=== PATIENT | male | born 1940 | race Caucasian/White ===

== ENCOUNTER → 2018-05-02 | Outpatient (CLI) | payer MEDICARE ==
--- NOTE | 2018-05-02 13:17 | XR ---
EXAMINATION TYPE: XR KUB DATE OF EXAM: 05/02/2018 COMPARISON: 05/18/2012 HISTORY: Pain TECHNIQUE: One view abdominal series FINDINGS: The osseous structures are intact. The bowel gas pattern is nonspecific. Scoliosis and severe multil evel degenerative disc disease noted. Assessment of the renal outlines is limited due to overlying bowel content. No obvious suspicious martin cifications. Postsurgical changes involving the pelvis. Arthropathy of the hips. Calcifications in the pelvis. Sta ble from the prior exam and compatible with vascular phleboliths. IMPRESSION: 1. No definite suspicious calcifications.
== END | disposition home or self-care (01) ==
LOC: RADXRMAIN 12:52
PROVIDERS: ATTEND Urology
DX: N20.1 Calculus of ureter (principal)
CPT/HCPCS: 74018

== ENCOUNTER → 2020-12-29 | Day surgery (SDC) | payer MEDICARE ==
[2020-12-25 15:10] VITALS: BMI 33.4
[~2020-12-29] MED LIST: MIDAZOLAM 2 MG/2 ML VIAL ONE; PROPOFOL 10 MG/ML 20 ML VIAL IV ONE; SODIUM CHLORIDE 0.9% 1,000 ML IV SCH; fentaNYL (PF) 50 MCG/ML 2 ML AMP ONE
[2020-12-29 07:47] VITALS: TEMP 97.7
[2020-12-29 08:09] LABS: African American GFR (CKD) >90 (>60 ml/min/1.73 sqM); Anion Gap 8 mmol/L; Blood Urea Nitrogen 15 mg/dL (9-20); Calcium 9.7 mg/dL (8.4-10.2); Carbon Dioxide 26 mmol/L (22-30); Chloride 101 mmol/L (98-107); Glucose 117 mg/dL (74-99); Non-African American GFR(CKD) 80 (>60 ml/min/1.73 sqM); Potassium 3.9 mmol/L (3.5-5.1); Sodium 135 mmol/L (137-145)
[2020-12-29 09:39] VITALS: RESP 16
--- NOTE | 2020-12-29 09:46 | ECHOT ---
TRANSESOPHAGEAL ECHOCARDIOGRAM INDICATION: Permanent atrial fibrillation, rule out intracardiac thrombus. PROCEDURE NOTE: After obtaining informed consent, transesophageal echocardiogram was performed in left lateral position using an Omniplane probe. Local and IV sedation were obtained by the biomedical instrument technician. The patient tolerated the procedure well without any obvious immediate complications. FINDINGS: 1. Left atrial appendage: There is no thrombosis. 2. Left atrium, right atrium, right ventricle and left ventricle: There is no intracardiac thrombus. 3. Left ventricle appears mildly enlarged with ejection fraction of 50%. Mitral valve appears anatomically normal. There is mild to moderate central mitral regurgitation noted. 4. Aortic valve is a 3-leaflet valve. There is no evidence of aortic stenosis or regurgitation. 5. There is mild tricuspid regurgitation. 6. Interatrial septum: There is no evidence of ucwj-kh-dnnqb shunt by color-flow Doppler or nzmdp-ce-wtpt shunt by agitated saline contrast study. 7. Left atrium appears enlarged. CONCLUSIONS: 1. No intracardiac thrombus. 2. Fxdf-qv-wrdktzna mitral regurgitation. PLAN: The patient will undergo cardioversion. MMODL / IJN: [id number] /
--- NOTE | 2020-12-29 10:45 | CE ---
CARDIAC ELECTROPHYSIOLOGY REPORT CARDIOVERSION NOTE: INDICATION: Permanent atrial fibrillation. PROCEDURE NOTE: After obtaining informed consent, the patient underwent electrical cardioversion and was anesthetized by the hardwood floor installer and was adequately anticoagulated by Eliquis. We performed a DUDLEY and the patient does not have any intracardiac thrombus. Patient underwent a single synchronized 300 joule shock following which he converted to sinus rhythm. PLAN: Patient will have an EKG and will be discharged home on Eliquis and I will decrease the dose of metoprolol to 25 b.i.d. MMODL / IJN: [id number] /
[2020-12-29 11:21] VITALS: BP 107/59; PULSE 49
== END ==
LOC: CATHCVL 07:25
PROVIDERS: ATTEND Internal Medicine Cardiovascular Disease
DX: I48.21 Permanent atrial fibrillation (principal); I08.1 Rheumatic disorders of both mitral and tricuspid valves; I10 Essential (primary) hypertension; E78.2 Mixed hyperlipidemia; Z79.01 Long term (current) use of anticoagulants; Z79.899 Other long term (current) drug therapy; Z72.0 Tobacco use
CPT/HCPCS: 93312; 93320; 93325; 92960; 80048; J2250; J3010; J2704

== ENCOUNTER → 2023-05-24 | Day surgery (SDC) | payer MEDICARE ==
[2023-05-23 16:12] VITALS: BMI 34.0
[~2023-05-24] MED LIST changes: +LACTATED RINGERS 1,000 ML IV ONE; -MIDAZOLAM 2 MG/2 ML VIAL ONE; -SODIUM CHLORIDE 0.9% 1,000 ML IV SCH; -fentaNYL (PF) 50 MCG/ML 2 ML AMP ONE
[2023-05-24 08:26] VITALS: TEMP 97.1
[2023-05-24 08:38] LABS: African American GFR (CKD) >90 (>60 ml/min/1.73 sqM); Anion Gap 10 mmol/L; Blood Urea Nitrogen 17 mg/dL (9-20); Carbon Dioxide 25 mmol/L (22-30); Chloride 99 mmol/L (98-107); Glucose 110 mg/dL (74-99); Non-African American GFR(CKD) 81 (>60 ml/min/1.73 sqM); Potassium 4.6 mmol/L (3.5-5.1); Sodium 134 mmol/L (137-145)
--- NOTE | 2023-05-24 10:05 | ECHOT ---
TRANSESOPHAGEAL ECHOCARDIOGRAM INDICATION: Persistent atrial fibrillation, rule out intracardiac thrombus prior to cardioversion. PROCEDURE NOTE: After obtaining informed consent, transesophageal echocardiogram was performed in left lateral position using an Omniplane probe. Local and IV sedation were obtained by the chip crusher operator. The patient tolerated the procedure well without any obvious immediate complications. FINDINGS: 1. There is an echodense lesion noted within the left atrial appendage suggestive of left atrial appendage thrombus. Left atrium appears enlarged. 2. Right atrium and right ventricle appear enlarged. 3. Left ventricle appears mildly dilated with diffuse global hypokinesis with mild LV dysfunction with an ejection fraction of 45% to 50%. 4. Aortic valve is free of stenosis or regurgitation. There is mild mitral and tricuspid regurgitation noted. 5. Interatrial septum, there is evidence of eyuy-wq-aiisv shunt by color-flow Doppler. No evidence of wxnko-ly-nymy shunt with agitated saline contrast study. CONCLUSION: Left atrial appendage thrombus noted. We are going to cancel the cardioversion at this time. I am going to talk to the patient and his about taking the anticoagulant regularly and we will bring him back in 6 to 8 weeks' time and make another attempt at cardioversion. MMODL / IJN: [id number] /
[2023-05-24 10:11] VITALS: RESP 20
[2023-05-24 10:17] VITALS: BP 139/82; PULSE 62
== END ==
LOC: OR 06:50
PROVIDERS: ATTEND Internal Medicine Cardiovascular Disease
DX: I48.19 Other persistent atrial fibrillation (principal); I23.6 Thrombosis of atrium, auricular appendage, and ventricle as current complications following acute myocardial infarction; I34.0 Nonrheumatic mitral (valve) insufficiency; I36.1 Nonrheumatic tricuspid (valve) insufficiency; I10 Essential (primary) hypertension; E78.2 Mixed hyperlipidemia; I49.9 Cardiac arrhythmia, unspecified; R55 Syncope and collapse; K21.9 Gastro-esophageal reflux disease without esophagitis; Z87.891 Personal history of nicotine dependence; Z79.01 Long term (current) use of anticoagulants; Z79.899 Other long term (current) drug therapy; Z90.79 Acquired absence of other genital organ(s)
CPT/HCPCS: 93312; 93320; 93325; 80048; J2704

== ENCOUNTER 2023-07-11 15:29 | Inpatient (IN) | payer MEDICARE ==
--- NOTE | 2023-07-11 16:09 | ED ---
General Adult HPI - General Source: patient, RN notes reviewed <Arielle Young - Last Filed: 07/11/23 16:02> <Rod Pereira - Last Filed: 07/12/23 00:31> - General Stated complaint: weakness Time Seen by Provider: 07/11/23 16:02 - History of Present Illness Initial comments: 82 year old male presents to the emergency department for chief complaint of lightheadedness, shortness of breath while he was standing pumping gas today. He admits that he is still feeling dizzy. Denies chest pain. Hx of afib which he follows with Dr. Wilcox. He takes Eliquis and asa. (Arielle Young) Patient had presented with dizziness, lightheadedness. This was sudden in onset. Patient does state he took his blood pressure medication at approximately noon. This included both clonidine 0.3 mg and 100 mg Toprol-XL. Denies any pain complaints. Denies vomiting. Denies fever. (Rod Pereira) - Related Data Home Medications Medication Instructions Recorded Confirmed Apixaban [Eliquis] 5 mg PO BID 12/25/20 07/11/23 Esomeprazole Magnesium [NexIUM] 40 mg PO DAILY 12/25/20 07/11/23 Losartan Potassium 100 mg PO DAILY 12/25/20 07/11/23 Niacin 500 mg PO DAILY 12/25/20 07/11/23 [place]-3 Fatty Acids/Fish Oil [Fish 1 cap PO DAILY 12/25/20 07/11/23 Oil 1,000 mg Softgel] Potassium Chloride [Potassium 10 meq PO TID 12/25/20 07/11/23 Chloride ER] Vitamin B Complex 1 cap PO DAILY 12/25/20 07/11/23 hydroCHLOROthiazide 25 mg PO DAILY 12/25/20 07/11/23 Acetaminophen [Tylenol Arthritis] 1,300 mg PO TID 05/23/23 07/11/23 Metoprolol Succinate (ER) [Toprol 100 mg PO DAILY 05/23/23 07/11/23 Xl] Pumpkin Seed Oil 3,000 mg PO TID 05/23/23 07/11/23 Ubidecarenone [Co Q-10] 400 mg PO DAILY 05/23/23 07/11/23 Aspirin EC [Ecotrin] 325 mg PO DAILY 07/11/23 07/11/23 Furosemide [Lasix] 20 mg PO DAILY 07/11/23 07/11/23 Magnesium Oxide [Magox 400] 400 mg PO DAILY 07/11/23 07/11/23 cloNIDine HCL [Catapres] 0.3 mg PO TID 07/11/23 07/11/23 hydrALAZINE HCL [Apresoline] 10 mg PO DAILY PRN 07/11/23 07/11/23 Allergies Allergy/AdvReac Type Severity Reaction Status Date / Time No Known Allergies Allergy Verified 07/11/23 17:31 Review of Systems ROS Other: All systems not noted in ROS Statement are negative. <Arielle Young - Last Filed: 07/11/23 16:02> ROS Other: All systems not noted in ROS Statement are negative. <Rod Pereira - Last Filed: 07/12/23 00:31> ROS Statement: Those systems with pertinent positive or pertinent negative responses have been documented in the HPI. Past Medical History Past Medical History: Atrial Fibrillation, Cancer, GERD/Reflux, Hearing Disorder / Deafness, Hypertension, Osteoarthritis (OA) Additional Past Medical History / Comment(s): Hx prostate cancer 13 yrs ago, hx skin cancer, recent frequent headaches in the morning. Mild hearing loss. History of Any Multi-Drug Resistant Organisms: None Reported Past Surgical History: Prostate Surgery Additional Past Surgical History / Comment(s): Prostatectomy, skin cancer removed, colonoscopy. Past Anesthesia/Blood Transfusion Reactions: No Reported Reaction Past Psychological History: No Psychological Hx Reported Smoking Status: Current every day smoker Past Alcohol Use History: None Reported Additional Past Alcohol Use History / Comment(s): Down from 2ppd to less than 1ppd, started smoking 50-55 yrs ago. Past Drug Use History: None Reported - Past Family History Sister(s) Family Medical History: Cancer Additional Family Medical History / Comment(s): Breast cancer. <Arielle Young - Last Filed: 07/11/23 16:02> General Exam <Arielle Young - Last Filed: 07/11/23 16:02> General appearance: alert, in no apparent distress Head exam: Present: atraumatic, normocephalic Eye exam: Present: normal appearance, PERRL ENT exam: Present: normal exam Neck exam: Present: normal inspection, tenderness. Absent: meningismus Respiratory exam: Present: normal lung sounds bilaterally. Absent: respiratory distress, wheezes Cardiovascular Exam: Present: bradycardia, irregular rhythm GI/Abdominal exam: Present: soft. Absent: distended, tenderness, guarding Extremities exam: Present: normal inspection, normal capillary refill Neurological exam: Present: alert, oriented X3, CN II-XII intact Psychiatric exam: Present: normal affect, normal mood Skin exam: Present: warm, dry, intact, normal color <Rod Pereira N - Last Filed: 07/12/23 00:31> - General Exam Comments Initial Comments: Visual Physical Exam Vital signs reviewed General: Well-appearing, nontoxic, no acute distress. Head: Normocephalic, atraumatic Eyes: PERRLA, EOMI ENT: Airway patent Chest: Nonlabored breathing Skin: No visual rash, normal skin tone Neuro: Alert and oriented 3 Musculoskeletal: No gross abnormalities (Kulka,Arielle) Course <Rod Pereira N - Last Filed: 07/12/23 00:31> Vital Signs 07/11/23 07/11/23 07/11/23 16:04 16:19 16:20 Temperature 98.1 F Pulse Rate 54 L 27 L 26 L Pulse Rate [ Certified Industrial Hygienist ] Respiratory 18 18 18 Rate Blood Pressure 111/65 O2 Sat by Pulse 97 94 L 98 Oximetry 07/11/23 07/11/23 07/11/23 16:29 16:30 16:40 Temperature Pulse Rate 28 L 27 L Pulse Rate [ 26 L Certified Industrial Hygienist ] Respiratory 18 16 Rate Blood Pressure 108/98 110/73 O2 Sat by Pulse 95 95 Oximetry 07/11/23 07/11/23 07/11/23 16:50 17:00 17:15 Temperature Pulse Rate 28 L 26 L 26 L Pulse Rate [ Certified Industrial Hygienist ] Respiratory 16 16 9 L Rate Blood Pressure 110/73 80/59 104/71 O2 Sat by Pulse 95 94 L 96 Oximetry 07/11/23 07/11/23 07/11/23 17:30 17:45 18:00 Temperature Pulse Rate 26 L 29 L 25 L Pulse Rate [ Certified Industrial Hygienist ] Respiratory 11 L 18 16 Rate Blood Pressure 104/71 93/57 O2 Sat by Pulse 95 85 L 92 L Oximetry 07/11/23 07/11/23 07/11/23 18:15 18:30 18:44 Temperature Pulse Rate 24 L 25 L 26 L Pulse Rate [ Certified Industrial Hygienist ] Respiratory 16 16 18 Rate Blood Pressure 98/67 100/48 O2 Sat by Pulse 86 L 88 L Oximetry 07/11/23 07/11/23 07/11/23 18:45 19:00 19:15 Temperature Pulse Rate 26 L 25 L 24 L Pulse Rate [ Certified Industrial Hygienist ] Respiratory 18 16 20 Rate Blood Pressure 96/56 O2 Sat by Pulse 97 94 L 91 L Oximetry 07/11/23 07/11/23 07/11/23 19:30 19:34 19:45 Temperature Pulse Rate 24 L 24 L 23 L Pulse Rate [ Certified Industrial Hygienist ] Respiratory 18 18 20 Rate Blood Pressure 108/60 108/60 O2 Sat by Pulse 98 94 L 93 L Oximetry 07/11/23 07/11/23 07/11/23 20:00 20:15 20:30 Temperature Pulse Rate 23 L 22 L 24 L Pulse Rate [ Certified Industrial Hygienist ] Respiratory 20 20 18 Rate Blood Pressure 122/64 98/82 110/82 O2 Sat by Pulse 78 L 81 L Oximetry 07/11/23 07/11/23 07/11/23 20:45 21:00 21:15 Temperature Pulse Rate 22 L 23 L 23 L Pulse Rate [ Certified Industrial Hygienist ] Respiratory 18 21 20 Rate Blood Pressure 109/98 91/80 110/77 O2 Sat by Pulse 78 L 93 L 95 Oximetry 07/11/23 07/11/23 07/11/23 21:45 22:15 22:30 Temperature Pulse Rate 24 L 22 L 22 L Pulse Rate [ Certified Industrial Hygienist ] Respiratory 18 20 20 Rate Blood Pressure 102/79 147/65 108/79 O2 Sat by Pulse 92 L 100 100 Oximetry 07/11/23 07/11/23 07/11/23 22:56 23:15 23:30 Temperature Pulse Rate 20 L 23 L 21 L Pulse Rate [ Certified Industrial Hygienist ] Respiratory 26 H 20 Rate Blood Pressure 100/50 79/66 98/50 O2 Sat by Pulse 93 L 95 Oximetry - Reevaluation(s) Reevaluation #1: 07/11/231929 I discussed case again with cardiology, Dr. Armstrong regarding the patient's heart rate in the 20s. Recommends continued plan of holding medications. No additional medication at this time. Patient is alert, blood pressure is stable with heart rate in the 20s. (Rod Pereira) Medical Decision Making <Arielle Young - Last Filed: 07/11/23 16:02> - Lab Data Result diagrams: 07/11/23 16:32 07/11/23 16:32 <Rod Pereira - Last Filed: 07/12/23 00:31> - Medical Decision Making I preformed the quick note portion of this chart. Electronically signed by Arielle Young PA-C. (Arielle Young) Was pt. sent in by a medical professional or institution ([facility] Howell, ANALYTICAL STRATEGIST, urgent care, hospital, or penitentiary...) When possible be specific @ -No Did you speak to anyone other than the patient for history (EMS, parent, family, police, friend...)? What history was obtained from this source @ -No Did you review nursing and triage notes (agree or disagree)? Why? @ -I reviewed and agree with nursing and triage notes Were old charts reviewed (outside hosp., previous admission, EMS record, old EKG, old radiological studies, urgent care reports/EKG's, penitentiary records)? Report findings @ -No old charts were reviewed Differential Diagnosis (chest pain, altered mental status, abdominal pain women, abdominal pain men, vaginal bleeding, weakness, fever, dyspnea, syncope, headache, dizziness, GI bleed, back pain, seizure, CVA, palpatations, mental health, musculoskeletal)? @ Differential Palpitations Ventricular arrhythmias, atrial arrhythmias, myocardial infarction, anemia, thyrotoxicosis, electrolyte imbalance, hypokalemia, pulmonary embolism, pulmonary disease, drugs, alcohol, anxiety, stress.... This is not meant to be an all-inclusive list. EKG interpreted by me (3pts min.). @ -Bradycardia rate of 28, wide-complex QRS, right bundle branch block, suspect underlying A. fib with slow ventricular response QRS duration 137, QTC 502. X-rays interpreted by me (1pt min.). @ -[No acute cardiopulmonary findings CT interpreted by me (1pt min.). @ -None done U/S interpreted by me (1pt. min.). @ -None done What testing was considered but not performed or refused? (CT, X-rays, U/S, labs)? Why? @ -None What meds were considered but not given or refused? Why? @ -None Did you discuss the management of the patient with other professionals (professionals i.e. DrFlorentino, PA, ANALYTICAL STRATEGIST, lab, RT, psych nurse, social work associate, eyelet riveter, teacher, security flex officer, piano case maker)? Give summary @ -Dr. Marshall and Dr. Gonzales Was smoking cessation discussed for >3mins.? @ -No Was critical care preformed (if so, how long)? @ -[Yes, 35 minutes Were there social determinants of health that impacted care today? How? (Homelessness, low income, unemployed, alcoholism, drug addiction, transportation, low edu. Level, literacy, decrease access to med. care, custodial, rehab)? @ -No Was there de-escalation of care discussed even if they declined (Discuss DNR or withdrawal of care, Hospice)? DNR status @ -No What co-morbidities impacted this encounter? (DM, HTN, Smoking, COPD, CAD, Cancer, CVA, ARF, Chemo, Hep., AIDS, mental health diagnosis, sleep apnea, morbid obesity)? @ Atrial fibrillation Was patient admitted / discharged? Hospital course, mention meds given and route, prescriptions, significant lab abnormalities, going to OR and other pertinent info. @ -[82-year-old male with dizziness, likely related to bradycardia. Initial heart rate is in the 30s. This appears to be in underlying A. fib with a junctional rhythm. Patient's blood pressure was maintained. He has good color. He is alert. He had taken his metoprolol and clonidine prior to arrival. His electrolytes are within normal limits including a normal potassium. His heart rate medications will be held at this time. He will be monitored on telemetry bed. I did discuss case both with the admitting physician Dr. Marshall and with the field specialist Dr. Gonzales. Undiagnosed new problem with uncertain prognosis? @ -No Drug Therapy requiring intensive monitoring for toxicity (Heparin, Nitro, Insulin, Cardizem)? @ -No Were any procedures done? @ -No Diagnosis/symptom? @ -[Symptomatic bradycardia Acute, or Chronic, or Acute on Chronic? @ - acute r Complicated (systemic symptoms)? @ Complicated Side effects of treatment? @ -No Exacerbation, Progression, or Severe Exacerbation? @ -No Poses a threat to life or bodily function? How? (Chest pain, USA, MA, pneumonia, PE, COPD, DKA, ARF, appy, cholecystitis, CVA, Diverticulitis, Homicidal, Suicidal, threat to staff... and all critical care pts) @ -[Yes, bradycardia, cardiogenic shock (Rod Pereira) - Lab Data Lab Results 07/11/23 07/11/23 07/11/23 Range/Units 16:32 16:32 16:32 WBC 9.5 (3.8-10.6) k/uL RBC 4.93 (4.30-5.90) m/uL Hgb 15.5 (13.0-17.5) gm/dL Hct 45.1 (39.0-53.0) % MCV 91.5 (80.0-100.0) fL MCH 31.5 (25.0-35.0) pg MCHC 34.5 (31.0-37.0) g/dL RDW 12.2 (11.5-15.5) % Plt Count 196 (150-450) k/uL MPV 7.4 Neutrophils % 71 % Lymphocytes % 20 % Monocytes % 5 % Eosinophils % 2 % Basophils % 1 % Neutrophils # 6.7 (1.3-7.7) k/uL Lymphocytes # 1.9 (1.0-4.8) k/uL Monocytes # 0.5 (0-1.0) k/uL Eosinophils # 0.2 (0-0.7) k/uL Basophils # 0.1 (0-0.2) k/uL PT 10.6 (9.0-12.0) sec INR 1.0 (<1.2) APTT 25.6 (22.0-30.0) sec Sodium 135 L (137-145) mmol/L Potassium 3.6 (3.5-5.1) mmol/L Chloride 97 L (98-107) mmol/L Carbon Dioxide 27 (22-30) mmol/L Anion Gap 11 mmol/L BUN 19 (9-20) mg/dL Creatinine 1.34 H (0.66-1.25) mg/dL Est GFR (CKD-EPI)AfAm 58 (>60 ml/min/1.73 sqM) Est GFR (CKD-EPI)NonAf 50 (>60 ml/min/1.73 sqM) Glucose 112 H (74-99) mg/dL Lactic Ac Sepsis Rflx Plasma Lactic Acid Kushal (0.7-2.0) mmol/L Calcium 9.3 (8.4-10.2) mg/dL Magnesium 2.0 (1.6-2.3) mg/dL Total Bilirubin 0.5 (0.2-1.3) mg/dL AST 28 (17-59) U/L ALT 25 (4-49) U/L Alkaline Phosphatase 54 (38-126) U/L Troponin I (0.000-0.034) ng/mL Total Protein 6.9 (6.3-8.2) g/dL Albumin 4.3 (3.5-5.0) g/dL 07/11/23 07/11/23 07/11/23 Range/Units 16:32 16:32 17:39 WBC (3.8-10.6) k/uL RBC (4.30-5.90) m/uL Hgb (13.0-17.5) gm/dL Hct (39.0-53.0) % MCV (80.0-100.0) fL MCH (25.0-35.0) pg MCHC (31.0-37.0) g/dL RDW (11.5-15.5) % Plt Count (150-450) k/uL MPV Neutrophils % % Lymphocytes % % Monocytes % % Eosinophils % % Basophils % % Neutrophils # (1.3-7.7) k/uL Lymphocytes # (1.0-4.8) k/uL Monocytes # (0-1.0) k/uL Eosinophils # (0-0.7) k/uL Basophils # (0-0.2) k/uL PT (9.0-12.0) sec INR (<1.2) APTT (22.0-30.0) sec Sodium (137-145) mmol/L Potassium (3.5-5.1) mmol/L Chloride (98-107) mmol/L Carbon Dioxide (22-30) mmol/L Anion Gap mmol/L BUN (9-20) mg/dL Creatinine (0.66-1.25) mg/dL Est GFR (CKD-EPI)AfAm (>60 ml/min/1.73 sqM) Est GFR (CKD-EPI)NonAf (>60 ml/min/1.73 sqM) Glucose (74-99) mg/dL Lactic Ac Sepsis Rflx Y Plasma Lactic Acid Kushal 2.2 H* (0.7-2.0) mmol/L Calcium (8.4-10.2) mg/dL Magnesium (1.6-2.3) mg/dL Total Bilirubin (0.2-1.3) mg/dL AST (17-59) U/L ALT (4-49) U/L Alkaline Phosphatase (38-126) U/L Troponin I <0.012 (0.000-0.034) ng/mL Total Protein (6.3-8.2) g/dL Albumin (3.5-5.0) g/dL Critical Care Time Critical Care Time: Yes Total Critical Care Time: 35 <Rod Pereira - Last Filed: 07/12/23 00:31> Disposition <Arielle Young - Last Filed: 07/11/23 16:02> Is patient prescribed a controlled substance at d/c from ED?: No Time of Disposition: 18:29 <Rod Pereira - Last Filed: 07/12/23 00:31> Clinical Impression: Symptomatic bradycardia, Heart block AV complete Disposition: ADMITTED IP TO THIS HOSP Condition: Serious
[2023-07-11] MEDS ORDERED: SODIUM CHLORIDE 0.9% 500 ML 500 ML IV ONE (16:31)
[2023-07-11] MEDS: SODIUM CHLORIDE 0.9% 1,000 ML IV SCH (16:39)
[2023-07-11 17:04] LABS: Basophils # (A) 0.1 k/uL (0-0.2); Basophils % (A) 1 %; Eosinophils # (A) 0.2 k/uL (0-0.7); Eosinophils % (A) 2 %; HCT 45.1 % (39.0-53.0); HGB 15.5 gm/dL (13.0-17.5); Lymphocytes # (A) 1.9 k/uL (1.0-4.8); Lymphocytes % (A) 20 %; MCH 31.5 pg (25.0-35.0); MCHC 34.5 g/dL (31.0-37.0); MCV 91.5 fL (80.0-100.0); Mean Platelet Volume 7.4; Monocytes # (A) 0.5 k/uL (0-1.0); Monocytes % (A) 5 %; Neutrophils # (A) 6.7 k/uL (1.3-7.7); Neutrophils % (A) 71 %; Platelet Count 196 k/uL (150-450); RBC 4.93 m/uL (4.30-5.90); RDW 12.2 % (11.5-15.5); WBC 9.5 k/uL (3.8-10.6)
--- NOTE | 2023-07-11 17:06 | XR ---
EXAMINATION TYPE: XR chest 1V portable DATE OF EXAM: 07/11/2023 4:47 PM CLINICAL INDICATION:Male, 82 years old with history of Pain; COMPARISON: None TECHNIQUE: XR chest 1V portable Frontal view of the chest. FINDINGS: Lungs/Pleura: There is no evidence of pleural effusion, focal consolidation, or pneumothorax. Pulmonary vascularity: Unremarkable. Heart/mediastinum: Cardiomediastinal silhouette is enlarged and stable. Atherosclerotic calcificatio ns are seen in the aorta. Musculoskeletal: No acute osseous pathology. IMPRESSION: No acute cardiopulmonary disease/process.
[2023-07-11 17:29] LABS: ALT 25 U/L (4-49); AST 28 U/L (17-59); African American GFR (CKD) 58 (>60 ml/min/1.73 sqM); Albumin 4.3 g/dL (3.5-5.0); Alkaline Phosphatase 54 U/L (38-126); Anion Gap 11 mmol/L; Blood Urea Nitrogen 19 mg/dL (9-20); Calcium 9.3 mg/dL (8.4-10.2); Carbon Dioxide 27 mmol/L (22-30); Chloride 97 mmol/L (98-107); Glucose 112 mg/dL (74-99); Non-African American GFR(CKD) 50 (>60 ml/min/1.73 sqM); Potassium 3.6 mmol/L (3.5-5.1); Sodium 135 mmol/L (137-145); Total Bilirubin 0.5 mg/dL (0.2-1.3); Total Protein 6.9 g/dL (6.3-8.2)
[2023-07-11 17:59] LABS: Partial Thromboplastin Time 25.6 sec (22.0-30.0); Prothrombin Time 10.6 sec (9.0-12.0)
[2023-07-11] MEDS ORDERED: NALOXONE 0.4 MG/ML 1 ML VIAL IV PRN (18:11)
[2023-07-12] MEDS: DOPamine DRIP 800 MG in DEXTROSE/WATER 1 250ML.BAG IV SCH (00:36)
[2023-07-12] MEDS ORDERED: ONDANSETRON 4 MG/2 ML VIAL IVP PRN (01:01)
[2023-07-12 03:45] LABS: Glucose,Whole Blood 135 mg/dL (70-110)
[2023-07-12] MEDS ORDERED: SODIUM CHLORIDE 0.9% 500 ML 500 ML IV ONE (04:30)
--- NOTE | 2023-07-12 05:54 | P.EN ---
CODE BLUE note Activated at 0454. Arrived at the scene shortly after. Reviewed the chart and discussed the case with RN. Also discussed the case with the patient's at the bedside. The patient who had presented yesterday evening with complaints of lightheadedness and low heart rate. He was found to be bradycardic in the emergency room with a pulse rate of 28 on EKG. The patient was planned for pacemaker placement later today. He however developed asystole with a long pause of 32 seconds. He immediately regained consciousness and complained of mild chest tightness and nausea. The patient's heart rate was persistently in the low to mid 20s. Transcutaneous pacing was ordered for the patient. Cardiology was notified and noted the plan for an emergent pacemaker placement.
[2023-07-12] MEDS ORDERED: IV FLUID CONTINUATION 1,000 ML IV ONE (05:59)
[2023-07-12] MEDS ORDERED: LIDOCAINE 1% INJ 10MG/ML (20 ML MDV) ONE (06:04)
[2023-07-12] MEDS ORDERED: LIDOCAINE 1% INJ 10MG/ML (20 ML MDV) SQ ONE (06:10)
--- NOTE | 2023-07-12 06:45 | P.CRDCN ---
History of Present Illness Consult date: 07/12/23 History of present illness: History of Present Illness: The patient is an 82-year-old male, followed at Dr. Wilcox with a history of hypertension and chronic persistent atrial fibrillation who presented to the emergency room with symptoms of dizziness and was noted to be in atrial fibrillation with slow ventricular response. Patient was on metoprolol succinate 100 mg daily in addition to clonidine. Both medications were held but he continued to have significant bradycardia and pauses. He had a syncopal episode a few months ago. In May he was evaluated to undergo cardioversion but his DUDLEY showed left atrial appendage thrombus. His ejection fraction was 45-50% with mild mitral and tricuspid regurgitation. He has underwent cardioversion in December 2020 with mandaen of sinus mechanism at that time the patient is active physically on a regular basis, he has some symptoms of fatigue and shortness of breath but he denies any chest discomfort. He has no PND, orthopnea or peripheral edema. He has no documented history of obstructive coronary artery disease. He has a history of hypertension and chronic tobacco use, he is not diabetic. After admission he was started on IV dopamine but persisted in having pauses and significant symptomatic bradycardia. Medications: Lasix 20 mg daily, aspirin once a day, clonidine 0.3 mg 3 times a day, metoprolol succinate 100 mg daily, losartan 100 mg daily, hydrochlorothiazide 25 mg daily, Eliquis 5 mg twice a day Review of Systems: Respiratory: He has dyspnea on exertion but no recent wheezing, cough GI: No nausea or vomiting . No history of peptic ulcer disease. No recent GI bleed. : No hematuria or dysuria. Nervous System: No stroke or seizure. Physical Examination: 82-year-old male, alert , oriented,Blood pressure 130/70, Heart rate 70 with external pacing Head: Normocephalic. Eyes: Sclerae nonicteric. Neck: Good carotid upstroke, no bruit, no jugular venous distention. Lungs: Clear to auscultation. Heart: Regular rate and rhythm, S1-S2, no S3, no rub. Systolic ejection murmur. Abdomen: Soft nontender, positive bowel sounds no organomegaly. Extremities: No edema, intact distal pulses. Labs: Potassium 3.6, BUN 19, creatinine 1.34. Hemoglobin 15.5. Troponin less than 0.012 EKG: Atrial fibrillation with junctional rate at [address]-T wave changes Impression: 1. Atrial fibrillation with slow ventricular response and long pauses, persistent 2. History of hypertension 3. History of chronic tobacco use 4. History of left atrial appendage thrombus Plan: 1. I have recommended to proceed with temporary pacemaker implantation in view of the persistent symptoms. The procedure as well as the risks and the complications were discussed with him 2. He will be evaluated for permanent pacemaker implantation 3. Continue to hold beta lorraine and clonidine 4. Obtain an echocardiogram Doppler 5. Depending on his progress further recommendations will be made, thank you for this consult we will follow with you. Past Medical History Past Medical History: Atrial Fibrillation, Cancer, GERD/Reflux, Hearing Disorder / Deafness, Hypertension, Osteoarthritis (OA) Additional Past Medical History / Comment(s): Hx prostate cancer 13 yrs ago, hx skin cancer, recent frequent headaches in the morning. Mild hearing loss. History of Any Multi-Drug Resistant Organisms: None Reported Past Surgical History: Prostate Surgery Additional Past Surgical History / Comment(s): Prostatectomy, skin cancer removed, colonoscopy. Past Anesthesia/Blood Transfusion Reactions: No Reported Reaction Past Psychological History: No Psychological Hx Reported Smoking Status: Current every day smoker Past Alcohol Use History: None Reported Additional Past Alcohol Use History / Comment(s): Down from 2ppd to less than 1ppd, started smoking 50-55 yrs ago. Past Drug Use History: None Reported - Past Family History Sister(s) Family Medical History: Cancer Additional Family Medical History / Comment(s): Breast cancer. Medications and Allergies Home Medications Medication Instructions Recorded Confirmed Type Apixaban [Eliquis] 5 mg PO BID 12/25/20 07/11/23 History Esomeprazole Magnesium [NexIUM] 40 mg PO DAILY 12/25/20 07/11/23 History Losartan Potassium 100 mg PO DAILY 12/25/20 07/11/23 History Niacin 500 mg PO DAILY 12/25/20 07/11/23 History Patriot-3 Fatty Acids/Fish Oil [Fish 1 cap PO DAILY 12/25/20 07/11/23 History Oil 1,000 mg Softgel] Potassium Chloride [Potassium 10 meq PO TID 12/25/20 07/11/23 History Chloride ER] Vitamin B Complex 1 cap PO DAILY 12/25/20 07/11/23 History hydroCHLOROthiazide 25 mg PO DAILY 12/25/20 07/11/23 History Acetaminophen [Tylenol Arthritis] 1,300 mg PO TID 05/23/23 07/11/23 History Metoprolol Succinate (ER) [Toprol 100 mg PO DAILY 05/23/23 07/11/23 History Xl] Pumpkin Seed Oil 3,000 mg PO TID 05/23/23 07/11/23 History Ubidecarenone [Co Q-10] 400 mg PO DAILY 05/23/23 07/11/23 History Aspirin EC [Ecotrin] 325 mg PO DAILY 07/11/23 07/11/23 History Furosemide [Lasix] 20 mg PO DAILY 07/11/23 07/11/23 History Magnesium Oxide [Magox 400] 400 mg PO DAILY 07/11/23 07/11/23 History cloNIDine HCL [Catapres] 0.3 mg PO TID 07/11/23 07/11/23 History hydrALAZINE HCL [Apresoline] 10 mg PO DAILY PRN 07/11/23 07/11/23 History Allergies Allergy/AdvReac Type Severity Reaction Status Date / Time No Known Allergies Allergy Verified 07/11/23 17:31 Physical Exam Vitals: Vital Signs Temp Pulse Pulse Resp BP Pulse Ox 07/12/23 03:45 23 L 20 112/60 96 07/12/23 03:00 24 L 21 102/56 92 L 07/12/23 02:45 24 L 22 100/61 95 07/12/23 02:30 25 L 24 121/98 95 07/12/23 02:15 23 L 20 91/56 96 07/12/23 02:00 25 L 20 97/70 100 07/12/23 01:00 30 L 20 100/56 100 07/12/23 00:15 19 L 20 96/48 93 L 07/11/23 23:30 23 L 20 98/50 96 07/11/23 23:15 23 L 26 H 79/66 93 L 07/11/23 22:56 20 L 100/50 07/11/23 22:30 22 L 20 108/79 100 07/11/23 22:15 22 L 20 147/65 100 07/11/23 21:45 24 L 18 102/79 92 L 07/11/23 21:15 23 L 20 110/77 95 07/11/23 21:00 23 L 21 91/80 93 L 07/11/23 20:45 22 L 18 109/98 78 L 07/11/23 20:30 24 L 18 110/82 07/11/23 20:15 22 L 20 98/82 81 L 07/11/23 20:00 23 L 20 122/64 78 L 07/11/23 19:45 23 L 20 108/60 93 L 07/11/23 19:34 24 L 18 108/60 94 L 07/11/23 19:30 24 L 18 98 07/11/23 19:15 24 L 20 91 L 07/11/23 19:00 25 L 16 96/56 94 L 07/11/23 18:45 26 L 18 97 07/11/23 18:44 26 L 18 100/48 07/11/23 18:30 25 L 16 98/67 88 L 07/11/23 18:15 24 L 16 86 L 07/11/23 18:00 25 L 16 93/57 92 L 07/11/23 17:45 29 L 18 85 L 07/11/23 17:30 26 L 11 L 104/71 95 07/11/23 17:15 26 L 9 L 104/71 96 07/11/23 17:00 26 L 16 80/59 94 L 07/11/23 16:50 28 L 16 110/73 95 07/11/23 16:40 27 L 16 110/73 95 07/11/23 16:30 28 L 18 108/98 95 07/11/23 16:29 26 L 07/11/23 16:20 26 L 18 111/65 98 07/11/23 16:19 27 L 18 94 L 07/11/23 16:04 98.1 F 54 L 18 97 Intake and Output 07/11/23 07/11/23 07/12/23 14:59 22:59 06:59 Intake Total 56.485 Balance 56.485 Intake: IV 20 Intake, IV Titration 36.485 Amount DOPamine DRIP 800 mg In 36.485 Dextrose/Water 1 250ml. bag @ 5 MCG/KG/MIN 9.355 mls/hr IV .Q24H [facility] Rx#: [id number] Other: Weight 99.79 kg Results 07/11/23 16:32 07/11/23 16:32 Cardiac Enzymes 07/11/23 07/11/23 07/12/23 Range/Units 16:32 16:32 01:04 AST 28 (17-59) U/L Troponin I <0.012 0.012 (0.000-0.034) ng/mL Coagulation 07/11/23 Range/Units 16:32 PT 10.6 (9.0-12.0) sec APTT 25.6 (22.0-30.0) sec CBC 07/11/23 Range/Units 16:32 WBC 9.5 (3.8-10.6) k/uL RBC 4.93 (4.30-5.90) m/uL Hgb 15.5 (13.0-17.5) gm/dL Hct 45.1 (39.0-53.0) % Plt Count 196 (150-450) k/uL Comprehensive Metabolic Panel 07/11/23 Range/Units 16:32 Sodium 135 L (137-145) mmol/L Potassium 3.6 (3.5-5.1) mmol/L Chloride 97 L (98-107) mmol/L Carbon Dioxide 27 (22-30) mmol/L BUN 19 (9-20) mg/dL Creatinine 1.34 H (0.66-1.25) mg/dL Glucose 112 H (74-99) mg/dL Calcium 9.3 (8.4-10.2) mg/dL AST 28 (17-59) U/L ALT 25 (4-49) U/L Alkaline Phosphatase 54 (38-126) U/L Total Protein 6.9 (6.3-8.2) g/dL Albumin 4.3 (3.5-5.0) g/dL Current Medications Generic Name Dose Route Start Last Admin Trade Name Freq PRN Reason Stop Dose Admin Acetaminophen 650 mg 07/11/23 18:11 Acetaminophen Tab 325 Mg Tab PO Q6HR PRN Mild Pain or Fever > 100.5 Sodium Chloride 1,000 mls @ 75 mls/hr 07/11/23 16:45 07/11/23 16:39 Saline 0.9% IV 75 mls/hr .[id number] TAD Administration Dopamine HCl/Dextrose 800 mg/ 250 mls @ 9.355 mls/hr 07/12/23 00:00 07/12/23 04:30 IV Solution IV 10 mcg/kg/min .Q24H TAD 18.711 mls/hr Titration Protocol 5 MCG/KG/MIN Naloxone HCl 0.2 mg 07/11/23 18:11 Naloxone 0.4 Mg/Ml 1 Ml Vial IV Q2M PRN Opioid Reversal Ondansetron HCl 4 mg 07/12/23 01:01 07/12/23 01:30 Ondansetron 4 Mg/2 Ml Vial IVP 4 mg Q6HR PRN Administration Nausea And Vomiting Intake and Output 07/11/23 07/11/23 07/12/23 14:59 22:59 06:59 Intake Total 56.485 Balance 56.485 Intake: IV 20 Intake, IV Titration 36.485 Amount DOPamine DRIP 800 mg In 36.485 Dextrose/Water 1 250ml. bag @ 5 MCG/KG/MIN 9.355 mls/hr IV .Q24H [facility] Rx#: [id number] Other: Weight 99.79 kg Patient Weight 07/12/23 06:59 Weight 99.79 kg 07/11/23 16:32 07/11/23 16:32
--- NOTE | 2023-07-12 06:48 | P.PCN ---
Date of Procedure: 07/12/23 Description of Procedure: Temporary pacemaker: Indication: Atrial fibrillation with slow ventricular response and pauses Procedure: After explaining the procedure to the patient as well is the risks and the complications using Xylocaine anesthesia in the Seldinger technique and using a micropuncture catheter the right femoral vein was cannulated and subsequently exchanged to a 6-Frisian sheath. Subsequently a balloon tip 6-Frisian temporary pacemaker wire was introduced to the right ventricle, pacing parameters were obtained. The pacer was set at 70 bpm with 5 amp amplitude. The external pacemaker and dopamine were turned off. There was no immediate complications. The patient will be evaluated for the placement of permanent pacemaker.
[2023-07-12] MEDS: SODIUM CHLORIDE 0.9% 1,000 ML IV SCH ×4 (07:08→17:43)
[2023-07-12 07:30] LABS: Basophils % (A) 0 %; Eosinophils % (A) 1 %; HGB 13.7 gm/dL (13.0-17.5); Lymphocytes # (A) 0.7 k/uL (1.0-4.8); Lymphocytes % (A) 7 %; MCH 32.2 pg (25.0-35.0); MCHC 35.2 g/dL (31.0-37.0); MCV 91.5 fL (80.0-100.0); Mean Platelet Volume 7.5; Monocytes # (A) 0.3 k/uL (0-1.0); Monocytes % (A) 4 %; Neutrophils # (A) 8.6 k/uL (1.3-7.7); Neutrophils % (A) 89 %; Platelet Count 169 k/uL (150-450); RBC 4.27 m/uL (4.30-5.90); RDW 12.3 % (11.5-15.5); WBC 9.7 k/uL (3.8-10.6)
[2023-07-12 07:51] LABS: ALT 23 U/L (4-49); AST 24 U/L (17-59); African American GFR (CKD) 48 (>60 ml/min/1.73 sqM); Albumin 3.5 g/dL (3.5-5.0); Alkaline Phosphatase 43 U/L (38-126); Anion Gap 9 mmol/L; Blood Urea Nitrogen 24 mg/dL (9-20); Calcium 8.5 mg/dL (8.4-10.2); Carbon Dioxide 25 mmol/L (22-30); Chloride 101 mmol/L (98-107); Glucose 123 mg/dL (74-99); Non-African American GFR(CKD) 41 (>60 ml/min/1.73 sqM); Sodium 135 mmol/L (137-145); Total Bilirubin 0.6 mg/dL (0.2-1.3); Total Protein 5.8 g/dL (6.3-8.2)
--- NOTE | 2023-07-12 13:43 | CA ---
Transthoracic Echo Report Name: Dirk Vaughan Age: 82 Gender: M : 1940 Exam Date: 07/12/2023 09:20 Exam Location: [facility] Ht (in): 68 Wt (lb): 220 Ordering Physician: Rod Pereira MD Attending/Referring Phys: [id number], Randall Armhole Sewer Elio Juanjo Procedure CPT: Indications: Bradycardia Cardiac Hx: Technical Quality: Technically difficult study Contrast 1: Lumason Total Dose (mL): 5 Contrast 2: Total Dose (mL): MEASUREMENTS (Male / Female) Normal Values 2D ECHO LV Diastolic Diameter PLAX 5.0 cm 4.2 - 5.9 / 3.9 - 5.3 cm LV Systolic Diameter PLAX 4.0 cm IVS Diastolic Thickness 1.4 cm 0.6 - 1.0 / 0.6 - 0.9 cm LVPW Diastolic Thickness 1.3 cm 0.6 - 1.0 / 0.6 - 0.9 cm LV Relative Wall Thickness 0.5 RV Internal Dim ED PLAX 2.1 cm LV Diastolic Volume MOD BP 81.6 cm??? 67 - 155 / 56 - 104 cm??? LV Systolic Volume MOD BP 40.1 cm??? 22 - 58 / 19 - 49 cm??? LV Ejection Fraction MOD BP 50.9 % >= 55 % LV Cardiac Index MOD BP 1290.2 cm???/min???m??? LV Diastolic Volume MOD 4C 90.9 cm??? LV Systolic Volume MOD 4C 43.9 cm??? LV Ejection Fraction MOD 4C 51.7 % LV Cardiac Index MOD 4C 1460.4 cm???/min???m??? LV Diastolic Length 4C 8.2 cm LV Systolic Length 4C 7.4 cm LV Diastolic Volume MOD 2C 71.5 cm??? LV Systolic Volume MOD 2C 36.8 cm??? LV Ejection Fraction MOD 2C 48.6 % LV Cardiac Index MOD 2C 1078.7 cm???/min???m??? LV Diastolic Length 2C 7.9 cm LV Systolic Length 2C 7.4 cm FINDINGS Left Ventricle Normal LV size. Mild to moderate concentric LVH. Left ventricular ejection fraction is estimated at 45-50 %. Right Ventricle Right Atrium Left Atrium Mitral Valve Aortic Valve Tricuspid Valve Pulmonic Valve Pericardium Aorta CONCLUSIONS Mildly reduced LV systolic function Left ventricle hypertrophy Previewed by: Dr. Johnnie Peoples MD (Electronically Signed) Final Date: 12 July 2023 13:42
[2023-07-12] MEDS ORDERED: ceFAZolin 1 GM in SODIUM CHLORIDE 0.9% IRRIG BTL 250 ML IRRIGATION PRN (13:46)
[2023-07-12] MEDS ORDERED: IOPAMIDOL-370 100ML BTL INJ ONE (15:05)
[2023-07-12] MEDS ORDERED: IV FLUID CONTINUATION 300 ML IV ONE (15:06)
[2023-07-12] MEDS: MIDAZOLAM 2 MG/2 ML VIAL IVP ONE ×2 (15:47→15:55)
[2023-07-12] MEDS: fentaNYL (PF) 50 MCG/ML 2 ML AMP IVP ONE ×2 (15:47→15:55)
[2023-07-12] MEDS ORDERED: LIDOCAINE 1% INJ 10MG/ML (30 ML VIAL-PF) SQ ONE (15:49)
--- NOTE | 2023-07-12 16:57 | P.PCN ---
Description of Procedure: CARDIOLOGY PROCEDURE NOTE Occupational Therapy Manager: Dr. Thom Gonzales HPI: Patient is a pleasant 82-year-old male with history of persistent atrial fibrillation on metoprolol who has been having occasional Afib with RVR episodes and requires Metoprolol to control the A. fib. He presented with some atypical chest pain and lightheadedness and was found have severe bradycardia heart rates into the 20s and 30s. Patient additionally had a long pause if 32 seconds and therefore TVP was placed. He believes occasionally he still goes into sinus rhythm and therefore dual chamber permanent pacemaker was recommended. Procedure performed: Insertion dual chamber permanent pacemaker Site: Left subclavian Indications: Sick Sinus Syndrome, tachybrady syndrome, 32 second pause Complications: None Blood Loss: Minimal Description of Procedure: After the risks, benefits, and alternatives of the above-mentioned procedure was explained in detail with the patient, informed consent was obtained. The patient was taken to the cardiac catheterization suite where the left subclavian area was sterily prepped and draped in the usual fashion. One percent lidocaine was used to anesthetize the left subclavian area. Twenty milliliters of Isoview 370 contrast was injected into the left antecubital vein to allow for direct visualization of the left subclavian vein under fluoroscopy. A 1.5 inch incision was made utilizing a #15 blade in the left subclavian site. Hemostasis was made complete. Electrocautery along with digital blunt dissection was utilized to dissect to the level of the pectoralis muscle fascia and create a pocket large enough to accommodate the generator. A thin walled micro puncuture needle was used to cannulate the left subclavian vein. A guide-wire was inserted through the needle into the vascular lumen under fluoroscopic guidance. The needle was removed. Another thin walled micr puncture needle was used to again cannulate the left subclavian vein. A guide-wire was inserted through the needle into the vascular lumen under fluoroscopic guidance. The needle was removed and both guide-wires were attached to the field. A venous sheath and dilator were advanced over the guidewire into the vascular lumen under fluoroscopic guidance. The dilator and guidewire were then removed. A right ventricular bipolar lead wa s inserted into the sheath and advanced under fluoroscopic guidance into the right ventricle under fluoroscopic guidance. Adequate sensing and pacing thresholds were achieved and the lead was screwed into place in the RV apex. The sheath was then torn away. The lead collar was advanced and anchored into place utilizing #0 silk suture. Next, another venous sheath and dilator were advanced under fluoroscopic guidance into the vascular lumen over the guidewire. After removal of the dilator and guidewire, a right atrial bipolar lead was inserted into this sheath and advanced under fluoroscopic guidance into the right atrium. The lead was positioned into the right atrial appendage. Adequate sensing and pacing thresholds were then achieved with patient being in Aflutter at the time and the lead was screwed into place. The sheath was then torn away. The lead collar was advanced and anchored into place utilizing #0 silk suture. The leads were then inserted into the appropriate position into the generator. They were then secured with the setscrew provided. The leads and generator were inserted into the pocket with the leads posterior. The subcutaneous tissue was approximated utilizing #2.0 and 3.0 vicryl in an interrupted stitch fashion. The dermal layer was approximated utilizing #4.0 vicryl. The area was cleansed with sterile saline and dried. A sterile 4x4 dressing was applied and the patient was transferred to the post catheterization holding area in stable and satisfactory condition. The patient tolerated the procedure well. Generator Data Senior Software Engineer: [employer] Brand: [id number] [place] XT DR MRI Model #: [id number] Serial#: [id number] Right Atrial Bipolar Lead Data: Type: Active fixation lead Senior Software Engineer: [employer] Model#: 5076-52 Serial Number: [id number] Right Ventricular Bipolar Lead Data: Type: Active fixation lead Senior Software Engineer: [employer] Model #: 5076-58 Serial #: [id number] Stimulation Thresholds: Right atrial bipolar lead pacing and sensing thresholds Voltage: Afib Impedance: 969 ohms P-wave sensin.6 mV Right Ventricular bipolar lead pacing and sensing thresholds Pulse Width: 0.4ms Voltage: 0.75 volts Impedance: 703 ohms R-wave sensin.3 mV Parameter Setting: Pacing mode is AAI<=>DDD Lower rate 60 bpm Upper rate 130 bpm Impressions: 1. Successful implantation of a dual chamber permanent pacemaker in the left pectoral site. Plan: 1. Routine post procedure care will be instituted as well as outpatient follow- up surveillance.
--- NOTE | 2023-07-12 19:46 | P.HPIM ---
History of Present Illness H&P Date: 07/12/23 Chief Complaint: Dizziness and lightheadedness Patient is a 82-year-old male with a known history of atrial fibrillation on anticoagulation with Eliquis, history of left atrial appendage thrombus, hypertension, GERD and osteoarthritis as well as hearing disorder/deafness and currently everyday smoker presents to ER with complaints of dizziness and lightheadedness started while he was standing and pumping gas. Patient had another episode while he was in the car and felt very weak. Patient's checked his pulse and was noted to be at 30. Patient came to ER for further evaluation. Otherwise patient did take his blood pressure medications. Denies any cough or sputum production. No nausea vomiting or diarrhea. No chest pain or shortness of breath. Today morning CODE BLUE was called due to patient being bradycardic with heart rate of*28. Later patient went into asystolic and had a long pause of 32 seconds. Patient immediately regained consciousness and complained of chest tightness and mild nausea. Cardiology was consulted and patient was placed on temporary cutaneous pacemaker. Laboratory data showed WBC 9.5 hemoglobin 15.5 and platelets 196 Sodium 135 potassium 3.6 chloride 97 bicarb is 27 BUN 19 and creatinine 1.34 and blood sugar 112 and lactic acid 2.2 liver enzymes are elevated troponin x1 negative. TSH 0.735 Chest x-ray showed no acute cardiopulmonary process. EKG showed A-fib with heart rate 28 and right bundle branch block. Review of Systems Constitutional: Patient denies any fever or chills . no Generalized weakness. Abdomen: Patient denied any nausea or vomiting or abd. pain Cardiovascular: Patient denies any chest pain or short of breath no palpitations. Respiratory: patient denied any cough . no sputum production. No shortness of breath Neurologic: Patient denied any numbness or tingling headache. Patient was complaining of dizziness and lightheadedness. Musculoskeletal: Patient denies any complaints of joint swelling or deformity. Skin: Negative Psychiatric: Negative Endocrine: No heat or cold intolerance. No recent weight gain. Genitourinary: No dysuria or hematuria. All other 14 point ROS negative except the above Past Medical History Past Medical History: Atrial Fibrillation, Cancer, GERD/Reflux, Hearing Disorder / Deafness, Hypertension, Osteoarthritis (OA) Additional Past Medical History / Comment(s): Hx prostate cancer 13 yrs ago, hx skin cancer, recent frequent headaches in the morning. Mild hearing loss. History of Any Multi-Drug Resistant Organisms: None Reported Past Surgical History: Prostate Surgery Additional Past Surgical History / Comment(s): Prostatectomy, skin cancer removed, colonoscopy. Past Anesthesia/Blood Transfusion Reactions: No Reported Reaction Past Psychological History: No Psychological Hx Reported Smoking Status: Current every day smoker Past Alcohol Use History: None Reported Additional Past Alcohol Use History / Comment(s): Down from 2ppd to less than 1ppd, started smoking 50-55 yrs ago. Past Drug Use History: None Reported - Past Family History Sister(s) Family Medical History: Cancer Additional Family Medical History / Comment(s): Breast cancer. Medications and Allergies Home Medications Medication Instructions Recorded Confirmed Type Apixaban [Eliquis] 5 mg PO BID 12/25/20 07/11/23 History Esomeprazole Magnesium [NexIUM] 40 mg PO DAILY 12/25/20 07/11/23 History Losartan Potassium 100 mg PO DAILY 12/25/20 07/11/23 History Niacin 500 mg PO DAILY 12/25/20 07/11/23 History [place]-3 Fatty Acids/Fish Oil [Fish 1 cap PO DAILY 12/25/20 07/11/23 History Oil 1,000 mg Softgel] Potassium Chloride [Potassium 10 meq PO TID 12/25/20 07/11/23 History Chloride ER] Vitamin B Complex 1 cap PO DAILY 12/25/20 07/11/23 History hydroCHLOROthiazide 25 mg PO DAILY 12/25/20 07/11/23 History Acetaminophen [Tylenol Arthritis] 1,300 mg PO TID 05/23/23 07/11/23 History Metoprolol Succinate (ER) [Toprol 100 mg PO DAILY 05/23/23 07/11/23 History Xl] Pumpkin Seed Oil 3,000 mg PO TID 05/23/23 07/11/23 History Ubidecarenone [Co Q-10] 400 mg PO DAILY 05/23/23 07/11/23 History Aspirin EC [Ecotrin] 325 mg PO DAILY 07/11/23 07/11/23 History Furosemide [Lasix] 20 mg PO DAILY 07/11/23 07/11/23 History Magnesium Oxide [Magox 400] 400 mg PO DAILY 07/11/23 07/11/23 History cloNIDine HCL [Catapres] 0.3 mg PO TID 07/11/23 07/11/23 History hydrALAZINE HCL [Apresoline] 10 mg PO DAILY PRN 07/11/23 07/11/23 History Allergies Allergy/AdvReac Type Severity Reaction Status Date / Time No Known Allergies Allergy Verified 07/11/23 17:31 Physical Exam Vitals: Vital Signs Temp Pulse Pulse Resp BP Pulse Ox 07/12/23 05:45 70 21 167/96 100 07/12/23 05:30 70 22 139/98 95 07/12/23 05:15 38 L 20 187/89 97 07/12/23 05:00 50 L 19 99 07/12/23 04:45 46 L 18 137/75 99 07/12/23 03:45 23 L 20 112/60 96 07/12/23 03:00 24 L 21 102/56 92 L 07/12/23 02:45 24 L 22 100/61 95 07/12/23 02:30 25 L 24 121/98 95 07/12/23 02:15 23 L 20 91/56 96 07/12/23 02:00 25 L 20 97/70 100 07/12/23 01:00 30 L 20 100/56 100 07/12/23 00:15 19 L 20 96/48 93 L 07/11/23 23:30 23 L 20 98/50 96 07/11/23 23:15 23 L 26 H 79/66 93 L 07/11/23 22:56 20 L 100/50 07/11/23 22:30 22 L 20 108/79 100 07/11/23 22:15 22 L 20 147/65 100 07/11/23 21:45 24 L 18 102/79 92 L 07/11/23 21:15 23 L 20 110/77 95 07/11/23 21:00 23 L 21 91/80 93 L 07/11/23 20:45 22 L 18 109/98 78 L 07/11/23 20:30 24 L 18 110/82 07/11/23 20:15 22 L 20 98/82 81 L 07/11/23 20:00 23 L 20 122/64 78 L 07/11/23 19:45 23 L 20 108/60 93 L 07/11/23 19:34 24 L 18 108/60 94 L 07/11/23 19:30 24 L 18 98 07/11/23 19:15 24 L 20 91 L 07/11/23 19:00 25 L 16 96/56 94 L 07/11/23 18:45 26 L 18 97 07/11/23 18:44 26 L 18 100/48 07/11/23 18:30 25 L 16 98/67 88 L 07/11/23 18:15 24 L 16 86 L 07/11/23 18:00 25 L 16 93/57 92 L 07/11/23 17:45 29 L 18 85 L 07/11/23 17:30 26 L 11 L 104/71 95 07/11/23 17:15 26 L 9 L 104/71 96 07/11/23 17:00 26 L 16 80/59 94 L 07/11/23 16:50 28 L 16 110/73 95 07/11/23 16:40 27 L 16 110/73 95 07/11/23 16:30 28 L 18 108/98 95 07/11/23 16:29 26 L 07/11/23 16:20 26 L 18 111/65 98 07/11/23 16:19 27 L 18 94 L 07/11/23 16:04 98.1 F 54 L 18 97 Intake and Output 07/11/23 07/12/23 07/12/23 22:59 06:59 14:59 Intake Total 325.144 75 Balance 325.144 75 Intake: IV 245 75 Sodium Chloride 0.9% 1, 225 75 000 ml @ 75 mls/hr IV . [id number] [facility] Rx#:[id number] Intake, IV Titration 80.144 Amount DOPamine DRIP 800 mg In 80.144 Dextrose/Water 1 250ml. bag @ 5 MCG/KG/MIN 9.355 mls/hr IV .Q24H [facility] Rx#: [id number] Other: Weight 99.79 kg 100.5 kg PHYSICAL EXAMINATION: Patient is lying in the bed comfortably, no acute distress, awake alert and oriented.. HEENT: Normocephalic. Neck is supple. Pupils reactive. Nostrils clear. Oral cavity is moist. Neck reveals no JVD, carotid bruits, or thyromegaly. CHEST EXAMINATION: Trachea is central. Symmetrical expansion. Lung jones clear to auscultation and percussion. CARDIAC: Normal S1, S2 with no gallops. No murmurs ABDOMEN: Soft. Bowel sounds present. Nontender. No organomegaly. No abdominal bruits. Extremities: reveal no edema. No clubbing or cyanosis Neurologically awake, alert, oriented x3 with well-coordinated movements. No focal deficits noted Skin: No rash or skin lesions. Psychiatric: Coperative. Nonsuicidal, Musculoskeletal: No joint swelling or deformity. Normal range of motion. Results CBC & Chem 7: 07/12/23 07:18 07/12/23 07:18 Labs: Abnormal Lab Results - Last 24 Hours (Table) 07/11/23 07/11/23 07/11/23 Range/Units 16:32 16:32 20:18 RBC (4.30-5.90) m/uL Neutrophils # (1.3-7.7) k/uL Lymphocytes # (1.0-4.8) k/uL Sodium 135 L (137-145) mmol/L Chloride 97 L (98-107) mmol/L BUN (9-20) mg/dL Creatinine 1.34 H (0.66-1.25) mg/dL Glucose 112 H (74-99) mg/dL POC Glucose (mg/dL) (70-110) mg/dL Plasma Lactic Acid Kushal 2.2 H* 2.1 H* (0.7-2.0) mmol/L Total Protein (6.3-8.2) g/dL 07/12/23 07/12/23 07/12/23 Range/Units 03:43 07:18 07:18 RBC 4.27 L (4.30-5.90) m/uL Neutrophils # 8.6 H (1.3-7.7) k/uL Lymphocytes # 0.7 L (1.0-4.8) k/uL Sodium 135 L (137-145) mmol/L Chloride (98-107) mmol/L BUN 24 H (9-20) mg/dL Creatinine 1.57 H (0.66-1.25) mg/dL Glucose 123 H (74-99) mg/dL POC Glucose (mg/dL) 135 H (70-110) mg/dL Plasma Lactic Acid Kushal (0.7-2.0) mmol/L Total Protein 5.8 L (6.3-8.2) g/dL Thrombosis Risk Factor Assmnt - DVT/VTE Prophylaxis DVT/VTE Prophylaxis: Mechanical Prophylaxis ordered Assessment and Plan Assessment: Symptomatic bradycardia Atrial fibrillation with slow ventricular response and long pauses Acute kidney injury likely prerenal. Creatinine 1.34 on admission baseline 0.8 Lactic acidosis 2.2 Hypovolemic hyponatremia Hypertension History of left atrial appendage thrombus Osteoarthritis Hearing disorder/deafness GERD/reflux Currently everyday smoker DVT prophylaxis with SCDs. Plan: Patient will be continued on telemetry monitoring. Was placed on cutaneous pacemaker placement. Continue with IV hydration with normal saline follow-up renal function. Metoprolol and clonidine is on hold due to bradycardia. Lasix and losartan is also on hold due to acute kidney. Patient was started on dopamine drip and cardiology is on board. Planning for permanent pacemaker placement today. Eliquis will be restarted back once cleared by cardiology after procedure Discussed with the patient and his at bedside in detail. Time with Patient: Greater than 30
[2023-07-12] MEDS: ACETAMINOPHEN TAB 325 MG TAB PO PRN (20:56)
[2023-07-12] MEDS ORDERED: ACETAMINOPHEN TAB 325 MG TAB PO PRN (22:20)
--- NOTE | 2023-07-12 22:47 | XR ---
EXAMINATION TYPE: XR chest 1V portable DATE OF EXAM: 07/12/2023 CLINICAL HISTORY: Lead placement check. TECHNIQUE: Single AP portable upright view of the chest is obtained. COMPARISON: Chest x-ray from one day earlier FINDINGS: There is a new dual-lead pacemaker with leads overlying the right atrium and right ventric le. Stable mild cardiomegaly with atherosclerotic and ectatic thoracic aorta. Lungs remain grossly cl ear without pneumothorax. Osseous structures are intact. IMPRESSION: As above.
[2023-07-13] MEDS: DOPamine DRIP 800 MG in DEXTROSE/WATER 1 250ML.BAG IV SCH (03:25)
[2023-07-13] MEDS: SODIUM CHLORIDE 0.9% 1,000 ML IV SCH ×3 (03:26→14:27)
[2023-07-13] MEDS: PANTOPRAZOLE 40 MG TABLET PO SCH (05:52)
[2023-07-13 06:25] LABS: African American GFR (CKD) 78 (>60 ml/min/1.73 sqM); Anion Gap 7 mmol/L; Blood Urea Nitrogen 18 mg/dL (9-20); Calcium 8.7 mg/dL (8.4-10.2); Carbon Dioxide 28 mmol/L (22-30); Chloride 102 mmol/L (98-107); Glucose 102 mg/dL (74-99); Non-African American GFR(CKD) 67 (>60 ml/min/1.73 sqM); Potassium 3.5 mmol/L (3.5-5.1); Sodium 137 mmol/L (137-145)
[2023-07-13] MEDS ORDERED: ceFAZolin 1 GM in SODIUM CHLORIDE 0.9% IRRIG BTL 250 ML IRRIGATION PRN (07:00)
[2023-07-13] MEDS ORDERED: METOPROLOL SUCCINATE (ER) 100 MG TAB.ER.24H PO SCH (09:00)
--- NOTE | 2023-07-13 14:44 | P.PN ---
Subjective Progress Note Date: 07/13/23 History of Present Illness: The patient is an 82-year-old male, followed at Dr. Wilcox with a history of hy pertension and chronic persistent atrial fibrillation who presented to the emergency room with symptoms of dizziness and was noted to be in atrial fibrillation with slow ventricular response. Patient was on metoprolol succinate 100 mg daily in addition to clonidine. Both medications were held but he continued to have significant bradycardia and pauses. He had a syncopal episode a few months ago. In May he was evaluated to undergo cardioversion but his DUDLEY showed left atrial appendage thrombus. His ejection fraction was 45-50% with mild mitral and tricuspid regurgitation. He has underwent cardioversion in December 2020 with zoroastrianism of sinus mechanism at that time the patient is active physically on a regular basis, he has some symptoms of fatigue and shortness of breath but he denies any chest discomfort. He has no PND, orthopnea or peripheral edema. He has no documented history of obstructive coronary artery disease. He has a history of hypertension and chronic tobacco use, he is not diabetic. After admission he was started on IV dopamine but persisted in having pauses and significant symptomatic bradycardia. Medications: Lasix 20 mg daily, aspirin once a day, clonidine 0.3 mg 3 times a day, metoprolol succinate 100 mg daily, losartan 100 mg daily, hydrochlorothiazi de 25 mg daily, Eliquis 5 mg twice a day 07/13 Patient is status post permanent pacemaker. Chest x-ray doesn't show any evidence of pneumothorax. Physical Examination: 82-year-old male, alert , oriented,Blood pressure 130/70, Heart rate 70 with external pacing Head: Normocephalic. Eyes: Sclerae nonicteric. Neck: Good carotid upstroke, no bruit, no jugular venous distention. Lungs: Clear to auscultation. Heart: irregular and rhythm, S1-S2, no S3, no rub. Systolic ejection murmur. Abdomen: Soft nontender, positive bowel sounds no organomegaly. Extremities: No edema, intact distal pulses. Atrial fibrillation with slow ventricular response and long pauses, s/p PPM Heart failure with mildly reduced EF, chronic History of hypertension History of chronic tobacco use History of left atrial appendage thrombus Plan: Resume Eliquis 5 mg twice a day. Donot resume aspirin. Continue metoprolol succinate 100 mg daily Start losartan 50 mg daily, Lasix 20 mg daily. Uptitrated losartan to 100 mg daily if blood pressure tolerates. If still hypertensive, without spinal lactone because of cardiomyopathy. We will resume clonidine. Okay to transfer out of ICU Objective - Vital Signs Vital signs: Vital Signs Temp 98 F 07/13/23 12:00 Pulse 61 07/13/23 12:00 Resp 15 07/13/23 12:00 BP 129/84 07/13/23 12:00 Pulse Ox 96 07/13/23 12:00 FiO2 Intake & Output 07/12/23 07/13/23 07/13/23 18:59 06:59 18:59 Intake Total 725 1050 75 Output Total 400 150 Balance 325 900 75 Weight 100.5 kg 108.1 kg Intake: IV 725 900 75 Sodium Chloride 0.9% 1, 675 900 75 000 ml @ 75 mls/hr IV . [id number] [facility] Rx#:[id number] Oral 150 Output: Urine 400 150 Other: Voiding Method Urinal Urinal # Voids 1 1 - Labs CBC & Chem 7: 07/12/23 07:18 07/13/23 05:58 Labs: Abnormal Lab Results - Last 24 Hours (Table) 07/13/23 Range/Units 05:58 Glucose 102 H (74-99) mg/dL
[2023-07-13] MEDS ORDERED: LOSARTAN 50 MG TAB PO SCH (14:45)
[2023-07-13] MEDS: FUROSEMIDE 20 MG TAB PO SCH (15:38)
[2023-07-13] MEDS ORDERED: CALCIUM CARBONATE 500 MG CHEWABLE PO PRN (21:27)
[2023-07-13] MEDS: APIXABAN 5 MG TAB PO SCH (21:35)
[2023-07-13] MEDS: ACETAMINOPHEN TAB 325 MG TAB PO PRN (21:38)
--- NOTE | 2023-07-13 23:29 | P.PN ---
Subjective Patient is a 82-year-old male with a known history of atrial fibrillation on anticoagulation with Eliquis, history of left atrial appendage thrombus, hypertension, GERD and osteoarthritis as well as hearing disorder/deafness and currently everyday smoker presents to ER with complaints of dizziness and lightheadedness started while he was standing and pumping gas. Patient had another episode while he was in the car and felt very weak. Patient's checked his pulse and was noted to be at 30. Patient came to ER for further evaluation. Otherwise patient did take his blood pressure medications. Denies any cough or sputum production. No nausea vomiting or diarrhea. No chest pain or shortness of breath. Today morning CODE BLUE was called due to patient being bradycardic with heart rate of*28. Later patient went into asystolic and had a long pause of 32 seconds. Patient immediately regained consciousness and complained of chest ti ghtness and mild nausea. Cardiology was consulted and patient was placed on temporary cutaneous pacemaker. Laboratory data showed WBC 9.5 hemoglobin 15.5 and platelets 196 Sodium 135 potassium 3.6 chloride 97 bicarb is 27 BUN 19 and creatinine 1.34 and blood sugar 112 and lactic acid 2.2 liver enzymes are elevated troponin x1 negative. TSH 0.735 Chest x-ray showed no acute cardiopulmonary process. EKG showed A-fib with heart rate 28 and right bundle branch block. 07/13/2023 This is a pleasant 82 years old male who presents with sick sinus syndrome status post permanent pacemaker. Patient is postop day #1. Patient generally feeling well today. His lightheadedness is improving. He denies dyspnea or chest pain. he Is not on IV drip of dopamine or normal saline His currently resume his home dose of Eliquis 5 mg, metoprolol 100 mg, added losartan 50 mg and Lasix 20 mg daily. His creatinine did improve to 1.0. Ejection fraction 45-50%. We'll discharge in 24-48 hours if cleared by cardiology team Objective - Vital Signs Vital signs: Vital Signs Temp 97.8 F 07/13/23 04:00 Pulse 60 07/13/23 07:00 Resp 15 07/13/23 07:00 BP 195/98 07/13/23 07:00 Pulse Ox 97 07/13/23 07:00 FiO2 Intake & Output 07/12/23 07/13/23 07/13/23 18:59 06:59 18:59 Intake Total 725 1050 75 Output Total 400 150 Balance 325 900 75 Weight 100.5 kg 108.1 kg Intake: IV 725 900 75 Sodium Chloride 0.9% 1, 675 900 75 000 ml @ 75 mls/hr IV . [id number] [facility] Rx#:[id number] Oral 150 Output: Urine 400 150 Other: Voiding Method Urinal Urinal # Voids 1 1 - Exam GENERAL: The patient is alert and oriented x3, not in any acute distress. Well developed, well nourished. HEENT: Pupils are round and equally reacting to light. EOMI. No scleral icterus. No conjunctival pallor. Normocephalic, atraumatic. No pharyngeal erythema. No thyromegaly. CARDIOVASCULAR: S1 and S2 present. No murmurs, rubs, or gallops. PULMONARY: Chest is clear to auscultation, no wheezing , no crackles. ABDOMEN: Soft, nontender, nondistended, normoactive bowel sounds. No palpable organomegaly. MUSCULOSKELETAL: No joint swelling or deformity. EXTREMITIES: No cyanosis, clubbing, or pedal edema. NEUROLOGICAL: Gross neurological examination did not reveal any focal deficits. SKIN: No rashes. no petechiae. - Labs CBC & Chem 7: 07/12/23 07:18 07/13/23 05:58 Labs: Abnormal Lab Results - Last 24 Hours (Table) 07/13/23 Range/Units 05:58 Glucose 102 H (74-99) mg/dL Assessment and Plan Assessment: 6 and a syndrome status post permanent pacemaker Blood pressure and controlled on admission A. fib with slow ventricular rate on liquids Acute kidney injury, improved Mild hypernatremia improving Mild cardiomyopathy with ejection fraction of 45-50% Plan: continue with blood pressure medication metoprolol, losartan and Lasix Continue with telemetry monitoring Cartilage team on the case Resumed on Eliquis Labs and medication were reviewed.. Continue same treatment. Continue with symptomatic treatment. Resume home medication. Monitor labs and vitals. DVT and GI prophylaxis. Further recommendations as per clinical course of the patient DVT prophylaxis: Eliquis GI Prophylaxis: Ppi PT/OT: Pending Prognosis is guarded
[2023-07-14] MEDS ORDERED: hydrALAZINE HCL 25 MG TAB PO STA (00:38)
[2023-07-14] MEDS: DOPamine DRIP 800 MG in DEXTROSE/WATER 1 250ML.BAG IV SCH (06:15)
[2023-07-14] MEDS: PANTOPRAZOLE 40 MG TABLET PO SCH (06:15)
[2023-07-14] MEDS ORDERED: hydrALAZINE HCL 25 MG TAB PO PRN (06:40)
--- NOTE | 2023-07-14 06:44 | P.PN ---
Subjective Progress Note Date: 07/14/23 History of Present Illness: The patient is an 82-year-old male, followed at Dr. Wilcox with a history of hy pertension and chronic persistent atrial fibrillation who presented to the emergency room with symptoms of dizziness and was noted to be in atrial fibrillation with slow ventricular response. Patient was on metoprolol succinate 100 mg daily in addition to clonidine. Both medications were held but he continued to have significant bradycardia and pauses. He had a syncopal episode a few months ago. In May he was evaluated to undergo cardioversion but his DUDLEY showed left atrial appendage thrombus. His ejection fraction was 45-50% with mild mitral and tricuspid regurgitation. He has underwent cardioversion in December 2020 with buddhist of sinus mechanism at that time the patient is active physically on a regular basis, he has some symptoms of fatigue and shortness of breath but he denies any chest discomfort. He has no PND, orthopnea or peripheral edema. He has no documented history of obstructive coronary artery disease. He has a history of hypertension and chronic tobacco use, he is not diabetic. After admission he was started on IV dopamine but persisted in having pauses and significant symptomatic bradycardia. Medications: Lasix 20 mg daily, aspirin once a day, clonidine 0.3 mg 3 times a day, metoprolol succinate 100 mg daily, losartan 100 mg daily, hydrochlorothiazi de 25 mg daily, Eliquis 5 mg twice a day 07/13 Patient is status post permanent pacemaker. Chest x-ray doesn't show any evidence of pneumothorax. 07/22/2023 Patient is doing well from cardiac standpoint. Overnight he was noticed to be hypertensive. It is noted that patient has a tendency of having nighttime hypertension. Patient was on atypical antihypertensive regimen brought him to the hospital. We have been optimizing his antihypertensives. He has continued to be in atrial fibrillation with 100% V paced rhythm Physical Examination: 82-year-old male, alert , oriented,Blood pressure 130/70, Heart rate 70 with external pacing Head: Normocephalic. Eyes: Sclerae nonicteric. Neck: Good carotid upstroke, no bruit, no jugular venous distention. Lungs: Clear to auscultation. Heart: irregular and rhythm, S1-S2, no S3, no rub. Systolic ejection murmur. Abdomen: Soft nontender, positive bowel sounds no organomegaly. Extremities: No edema, intact distal pulses. Impression Atrial fibrillation with slow ventricular response and long pauses, s/p PPM Heart failure with mildly reduced EF, chronic History of hypertension History of chronic tobacco use History of left atrial appendage thrombus Plan: Resume Eliquis 5 mg twice a day. Donot resume aspirin. Discontinue metoprolol. Start Coreg 25 mg twice a day for better blood pressure control Increase losartan to 100 mg daily Start Procardia XL 90 mg daily We will not resume patient's Catapres Added hydralazine 25 mg twice a day used as needed for SBP more than 170 mmHg. It seems like patient has nighttime hypertension. We will continue to monitor. Patient is okay to be discharged out of ICU to a regular floor. Possible discharge tomorrow a.m. after monitoring his blood pressure since I made changes to his medication Objective - Vital Signs Vital signs: Vital Signs Temp 98 F 07/14/23 04:00 Pulse 62 07/14/23 04:00 Resp 19 07/14/23 04:00 BP 137/84 07/14/23 05:30 Pulse Ox 96 07/14/23 04:00 FiO2 Intake & Output 07/13/23 07/13/23 07/14/23 06:59 18:59 06:59 Intake Total 1050 555 Output Total 150 300 Balance 900 555 -300 Weight 108.1 kg 104.1 kg Intake: IV 900 75 Sodium Chloride 0.9% 1, 900 75 000 ml @ 75 mls/hr IV . [id number] [facility] Rx#:[id number] Oral 150 480 Output: Urine 150 300 Other: Voiding Method Urinal Urinal Urinal # Voids 1 3 2 - Labs CBC & Chem 7: 07/12/23 07:18 07/13/23 05:58
[2023-07-14] MEDS: carvediloL 12.5 MG TAB PO SCH (07:14)
[2023-07-14] MEDS: FUROSEMIDE 20 MG TAB PO SCH (08:21)
[2023-07-14] MEDS: LOSARTAN 50 MG TAB PO SCH (08:21)
[2023-07-14] MEDS: NIFEdipine XL 90 MG TAB.ER.24 PO SCH (08:22)
[2023-07-14] MEDS: APIXABAN 5 MG TAB PO SCH ×2 (08:22→21:21)
--- NOTE | 2023-07-14 12:57 | P.PN ---
Subjective Patient is a 82-year-old male with a known history of atrial fibrillation on anticoagulation with Eliquis, history of left atrial appendage thrombus, hypertension, GERD and osteoarthritis as well as hearing disorder/deafness and currently everyday smoker presents to ER with complaints of dizziness and lightheadedness started while he was standing and pumping gas. Patient had another episode while he was in the car and felt very weak. Patient's checked his pulse and was noted to be at 30. Patient came to ER for further evaluation. Otherwise patient did take his blood pressure medications. Denies any cough or sputum production. No nausea vomiting or diarrhea. No chest pain or shortness of breath. Today morning CODE BLUE was called due to patient being bradycardic with heart rate of*28. Later patient went into asystolic and had a long pause of 32 seconds. Patient immediately regained consciousness and complained of chest ti ghtness and mild nausea. Cardiology was consulted and patient was placed on temporary cutaneous pacemaker. Laboratory data showed WBC 9.5 hemoglobin 15.5 and platelets 196 Sodium 135 potassium 3.6 chloride 97 bicarb is 27 BUN 19 and creatinine 1.34 and blood sugar 112 and lactic acid 2.2 liver enzymes are elevated troponin x1 negative. TSH 0.735 Chest x-ray showed no acute cardiopulmonary process. EKG showed A-fib with heart rate 28 and right bundle branch block. 07/13/2023 This is a pleasant 82 years old male who presents with sick sinus syndrome status post permanent pacemaker. Patient is postop day #1. Patient generally feeling well today. His lightheadedness is improving. He denies dyspnea or chest pain. he Is not on IV drip of dopamine or normal saline His currently resume his home dose of Eliquis 5 mg, metoprolol 100 mg, added losartan 50 mg and Lasix 20 mg daily. His creatinine did improve to 1.0. Ejection fraction 45-50%. We'll discharge in 24-48 hours if cleared by cardiology team 07/14/2023 Patient is asymptomatic, no dizziness, no chest pain. No other new complaints Blood pressure was elevated to over night with systolic more than 200. Losartan was increased to 100 mg daily. Coreg 25 mg and nifedipine 90 mg and also discontinued Lasix 20 mg . metoprolol 100 was discontinued Possible discharge 24-48 hours Also patient on liquids and he confirms to me he had that at home. Physical therapist recommended Objective - Vital Signs Vital signs: Vital Signs Temp 98 F 07/14/23 04:00 Pulse 62 07/14/23 04:00 Resp 19 07/14/23 04:00 BP 137/84 07/14/23 05:30 Pulse Ox 96 07/14/23 04:00 FiO2 Intake & Output 07/13/23 07/14/23 07/14/23 18:59 06:59 18:59 Intake Total 555 Output Total 300 Balance 555 -300 Weight 104.1 kg Intake: IV 75 Sodium Chloride 0.9% 1, 75 000 ml @ 75 mls/hr IV . [id number] TAD Rx#:[id number] Oral 480 Output: Urine 300 Other: Voiding Method Urinal Urinal # Voids 3 2 - Exam GENERAL: The patient is alert and oriented x3, not in any acute distress. Well developed, well nourished. HEENT: Pupils are round and equally reacting to light. EOMI. No scleral icterus. No conjunctival pallor. Normocephalic, atraumatic. No pharyngeal erythema. No thyromegaly. CARDIOVASCULAR: S1 and S2 present. No murmurs, rubs, or gallops. PULMONARY: Chest is clear to auscultation, no wheezing , no crackles. ABDOMEN: Soft, nontender, nondistended, normoactive bowel sounds. No palpable organomegaly. MUSCULOSKELETAL: No joint swelling or deformity. EXTREMITIES: No cyanosis, clubbing, or pedal edema. NEUROLOGICAL: Gross neurological examination did not reveal any focal deficits. SKIN: No rashes. no petechiae. - Labs CBC & Chem 7: 07/12/23 07:18 07/13/23 05:58 Assessment and Plan Assessment: Sick sinus syndrome status post permanent pacemaker Elevated Blood pressure, hypertension and controlled on admission A. 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 Continue same treatment. Continue with symptomatic treatment. Resume home medication. Monitor labs and vitals. DVT and GI prophylaxis. Further recommendations as per clinical course of the patient DVT prophylaxis: Eliquis GI Prophylaxis: Ppi PT/OT: Pending Prognosis is guarded
[2023-07-14] MEDS: DOCUSATE 100 MG CAP PO SCH ×3 (13:52→21:25)
[2023-07-14] MEDS ORDERED: SENNOSIDES 8.6 MG TAB PO SCH (21:00)
[2023-07-15] MEDS: carvediloL 12.5 MG TAB PO SCH ×2 (00:44→06:20)
[2023-07-15] MEDS: DOPamine DRIP 800 MG in DEXTROSE/WATER 1 250ML.BAG IV SCH (00:45)
[2023-07-15] MEDS: PANTOPRAZOLE 40 MG TABLET PO SCH (06:20)
[2023-07-15] MEDS: LOSARTAN 50 MG TAB PO SCH (08:09)
[2023-07-15] MEDS: NIFEdipine XL 90 MG TAB.ER.24 PO SCH (08:09)
[2023-07-15] MEDS: APIXABAN 5 MG TAB PO SCH (08:09)
[2023-07-15] MEDS: FUROSEMIDE 20 MG TAB PO SCH (08:09)
[2023-07-15] MEDS: DOCUSATE 100 MG CAP PO SCH (08:09)
[2023-07-15] MEDS ORDERED: DOCUSATE 100 MG CAP PO STA (13:25)
[2023-07-15 16:51] VITALS: BP 130/80; PULSE 60; RESP 17; TEMP 97.9
--- NOTE | 2023-07-15 18:39 | P.PN ---
Subjective Progress Note Date: 07/15/23 History of Present Illness: The patient is an 82-year-old male, followed at Dr. Wilcox with a history of hy pertension and chronic persistent atrial fibrillation who presented to the emergency room with symptoms of dizziness and was noted to be in atrial fibrillation with slow ventricular response. Patient was on metoprolol succinate 100 mg daily in addition to clonidine. Both medications were held but he continued to have significant bradycardia and pauses. He had a syncopal episode a few months ago. In May he was evaluated to undergo cardioversion but his DUDLEY showed left atrial appendage thrombus. His ejection fraction was 45-50% with mild mitral and tricuspid regurgitation. He has underwent cardioversion in December 2020 with catholic of sinus mechanism at that time the patient is active physically on a regular basis, he has some symptoms of fatigue and shortness of breath but he denies any chest discomfort. He has no PND, orthopnea or peripheral edema. He has no documented history of obstructive coronary artery disease. He has a history of hypertension and chronic tobacco use, he is not diabetic. After admission he was started on IV dopamine but persisted in having pauses and significant symptomatic bradycardia. Medications: Lasix 20 mg daily, aspirin once a day, clonidine 0.3 mg 3 times a day, metoprolol succinate 100 mg daily, losartan 100 mg daily, hydrochlorothiazi de 25 mg daily, Eliquis 5 mg twice a day 07/13 Patient is status post permanent pacemaker. Chest x-ray doesn't show any evidence of pneumothorax. 07/14/2023 Patient is doing well from cardiac standpoint. Overnight he was noticed to be hypertensive. It is noted that patient has a tendency of having nighttime hypertension. Patient was on atypical antihypertensive regimen brought him to the hospital. We have been optimizing his antihypertensives. He has continued to be in atrial fibrillation with 100% V paced rhythm 07/15/23 Patient's blood pressure is much more stable on current regimen. He is okay to be discharged from cardiac vessel standpoint on current regimen. He needs outpatient follow-up in device clinic in next 1 week Physical Examination: 82-year-old male, alert , oriented,Blood pressure 130/70, Heart rate 70 with external pacing Head: Normocephalic. Eyes: Sclerae nonicteric. Neck: Good carotid upstroke, no bruit, no jugular venous distention. Lungs: Clear to auscultation. Heart: irregular and rhythm, S1-S2, no S3, no rub. Systolic ejection murmur. Abdomen: Soft nontender, positive bowel sounds no organomegaly. Extremities: No edema, intact distal pulses. Impression Atrial fibrillation with slow ventricular response and long pauses, s/p PPM Heart failure with mildly reduced EF, chronic History of hypertension History of chronic tobacco use History of left atrial appendage thrombus Plan: Resume Eliquis 5 mg twice a day. Donot resume aspirin. Discontinue metoprolol. Start Coreg 25 mg twice a day for better blood pressure control Increase losartan to 100 mg daily Start Procardia XL 90 mg daily We will not resume patient's Catapres Added hydralazine 25 mg twice a day used as needed for SBP more than 170 mmHg. Patient's blood pressure is much more stable on current regimen. He is okay to be discharged from cardiac vessel standpoint on current regimen. He needs outpatient follow-up in device clinic in next 1 week Objective - Vital Signs Vital signs: Vital Signs Temp 97.9 F 07/15/23 12:00 Pulse 60 07/15/23 12:00 Resp 17 07/15/23 12:00 BP 130/80 07/15/23 12:00 Pulse Ox 96 07/15/23 12:00 FiO2 Intake & Output 07/14/23 07/15/23 07/15/23 18:59 06:59 18:59 Intake Total 1200 300 Output Total 150 300 Balance 1050 -300 300 Intake: Oral 1200 300 Output: Urine 150 300 Other: Voiding Method Urinal Urinal Urinal # Voids 1 2 2 # Bowel Movements 1 - Labs CBC & Chem 7: 07/12/23 07:18 07/13/23 05:58
--- NOTE | 2023-07-15 22:04 | P.DS ---
Providers Date of admission: 07/11/23 18:11 Attending physician: Jose Marshall Consults: 07/11/23 18:11 Consult Physician Urgent Consulting Provider: Thom Gonzales Consult Reason/Comments: Bradycardia Do you want consulting provider notified?: Yes Primary care physician: Gagan Bradford Hospital Course: Diagnoses: Sick sinus syndrome status post permanent pacemaker Elevated Blood pressure, hypertension uncontrolled on admission, now better controlled A. 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 Patient had another episode while he was in the car and felt very weak. Patient's was found to have a bradycardia with related to his A. fib, status post permanent pacemaker placement on 07/12 and he tolerated the procedure well. Cartilage was on the case recommended to continue with all liquids on discharge will discontinue aspirin. Patient was instructed with the same and he agrees. Patient blood pressure was high on admission, bar tender adjusted his medications, please refer to the discharge instructions. His metoprolol was switched to Coreg 25 mg, nifedipine 90 mg and losartan 100 mg which patient has at home. She was asymptomatic for the last 48 hours and after blood pressure control was cleared today for discharge by bar tender. Patient that he denies chest pain dyspnea or other new symptoms. Patient is eager to go home today. Patient was cleared for discharge by bar tender. Problems and management plan were discussed with the patient and he verbalized understanding and acceptance Patient was found stable and can be discharged home in guarded prognosis however he needs follow-up as an outpatient. Patient was instructed to follow up with PCP Dr bradford within one week and patient agrees Patient was instructed to follow up with bar tender Dr. Wilcox in one week and he agrees Physical exam Gen: patient is a AAOx3, no distress CVS: S1-S2, RRR, no murmur Lungs: B/L CTA, no wheezing Abdomen: soft, no distention, no tenderness, positive bowel sounds Extremity: no leg edema or induration Time spent more than 35 minutes Patient Condition at Discharge: Serious Plan - Discharge Summary New Discharge Prescriptions: New Docusate [Colace] 100 mg PO BID 10 Days #20 cap Acetaminophen Tab [Tylenol] 650 mg PO Q6HR PRN tab PRN Reason: Mild Pain (Scale 1 To 3) carvediloL [Coreg] 25 mg PO BID #60 tablet NIFEdipine XL [Procardia XL] 90 mg PO DAILY #30 tab Sennosides [Senokot] 17.2 mg PO HS PRN 10 Days #20 tab PRN Reason: Constipation Continue Potassium Chloride [Potassium Chloride ER] 10 meq PO TID Esomeprazole Magnesium [NexIUM] 40 mg PO DAILY [place]-3 Fatty Acids/Fish Oil [Fish Oil 1,000 mg Softgel] 1 cap PO DAILY Pumpkin Seed Oil 3,000 mg PO TID Ubidecarenone [Co Q-10] 400 mg PO DAILY hydrALAZINE HCL [Apresoline] 10 mg PO DAILY PRN PRN Reason: HIGH BLOOD PRESSURE Losartan Potassium 100 mg PO DAILY Vitamin B Complex 1 cap PO DAILY Niacin 500 mg PO DAILY Acetaminophen [Tylenol Arthritis] 1,300 mg PO TID Furosemide [Lasix] 20 mg PO DAILY Apixaban [Eliquis] 5 mg PO BID #60 tab Discontinued hydroCHLOROthiazide 25 mg PO DAILY Magnesium Oxide [Magox 400] 400 mg PO DAILY Metoprolol Succinate (ER) [Toprol Xl] 100 mg PO DAILY Aspirin EC [Ecotrin] 325 mg PO DAILY cloNIDine HCL [Catapres] 0.3 mg PO TID Discharge Medication List Esomeprazole Magnesium [NexIUM] 40 mg PO DAILY 12/25/20 [History] Losartan Potassium 100 mg PO DAILY 12/25/20 [History] Niacin 500 mg PO DAILY 12/25/20 [History] [place]-3 Fatty Acids/Fish Oil [Fish Oil 1,000 mg Softgel] 1 cap PO DAILY 12/25/20 [History] Potassium Chloride [Potassium Chloride ER] 10 meq PO TID 12/25/20 [History] Vitamin B Complex 1 cap PO DAILY 12/25/20 [History] Acetaminophen [Tylenol Arthritis] 1,300 mg PO TID 05/23/23 [History] Pumpkin Seed Oil 3,000 mg PO TID 05/23/23 [History] Ubidecarenone [Co Q-10] 400 mg PO DAILY 05/23/23 [History] Furosemide [Lasix] 20 mg PO DAILY 07/11/23 [History] hydrALAZINE HCL [Apresoline] 10 mg PO DAILY PRN 07/11/23 [History] Acetaminophen Tab [Tylenol] 650 mg PO Q6HR PRN tab 07/15/23 [Rx] Apixaban [Eliquis] 5 mg PO BID #60 tab 07/15/23 [Rx] Docusate [Colace] 100 mg PO BID 10 Days #20 cap 07/15/23 [Rx] NIFEdipine XL [Procardia XL] 90 mg PO DAILY #30 tab 07/15/23 [Rx] Sennosides [Senokot] 17.2 mg PO HS PRN 10 Days #20 tab 07/15/23 [Rx] carvediloL [Coreg] 25 mg PO BID #60 tablet 07/15/23 [Rx] Follow up Appointment(s)/Referral(s): Gagan Bradford MD [Primary Care Provider] - 1-2 days Chucky Wilcox MD [STAFF PHYSICIAN] - 1 Week Patient Instructions/Handouts: Pacemaker (DC) Activity/Diet/Wound Care/Special Instructions: heart healthy diet activity is restricted till you see your doctor Discharge Disposition: HOME SELF-CARE
== END 2023-07-15 18:12 | disposition home or self-care (01) | DRG 242 ==
LOC: EC 15:29 → 2SICU 18:11
PROVIDERS: ADMIT Hospitalist; ATTEND Hospitalist
PROC: 02H63JZ Insertion of Pacemaker Lead into Right Atrium, Percutaneous Approach (ICD-10-PCS; 2023-07-12)
PROC: 02HK3JZ Insertion of Pacemaker Lead into Right Ventricle, Percutaneous Approach (ICD-10-PCS; 2023-07-12)
PROC: 5A2204Z Restoration of Cardiac Rhythm, Single (ICD-10-PCS; 2023-07-12)
PROC: 5A1223Z Performance of Cardiac Pacing, Continuous (ICD-10-PCS; 2023-07-12)
PROC: 02HK3JZ Insertion of Pacemaker Lead into Right Ventricle, Percutaneous Approach (ICD-10-PCS; 2023-07-12)
PROC: 3E033XZ Introduction of Vasopressor into Peripheral Vein, Percutaneous Approach (ICD-10-PCS; 2023-07-12)
PROC: 0JH606Z Insertion of Pacemaker, Dual Chamber into Chest Subcutaneous Tissue and Fascia, Open Approach (ICD-10-PCS; principal; 2023-07-12 05:38)
DX: I49.5 Sick sinus syndrome (principal); I46.2 Cardiac arrest due to underlying cardiac condition; I44.2 Atrioventricular block, complete; I48.19 Other persistent atrial fibrillation; N17.9 Acute kidney failure, unspecified; E87.20 Acidosis, unspecified; E87.0 Hyperosmolality and hypernatremia; I50.22 Chronic systolic (congestive) heart failure; E87.1 Hypo-osmolality and hyponatremia; I42.9 Cardiomyopathy, unspecified; I11.0 Hypertensive heart disease with heart failure; I08.1 Rheumatic disorders of both mitral and tricuspid valves; E86.1 Hypovolemia; M19.90 Unspecified osteoarthritis, unspecified site; H91.90 Unspecified hearing loss, unspecified ear; K21.9 Gastro-esophageal reflux disease without esophagitis; I25.10 Atherosclerotic heart disease of native coronary artery without angina pectoris; K59.00 Constipation, unspecified; F17.210 Nicotine dependence, cigarettes, uncomplicated; R79.89 Other specified abnormal findings of blood chemistry; Z79.01 Long term (current) use of anticoagulants; Z85.46 Personal history of malignant neoplasm of prostate; Z79.899 Other long term (current) drug therapy; Z79.82 Long term (current) use of aspirin; Z86.718 Personal history of other venous thrombosis and embolism
CPT/HCPCS: 33208; 33210; 36415; 71045; 80048; 80053; 83605; 83735; 84443; 84484; 85025; 85610; 85730; 93005; 93308; 96361; 96365; 96366; 96375; 99291

== ENCOUNTER 2024-02-24 10:08 | Inpatient (IN) | payer MEDICARE ==
[2024-02-24 11:00] LABS: HCT 38.4 % (39.0-53.0); MCH 30.5 pg (25.0-35.0); MCHC 33.7 g/dL (31.0-37.0); MCV 90.4 fL (80.0-100.0); Platelet Count 132 k/uL (150-450); RBC 4.25 m/uL (4.30-5.90); RDW 12.6 % (11.5-15.5); WBC 13.3 k/uL (3.8-10.6)
[2024-02-24 11:01] LABS: Basophils % (A) 0 %; Eosinophils # (A) 0.2 k/uL (0-0.7); Eosinophils % (A) 2 %; Lymphocytes # (A) 0.2 k/uL (1.0-4.8); Lymphocytes % (A) 2 %; Mean Platelet Volume 7.6; Monocytes # (A) 0.3 k/uL (0-1.0); Monocytes % (A) 2 %; Neutrophils # (A) 12.6 k/uL (1.3-7.7); Neutrophils % (A) 94 %
[2024-02-24] MEDS: SODIUM CHLORIDE 0.9% 1,000 ML IV STA (11:14)
[2024-02-24 11:49] LABS: RBC Morphology Normal
[2024-02-24 12:03] LABS: Appearance,Urine Clear (Clear); Bilirubin,Urine Negative (Negative); Blood,Urine Negative (Negative); Color,Urine Light Yellow; Glucose,Urine (UA) Negative (Negative); Ketones,Urine Negative (Negative); Leukocyte Esterase,Urine Negative (Negative); Nitrite,Urine Negative (Negative); PH, Urine 5.5 (5.0-8.0); Protein,Urine Negative (Negative); Specific Gravity,Urine 1.022 (1.001-1.035); Urobilinogen,Urine <2.0 mg/dL (<2.0)
[2024-02-24 12:06] LABS: Glucose,Whole Blood 125 mg/dL (70-110)
[2024-02-24 12:19] LABS: African American GFR (CKD) 40 (>60 ml/min/1.73 sqM); Anion Gap 7 mmol/L; Blood Urea Nitrogen 50 mg/dL (9-20); Calcium 8.5 mg/dL (8.4-10.2); Carbon Dioxide 22 mmol/L (22-30); Chloride 104 mmol/L (98-107); Glucose 123 mg/dL (74-99); Non-African American GFR(CKD) 35 (>60 ml/min/1.73 sqM); Potassium 3.1 mmol/L (3.5-5.1); Sodium 133 mmol/L (137-145)
[2024-02-24] MEDS ORDERED: ONDANSETRON 4 MG/2 ML VIAL IVP PRN (12:35)
[2024-02-24] MEDS ORDERED: NALOXONE 0.4 MG/ML 1 ML VIAL IV PRN (12:35)
--- NOTE | 2024-02-24 12:37 | ED ---
General Adult HPI - General Chief complaint: Urogenital Stated complaint: R Flank Pain Time Seen by Provider: 02/24/24 10:50 Source: patient, family, RN notes reviewed, old records reviewed Mode of arrival: EMS Limitations: no limitations - History of Present Illness Initial comments: Is an 83-year-old male who presents emergency department complaining of right- sided abdominal pain. Was transferred from [facility] for KENDRICK, kidney stone. Pain started last night. Was found to have an KENDRICK with creatinine of 2. Remainder the workup unremarkable. Patient has an uncomplicated 4 mm right- sided kidney stone. Presents for further evaluation after fluid hydration did not improve the patient's KENDRICK at the outpatient facility. Patient also has a BNP of 2300 and they do not want to fluid overload the patient. Patient currently is resting comfortably at this time. Mild pain. Has no other acute complaints. Presents for further evaluation. - Related Data Home Medications Medication Instructions Recorded Confirmed Esomeprazole Magnesium [NexIUM] 40 mg PO DAILY 12/25/20 02/24/24 Losartan Potassium 100 mg PO DAILY 12/25/20 02/24/24 Potassium Chloride [Potassium 10 meq PO TID 12/25/20 02/24/24 Chloride ER] Furosemide [Lasix] 20 mg PO DAILY 07/11/23 02/24/24 carvediloL [Coreg] 6.25 mg PO BID-W/MEALS 02/24/24 02/24/24 hydroCHLOROthiazide [Hydrodiuril] 25 mg PO DAILY 02/24/24 02/24/24 Previous Rx's Medication Instructions Recorded Apixaban [Eliquis] 5 mg PO BID #60 tab 07/15/23 NIFEdipine XL [Procardia XL] 90 mg PO DAILY #30 tab 07/15/23 Allergies Allergy/AdvReac Type Severity Reaction Status Date / Time No Known Allergies Allergy Verified 02/24/24 11:09 Review of Systems ROS Statement: Those systems with pertinent positive or pertinent negative responses have been documented in the HPI. Review of Systems: CONST: Denies fever EYES: Denies blurry vision ENT: Denies nasal congestion C/V: Denies Chest pain RESP: Denies shortness of breath GI: Denies abdominal pain : Denies dysuria SKIN: Denies rash. MSK: Denies joint pain. NEURO: Denies headache ROS Other: All systems not noted in ROS Statement are negative. Past Medical History Past Medical History: Atrial Fibrillation, Cancer, GERD/Reflux, Hearing Disorder / Deafness, Hypertension, Osteoarthritis (OA) Additional Past Medical History / Comment(s): Hx prostate cancer 13 yrs ago, hx skin cancer, recent frequent headaches in the morning. Mild hearing loss. History of Any Multi-Drug Resistant Organisms: None Reported Past Surgical History: Prostate Surgery Additional Past Surgical History / Comment(s): Prostatectomy, skin cancer removed, colonoscopy. Past Anesthesia/Blood Transfusion Reactions: No Reported Reaction Past Psychological History: No Psychological Hx Reported Smoking Status: Current every day smoker Past Alcohol Use History: None Reported Past Drug Use History: None Reported - Past Family History Sister(s) Family Medical History: Cancer Additional Family Medical History / Comment(s): Breast cancer. General Exam - General Exam Comments Initial Comments: General: Appears in no acute distress. HEAD: Normal with no signs of head trauma. EYES: PERRLA, EOMI, conjunctiva normal, no discharge. ENT: Hearing grossly intact, normal oropharynx. RESPIRATORY: Clear breath sounds bilaterally. No wheezes, rales, or rhonchi. C/V: Regular rate and rhythm. S1 and S2 auscultated, no edema, peripheral pulses 2+ and intact throughout ABD: Abd is soft, nontender, nondistended EXT: Normal range of motion, no obvious deformity SKIN: No rashes or lesions observed on exposed skin. NEURO: Alert and oriented x 4 Limitations: no limitations Course Vital Signs 02/24/24 02/24/24 10:12 11:42 Temperature 99 F 97.7 F Pulse Rate 62 63 Respiratory 18 18 Rate Blood Pressure 92/53 94/57 O2 Sat by Pulse 96 95 Oximetry Medical Decision Making - Medical Decision Making Was pt. sent in by a medical professional or institution (, PA, DIRECTOR [employer] SALES, urgent care, hospital, or fpc...) When possible be specific @ -No Did you speak to anyone other than the patient for history (EMS, parent, family, police, friend...)? What history was obtained from this source @ -No Did you review nursing and triage notes (agree or disagree)? Why? @ -I reviewed and agree with nursing and triage notes Were old charts reviewed (outside hosp., previous admission, EMS record, old EKG, old radiological studies, urgent care reports/EKG's, fpc records)? Report findings @ -Chart reviewed from transferring facility [facility] from today. Differential Diagnosis (chest pain, altered mental status, abdominal pain women, abdominal pain men, vaginal bleeding, weakness, fever, dyspnea, syncope, headache, dizziness, GI bleed, back pain, seizure, CVA, palpatations, mental health, musculoskeletal)? @ -KENDRICK, dehydration, UTI, kidney stone. This list is not all inclusive. EKG interpreted by me (3pts min.). @ -As above X-rays interpreted by me (1pt min.). @ -None done CT interpreted by me (1pt min.). @ -None done U/S interpreted by me (1pt. min.). @ -None done What testing was considered but not performed or refused? (CT, X-rays, U/S, labs)? Why? @ -None What meds were considered but not given or refused? Why? @ -None Did you discuss the management of the patient with other professionals (professionals i.e. , PA, DIRECTOR [employer], lab, RT, psych nurse, social services assistant, dowel pointer, teacher, surveillance dual rate officer, case monitor)? Give summary @ -I spoke with the admitting physician, Dr. Daniel who accepted the admission. Was smoking cessation discussed for >3mins.? @ -No Was critical care preformed (if so, how long)? @ -No Were there social determinants of health that impacted care today? How? (Homelessness, low income, unemployed, alcoholism, drug addiction, transportation, low edu. Level, literacy, decrease access to med. care, long-term, rehab)? @ -No Was there de-escalation of care discussed even if they declined (Discuss DNR or withdrawal of care, Hospice)? DNR status @ -No What co-morbidities impacted this encounter? (DM, HTN, Smoking, COPD, CAD, Cancer, CVA, ARF, Chemo, Hep., AIDS, mental health diagnosis, sleep apnea, morbi d obesity)? @ -None Was patient admitted / discharged? Hospital course, mention meds given and rout e, prescriptions, significant lab abnormalities, going to OR and other pertinent info. @ -Patient presents as a transfer for evaluation by nephrology and urology from [facility]. Has a noncomplicated 4 mm kidney stone causing mild if any hydronephrosis. Patient also has an KENDRICK. No other obvious findings on workup at the outside facility. Transferred here for further evaluation due to the persistent near doubling of his creatinine. He does have a history of CHF and he does not want to volume overload the patient. Patient's laboratory studies returned remarkable for an KENDRICK as well as mild hypokalemia. Patient administered potassium supplementation. EKG shows no signs of acute ischemia. Patient will be admitted at this time. I updated the patient. I spoke with the admitting physician, Dr. Daniel who accepted the admission. Undiagnosed new problem with uncertain prognosis? @ -No Drug Therapy requiring intensive monitoring for toxicity (Heparin, Nitro, Insulin, Cardizem)? @ -No Were any procedures done? @ -No Diagnosis/symptom? @ -KENDRICK, hypokalemia, kidney stone Acute, or Chronic, or Acute on Chronic? @ -Acute Uncomplicated (without systemic symptoms) or Complicated (systemic symptoms)? @ -Complicated Side effects of treatment? @ -No Exacerbation, Progression, or Severe Exacerbation? @ -No Poses a threat to life or bodily function? How? (Chest pain, USA, NE, pneumonia, PE, COPD, DKA, ARF, appy, cholecystitis, CVA, Diverticulitis, Homicidal, Suicidal, threat to staff... and all critical care pts) @ -Yes - Lab Data Result diagrams: 02/24/24 10:48 02/24/24 10:48 Lab Results 02/24/24 02/24/24 02/24/24 Range/Units 10:48 10:48 11:16 WBC 13.3 H (3.8-10.6) k/uL RBC 4.25 L (4.30-5.90) m/uL Hgb 13.0 (13.0-17.5) gm/dL Hct 38.4 L (39.0-53.0) % MCV 90.4 (80.0-100.0) fL MCH 30.5 (25.0-35.0) pg MCHC 33.7 (31.0-37.0) g/dL RDW 12.6 (11.5-15.5) % Plt Count 132 L (150-450) k/uL MPV 7.6 Neutrophils % 94 % Lymphocytes % 2 % Monocytes % 2 % Eosinophils % 2 % Basophils % 0 % Neutrophils # 12.6 H (1.3-7.7) k/uL Lymphocytes # 0.2 L (1.0-4.8) k/uL Monocytes # 0.3 (0-1.0) k/uL Eosinophils # 0.2 (0-0.7) k/uL Basophils # 0.0 (0-0.2) k/uL Manual Slide Review Performed RBC Morphology Normal Sodium 133 L (137-145) mmol/L Potassium 3.1 L (3.5-5.1) mmol/L Chloride 104 (98-107) mmol/L Carbon Dioxide 22 (22-30) mmol/L Anion Gap 7 mmol/L BUN 50 H (9-20) mg/dL Creatinine 1.79 H (0.66-1.25) mg/dL Est GFR (CKD-EPI)AfAm 40 (>60 ml/min/1.73 sqM) Est GFR (CKD-EPI)NonAf 35 (>60 ml/min/1.73 sqM) Glucose 123 H (74-99) mg/dL POC Glucose (mg/dL) (70-110) mg/dL POC Glu Television Maintenance Man ID Calcium 8.5 (8.4-10.2) mg/dL NT-Pro-B Natriuret Pep pg/mL Urine Color Light Yellow Urine Appearance Clear (Clear) Urine pH 5.5 (5.0-8.0) Ur Specific [place] 1.022 (1.001-1.035) Urine Protein Negative (Negative) Urine Glucose (UA) Negative (Negative) Urine Ketones Negative (Negative) Urine Blood Negative (Negative) Urine Nitrite Negative (Negative) Urine Bilirubin Negative (Negative) Urine Urobilinogen <2.0 (<2.0) mg/dL Ur Leukocyte Esterase Negative (Negative) 02/24/24 02/24/24 Range/Units 11:16 12:05 WBC (3.8-10.6) k/uL RBC (4.30-5.90) m/uL Hgb (13.0-17.5) gm/dL Hct (39.0-53.0) % MCV (80.0-100.0) fL MCH (25.0-35.0) pg MCHC (31.0-37.0) g/dL RDW (11.5-15.5) % Plt Count (150-450) k/uL MPV Neutrophils % % Lymphocytes % % Monocytes % % Eosinophils % % Basophils % % Neutrophils # (1.3-7.7) k/uL Lymphocytes # (1.0-4.8) k/uL Monocytes # (0-1.0) k/uL Eosinophils # (0-0.7) k/uL Basophils # (0-0.2) k/uL Manual Slide Review RBC Morphology Sodium (137-145) mmol/L Potassium (3.5-5.1) mmol/L Chloride (98-107) mmol/L Carbon Dioxide (22-30) mmol/L Anion Gap mmol/L BUN (9-20) mg/dL Creatinine (0.66-1.25) mg/dL Est GFR (CKD-EPI)AfAm (>60 ml/min/1.73 sqM) Est GFR (CKD-EPI)NonAf (>60 ml/min/1.73 sqM) Glucose (74-99) mg/dL POC Glucose (mg/dL) 125 H (70-110) mg/dL POC Glu Television Maintenance Man ID Dm Pedroza Calcium (8.4-10.2) mg/dL NT-Pro-B Natriuret Pep 2380 pg/mL Urine Color Urine Appearance (Clear) Urine pH (5.0-8.0) Ur Specific [place] (1.001-1.035) Urine Protein (Negative) Urine Glucose (UA) (Negative) Urine Ketones (Negative) Urine Blood (Negative) Urine Nitrite (Negative) Urine Bilirubin (Negative) Urine Urobilinogen (<2.0) mg/dL Ur Leukocyte Esterase (Negative) - EKG Data -: EKG Interpreted by Me EKG Comments: 12-lead Electrocardiogram Interpretation Note EKG was reviewed and interpreted by myself. 12-lead ECG performed at 1219 is interpreted by me as revealing paced rhythm at a rate of 59 beats per minute. Left axis deviation. QRS duration is 169 ms, QTc is 474 ms,. There were no ST or T wave abnormalities to suggest myocardial ischemia or injury. R wave progression across the precordium was satisfactory. By my interpretation this EKG is non-diagnostic for acute ischemia. Disposition Clinical Impression: KENDRICK (acute kidney injury), Ureterolithiasis, Hypokalemia Disposition: ADMITTED IP TO THIS [facility] Condition: Stable Time of Disposition: 11:30
[2024-02-24] MEDS: POTASSIUM CHLORIDE ER 20 MEQ TAB.ER PO STA (13:38)
[2024-02-24] MEDS: ACETAMINOPHEN TAB 325 MG TAB PO PRN (15:15)
[2024-02-24] MEDS: carvediloL 6.25 MG TAB PO SCH (17:35)
[2024-02-24] MEDS: POTASSIUM CHLORIDE ER 10 MEQ TAB.ER.PRT PO SCH (17:38)
[2024-02-24] MEDS: SODIUM CHLORIDE 0.9% 500 ML 500 ML IV ONE (19:12)
[2024-02-24] MEDS ORDERED: HEPARIN SODIUM,PORCINE 5,000 UNIT/ML 1 ML VIAL SQ SCH (21:00)
[2024-02-24] MEDS ORDERED: APIXABAN 5 MG TAB PO SCH (21:00)
[2024-02-24] MEDS: APIXABAN 2.5 MG TABLET PO SCH (22:11)
[2024-02-25 04:18] LABS: Glucose,Whole Blood 100 mg/dL (70-110)
[2024-02-25 05:08] LABS: Glucose,Whole Blood 109 mg/dL (70-110)
[2024-02-25 05:40] LABS: HCT 37.4 % (39.0-53.0); HGB 12.5 gm/dL (13.0-17.5); MCH 31.1 pg (25.0-35.0); MCHC 33.4 g/dL (31.0-37.0); MCV 93.1 fL (80.0-100.0); Mean Platelet Volume 8.5; RBC 4.02 m/uL (4.30-5.90); RDW 12.8 % (11.5-15.5); WBC 11.6 k/uL (3.8-10.6)
[2024-02-25 06:08] LABS: Band Neutrophils % 40 %; Lymphocytes # (M) 0.23 k/uL (1.0-4.8); Metamyelocytes # (M) 1.51 k/uL (0); Metamyelocytes % 13 %; Neutrophils % (M) 45 %; Nucleated Red Blood Cells 0 /100 WBC (0-0); Total Cells Counted 200
[2024-02-25 06:09] LABS: Platelet Count 96 k/uL (150-450); Toxic Granulation Present; Toxic Vacuolation Present
[2024-02-25] MEDS: SODIUM CHLORIDE 0.9% 1,000 ML IV ONE (07:02)
[2024-02-25] MEDS: NOREPINEPHRINE 4 MG in SODIUM CHLORIDE 0.9% 250 ML IV SCH (07:02)
[2024-02-25] MEDS: FUROSEMIDE 10 MG/ML 4 ML VIAL IV STA (07:16)
--- NOTE | 2024-02-25 07:21 | XR ---
EXAMINATION TYPE: XR chest 1V portable DATE OF EXAM: 02/25/2024 COMPARISON: 07/12/2023 INDICATION: Respiratory distress TECHNIQUE: Single frontal view of the chest is obtained. FINDINGS: The heart size is upper limits of normal for size. Pacemaker overlies left chest.. The pulmonary vasculature is normal. The lungs are clear. IMPRESSION: 1. No acute pulmonary process.
[2024-02-25 08:21] LABS: African American GFR (CKD) 24 (>60 ml/min/1.73 sqM); Anion Gap 11 mmol/L; Blood Urea Nitrogen 52 mg/dL (9-20); Calcium 7.6 mg/dL (8.4-10.2); Carbon Dioxide 16 mmol/L (22-30); Chloride 106 mmol/L (98-107); Glucose 92 mg/dL (74-99); Magnesium 1.3 mg/dL (1.6-2.3); Non-African American GFR(CKD) 21 (>60 ml/min/1.73 sqM); Potassium 4.3 mmol/L (3.5-5.1); Sodium 133 mmol/L (137-145)
[2024-02-25] MEDS ORDERED: hydroCHLOROthiazide 25 MG TAB PO SCH (09:00)
[2024-02-25] MEDS ORDERED: NIFEdipine XL 90 MG TAB.ER.24 PO SCH (09:00)
[2024-02-25] MEDS ORDERED: FUROSEMIDE 20 MG TAB PO SCH (09:00)
[2024-02-25] MEDS ORDERED: PANTOPRAZOLE 40 MG/10 ML VIAL IV SCH (09:00)
[2024-02-25] MEDS ORDERED: LOSARTAN 50 MG TAB PO SCH (09:00)
--- NOTE | 2024-02-25 09:22 | P.CNPUL ---
History of Present Illness Consult date: 02/25/24 History of present illness: 83-year-old male patient came to us from [facility] because of inability to urinate and right-sided abdominal pain. He apparently was initially taken to the Hospital for an acute kidney injury and kidney stones. He was found to be in acute kidney injury and the creatinine was up to 2.0. The patient has chronic urinary problems. He has history of nephrolithiasis. He also has history of prostate cancer and has undergone prostatectomy more than 10 years ago. He does self-catheterization on a daily basis and he does not once in the morning. The patient has not done any self-catheterization for the past 24 to 48 hours. This was attempted to be done at [facility] and it failed. After being transferred to [facility], the patient was attempted to get a Martinez catheter and it failed because of anatomic difficulties and failure to insert the Martinez catheter in. Currently, the bladder scan is showing no urine in his bladder. He does not have a Martinez catheter. Awaiting urology consultation. CAT scan of the abdomen and pelvis that was [facility] showed a 4 mm stone in the left distal ureter resulting in mild to moderate left-sided hydronephrosis. There was also increased in the size of an indet erminate right renal mass and cholelithiasis and punctate right renal calculi. A large fat-containing indirect right inguinal hernia was also present. Initially, the patient was admitted to the medical floor, he became hypotensive and he got transferred to the intensive care unit. His systolic blood pressure was as low as 40. The patient immediately received a total of 2 L of IV fluids and currently normal saline is running at a rate of 100 cc an hour. He was given IV Rocephin. He was also started on pressors and norepinephrine is running at 0.09 mcg/kg/min. He also became dyspneic and hypoxic. He was placed on a BiPAP with a pressures of 12 over 5 cm of water and and the patient was taken off the BiPAP subsequently and he is currently on 3 L of oxygen by nasal cannula. She is known to have sick sinus syndrome and has a permanent pacemaker in place. He has also paroxysmal atrial fibrillation. EKG from this current admission is showing a paced rhythm. The patient's white cell count is 11.6, he was 5.5 and a platelet count is 96. His sodium levels at 133, serum bicarb is a t 16, BUN is 52 with a creatinine of 2.7 consistent with acute kidney injury with a baseline creatinine of 1.7 from yesterday. Lactic acid level is at 3.5. UA collected in the emergency was negative for any blood or infection. Currently, he seems to be in otic. Chest x-ray done in the emergency shows cardiomegaly and mild pulm vascular congestion. No history of COPD. No history of asthma. No history of coronary artery disease. He is known to have hypertension. He is maintained on long-term anticoagulation with Eliquis regarding his paroxysmal atrial fibrillation. He has chronic hearing problems and hearing loss. He has also history of skin cancer. Review of Systems Constitutional: Reports fatigue, Reports weakness Eyes: denies as per HPI, denies blurred vision, denies bulging eye, denies decreased vision, denies diplopia, denies discharge, denies dry eye, denies irritation, denies itching, denies pain, denies photophobia, denies loss of peripheral vision, denies loss of vision, denies tunnel vision/blind spots Ears: bilateral: decreased hearing, deny: ear discharge, earache, tinnitus Ears, nose, mouth and throat: Reports as per HPI Breasts: absent: as per HPI, gynecomastia Cardiovascular: Reports dyspnea on exertion Respiratory: Reports dyspnea Genitourinary: Reports urinary retention Musculoskeletal: Reports as per HPI, Reports low back pain Musculoskeletal: absent: ankle pain, ankle stiffness, ankle swelling Integumentary: Reports as per HPI Neurological: Reports as per HPI Psychiatric: Reports as per HPI Endocrine: Reports as per HPI Hematologic/Lymphatic: Reports as per HPI Allergic/Immunologic: Reports as per HPI Past Medical History Past Medical History: Atrial Fibrillation, Cancer, GERD/Reflux, Hearing Disorder / Deafness, Hypertension, Osteoarthritis (OA) Additional Past Medical History / Comment(s): SSS and he has a pacemaker, Hx prostate cancer 13 yrs ago, hx skin cancer, recent frequent headaches in the morning. Mild hearing loss. 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 History of paroxysmal atrial fibrillation and current rhyt hm is paced History of Any Multi-Drug Resistant Organisms: None Reported Past Surgical History: Prostate Surgery Additional Past Surgical History / Comment(s): Prostatectomy, skin cancer removed, colonoscopy. Past Anesthesia/Blood Transfusion Reactions: No Reported Reaction Past Psychological History: No Psychological Hx Reported Smoking Status: Current every day smoker Past Alcohol Use History: None Reported Additional Past Alcohol Use History / Comment(s): Down from 2ppd to less than 1ppd, started smoking 50-55 yrs ago. Past Drug Use History: None Reported - Past Family History Sister(s) Family Medical History: Cancer Additional Family Medical History / Comment(s): Breast cancer. Medications and Allergies Home Medications Medication Instructions Recorded Confirmed Type Esomeprazole Magnesium [NexIUM] 40 mg PO DAILY 12/25/20 02/24/24 History Losartan Potassium 100 mg PO DAILY 12/25/20 02/24/24 History Potassium Chloride [Potassium 10 meq PO TID 12/25/20 02/24/24 History Chloride ER] Furosemide [Lasix] 20 mg PO DAILY 07/11/23 02/24/24 History Apixaban [Eliquis] 5 mg PO BID #60 tab 07/15/23 02/24/24 Rx NIFEdipine XL [Procardia XL] 90 mg PO DAILY #30 tab 07/15/23 02/24/24 Rx carvediloL [Coreg] 6.25 mg PO BID-W/MEALS 02/24/24 02/24/24 History hydroCHLOROthiazide [Hydrodiuril] 25 mg PO DAILY 02/24/24 02/24/24 History Allergies Allergy/AdvReac Type Severity Reaction Status Date / Time No Known Allergies Allergy Verified 02/24/24 11:09 Physical Exam Vitals: Vital Signs Temp Pulse Pulse Resp BP BP BP 02/25/24 08:03 02/25/24 07:59 02/25/24 07:00 99.1 F 60 29 H 82/54 02/25/24 06:45 60 27 H 68/53 02/25/24 06:30 60 33 H 74/43 02/25/24 06:15 60 33 H 67/45 02/25/24 06:07 02/25/24 06:00 60 35 H 88/60 02/25/24 05:45 99.5 F 60 19 88/60 02/25/24 05:30 60 28 H 88/60 02/25/24 05:15 99.5 F 75 28 H 87/46 02/25/24 05:02 37 H 02/25/24 04:26 02/25/24 04:22 02/25/24 03:24 97.7 F 63 22 75/47 05 21:50 98.7 F 62 24 158/50 02/24/24 21:25 66 25 H 96/82 02/24/24 21:00 96/82 02/24/24 20:45 96/82 02/24/24 20:30 96/82 02/24/24 20:15 61 52 H 96/82 02/24/24 20:00 60 80 H 112/85 02/24/24 19:45 84 26 H 112/85 02/24/24 19:36 64 0 L 112/85 02/24/24 19:35 65 29 H 112/85 02/24/24 19:28 94/69 02/24/24 19:02 86/64 02/24/24 18:54 115/66 02/24/24 18:52 119/62 02/24/24 18:44 77/45 02/24/24 18:40 72/59 02/24/24 17:30 63 20 123/67 02/24/24 15:00 98.1 F 61 59 L 18 100/63 99/61 02/24/24 11:42 97.7 F 63 18 94/57 02/24/24 10:12 99 F 62 18 92/53 Pulse Ox FiO2 02/25/24 08:03 98 40 02/25/24 07:59 40 02/25/24 07:00 96 02/25/24 06:45 94 L 02/25/24 06:30 96 40 02/25/24 06:15 95 02/25/24 06:07 40 02/25/24 06:00 02/25/24 05:45 97 02/25/24 05:30 98 02/25/24 05:15 98 100 02/25/24 05:02 02/25/24 04:26 60 02/25/24 04:22 100 02/25/24 03:24 94 L 02/24/24 21:50 95 02/24/24 21:25 95 02/24/24 21:00 02/24/24 20:45 05 20:30 05 20:15 92 L 02/24/24 20:00 93 L 02/24/24 19:45 91 L 02/24/24 19:36 91 L 05/24/24 19:35 90 L 02/24/24 19:28 02/24/24 19:02 02/24/24 18:54 02/24/24 18:52 02/24/24 18:44 02/24/24 18:40 02/24/24 17:30 94 L 02/24/24 15:00 96 02/24/24 11:42 95 02/24/24 10:12 96 Intake and Output 02/24/24 02/25/24 02/25/24 22:59 06:59 14:59 Intake Total 240 1031.520 Output Total 20 Balance 240 1011.520 Intake: Intake, IV Titration 1031.520 Amount Norepinephrine 4 mg In 31.520 Sodium Chloride 0.9% 250 ml @ 0.05 MCG/KG/MIN 18. 578 mls/hr IV .[id number] TAD Rx#:[id number] Sodium Chloride 0.9% 1, 1000 000 ml @ 999 mls/hr IV . Q1H1M ONE Rx#:[id number] Oral 240 Output: Urine 20 Other: Voiding Method Toilet Urinal # Voids 1 1 # Bowel Movements 1 Weight 97.522 kg General appearance,, comfortable with no signs of any significant respiratory distress. The patient is currently on 3 L of oxygen by nasal cannula. Breathing is nonlabored at this point in time. Heart rate communicate with the patient because of impaired hearing. Same time, the patient seems to be a very poor historian. Head exam was generally normal. There was no scleral icterus or corneal arcus. Mucous membranes were moist. Neck was supple and without jugular venous distension, thyromegaly, or carotid bruits. Carotids were easily palpable bilaterally. There was no adenopathy. Lungs were clear to auscultation and percussion, and with normal diaphragmatic e xcursion. No wheezes or rales were noted. Heart sounds are regular, rhythm is paced and the patient is a pacemaker over the left anterior chest area. No significant murmurs appreciated. Abdominal exam revealed normal bowel sounds. The abdomen was soft, non-tender, and without masses, organomegaly, or appreciable enlargement of the abdominal aorta. No CVA angle tenderness. Examination of the extremities revealed easily palpable radial, femoral and pedal pulses. There was no cyanosis, clubbing or edema. Examination of the skin revealed no evidence of significant rashes, suspicious appearing nevi or other concerning lesions. Neurologically, the patient is awake and alert and the patient does not have any focal neurological deficit. Cranial nerves are essentially intact. Results - Laboratory Findings CBC and BMP: 02/25/24 05:14 02/25/24 07:46 PT/INR, D-dimer D-Dimer 3.20 mg/L FEU (<0.60) H 02/25/24 05:14 Abnormal lab findings: Abnormal Labs 02/24/24 02/24/24 02/24/24 10:48 10:48 12:05 WBC 13.3 H RBC 4.25 L Hgb Hct 38.4 L Plt Count 132 L Neutrophils # 12.6 H Neutrophils # (Manual) Lymphocytes # 0.2 L Lymphocytes # (Manual) Metamyelocytes # (Man) D-Dimer Sodium 133 L Potassium 3.1 L Carbon Dioxide BUN 50 H Creatinine 1.79 H Glucose 123 H POC Glucose (mg/dL) 125 H Plasma Lactic Acid Kushal Calcium Magnesium 02/25/24 02/25/24 02/25/24 05:14 05:14 05:14 WBC 11.6 H RBC 4.02 L Hgb 12.5 L Hct 37.4 L Plt Count 96 L Neutrophils # Neutrophils # (Manual) 9.80 H Lymphocytes # Lymphocytes # (Manual) 0.23 L Metamyelocytes # (Man) 1.51 H D-Dimer 3.20 H Sodium Potassium Carbon Dioxide BUN Creatinine Glucose POC Glucose (mg/dL) Plasma Lactic Acid Kushal 3.5 H* Calcium Magnesium 02/25/24 07:46 WBC RBC Hgb Hct Plt Count Neutrophils # Neutrophils # (Manual) Lymphocytes # Lymphocytes # (Manual) Metamyelocytes # (Man) D-Dimer Sodium 133 L Potassium Carbon Dioxide 16 L BUN 52 H Creatinine 2.70 H Glucose POC Glucose (mg/dL) Plasma Lactic Acid Kushal Calcium 7.6 L Magnesium 1.3 L - Diagnostic Findings Chest x-ray: image reviewed Assessment and Plan Plan: Acute kidney injury, suspicious for obstructive uropathy as the patient has chronic difficulties with urination probably a ureteral stricture as the patient undergoes self-catheterization. The patient has undergone previous prostatectomy for prostate cancer. At the same time, he has a 4 mm stone in the left distal ureter causing mild to moderate left sided hydronephrosis. However, the bladder scan is not showing any significant urine output collection. Acute kidney injury from an ATN cannot be completely ruled out. UA collected was negative. Currently the patient not producing any urine output. Martinez catheter insertion is failed because resistance. Acute hypoxic respiratory failure, likely secondary to above currently on 3 L of oxygen by nasal cannula. BiPAP is discontinued. History of prostate cancer with previous prostatectomy History of obstructive uropathy History of nephrolithiasis and a 4 mm stone in the left distal ureter Non-anion gap metabolic acidosis Acute hypotension, received a total of 2 L of IV fluids are currently on normal saline at rate of 100 cc an hour and the patient is currently on norepinephrine at 0.09 mcg/kg/min. Empiric antibiotic coverage with IV Zosyn. Rule out h ypovolemic shock. Rule out septic shock. Sick sinus syndrome currently has a permanent pacemaker in place Paroxysmal atrial fibrillation, maintained on long-term anticoagulation with Eliquis 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 History of skin cancer History of hypertension Hyperlipidemia Plan Immediate urology consultation for Martinez catheter insertion. Will do an ultrasound of the kidneys Monitor urine output Consult nephrology Consult with urology regarding the left ureteral kidney stone and possibility of an intervention to relieve the obstruction as the patient has mild to moderate left-sided hydroureter Monitor renal function Switch IV fluids to bicarb infusion at rate of 100 cc an hour continue norepinephrine infusion Hold Coreg Continue IV Rocephin Will continue to follow. Keep the patient in the intensive care unit. Currently hypotensive.
[2024-02-25] MEDS: PANTOPRAZOLE 40 MG TABLET PO SCH (10:03)
--- NOTE | 2024-02-25 10:10 | P.GSCN ---
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 The patient self dilate. He was in the emergency room feeling poorly with right-sided abdominal pain. He had a CT scan identified a distal left ureteral stone. He is in the ICU because of hypotension and renal insufficiency. His urine is clear. 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 The patient is in the ICU with renal insufficiency and hypotension. He apparently came from [facility]. His urine is clear. The nursing staff wishes to place a catheter and they are unable to do so. I have been asked see the patient. The CT scan at [place] showed a small distal ureteral stone on the left with mild hydronephrosis. The urine is perfectly clear. Review of Systems All systems: negative - Constitutional Denies fever, Denies weight loss - EENT Eyes: denies blurred vision Ears, nose, mouth and throat: Denies dysphagia - Cardiovascular Denies chest pain, Denies shortness of breath - Respiratory Denies cough, Denies 7 - Gastrointestinal Reports as per HPI - Genitourinary Denies dysuria, Denies hematuria - Integumentary Denies rash, Denies unusual bruising - Neurological Denies headaches, Denies syncope - Hematologic/Lymphatic Denies easy bleeding, Denies easy bruising Past Medical History Past Medical History: Atrial Fibrillation, Cancer, GERD/Reflux, Hearing Disorder / Deafness, Hypertension, Osteoarthritis (OA) Additional Past Medical History / Comment(s): SSS and he has a pacemaker, Hx prostate cancer 13 yrs ago, hx skin cancer, recent frequent headaches in the morning. Mild hearing loss. 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 History of paroxysmal atrial fibrillation and current rhythm is paced History of Any Multi-Drug Resistant Organisms: None Reported Past Surgical History: Prostate Surgery Additional Past Surgical History / Comment(s): Prostatectomy, skin cancer removed, colonoscopy. Past Anesthesia/Blood Transfusion Reactions: No Reported Reaction Past Psychological History: No Psychological Hx Reported Smoking Status: Current every day smoker Past Alcohol Use History: None Reported Additional Past Alcohol Use History / Comment(s): Down from 2ppd to less than 1ppd, started smoking 50-55 yrs ago. Past Drug Use History: None Reported - Past Family History Sister(s) Family Medical History: Cancer Additional Family Medical History / Comment(s): Breast cancer. Medications and Allergies Home Medications Medication Instructions Recorded Confirmed Type Esomeprazole Magnesium [NexIUM] 40 mg PO DAILY 12/25/20 02/24/24 History Losartan Potassium 100 mg PO DAILY 12/25/20 02/24/24 History Potassium Chloride [Potassium 10 meq PO TID 12/25/20 02/24/24 History Chloride ER] Furosemide [Lasix] 20 mg PO DAILY 07/11/23 02/24/24 History Apixaban [Eliquis] 5 mg PO BID #60 tab 07/15/23 02/24/24 Rx NIFEdipine XL [Procardia XL] 90 mg PO DAILY #30 tab 07/15/23 02/24/24 Rx carvediloL [Coreg] 6.25 mg PO BID-W/MEALS 02/24/24 02/24/24 History hydroCHLOROthiazide [Hydrodiuril] 25 mg PO DAILY 02/24/24 02/24/24 History Allergies Allergy/AdvReac Type Severity Reaction Status Date / Time No Known Allergies Allergy Verified 02/24/24 11:09 Surgical - Exam Vital Signs Temp Pulse Resp BP Pulse Ox 99 F 62 18 92/53 96 02/24/24 10:12 02/24/24 10:12 02/24/24 10:12 02/24/24 10:12 02/24/24 10:12 - General well developed, well nourished, moderate distress - Eyes normal ocular movement, no icteric - ENT no hearing loss, no congestion - Neck no masses, trachea midline - Respiratory normal respiratory effort, clear to auscultation - Abdomen Abdomen: soft, non tender, no guarding, no rigid, no rebound - Genitourinary stenosis due to bxo - Integumentary no rash, no abnormal pigmentation - Neurologic no disoriented, no combative - Psychiatric oriented to time, oriented to person, oriented to place, speech is normal, memory intact Results - Labs 02/25/24 05:14 02/25/24 07:46 Abnormal Lab Results - Last 24 Hours (Table) 02/24/24 02/24/24 02/24/24 Range/Units 10:48 10:48 12:05 WBC 13.3 H (3.8-10.6) k/uL RBC 4.25 L (4.30-5.90) m/uL Hgb (13.0-17.5) gm/dL Hct 38.4 L (39.0-53.0) % Plt Count 132 L (150-450) k/uL Neutrophils # 12.6 H (1.3-7.7) k/uL Neutrophils # (Manual) (1.3-7.7) k/uL Lymphocytes # 0.2 L (1.0-4.8) k/uL Lymphocytes # (Manual) (1.0-4.8) k/uL Metamyelocytes # (Man) (0) k/uL D-Dimer (<0.60) mg/L FEU Sodium 133 L (137-145) mmol/L Potassium 3.1 L (3.5-5.1) mmol/L Carbon Dioxide (22-30) mmol/L BUN 50 H (9-20) mg/dL Creatinine 1.79 H (0.66-1.25) mg/dL Glucose 123 H (74-99) mg/dL POC Glucose (mg/dL) 125 H (70-110) mg/dL Plasma Lactic Acid Kushal (0.7-2.0) mmol/L Calcium (8.4-10.2) mg/dL Magnesium (1.6-2.3) mg/dL 24 02/25/24 02/25/24 Range/Units 05:14 05:14 05:14 WBC 11.6 H (3.8-10.6) k/uL RBC 4.02 L (4.30-5.90) m/uL Hgb 12.5 L (13.0-17.5) gm/dL Hct 37.4 L (39.0-53.0) % Plt Count 96 L (150-450) k/uL Neutrophils # (1.3-7.7) k/uL Neutrophils # (Manual) 9.80 H (1.3-7.7) k/uL Lymphocytes # (1.0-4.8) k/uL Lymphocytes # (Manual) 0.23 L (1.0-4.8) k/uL Metamyelocytes # (Man) 1.51 H (0) k/uL D-Dimer 3.20 H (<0.60) mg/L FEU Sodium (137-145) mmol/L Potassium (3.5-5.1) mmol/L Carbon Dioxide (22-30) mmol/L BUN (9-20) mg/dL Creatinine (0.66-1.25) mg/dL Glucose (74-99) mg/dL POC Glucose (mg/dL) (70-110) mg/dL Plasma Lactic Acid Kushal 3.5 H* (0.7-2.0) mmol/L Calcium (8.4-10.2) mg/dL Magnesium (1.6-2.3) mg/dL 02/25/24 02/25/24 Range/Units 07:46 08:26 WBC (3.8-10.6) k/uL RBC (4.30-5.90) m/uL Hgb (13.0-17.5) gm/dL Hct (39.0-53.0) % Plt Count (150-450) k/uL Neutrophils # (1.3-7.7) k/uL Neutrophils # (Manual) (1.3-7.7) k/uL Lymphocytes # (1.0-4.8) k/uL Lymphocytes # (Manual) (1.0-4.8) k/uL Metamyelocytes # (Man) (0) k/uL D-Dimer (<0.60) mg/L FEU Sodium 133 L (137-145) mmol/L Potassium (3.5-5.1) mmol/L Carbon Dioxide 16 L (22-30) mmol/L BUN 52 H (9-20) mg/dL Creatinine 2.70 H (0.66-1.25) mg/dL Glucose (74-99) mg/dL POC Glucose (mg/dL) (70-110) mg/dL Plasma Lactic Acid Kushal 2.5 H* (0.7-2.0) mmol/L Calcium 7.6 L (8.4-10.2) mg/dL Magnesium 1.3 L (1.6-2.3) mg/dL Diabetes panel 02/24/24 02/25/24 Range/Units 10:48 07:46 Sodium 133 L 133 L (137-145) mmol/L Potassium 3.1 L 4.3 (3.5-5.1) mmol/L Chloride 104 106 (98-107) mmol/L Carbon Dioxide 22 16 L (22-30) mmol/L BUN 50 H 52 H (9-20) mg/dL Creatinine 1.79 H 2.70 H (0.66-1.25) mg/dL Glucose 123 H 92 (74-99) mg/dL Calcium 8.5 7.6 L (8.4-10.2) mg/dL Calcium panel 02/24/24 02/25/24 Range/Units 10:48 07:46 Calcium 8.5 7.6 L (8.4-10.2) mg/dL Pituitary panel 02/24/24 02/25/24 Range/Units 10:48 07:46 Sodium 133 L 133 L (137-145) mmol/L Potassium 3.1 L 4.3 (3.5-5.1) mmol/L Chloride 104 106 (98-107) mmol/L Carbon Dioxide 22 16 L (22-30) mmol/L BUN 50 H 52 H (9-20) mg/dL Creatinine 1.79 H 2.70 H (0.66-1.25) mg/dL Glucose 123 H 92 (74-99) mg/dL Calcium 8.5 7.6 L (8.4-10.2) mg/dL Adrenal panel 02/24/24 02/25/24 Range/Units 10:48 07:46 Sodium 133 L 133 L (137-145) mmol/L Potassium 3.1 L 4.3 (3.5-5.1) mmol/L Chloride 104 106 (98-107) mmol/L Carbon Dioxide 22 16 L (22-30) mmol/L BUN 50 H 52 H (9-20) mg/dL Creatinine 1.79 H 2.70 H (0.66-1.25) mg/dL Glucose 123 H 92 (74-99) mg/dL Calcium 8.5 7.6 L (8.4-10.2) mg/dL Assessment and Plan Assessment: Impression: Hypotension. Renal insufficiency. Kidney stones. Left ureteral stone. Meatal stenosis Recommendations: I will place a catheter.
--- NOTE | 2024-02-25 10:13 | P.PCN ---
Date of Procedure: 02/25/24 Preoperative Diagnosis: urine retention, meatal stenosis Postoperative Diagnosis: same Pathology: none sent Description of Procedure: The patient was prepped and draped sterilely. He is dilated with [place] sounds from 10-18 [place]. I attempted to then pass a 12 and 10 [place] Martinez catheter but met resistance. I then passed a 5 [place] spiral filiform and dilate to 18 [place] with followers. I still cannot pass the catheter. I thus reintroduced the follower, 18 [place] to dilate the urethra. I replaced the catheter later time. There is not a lot of urine coming from the bladder it is clear.
[2024-02-25 10:32] LABS: ALT 31 U/L (10-49); AST 36 U/L (14-35); Albumin 3.6 g/dL (3.8-4.9); Albumin/Globulin Ratio 2.12 Ratio (1.60-3.17); Alkaline Phosphatase 40 U/L (41-126); BUN/Creat Ratio 18.31 Ratio (12.00-20.00); Blood Urea Nitrogen 53.1 mg/dL (9.0-27.0); Carbon Dioxide 18.6 mmol/L (21.6-31.8); Chloride 100 mmol/L (96-109); Globulin 1.7 g/dL (1.6-3.3); Glucose 121 mg/dL (70-110); Potassium 4.7 mmol/L (3.5-5.5); Sodium 133 mmol/L (135-145); Total Bilirubin 0.5 mg/dL (0.3-1.2); Total Protein 5.3 g/dL (6.2-8.2)
--- NOTE | 2024-02-25 10:39 | P.NPCON ---
History of Present Illness - Reason for Consult acute renal failure - History of Present Illness Reason for consultation: Acute kidney injury History of present illness: Patient is a 83-year-old male seen in renal consultation for acute kidney injury. Creatinine in July 2023 was 1.05. This admission it was elevated at 1.79 and is 2.7 today. Patient presented to [facility] due to sudden onset back pain. Patient was noted to have left-sided kidney stone with hydronephrosis as well as a right kidney lesion and was subsequently transferred to this facility. Last night patient was noted to be hypotensive. He was subsequently transferred to the ICU. He did receive 1.5 L of normal saline bolus and is currently maintained on normal saline at 50 cc an hour. He also received a dose of IV Lasix. He is currently on a nasal cannula. No edema. Denies use of nonsteroidals. Denies history of diabetes. Denies history of coronary artery disease. He was on diuretics outpatient as well as multiple antihypertensives which are currently held. Blood pressure remains on the lower side and he is also on Levophed. Vital signs blood pressure low - On vasopressor support. General: No acute distress. HEENT: Head exam is unremarkable. On nasal cannula. LUNGS: No audible rhonchi or wheezes. HEART: Rate and Rhythm are regular. ABDOMEN: Nontender. EXTREMITITES: No edema. Past Medical History Past Medical History: Atrial Fibrillation, Cancer, GERD/Reflux, Hearing Disorder / Deafness, Hypertension, Osteoarthritis (OA) Additional Past Medical History / Comment(s): SSS and he has a pacemaker, Hx prostate cancer 13 yrs ago, hx skin cancer, recent frequent headaches in the morning. Mild hearing loss. 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 History of paroxysmal atrial fibrillation and current rhythm is paced History of Any Multi-Drug Resistant Organisms: None Reported Past Surgical History: Prostate Surgery Additional Past Surgical History / Comment(s): Prostatectomy, skin cancer removed, colonoscopy. Past Anesthesia/Blood Transfusion Reactions: No Reported Reaction Past Psychological History: No Psychological Hx Reported Smoking Status: Current every day smoker Past Alcohol Use History: None Reported Additional Past Alcohol Use History / Comment(s): Down from 2ppd to less than 1ppd, started smoking 50-55 yrs ago. Past Drug Use History: None Reported - Past Family History Sister(s) Family Medical History: Cancer Additional Family Medical History / Comment(s): Breast cancer. Medications and Allergies Home Medications Medication Instructions Recorded Confirmed Type Esomeprazole Magnesium [NexIUM] 40 mg PO DAILY 12/25/20 02/24/24 History Losartan Potassium 100 mg PO DAILY 12/25/20 02/24/24 History Potassium Chloride [Potassium 10 meq PO TID 12/25/20 02/24/24 History Chloride ER] Furosemide [Lasix] 20 mg PO DAILY 07/11/23 02/24/24 History Apixaban [Eliquis] 5 mg PO BID #60 tab 07/15/23 02/24/24 Rx NIFEdipine XL [Procardia XL] 90 mg PO DAILY #30 tab 07/15/23 02/24/24 Rx carvediloL [Coreg] 6.25 mg PO BID-W/MEALS 02/24/24 02/24/24 History hydroCHLOROthiazide [Hydrodiuril] 25 mg PO DAILY 02/24/24 02/24/24 History Allergies Allergy/AdvReac Type Severity Reaction Status Date / Time No Known Allergies Allergy Verified 02/24/24 11:09 Physical Exam Vitals: Vital Signs Temp Pulse Pulse Resp BP BP BP 02/25/24 08:03 02/25/24 07:59 02/25/24 07:00 99.1 F 60 29 H 82/54 02/25/24 06:45 60 27 H 68/53 02/25/24 06:30 60 33 H 74/43 02/25/24 06:15 60 33 H 67/45 02/25/24 06:07 02/25/24 06:00 60 35 H 88/60 02/25/24 05:45 99.5 F 60 19 88/60 02/25/24 05:30 60 28 H 88/60 02/25/24 05:15 99.5 F 75 28 H 87/46 02/25/24 05:02 37 H 02/25/24 04:26 02/25/24 04:22 02/25/24 03:24 97.7 F 63 22 75/47 02/24/24 21:50 98.7 F 62 24 158/50 02/24/24 21:25 66 25 H 96/82 02/24/24 21:00 96/82 02/24/24 20:45 96/82 02/24/24 20:30 96/82 02/24/24 20:15 61 52 H 96/82 02/24/24 20:00 60 80 H 112/85 02/24/24 19:45 84 26 H 112/85 02/24/24 19:36 64 0 L 112/85 02/24/24 19:35 65 29 H 112/85 02/24/24 19:28 94/69 02/24/24 19:02 86/64 02/24/24 18:54 115/66 02/24/24 18:52 119/62 02/24/24 18:44 77/45 02/24/24 18:40 72/59 02/24/24 17:30 63 20 123/67 02/24/24 15:00 98.1 F 61 59 L 18 100/63 99/61 02/24/24 11:42 97.7 F 63 18 94/57 Pulse Ox FiO2 02/25/24 08:03 98 40 02/25/24 07:59 40 02/25/24 07:00 96 02/25/24 06:45 94 L 02/25/24 06:30 96 40 02/25/24 06:15 95 02/25/24 06:07 40 02/25/24 06:00 02/25/24 05:45 97 02/25/24 05:30 98 02/25/24 05:15 98 100 02/25/24 05:02 02/25/24 04:26 60 02/25/24 04:22 100 02/25/24 03:24 94 L 02/24/24 21:50 95 02/24/24 21:25 95 02/24/24 21:00 02/24/24 20:45 02/24/24 20:30 02/24/24 20:15 92 L 02/24/24 20:00 93 L 02/24/24 19:45 91 L 02/24/24 19:36 91 L 02/24/24 19:35 90 L 02/24/24 19:28 02/24/24 19:02 02/24/24 18:54 02/24/24 18:52 02/24/24 18:44 02/24/24 18:40 02/24/24 17:30 94 L 02/24/24 15:00 96 02/24/24 11:42 95 Intake and Output 02/24/24 02/25/24 02/25/24 22:59 06:59 14:59 Intake Total 240 1031.520 Output Total 20 Balance 240 1011.520 Intake: Intake, IV Titration 1031.520 Amount Norepinephrine 4 mg In 31.520 Sodium Chloride 0.9% 250 ml @ 0.05 MCG/KG/MIN 18. 578 mls/hr IV .[id number] [facility] Rx#:[id number] Sodium Chloride 0.9% 1, 1000 000 ml @ 999 mls/hr IV . Q1H1M ONE Rx#:[id number] Oral 240 Output: Urine 20 Other: Voiding Method Toilet Urinal # Voids 1 1 # Bowel Movements 1 Weight 97.522 kg Results - Lab Results Most recent lab results Calcium 7.6 mg/dL (8.4-10.2) L 02/25/24 07:46 Magnesium 1.3 mg/dL (1.6-2.3) L 02/25/24 07:46 02/25/24 05:14 02/25/24 07:46 Assessment and Plan Plan: Assessment: 1. Acute kidney injury secondary to ATN secondary to hypotension. Creatinine 1.05 in July 2023. 1.79 this admission and is up to 2.7 now. UA benign. 2. Left-sided nephrolithiasis with hydronephrosis. Urology following. Martinez catheter to be inserted. 3. Right-sided kidney lesion. 4. Metabolic acidosis secondary to acute kidney injury. 5. Hypokalemia from poor intake, diuretic use and hypomagnesemia. Replaced. Better. 6. Hypomagnesemia from poor intake and diuretic use. Plan: Start isotonic bicarb drip at 100 cc an hour. Check renal ultrasound. Replace magnesium. Wean vasopressors. Continue to hold all antihypertensives. Stop potassium supplementation. Continue to monitor renal function and urine output. Thank you for the consultation. I will continue to follow the patient with you during his hospital stay.
--- NOTE | 2024-02-25 10:43 | P.PN ---
Subjective Progress Note Date: 02/25/24 The patient's catheter was exchanged from an 18 follow to a 12 [place] coud after leaving the following for an hour to dilate the urethra. The catheter should stay in at least 48 hours. Objective - Vital Signs Vital signs: Vital Signs Temp 99.1 F 02/25/24 07:00 Pulse 60 02/25/24 07:00 Resp 29 H 02/25/24 07:00 BP 82/54 02/25/24 07:00 Pulse Ox 98 02/25/24 08:03 FiO2 40 02/25/24 08:03 Intake & Output 02/24/24 02/25/24 02/25/24 18:59 06:59 18:59 Intake Total 240 1031.520 Output Total 20 Balance 240 1011.520 Weight 97.522 kg 97.522 kg Intake: Intake, IV Titration 1031.520 Amount Norepinephrine 4 mg In 31.520 Sodium Chloride 0.9% 250 ml @ 0.05 MCG/KG/MIN 18. 578 mls/hr IV .[id number] [facility] Rx#:[id number] Sodium Chloride 0.9% 1, 1000 000 ml @ 999 mls/hr IV . Q1H1M ONE Rx#:[id number] Oral 240 Output: Urine 20 Other: Voiding Method Toilet Toilet Urinal # Voids 1 1 # Bowel Movements 1 - Labs CBC & Chem 7: 02/25/24 05:14 02/25/24 07:46 Labs: Abnormal Lab Results - Last 24 Hours (Table) 02/24/24 02/24/24 02/24/24 Range/Units 10:48 10:48 12:05 WBC 13.3 H (3.8-10.6) k/uL RBC 4.25 L (4.30-5.90) m/uL Hgb (13.0-17.5) gm/dL Hct 38.4 L (39.0-53.0) % Plt Count 132 L (150-450) k/uL Neutrophils # 12.6 H (1.3-7.7) k/uL Neutrophils # (Manual) (1.3-7.7) k/uL Lymphocytes # 0.2 L (1.0-4.8) k/uL Lymphocytes # (Manual) (1.0-4.8) k/uL Metamyelocytes # (Man) (0) k/uL D-Dimer (<0.60) mg/L FEU Sodium 133 L (137-145) mmol/L Potassium 3.1 L (3.5-5.1) mmol/L Carbon Dioxide (21.6-31.8) mmol/L Anion Gap (4.00-12.00) mmol/L BUN 50 H (9-20) mg/dL Creatinine 1.79 H (0.66-1.25) mg/dL Est GFR (CKD-EPI) (>=60) Glucose 123 H (74-99) mg/dL POC Glucose (mg/dL) 125 H (70-110) mg/dL Plasma Lactic Acid Kushal (0.7-2.0) mmol/L Calcium (8.7-10.3) mg/dL Magnesium (1.6-2.3) mg/dL AST (14-35) U/L Alkaline Phosphatase (41-126) U/L Total Protein (6.2-8.2) g/dL Albumin (3.8-4.9) g/dL 02/25/24 02/25/24 02/25/24 Range/Units 05:14 05:14 05:14 WBC 11.6 H (3.8-10.6) k/uL RBC 4.02 L (4.30-5.90) m/uL Hgb 12.5 L (13.0-17.5) gm/dL Hct 37.4 L (39.0-53.0) % Plt Count 96 L (150-450) k/uL Neutrophils # (1.3-7.7) k/uL Neutrophils # (Manual) 9.80 H (1.3-7.7) k/uL Lymphocytes # (1.0-4.8) k/uL Lymphocytes # (Manual) 0.23 L (1.0-4.8) k/uL Metamyelocytes # (Man) 1.51 H (0) k/uL D-Dimer (<0.60) mg/L FEU Sodium 133 L (137-145) mmol/L Potassium (3.5-5.1) mmol/L Carbon Dioxide 18.6 L (21.6-31.8) mmol/L Anion Gap 14.40 H (4.00-12.00) mmol/L BUN 53.1 H (9-20) mg/dL Creatinine 2.9 H (0.66-1.25) mg/dL Est GFR (CKD-EPI) 21 L (>=60) Glucose 121 H (74-99) mg/dL POC Glucose (mg/dL) (70-110) mg/dL Plasma Lactic Acid Kushal 3.5 H* (0.7-2.0) mmol/L Calcium 8.0 L (8.7-10.3) mg/dL Magnesium (1.6-2.3) mg/dL AST 36 H (14-35) U/L Alkaline Phosphatase 40 L (41-126) U/L Total Protein 5.3 L (6.2-8.2) g/dL Albumin 3.6 L (3.8-4.9) g/dL 02/25/24 02/25/24 02/25/24 Range/Units 05:14 07:46 08:26 WBC (3.8-10.6) k/uL RBC (4.30-5.90) m/uL Hgb (13.0-17.5) gm/dL Hct (39.0-53.0) % Plt Count (150-450) k/uL Neutrophils # (1.3-7.7) k/uL Neutrophils # (Manual) (1.3-7.7) k/uL Lymphocytes # (1.0-4.8) k/uL Lymphocytes # (Manual) (1.0-4.8) k/uL Metamyelocytes # (Man) (0) k/uL D-Dimer 3.20 H (<0.60) mg/L FEU Sodium 133 L (137-145) mmol/L Potassium (3.5-5.1) mmol/L Carbon Dioxide 16 L (21.6-31.8) mmol/L Anion Gap (4.00-12.00) mmol/L BUN 52 H (9-20) mg/dL Creatinine 2.70 H (0.66-1.25) mg/dL Est GFR (CKD-EPI) (>=60) Glucose (74-99) mg/dL POC Glucose (mg/dL) (70-110) mg/dL Plasma Lactic Acid Kushal 2.5 H* (0.7-2.0) mmol/L Calcium 7.6 L (8.7-10.3) mg/dL Magnesium 1.3 L (1.6-2.3) mg/dL AST (14-35) U/L Alkaline Phosphatase (41-126) U/L Total Protein (6.2-8.2) g/dL Albumin (3.8-4.9) g/dL
--- NOTE | 2024-02-25 10:49 | P.HPIM ---
History of Present Illness H&P Date: 02/25/24 Chief Complaint: Flank pain 83-year-old male, history of hypertension, atrial fibrillation, GERD, osteoarthritis and history of prostate cancer, who presents to the emergency department complaining of right-sided abdominal pain. Patient was transferred from [facility] for KENDRICK, kidney stone. Pain started last night. In the [facility] ED, blood work was completed and patient was found to have an KENDRICK with creatinine of 2. Remainder the workup unremarkable. Patient has an uncomplicated 4 mm right-sided kidney stone. Presents for further evaluation after fluid hydration did not improve the patient's KENDRICK at the outpatient facility. Patient also has a BNP of 2300 and they do not want to fluid overload the patient. Blood work completed in our emergency room revealed a WBC of 13.3, hemoglobin of 13 and platelet count of 132, sodium 133, potassium 3.1, BUNs/creatinine of 59/1.79 down from 2 at the outside facility UA is unremarkable; chest x-ray is negative for any acute pulmonary process EKG is negative for any acute ST or T wave changes Patient is being admitted to the hospital for further evaluation by nephrology and urology Review of Systems REVIEW OF SYSTEMS: CONSTITUTIONAL: No fever, no malaise, no fatigue. HEENT: No recent visual problems or hearing problems. Denied any sore throat. CARDIOVASCULAR: No chest pain, orthopnea, PND, no palpitations, no syncope. PULMONARY: No shortness of breath, no cough, no hemoptysis. GASTROINTESTINAL: No diarrhea, no nausea, no vomiting, no abdominal pain. NEUROLOGICAL: No headaches, no weakness, no numbness. HEMATOLOGICAL: Denies any bleeding or petechiae. GENITOURINARY: Denies any burning micturition, frequency, or urgency. MUSCULOSKELETAL/RHEUMATOLOGICAL: Denies any joint pain, swelling, or any muscle pain. ENDOCRINE: Denies any polyuria or polydipsia. The rest of the 14-point review of systems is negative. Past Medical History Past Medical History: Atrial Fibrillation, Cancer, GERD/Reflux, Hearing Disorder / Deafness, Hypertension, Osteoarthritis (OA) Additional Past Medical History / Comment(s): Hx prostate cancer 13 yrs ago, hx skin cancer, recent frequent headaches in the morning. Mild hearing loss. History of Any Multi-Drug Resistant Organisms: None Reported Past Surgical History: Prostate Surgery Additional Past Surgical History / Comment(s): Prostatectomy, skin cancer removed, colonoscopy. Past Anesthesia/Blood Transfusion Reactions: No Reported Reaction Past Psychological History: No Psychological Hx Reported Smoking Status: Current every day smoker Past Alcohol Use History: None Reported Past Drug Use History: None Reported - Past Family History Sister(s) Family Medical History: Cancer Additional Family Medical History / Comment(s): Breast cancer. Medications and Allergies Home Medications Medication Instructions Recorded Confirmed Type Esomeprazole Magnesium [NexIUM] 40 mg PO DAILY 12/25/20 02/24/24 History Losartan Potassium 100 mg PO DAILY 12/25/20 02/24/24 History Potassium Chloride [Potassium 10 meq PO TID 12/25/20 02/24/24 History Chloride ER] Furosemide [Lasix] 20 mg PO DAILY 07/11/23 02/24/24 History Apixaban [Eliquis] 5 mg PO BID #60 tab 07/15/23 02/24/24 Rx NIFEdipine XL [Procardia XL] 90 mg PO DAILY #30 tab 07/15/23 02/24/24 Rx carvediloL [Coreg] 6.25 mg PO BID-W/MEALS 02/24/24 02/24/24 History hydroCHLOROthiazide [Hydrodiuril] 25 mg PO DAILY 02/24/24 02/24/24 History Allergies Allergy/AdvReac Type Severity Reaction Status Date / Time No Known Allergies Allergy Verified 02/24/24 11:09 Physical Exam Vitals: Vital Signs Temp Pulse Pulse Resp BP BP BP 02/24/24 21:25 66 25 H 96/82 02/24/24 19:35 65 29 H 112/85 02/24/24 19:28 94/69 02/24/24 19:02 86/64 02/24/24 18:54 115/66 02/24/24 18:52 119/62 02/24/24 18:44 77/45 02/24/24 18:40 72/59 02/24/24 17:30 63 20 123/67 02/24/24 15:00 98.1 F 61 59 L 18 100/63 99/61 02/24/24 11:42 97.7 F 63 18 94/57 02/24/24 10:12 99 F 62 18 92/53 Pulse Ox 02/24/24 21:25 95 02/24/24 19:35 90 L 02/24/24 19:28 02/24/24 19:02 02/24/24 18:54 02/24/24 18:52 02/24/24 18:44 02/24/24 18:40 02/24/24 17:30 94 L 02/24/24 15:00 96 02/24/24 11:42 95 02/24/24 10:12 96 Intake and Output 02/24/24 02/24/24 02/25/24 14:59 22:59 06:59 Intake Total 240 Balance 240 Intake: Oral 240 Other: Voiding Method Toilet Toilet # Voids 1 # Bowel Movements 1 Weight 97.522 kg General: Appears in no acute distress. HEAD: Normal with no signs of head trauma. EYES: PERRLA, EOMI, conjunctiva normal, no discharge. ENT: Hearing grossly intact, normal oropharynx. RESPIRATORY: Clear breath sounds bilaterally. No wheezes, rales, or rhonchi. C/V: Regular rate and rhythm. S1 and S2 auscultated, no edema, peripheral pulses 2+ and intact throughout ABD: Abd is soft, nontender, nondistended EXT: Normal range of motion, no obvious deformity SKIN: No rashes or lesions observed on exposed skin. NEURO: Alert and oriented x 4 Results CBC & Chem 7: 02/25/24 05:14 02/25/24 07:46 Labs: Abnormal Lab Results - Last 24 Hours (Table) 02/24/24 02/24/24 02/24/24 Range/Units 10:48 10:48 12:05 WBC 13.3 H (3.8-10.6) k/uL RBC 4.25 L (4.30-5.90) m/uL Hct 38.4 L (39.0-53.0) % Plt Count 132 L (150-450) k/uL Neutrophils # 12.6 H (1.3-7.7) k/uL Lymphocytes # 0.2 L (1.0-4.8) k/uL Sodium 133 L (137-145) mmol/L Potassium 3.1 L (3.5-5.1) mmol/L BUN 50 H (9-20) mg/dL Creatinine 1.79 H (0.66-1.25) mg/dL Glucose 123 H (74-99) mg/dL POC Glucose (mg/dL) 125 H (70-110) mg/dL Assessment and Plan Assessment: 1. Acute renal injury; slow IV fluid hydration with normal saline at a rate of 75 cc an hour; monitor strict CHRISTINE's, daily weights, renal function electrolytes; avoid nephrotoxins and hypotension -- Consult nephrology for further recommendations 2. Hypokalemia; potassium of 3.1 on the blood work completed in ED; patient was supplemented with 20 mg of KCl; will continue to monitor electrolytes and supplement as needed 3. Uncomplicated renal stone with mild hydronephrosis; imaging completed at outside facility reveals 4 mm stone with mild hydronephrosis; urology has been consulted 4. Hypertension; patient takes losartan 100 mg daily, Coreg 6.25 mg twice daily, HydroDIURIL 25 mg daily; Lasix 20 mg daily 5. Gastroesophageal reflux disease/gastritis; Protonix 40 mg daily 6. Atrial fibrillation; patient is rate controlled on Coreg 6.25 mg twice daily and Eliquis for anticoagulation at 5 mg twice daily DVT prophylaxis; SCDs/Eliquis CODE STATUS; full code
[2024-02-25] MEDS: SODIUM CHLORIDE 0.9% 500 ML 500 ML IV ONE ×2 (12:11→21:47)
--- NOTE | 2024-02-25 12:20 | US ---
EXAMINATION TYPE: US kidneys/renal and bladder DATE OF EXAM: 02/25/2024 COMPARISON: NONE CLINICAL INDICATION: Male, 83 years old with history of kendrick; KENDRICK hx of stones limited exam due to bod y habitus and postioning. EXAM MEASUREMENTS: Right Kidney: 10 x 6.0 x 3.9 cm Left Kidney: 12.8 x 5.4 x 2.8 cm Right Kidney: Lower pole obscured by bowel gas. Left Kidney: Anechoic area upper pole 3.0 x 2.7 x 2.9 cm Bladder: not visualized has cath in. Bilateral Jets seen: no IMPRESSION: 1. Superior pole left renal simple cyst
[2024-02-25] MEDS: DEXTROSE 5% IN WATER 1,000 ML with SODIUM BICARB (1 MEQ/ML) 150 ML IV SCH (13:07)
[2024-02-25] MEDS: MAGNESIUM SULFATE-D5W PMX 1 GM in DEXTROSE/WATER 1 100ML.BAG IVPB SCH (15:21)
[2024-02-25] MEDS: MAG HYDROX/AL HYDROX/SIMETH 30 ML CUP PO PRN (15:52)
--- NOTE | 2024-02-25 16:34 | P.PN ---
Subjective Progress Note Date: 02/25/24 83-year-old male, history of hypertension, atrial fibrillation, GERD, osteoarthritis and history of prostate cancer, who presents to the emergency department complaining of right-sided abdominal pain. Patient was transferred from [facility] for KENDRICK, kidney stone. Pain started last night. In [facility] ED, blood work was completed and patient was found to have an KENDRICK with creatinine of 2. Remainder the workup unremarkable. Patient has an uncomplicated 4 mm right-sided kidney stone. Presents for further evaluation after fluid hydration did not improve the patient's KENDRICK at the outpatient facility. Patient also has a BNP of 2300 and they do not want to fluid overload the patient. Blood work completed in our emergency room revealed a WBC of 13.3, hemoglobin of 13 and platelet count of 132, sodium 133, potassium 3.1, BUNs/creatinine of 59/1.79 down from 2 at the outside facility UA is unremarkable; chest x-ray is negative for any acute pulmonary process EKG is negative for any acute ST or T wave changes Patient is being admitted to the hospital for further evaluation by nephrology and urology Initially, the patient was admitted to the medical floor, he became hypotensive and he got transferred to the intensive care unit. His systolic blood pressure was as low as 40. The patient immediately received a total of 2 L of IV fluids and currently normal saline is running at a rate of 100 cc an hour. He was given IV Rocephin. He was also started on pressors and norepinephrine is running at 0.09 mcg/kg/min. He also became dyspneic and hypoxic. He was placed on a BiPAP with a pressures of 12 over 5 cm of water and and the patient was taken off the BiPAP subsequently and he is currently on 3 L of oxygen by nasal cannula Objective - Vital Signs Vital signs: Vital Signs Temp 99.1 F 02/25/24 07:00 Pulse 60 02/25/24 07:00 Resp 29 H 02/25/24 07:00 BP 82/54 02/25/24 07:00 Pulse Ox 98 02/25/24 08:03 FiO2 40 02/25/24 08:03 Intake & Output 02/24/24 02/25/24 02/25/24 18:59 06:59 18:59 Intake Total 240 1031.520 Output Total 20 Balance 240 1011.520 Weight 97.522 kg 97.522 kg Intake: Intake, IV Titration 1031.520 Amount Norepinephrine 4 mg In 31.520 Sodium Chloride 0.9% 250 ml @ 0.05 MCG/KG/MIN 18. 578 mls/hr IV .[id number] [facility] Rx#:[id number] Sodium Chloride 0.9% 1, 1000 000 ml @ 999 mls/hr IV . Q1H1M [facility] Rx#:[id number] Oral 240 Output: Urine 20 Other: Voiding Method Toilet Toilet Urinal # Voids 1 1 # Bowel Movements 1 - Exam General: Appears in no acute distress. HEAD: Normal with no signs of head trauma. EYES: PERRLA, EOMI, conjunctiva normal, no discharge. ENT: Hearing grossly intact, normal oropharynx. RESPIRATORY: Clear breath sounds bilaterally. No wheezes, rales, or rhonchi. C/V: Regular rate and rhythm. S1 and S2 auscultated, no edema, peripheral pulses 2+ and intact throughout ABD: Abd is soft, nontender, nondistended EXT: Normal range of motion, no obvious deformity SKIN: No rashes or lesions observed on exposed skin. NEURO: Alert and oriented x 4 - Labs CBC & Chem 7: 02/25/24 05:14 02/25/24 07:46 Labs: Abnormal Lab Results - Last 24 Hours (Table) 02/24/24 02/24/24 02/24/24 Range/Units 10:48 10:48 12:05 WBC 13.3 H (3.8-10.6) k/uL RBC 4.25 L (4.30-5.90) m/uL Hgb (13.0-17.5) gm/dL Hct 38.4 L (39.0-53.0) % Plt Count 132 L (150-450) k/uL Neutrophils # 12.6 H (1.3-7.7) k/uL Neutrophils # (Manual) (1.3-7.7) k/uL Lymphocytes # 0.2 L (1.0-4.8) k/uL Lymphocytes # (Manual) (1.0-4.8) k/uL Metamyelocytes # (Man) (0) k/uL D-Dimer (<0.60) mg/L FEU Sodium 133 L (137-145) mmol/L Potassium 3.1 L (3.5-5.1) mmol/L Carbon Dioxide (22-30) mmol/L BUN 50 H (9-20) mg/dL Creatinine 1.79 H (0.66-1.25) mg/dL Glucose 123 H (74-99) mg/dL POC Glucose (mg/dL) 125 H (70-110) mg/dL Plasma Lactic Acid Kushal (0.7-2.0) mmol/L Calcium (8.4-10.2) mg/dL Magnesium (1.6-2.3) mg/dL 02/25/24 02/25/24 02/25/24 Range/Units 05:14 05:14 05:14 WBC 11.6 H (3.8-10.6) k/uL RBC 4.02 L (4.30-5.90) m/uL Hgb 12.5 L (13.0-17.5) gm/dL Hct 37.4 L (39.0-53.0) % Plt Count 96 L (150-450) k/uL Neutrophils # (1.3-7.7) k/uL Neutrophils # (Manual) 9.80 H (1.3-7.7) k/uL Lymphocytes # (1.0-4.8) k/uL Lymphocytes # (Manual) 0.23 L (1.0-4.8) k/uL Metamyelocytes # (Man) 1.51 H (0) k/uL D-Dimer 3.20 H (<0.60) mg/L FEU Sodium (137-145) mmol/L Potassium (3.5-5.1) mmol/L Carbon Dioxide (22-30) mmol/L BUN (9-20) mg/dL Creatinine (0.66-1.25) mg/dL Glucose (74-99) mg/dL POC Glucose (mg/dL) (70-110) mg/dL Plasma Lactic Acid Kushal 3.5 H* (0.7-2.0) mmol/L Calcium (8.4-10.2) mg/dL Magnesium (1.6-2.3) mg/dL 02/25/24 02/25/24 Range/Units 07:46 08:26 WBC (3.8-10.6) k/uL RBC (4.30-5.90) m/uL Hgb (13.0-17.5) gm/dL Hct (39.0-53.0) % Plt Count (150-450) k/uL Neutrophils # (1.3-7.7) k/uL Neutrophils # (Manual) (1.3-7.7) k/uL Lymphocytes # (1.0-4.8) k/uL Lymphocytes # (Manual) (1.0-4.8) k/uL Metamyelocytes # (Man) (0) k/uL D-Dimer (<0.60) mg/L FEU Sodium 133 L (137-145) mmol/L Potassium (3.5-5.1) mmol/L Carbon Dioxide 16 L (22-30) mmol/L BUN 52 H (9-20) mg/dL Creatinine 2.70 H (0.66-1.25) mg/dL Glucose (74-99) mg/dL POC Glucose (mg/dL) (70-110) mg/dL Plasma Lactic Acid Kushal 2.5 H* (0.7-2.0) mmol/L Calcium 7.6 L (8.4-10.2) mg/dL Magnesium 1.3 L (1.6-2.3) mg/dL Assessment and Plan Assessment: 1. Acute renal injury; slow IV fluid hydration with normal saline at a rate of 75 cc an hour; monitor strict CHRISTINE's, daily weights, renal function electrolytes; avoid nephrotoxins and hypotension -- Consult nephrology for further recommendations 2. Hypokalemia; potassium of 3.1 on the blood work completed in ED; patient was supplemented with 20 mg of KCl; will continue to monitor electrolytes and supplement as needed 3. Uncomplicated renal stone with mild hydronephrosis; imaging completed at outside facility reveals 4 mm stone with mild hydronephrosis; urology has been consulted 4. Hypertension; patient takes losartan 100 mg daily, Coreg 6.25 mg twice daily, HydroDIURIL 25 mg daily; Lasix 20 mg daily 5. Gastroesophageal reflux disease/gastritis; Protonix 40 mg daily 6. Atrial fibrillation; patient is rate controlled on Coreg 6.25 mg twice daily and Eliquis for anticoagulation at 5 mg twice daily DVT prophylaxis; SCDs/Eliquis CODE STATUS; full code
[2024-02-25 21:48] LABS: HCT 35.1 % (39.0-53.0); HGB 11.9 gm/dL (13.0-17.5); MCH 32.1 pg (25.0-35.0); MCV 94.4 fL (80.0-100.0); Mean Platelet Volume 8.5; RBC 3.72 m/uL (4.30-5.90); WBC 12.5 k/uL (3.8-10.6)
[2024-02-25 21:50] LABS: Platelet Count 67 k/uL (150-450)
[2024-02-25 22:06] LABS: African American GFR (CKD) 21 (>60 ml/min/1.73 sqM); Anion Gap 12 mmol/L; Blood Urea Nitrogen 59 mg/dL (9-20); Calcium 7.2 mg/dL (8.4-10.2); Carbon Dioxide 15 mmol/L (22-30); Chloride 104 mmol/L (98-107); Glucose 114 mg/dL (74-99); Non-African American GFR(CKD) 18 (>60 ml/min/1.73 sqM); Potassium 4.3 mmol/L (3.5-5.1); Sodium 131 mmol/L (137-145)
[2024-02-25 22:19] LABS: Band Neutrophils % 47 %; Lymphocytes # (M) 0.38 k/uL (1.0-4.8); Metamyelocytes % 8 %; Monocytes # (M) 0.13 k/uL (0-1.0); Neutrophils % (M) 41 %; Nucleated Red Blood Cells 0 /100 WBC (0-0); Total Cells Counted 200
[2024-02-25 22:20] LABS: Toxic Vacuolation Present
[2024-02-25] MEDS: MELATONIN 5 MG TABLET PO PRN (22:51)
[2024-02-26 02:12] LABS: HCT 35.4 % (39.0-53.0); HGB 11.9 gm/dL (13.0-17.5); MCH 31.4 pg (25.0-35.0); MCHC 33.6 g/dL (31.0-37.0); MCV 93.5 fL (80.0-100.0); Mean Platelet Volume 8.6; RBC 3.79 m/uL (4.30-5.90); RDW 12.8 % (11.5-15.5); WBC 14.2 k/uL (3.8-10.6)
[2024-02-26 02:24] LABS: African American GFR (CKD) 22 (>60 ml/min/1.73 sqM); Anion Gap 9 mmol/L; Blood Urea Nitrogen 59 mg/dL (9-20); Calcium 7.1 mg/dL (8.4-10.2); Carbon Dioxide 20 mmol/L (22-30); Chloride 103 mmol/L (98-107); Glucose 118 mg/dL (74-99); Magnesium 1.6 mg/dL (1.6-2.3); Non-African American GFR(CKD) 19 (>60 ml/min/1.73 sqM); Potassium 4.3 mmol/L (3.5-5.1); Sodium 132 mmol/L (137-145)
[2024-02-26 02:37] LABS: Platelet Count 63 k/uL (150-450)
[2024-02-26 03:09] LABS: Band Neutrophils % 33 %; Lymphocytes # (M) 0.14 k/uL (1.0-4.8); Metamyelocytes # (M) 0.71 k/uL (0); Metamyelocytes % 5 %; Monocytes # (M) 0.14 k/uL (0-1.0); Neutrophils % (M) 60 %; Nucleated Red Blood Cells 0 /100 WBC (0-0); Total Cells Counted 200
[2024-02-26 03:10] LABS: Toxic Vacuolation Present
--- NOTE | 2024-02-26 07:35 | P.PN ---
Subjective Progress Note Date: 02/26/24 The patient was seen by me yesterday for a ureteral stone as well as catheterization. The patient has balanitis xerotica obliterans and required dilation to put a catheter in. His urine was clear on admission. He is having no pain on the left side and has not had any pain on the left side. The CAT velvet hathaway was from [place] that showed a distal left ureteral stone, small. He is having no pain. He had an ultrasound yesterday show no evidence of hydronephrosis. Objective - Vital Signs Vital signs: Vital Signs Temp 97.9 F 02/26/24 04:00 Pulse 60 02/26/24 07:00 Resp 32 H 02/26/24 07:00 BP 122/72 02/26/24 07:00 Pulse Ox 94 L 02/26/24 07:00 FiO2 40 02/26/24 00:08 Intake & Output 02/25/24 02/26/24 02/26/24 18:59 06:59 18:59 Intake Total 2754.644 1700 Output Total 115 420 Balance 2639.644 1280 Weight 109.8 kg Intake: IV 1300 1200 Dextrose 5% in Water 1, 700 1200 000 ml @ 100 mls/hr IV . [id number] TAD with Sodium Bicarb (1 Meq/ml) 150 ml Rx#:[id number] Magnesium Sulfate-D5w Pmx 200 1 gm In Dextrose/Water 1 100ml.bag @ 100 mls/hr IVPB Q1H TAD Rx#: [id number] Sodium Chloride 0.9% 1, 400 000 ml @ 50 mls/hr IV . Q20H STA Rx#:[id number] Intake, IV Titration 1254.644 500 Amount Norepinephrine 4 mg In 254.644 Sodium Chloride 0.9% 250 ml @ 0.05 MCG/KG/MIN 18. 578 mls/hr IV .[id number] TAD Rx#:[id number] Sodium Chloride 0.9% 1, 1000 000 ml @ 999 mls/hr IV . Q1H1M ONE Rx#:[id number] Sodium Chloride 0.9% 500 500 ml 500 ml @ 999 mls/hr IV .Q31M ONE Rx#:[id number] Oral 200 Output: Urine 115 420 Other: Voiding Method Indwelling Catheter Indwelling Catheter # Voids 1 - Labs CBC & Chem 7: 02/26/24 01:53 02/26/24 01:53 Labs: Abnormal Lab Results - Last 24 Hours (Table) 02/25/24 02/25/24 02/25/24 Range/Units 05:14 07:46 08:26 WBC (3.8-10.6) k/uL RBC (4.30-5.90) m/uL Hgb (13.0-17.5) gm/dL Hct (39.0-53.0) % Plt Count (150-450) k/uL Neutrophils # (Manual) (1.3-7.7) k/uL Lymphocytes # (Manual) (1.0-4.8) k/uL Metamyelocytes # (Man) (0) k/uL Sodium 133 L 133 L (135-145) mmol/L Carbon Dioxide 18.6 L 16 L (21.6-31.8) mmol/L Anion Gap 14.40 H (4.00-12.00) mmol/L BUN 53.1 H 52 H (9.0-27.0) mg/dL Creatinine 2.9 H 2.70 H (0.6-1.5) mg/dL Est GFR (CKD-EPI) 21 L (>=60) Glucose 121 H (70-110) mg/dL Plasma Lactic Acid Kushal 2.5 H* (0.7-2.0) mmol/L Calcium 8.0 L 7.6 L (8.7-10.3) mg/dL Magnesium 1.3 L (1.6-2.3) mg/dL AST 36 H (14-35) U/L Alkaline Phosphatase 40 L (41-126) U/L Total Protein 5.3 L (6.2-8.2) g/dL Albumin 3.6 L (3.8-4.9) g/dL 02/25/24 02/25/24 02/25/24 Range/Units 11:35 14:29 17:21 WBC (3.8-10.6) k/uL RBC (4.30-5.90) m/uL Hgb (13.0-17.5) gm/dL Hct (39.0-53.0) % Plt Count (150-450) k/uL Neutrophils # (Manual) (1.3-7.7) k/uL Lymphocytes # (Manual) (1.0-4.8) k/uL Metamyelocytes # (Man) (0) k/uL Sodium (135-145) mmol/L Carbon Dioxide (21.6-31.8) mmol/L Anion Gap (4.00-12.00) mmol/L BUN (9.0-27.0) mg/dL Creatinine (0.6-1.5) mg/dL Est GFR (CKD-EPI) (>=60) Glucose (70-110) mg/dL Plasma Lactic Acid Kushal 2.2 H* 2.6 H* 2.7 H* (0.7-2.0) mmol/L Calcium (8.7-10.3) mg/dL Magnesium (1.6-2.3) mg/dL AST (14-35) U/L Alkaline Phosphatase (41-126) U/L Total Protein (6.2-8.2) g/dL Albumin (3.8-4.9) g/dL 02/25/24 02/25/24 02/25/24 Range/Units 19:57 21:34 21:34 WBC 12.5 H (3.8-10.6) k/uL RBC 3.72 L (4.30-5.90) m/uL Hgb 11.9 L (13.0-17.5) gm/dL Hct 35.1 L (39.0-53.0) % Plt Count 67 L (150-450) k/uL Neutrophils # (Manual) 11.00 H (1.3-7.7) k/uL Lymphocytes # (Manual) 0.38 L (1.0-4.8) k/uL Metamyelocytes # (Man) 1.00 H (0) k/uL Sodium 131 L (135-145) mmol/L Carbon Dioxide 15 L (21.6-31.8) mmol/L Anion Gap (4.00-12.00) mmol/L BUN 59 H (9.0-27.0) mg/dL Creatinine 3.06 H (0.6-1.5) mg/dL Est GFR (CKD-EPI) (>=60) Glucose 114 H (70-110) mg/dL Plasma Lactic Acid Kushal 4.6 H* (0.7-2.0) mmol/L Calcium 7.2 L (8.7-10.3) mg/dL Magnesium (1.6-2.3) mg/dL AST (14-35) U/L Alkaline Phosphatase (41-126) U/L Total Protein (6.2-8.2) g/dL Albumin (3.8-4.9) g/dL 02/25/24 02/26/24 02/26/24 Range/Units 22:27 01:53 01:53 WBC 14.2 H (3.8-10.6) k/uL RBC 3.79 L (4.30-5.90) m/uL Hgb 11.9 L (13.0-17.5) gm/dL Hct 35.4 L (39.0-53.0) % Plt Count 63 L (150-450) k/uL Neutrophils # (Manual) 13.20 H (1.3-7.7) k/uL Lymphocytes # (Manual) 0.14 L (1.0-4.8) k/uL Metamyelocytes # (Man) 0.71 H (0) k/uL Sodium 132 L (135-145) mmol/L Carbon Dioxide 20 L (21.6-31.8) mmol/L Anion Gap (4.00-12.00) mmol/L BUN 59 H (9.0-27.0) mg/dL Creatinine 2.93 H (0.6-1.5) mg/dL Est GFR (CKD-EPI) (>=60) Glucose 118 H (70-110) mg/dL Plasma Lactic Acid Ukshal 2.3 H* (0.7-2.0) mmol/L Calcium 7.1 L (8.7-10.3) mg/dL Magnesium (1.6-2.3) mg/dL AST (14-35) U/L Alkaline Phosphatase (41-126) U/L Total Protein (6.2-8.2) g/dL Albumin (3.8-4.9) g/dL 02/26/24 02/26/24 Range/Units 01:53 04:31 WBC (3.8-10.6) k/uL RBC (4.30-5.90) m/uL Hgb (13.0-17.5) gm/dL Hct (39.0-53.0) % Plt Count (150-450) k/uL Neutrophils # (Manual) (1.3-7.7) k/uL Lymphocytes # (Manual) (1.0-4.8) k/uL Metamyelocytes # (Man) (0) k/uL Sodium (135-145) mmol/L Carbon Dioxide (21.6-31.8) mmol/L Anion Gap (4.00-12.00) mmol/L BUN (9.0-27.0) mg/dL Creatinine (0.6-1.5) mg/dL Est GFR (CKD-EPI) (>=60) Glucose (70-110) mg/dL Plasma Lactic Acid Kushal 2.1 H* 2.2 H* (0.7-2.0) mmol/L Calcium (8.7-10.3) mg/dL Magnesium (1.6-2.3) mg/dL AST (14-35) U/L Alkaline Phosphatase (41-126) U/L Total Protein (6.2-8.2) g/dL Albumin (3.8-4.9) g/dL Assessment and Plan Assessment: Impression: Left ureteral stone possibly pased. Balanitis xerotica obliterans. Recommendations:Unless he develops left flank pain or show signs of the stone affecting him I do not feel further urologic assessment is necessary. The catheter should stay in another 48 hours because of the dilation that I performed.
[2024-02-26] MEDS: SODIUM CHLORIDE 0.9% 1,000 ML IV SCH (09:54)
--- NOTE | 2024-02-26 10:02 | P.PN ---
Subjective Patient is seen in follow-up for acute kidney injury. Renal function stable. Nonoliguric. Acidosis improved with bicarb drip. Sitting up in chair. On nasal cannula. Vital signs are stable. General: No acute distress. HEENT: Head exam is unremarkable. On nasal cannula. LUNGS: No audible rhonchi or wheezes. HEART: Rate and Rhythm are regular. ABDOMEN: Obese, nontender. EXTREMITITES: No edema. Objective - Vital Signs Vital signs: Vital Signs Temp 98.9 F 02/26/24 08:00 Pulse 62 02/26/24 09:00 Resp 28 H 02/26/24 09:00 BP 122/82 02/26/24 09:00 Pulse Ox 95 02/26/24 09:00 FiO2 40 02/26/24 08:34 Intake & Output 02/25/24 02/26/24 02/26/24 18:59 06:59 18:59 Intake Total 2754.644 1700 200 Output Total 115 420 160 Balance 2639.644 1280 40 Weight 109.8 kg Intake: IV 1300 1200 200 Dextrose 5% in Water 1, 700 1200 200 000 ml @ 100 mls/hr IV . [id number] TAD with Sodium Bicarb (1 Meq/ml) 150 ml Rx#:[id number] Magnesium Sulfate-D5w Pmx 200 1 gm In Dextrose/Water 1 100ml.bag @ 100 mls/hr IVPB Q1H TAD Rx#: [id number] Sodium Chloride 0.9% 1, 400 000 ml @ 50 mls/hr IV . Q20H STA Rx#:[id number] Intake, IV Titration 1254.644 500 Amount Norepinephrine 4 mg In 254.644 Sodium Chloride 0.9% 250 ml @ 0.05 MCG/KG/MIN 18. 578 mls/hr IV .[id number] TAD Rx#:[id number] Sodium Chloride 0.9% 1, 1000 000 ml @ 999 mls/hr IV . Q1H1M ONE Rx#:[id number] Sodium Chloride 0.9% 500 500 ml 500 ml @ 999 mls/hr IV .Q31M ONE Rx#:[id number] Oral 200 Output: Urine 115 420 160 Other: Voiding Method Indwelling Catheter Indwelling Catheter # Voids 1 - Labs CBC & Chem 7: 02/26/24 01:53 02/26/24 01:53 Labs: Abnormal Lab Results - Last 24 Hours (Table) 02/25/24 02/25/24 02/25/24 Range/Units 05:14 11:35 14:29 WBC (3.8-10.6) k/uL RBC (4.30-5.90) m/uL Hgb (13.0-17.5) gm/dL Hct (39.0-53.0) % Plt Count (150-450) k/uL Neutrophils # (Manual) (1.3-7.7) k/uL Lymphocytes # (Manual) (1.0-4.8) k/uL Metamyelocytes # (Man) (0) k/uL Sodium 133 L (135-145) mmol/L Carbon Dioxide 18.6 L (21.6-31.8) mmol/L Anion Gap 14.40 H (4.00-12.00) mmol/L BUN 53.1 H (9.0-27.0) mg/dL Creatinine 2.9 H (0.6-1.5) mg/dL Est GFR (CKD-EPI) 21 L (>=60) Glucose 121 H (70-110) mg/dL Plasma Lactic Acid Kushal 2.2 H* 2.6 H* (0.7-2.0) mmol/L Calcium 8.0 L (8.7-10.3) mg/dL AST 36 H (14-35) U/L Alkaline Phosphatase 40 L (41-126) U/L Total Protein 5.3 L (6.2-8.2) g/dL Albumin 3.6 L (3.8-4.9) g/dL 02/25/24 02/25/24 02/25/24 Range/Units 17:21 19:57 21:34 WBC 12.5 H (3.8-10.6) k/uL RBC 3.72 L (4.30-5.90) m/uL Hgb 11.9 L (13.0-17.5) gm/dL Hct 35.1 L (39.0-53.0) % Plt Count 67 L (150-450) k/uL Neutrophils # (Manual) 11.00 H (1.3-7.7) k/uL Lymphocytes # (Manual) 0.38 L (1.0-4.8) k/uL Metamyelocytes # (Man) 1.00 H (0) k/uL Sodium (135-145) mmol/L Carbon Dioxide (21.6-31.8) mmol/L Anion Gap (4.00-12.00) mmol/L BUN (9.0-27.0) mg/dL Creatinine (0.6-1.5) mg/dL Est GFR (CKD-EPI) (>=60) Glucose (70-110) mg/dL Plasma Lactic Acid Kushal 2.7 H* 4.6 H* (0.7-2.0) mmol/L Calcium (8.7-10.3) mg/dL AST (14-35) U/L Alkaline Phosphatase (41-126) U/L Total Protein (6.2-8.2) g/dL Albumin (3.8-4.9) g/dL 02/25/24 02/25/24 02/26/24 Range/Units 21:34 22:27 01:53 WBC 14.2 H (3.8-10.6) k/uL RBC 3.79 L (4.30-5.90) m/uL Hgb 11.9 L (13.0-17.5) gm/dL Hct 35.4 L (39.0-53.0) % Plt Count 63 L (150-450) k/uL Neutrophils # (Manual) 13.20 H (1.3-7.7) k/uL Lymphocytes # (Manual) 0.14 L (1.0-4.8) k/uL Metamyelocytes # (Man) 0.71 H (0) k/uL Sodium 131 L (135-145) mmol/L Carbon Dioxide 15 L (21.6-31.8) mmol/L Anion Gap (4.00-12.00) mmol/L BUN 59 H (9.0-27.0) mg/dL Creatinine 3.06 H (0.6-1.5) mg/dL Est GFR (CKD-EPI) (>=60) Glucose 114 H (70-110) mg/dL Plasma Lactic Acid Kushal 2.3 H* (0.7-2.0) mmol/L Calcium 7.2 L (8.7-10.3) mg/dL AST (14-35) U/L Alkaline Phosphatase (41-126) U/L Total Protein (6.2-8.2) g/dL Albumin (3.8-4.9) g/dL 02/26/24 02/26/24 02/26/24 Range/Units 01:53 01:53 04:31 WBC (3.8-10.6) k/uL RBC (4.30-5.90) m/uL Hgb (13.0-17.5) gm/dL Hct (39.0-53.0) % Plt Count (150-450) k/uL Neutrophils # (Manual) (1.3-7.7) k/uL Lymphocytes # (Manual) (1.0-4.8) k/uL Metamyelocytes # (Man) (0) k/uL Sodium 132 L (135-145) mmol/L Carbon Dioxide 20 L (21.6-31.8) mmol/L Anion Gap (4.00-12.00) mmol/L BUN 59 H (9.0-27.0) mg/dL Creatinine 2.93 H (0.6-1.5) mg/dL Est GFR (CKD-EPI) (>=60) Glucose 118 H (70-110) mg/dL Plasma Lactic Acid Kushal 2.1 H* 2.2 H* (0.7-2.0) mmol/L Calcium 7.1 L (8.7-10.3) mg/dL AST (14-35) U/L Alkaline Phosphatase (41-126) U/L Total Protein (6.2-8.2) g/dL Albumin (3.8-4.9) g/dL 02/26/24 Range/Units 07:51 WBC (3.8-10.6) k/uL RBC (4.30-5.90) m/uL Hgb (13.0-17.5) gm/dL Hct (39.0-53.0) % Plt Count (150-450) k/uL Neutrophils # (Manual) (1.3-7.7) k/uL Lymphocytes # (Manual) (1.0-4.8) k/uL Metamyelocytes # (Man) (0) k/uL Sodium (135-145) mmol/L Carbon Dioxide (21.6-31.8) mmol/L Anion Gap (4.00-12.00) mmol/L BUN (9.0-27.0) mg/dL Creatinine (0.6-1.5) mg/dL Est GFR (CKD-EPI) (>=60) Glucose (70-110) mg/dL Plasma Lactic Acid Kushal 3.0 H* (0.7-2.0) mmol/L Calcium (8.7-10.3) mg/dL AST (14-35) U/L Alkaline Phosphatase (41-126) U/L Total Protein (6.2-8.2) g/dL Albumin (3.8-4.9) g/dL Assessment and Plan Plan: Assessment: 1. Acute kidney injury secondary to ATN secondary to hypotension. Creatinine 1.05 in July 2023. 1.79 this admission and peaked at 3.06 this admission - 2.93 today. UA benign. No hydronephrosis noted on kidney ultrasound. 2. Left-sided nephrolithiasis with hydronephrosis. Urology following. Has Martinez catheter. 3. Right-sided kidney lesion noted on CT. Kidney ultrasound showed simple left renal cyst. 4. Metabolic acidosis secondary to acute kidney injury and lactic acidosis. Improved. 5. Hypokalemia from poor intake, diuretic use and hypomagnesemia. Replaced. Better. 6. Hypomagnesemia from poor intake and diuretic use. Replaced. Better. 7. Lactic acidosis secondary to hypotension. Plan: Change bicarb drip to normal saline. Continue to monitor renal function and urine output. Add po bicarb. Follow-up cultures. Continue to hold antihypertensives. Currently only on Coreg.
--- NOTE | 2024-02-26 12:58 | XR ---
EXAMINATION TYPE: XR chest 1V DATE OF EXAM: 02/26/2024 COMPARISON: 02/25/2024 INDICATION: Short of breath TECHNIQUE: Single frontal view of the chest is obtained. FINDINGS: The heart size is upper limits of normal for size. Pacemaker overlies the left chest.. The pulmonary vasculature is normal. The lungs are clear. IMPRESSION: 1. No acute pulmonary process.
--- NOTE | 2024-02-26 13:15 | P.PN ---
Subjective Progress Note Date: 02/26/24 83-year-old male patient came to us from [facility] because of inability to urinate and right-sided abdominal pain. He apparently was initially taken to the Hospital for an acute kidney injury and kidney stones. He was found to be in acute kidney injury and the creatinine was up to 2.0. The patient has chronic urinary problems. He has history of nephrolithiasis. He also has history of prostate cancer and has undergone prostatectomy more than 10 years ago. He does self-catheterization on a daily basis and he does not once in the morning. The patient has not done any self-catheterization for the past 24 to 48 hours. This was attempted to be done at [facility] and it failed. After being transferred to [place], the patient was attempted to get a Martinez catheter and it failed because of anatomic difficulties and failure to insert the Martinez catheter in. Currently, the bladder scan is showing no urine in his bladder. He does not have a Martinez catheter. Awaiting urology consultation. CAT scan of the abdomen and pelvis that was [facility] showed a 4 mm stone in the left distal ureter resulting in mild to moderate left-sided hydronephrosis. There was also increased in the size of an indeterminate right renal mass and cholelithiasis and punctate right renal calculi. A large fat-containing indirect right inguinal hernia was also present. Initially, the patient was admitted to the medical floor, he became hypotensive and he got transferred to the intensive care unit. His systolic blood pressure was as low as 40. The patient immediately received a total of 2 L of IV fluids and currently normal saline is running at a rate of 100 cc an hour. He was given IV Rocephin. He was also started on pressors and norepinephrine is running at 0.09 mcg/kg/min. He also became dyspneic and hypoxic. He was placed on a BiPAP with a pressures of 12 over 5 cm of water and and the patient was taken off the BiPAP subsequently and he is currently on 3 L of oxygen by nasal cannula. She is known to have sick sinus syndrome and has a permanent pacemaker in place. He has also paroxysmal atrial fibrillation. EKG from this current admission is showing a paced rhythm. The patient's white cell count is 11.6, he was 5.5 and a platelet count is 96. His sodium levels at 133, serum bicarb is at 16, BUN is 52 with a creatinine of 2.7 consistent with acute kidney injury with a baseline creatinine of 1.7 from yesterday. Lactic acid level is at 3.5. UA collected in the emergency was negative for any blood or infection. Currently, he seems to be in otic. Chest x-ray done in the emergency shows cardiomegaly and mild pulm vascular congestion. No history of COPD. No history of asthma. No history of coronary artery disease. He is known to have hypertension. He is maintained on long-term anticoagulation with Eliquis regarding his paroxysmal atrial fibrillation. He has chronic hearing problems and hearing loss. He has also history of skin cancer. 02/26/2024, the patient is on 4 L of oxygen by nasal cannula. The patient is currently off pressors. The patient is currently off BiPAP. Breathing is comfortable. Martinez catheter has been inserted. The patient jah on empiric antibiotic coverage with IV Rocephin. Nephrology on the case. Lactic acid level has dropped down to 2.2. White cell count 14.2 with a hemoglobin 11.5 and a platelet count of 63. BUN is 59 with a creatinine of 2.9 and sodium levels at 132 with a potassium level of 4.3. The patient was seen again by urology. Patient was also seen by nephrology. Objective - Vital Signs Vital signs: Vital Signs Temp 98.9 F 02/26/24 08:00 Pulse 62 02/26/24 09:00 Resp 28 H 02/26/24 09:00 BP 122/82 02/26/24 09:00 Pulse Ox 95 02/26/24 09:00 FiO2 40 02/26/24 08:34 Intake & Output 02/25/24 02/26/24 02/26/24 18:59 06:59 18:59 Intake Total 2754.644 1700 200 Output Total 115 420 160 Balance 2639.644 1280 40 Weight 109.8 kg Intake: IV 1300 1200 200 Dextrose 5% in Water 1, 700 1200 200 000 ml @ 100 mls/hr IV . [id number] TAD with Sodium Bicarb (1 Meq/ml) 150 ml Rx#:[id number] Magnesium Sulfate-D5w Pmx 200 1 gm In Dextrose/Water 1 100ml.bag @ 100 mls/hr IVPB Q1H TAD Rx#: [id number] Sodium Chloride 0.9% 1, 400 000 ml @ 50 mls/hr IV . Q20H STA Rx#:[id number] Intake, IV Titration 1254.644 500 Amount Norepinephrine 4 mg In 254.644 Sodium Chloride 0.9% 250 ml @ 0.05 MCG/KG/MIN 18. 578 mls/hr IV .[id number] TAD Rx#:[id number] Sodium Chloride 0.9% 1, 1000 000 ml @ 999 mls/hr IV . Q1H1M ONE Rx#:[id number] Sodium Chloride 0.9% 500 500 ml 500 ml @ 999 mls/hr IV .Q31M ONE Rx#:[id number] Oral 200 Output: Urine 115 420 160 Other: Voiding Method Indwelling Catheter Indwelling Catheter # Voids 1 - Exam General appearance,, comfortable with no signs of any significant respiratory distress. The patient is currently on 3 L of oxygen by nasal cannula. Breathing is nonlabored at this point in time. Heart rate communicate with the patient because of impaired hearing. Same time, the patient seems to be a very poor historian. Head exam was generally normal. There was no scleral icterus or corneal arcus. Mucous membranes were moist. Neck was supple and without jugular venous distension, thyromegaly, or carotid bruits. Carotids were easily palpable bilaterally. There was no adenopathy. Lungs were clear to auscultation and percussion, and with normal diaphragmatic excursion. No wheezes or rales were noted. Heart sounds are regular, rhythm is paced and the patient is a pacemaker over the left anterior chest area. No significant murmurs appreciated. Abdominal exam revealed normal bowel sounds. The abdomen was soft, non-tender, and without masses, organomegaly, or appreciable enlargement of the abdominal aorta. No CVA angle tenderness. Examination of the extremities revealed easily palpable radial, femoral and pedal pulses. There was no cyanosis, clubbing or edema. Examination of the skin revealed no evidence of significant rashes, suspicious appearing nevi or other concerning lesions. Neurologically, the patient is awake and alert and the patient does not have any focal neurological deficit. Cranial nerves are essentially intact. - Labs CBC & Chem 7: 02/26/24 01:53 02/26/24 01:53 Labs: Abnormal Lab Results - Last 24 Hours (Table) 0502/25/24 02/25/24 Range/Units 14:29 17:21 19:57 WBC (3.8-10.6) k/uL RBC (4.30-5.90) m/uL Hgb (13.0-17.5) gm/dL Hct (39.0-53.0) % Plt Count (150-450) k/uL Neutrophils # (Manual) (1.3-7.7) k/uL Lymphocytes # (Manual) (1.0-4.8) k/uL Metamyelocytes # (Man) (0) k/uL Sodium (137-145) mmol/L Carbon Dioxide (22-30) mmol/L BUN (9-20) mg/dL Creatinine (0.66-1.25) mg/dL Glucose (74-99) mg/dL Plasma Lactic Acid Kushal 2.6 H* 2.7 H* 4.6 H* (0.7-2.0) mmol/L Calcium (8.4-10.2) mg/dL 02/25/24 02/25/24 02/25/24 Range/Units 21:34 21:34 22:27 WBC 12.5 H (3.8-10.6) k/uL RBC 3.72 L (4.30-5.90) m/uL Hgb 11.9 L (13.0-17.5) gm/dL Hct 35.1 L (39.0-53.0) % Plt Count 67 L (150-450) k/uL Neutrophils # (Manual) 11.00 H (1.3-7.7) k/uL Lymphocytes # (Manual) 0.38 L (1.0-4.8) k/uL Metamyelocytes # (Man) 1.00 H (0) k/uL Sodium 131 L (137-145) mmol/L Carbon Dioxide 15 L (22-30) mmol/L BUN 59 H (9-20) mg/dL Creatinine 3.06 H (0.66-1.25) mg/dL Glucose 114 H (74-99) mg/dL Plasma Lactic Acid Kushal 2.3 H* (0.7-2.0) mmol/L Calcium 7.2 L (8.4-10.2) mg/dL 02/26/24 02/26/24 02/26/24 Range/Units 01:53 01:53 01:53 WBC 14.2 H (3.8-10.6) k/uL RBC 3.79 L (4.30-5.90) m/uL Hgb 11.9 L (13.0-17.5) gm/dL Hct 35.4 L (39.0-53.0) % Plt Count 63 L (150-450) k/uL Neutrophils # (Manual) 13.20 H (1.3-7.7) k/uL Lymphocytes # (Manual) 0.14 L (1.0-4.8) k/uL Metamyelocytes # (Man) 0.71 H (0) k/uL Sodium 132 L (137-145) mmol/L Carbon Dioxide 20 L (22-30) mmol/L BUN 59 H (9-20) mg/dL Creatinine 2.93 H (0.66-1.25) mg/dL Glucose 118 H (74-99) mg/dL Plasma Lactic Acid Kushal 2.1 H* (0.7-2.0) mmol/L Calcium 7.1 L (8.4-10.2) mg/dL 02/26/24 02/26/24 02/26/24 Range/Units 04:31 07:51 12:22 WBC (3.8-10.6) k/uL RBC (4.30-5.90) m/uL Hgb (13.0-17.5) gm/dL Hct (39.0-53.0) % Plt Count (150-450) k/uL Neutrophils # (Manual) (1.3-7.7) k/uL Lymphocytes # (Manual) (1.0-4.8) k/uL Metamyelocytes # (Man) (0) k/uL Sodium (137-145) mmol/L Carbon Dioxide (22-30) mmol/L BUN (9-20) mg/dL Creatinine (0.66-1.25) mg/dL Glucose (74-99) mg/dL Plasma Lactic Acid Kushal 2.2 H* 3.0 H* 2.2 H* (0.7-2.0) mmol/L Calcium (8.4-10.2) mg/dL Assessment and Plan Plan: Acute kidney injury, suspicious for obstructive uropathy as the patient has chronic difficulties with urination probably a ureteral stricture as the patient undergoes self-catheterization. The patient has undergone previous prostatectomy for prostate cancer. At the same time, he has a 4 mm stone in the left distal ureter causing mild to moderate left sided hydronephrosis. However, the bladder scan is not showing any significant urine output collection. Acute kidney injury from an ATN cannot be completely ruled out. UA collected was negative. Currently the patient not producing any urine output. Martinez catheter insertion is failed because resistance. Acute hypoxic respiratory failure, likely secondary to above currently on 3 L of oxygen by nasal cannula. BiPAP is discontinued. 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 Martinez catheter in place History of nephrolithiasis and a 4 mm stone in the left distal ureter Non-anion gap metabolic acidosis, improved Acute kidney injury, stable and the creatinine is down to 2.9 Acute hypotension, received IV fluids and pressors and the patient is currently normotensive and completed a bicarb infusion with improvement in the anion gap metabolic acidosis Sick sinus syndrome currently has a permanent pacemaker in place Paroxysmal atrial fibrillation, maintained on long-term anticoagulation with Eliquis 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
[2024-02-26] MEDS: MAGNESIUM SULFATE-D5W PMX 1 GM in DEXTROSE/WATER 1 100ML.BAG IVPB ONE (15:51)
[2024-02-26] MEDS: SODIUM BICARBONATE TAB 650 MG TAB PO SCH (15:51)
[2024-02-27 09:16] LABS: Basophils % (A) 0 %; Eosinophils % (A) 0 %; HCT 34.4 % (39.0-53.0); HGB 11.1 gm/dL (13.0-17.5); Lymphocytes # (A) 0.2 k/uL (1.0-4.8); Lymphocytes % (A) 2 %; MCH 30.8 pg (25.0-35.0); MCHC 32.3 g/dL (31.0-37.0); MCV 95.1 fL (80.0-100.0); Mean Platelet Volume 9.9; Monocytes # (A) 0.4 k/uL (0-1.0); Monocytes % (A) 3 %; Neutrophils % (A) 94 %; RBC 3.62 m/uL (4.30-5.90); RDW 13.2 % (11.5-15.5); WBC 12.7 k/uL (3.8-10.6)
[2024-02-27 09:22] LABS: Platelet Count 53 k/uL (150-450)
[2024-02-27 09:48] LABS: African American GFR (CKD) 19 (>60 ml/min/1.73 sqM); Anion Gap 9 mmol/L; Blood Urea Nitrogen 67 mg/dL (9-20); Calcium 7.4 mg/dL (8.4-10.2); Carbon Dioxide 25 mmol/L (22-30); Chloride 99 mmol/L (98-107); Glucose 98 mg/dL (74-99); Non-African American GFR(CKD) 17 (>60 ml/min/1.73 sqM); Potassium 4.6 mmol/L (3.5-5.1); Sodium 133 mmol/L (137-145)
--- NOTE | 2024-02-27 10:23 | P.PN ---
Subjective Patient is seen in follow-up for acute kidney injury. Renal function worse compared to yesterday. Nonoliguric. On IV fluids. Transferred out of the ICU. Vital signs are stable. General: No acute distress. HEENT: Head exam is unremarkable. On BiPAP. LUNGS: No audible rhonchi or wheezes. HEART: Rate and Rhythm are regular. ABDOMEN: Obese, nontender. EXTREMITITES: No edema. Objective - Vital Signs Vital signs: Vital Signs Temp 97.8 F 02/27/24 07:54 Pulse 61 02/27/24 09:52 Resp 30 H 02/27/24 08:14 BP 90/63 02/27/24 07:54 Pulse Ox 93 L 02/27/24 09:52 FiO2 40 02/27/24 09:52 Intake & Output 02/26/24 02/27/24 02/27/24 18:59 06:59 18:59 Intake Total 425 450 Output Total 360 575 Balance 65 -125 Intake: IV 425 450 Dextrose 5% in Water 1, 200 000 ml @ 100 mls/hr IV . [id number] TAD with Sodium Bicarb (1 Meq/ml) 150 ml Rx#:[id number] Sodium Chloride 0.9% 1, 225 450 000 ml @ 75 mls/hr IV . [id number] TAD Rx#:[id number] Output: Urine 360 575 Other: Voiding Method Indwelling Catheter Indwelling Catheter Indwelling Catheter - Labs CBC & Chem 7: 02/27/24 08:34 02/27/24 08:34 Labs: Abnormal Lab Results - Last 24 Hours (Table) 02/26/24 02/27/24 02/27/24 Range/Units 12:22 08:34 08:34 WBC 12.7 H (3.8-10.6) k/uL RBC 3.62 L (4.30-5.90) m/uL Hgb 11.1 L (13.0-17.5) gm/dL Hct 34.4 L (39.0-53.0) % Plt Count 53 L (150-450) k/uL Neutrophils # 12.0 H (1.3-7.7) k/uL Lymphocytes # 0.2 L (1.0-4.8) k/uL Sodium 133 L (137-145) mmol/L BUN 67 H (9-20) mg/dL Creatinine 3.28 H (0.66-1.25) mg/dL Plasma Lactic Acid Kushal 2.2 H* (0.7-2.0) mmol/L Calcium 7.4 L (8.4-10.2) mg/dL Microbiology - Last 24 Hours (Table) 02/25/24 11:35 Blood Culture - Preliminary Blood 02/25/24 18:15 Urine Culture - Final Urine,Catheterized Assessment and Plan Plan: Assessment: 1. Acute kidney injury secondary to ATN secondary to hypotension. Creatinine 1.05 in July 2023. 1.79 this admission and peaked at 3.06 this admission - 3.28 today. UA benign. No hydronephrosis noted on kidney ultrasound. 2. Left-sided nephrolithiasis with hydronephrosis. Urology following. Has Martinez catheter. 3. Right-sided kidney lesion noted on CT. Kidney ultrasound showed simple left renal cyst. 4. Metabolic acidosis secondary to acute kidney injury and lactic acidosis. Improved. On oral bicarb. 5. Hypokalemia from poor intake, diuretic use and hypomagnesemia. Replaced. Better. 6. Hypomagnesemia from poor intake and diuretic use. Replaced. Better. 7. Lactic acidosis secondary to hypotension. Plan: Maintain normal saline. Continue to monitor renal function and urine output. Follow-up cultures. Continue to hold antihypertensives. Currently only on Coreg. Add midodrine. Hold for systolic blood pressure greater than 115.
--- NOTE | 2024-02-27 10:52 | P.PN ---
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 He denies flank pain. The Martinez catheter is draining clear yellow urine. Objective - Vital Signs Vital signs: Vital Signs Temp 97.8 F 02/27/24 07:54 Pulse 60 02/27/24 07:54 Resp 24 02/27/24 07:54 BP 90/63 02/27/24 07:54 Pulse Ox 95 02/27/24 07:54 FiO2 40 02/27/24 03:28 Intake & Output 02/26/24 02/27/24 02/27/24 18:59 06:59 18:59 Intake Total 425 450 Output Total 360 575 Balance 65 -125 Intake: IV 425 450 Dextrose 5% in Water 1, 200 000 ml @ 100 mls/hr IV . [id number] TAD with Sodium Bicarb (1 Meq/ml) 150 ml Rx#:[id number] Sodium Chloride 0.9% 1, 225 450 000 ml @ 75 mls/hr IV . [id number] TAD Rx#:[id number] Output: Urine 360 575 Other: Voiding Method Indwelling Catheter Indwelling Catheter - Exam Well-developed well-nourished white male. Mild respiratory distress is noted. - Labs CBC & Chem 7: 02/27/24 08:34 02/27/24 08:34 Labs: Abnormal Lab Results - Last 24 Hours (Table) 02/26/24 02/26/24 Range/Units 07:51 12:22 Plasma Lactic Acid Kushal 3.0 H* 2.2 H* (0.7-2.0) mmol/L Microbiology - Last 24 Hours (Table) 02/25/24 11:35 Blood Culture - Preliminary Blood 02/25/24 18:15 Urine Culture - Final Urine,Catheterized Assessment and Plan (1) Ureterolithiasis Current Visit: Yes Status: Acute Code(s): N20.1 - CALCULUS OF URETER SNOMED Code(s): 81738593 Plan: The Martinez catheter should remain in place for an additional 24 hours, and may then be removed when no longer medically needed. The ureteral calculus will not require treatment unless he becomes symptomatic.
[2024-02-27] MEDS: MIDODRINE 5 MG TAB PO SCH (11:25)
--- NOTE | 2024-02-27 13:52 | P.PN ---
Subjective Progress Note Date: 02/27/24 83-year-old male, history of hypertension, atrial fibrillation, GERD, osteoarthritis and history of prostate cancer, who presents to the emergency department complaining of right-sided abdominal pain. Patient was transferred from [facility] for KENDRICK, kidney stone. Pain started last night. In the [facility] ED, blood work was completed and patient was found to have an KENDRICK with creatinine of 2. Remainder the workup unremarkable. Patient has an uncomplicated 4 mm right-sided kidney stone. Presents for further evaluation after fluid hydration did not improve the patient's KENDRICK at the outpatient f acility. Patient also has a BNP of 2300 and they do not want to fluid overload the patient. Blood work completed in our emergency room revealed a WBC of 13.3, hemoglobin of 13 and platelet count of 132, sodium 133, potassium 3.1, BUNs/creatinine of 59/1.79 down from 2 at the outside facility UA is unremarkable; chest x-ray is negative for any acute pulmonary process EKG is negative for any acute ST or T wave changes Patient is being admitted to the hospital for further evaluation by nephrology and urology Initially, the patient was admitted to the medical floor, he became hypotensive and he got transferred to the intensive care unit. His systolic blood pressure was as low as 40. The patient immediately received a total of 2 L of IV fluids and currently normal saline is running at a rate of 100 cc an hour. He was given IV Rocephin. He was also started on pressors and norepinephrine is running at 0.09 mcg/kg/min. He also became dyspneic and hypoxic. He was placed on a BiPAP with a pressures of 12 over 5 cm of water and and the patient was taken off the BiPAP subsequently and he is currently on 3 L of oxygen by nasal cannula 02/26. Dr. Verde took over care. Lab work done this morning showed WBC 12.7, hemoglobin 11.1, platelet count 53, sodium 133, potassium 4.6, BUN 67, cre atinine 3.28. Nephrology added midodrine. Urology not planning any surgical intervention at this time unless patient becomes symptomatic for the ureteral calculi REVIEW OF SYSTEMS: CONSTITUTIONAL: No fever, no malaise,. CARDIOVASCULAR: No chest pain, no palpitations, no syncope. PULMONARY: No shortness of breath, no cough, GASTROINTESTINAL: No diarrhea, no nausea, no vomiting, no abdominal pain. NEUROLOGICAL: No headaches, no weakness, PHYSICAL EXAMINATION: GENERAL: The patient is alert and oriented x3, not in any acute distress. Well developed, well nourished. HEENT: Pupils are round and equally reacting to light. EOMI. No scleral icterus. No conjunctival pallor. Normocephalic, atraumatic. No pharyngeal erythema. No thyromegaly. CARDIOVASCULAR: S1 and S2 present. No murmurs, rubs, or gallops. PULMONARY: Chest is clear to auscultation, no wheezing or crackles. ABDOMEN: Soft, nontender, nondistended, normoactive bowel sounds. No palpable organomegaly. MUSCULOSKELETAL: No joint swelling or deformity. EXTREMITIES: No cyanosis, clubbing, or pedal edema. NEUROLOGICAL: Gross neurological examination did not reveal any focal deficits. SKIN: No rashes. Assessment and plan Acute kidney injury obstructive uropathy Acute hypoxic respiratory failure, likely secondary to above currently on 3 L of oxygen by nasal cannula. BiPAP is discontinued. 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 Martinez catheter in place History of nephrolithiasis and a 4 mm stone in the left distal ureter Non-anion gap metabolic acidosis, improved Acute kidney injury, stable and the creatinine is down to 2.9 Acute hypotension, received IV fluids and pressors and the patient is currently normotensive and completed a bicarb infusion with improvement in the anion gap metabolic acidosis Sick sinus syndrome currently has a permanent pacemaker in place Paroxysmal atrial fibrillation, maintained on long-term anticoagulation with Eliquis 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 Continue same treatment. Continue with symptomatic treatment. Resume home medication. Monitor labs and vitals. DVT and GI prophylaxis. Further recommendations as per clinical course of the patient Dictation was produced using [employer] dictation software. please excuse any grammatical, word or spelling errors. Objective - Vital Signs Vital signs: Vital Signs Temp 97.8 F 02/27/24 07:54 Pulse 61 02/27/24 09:52 Resp 30 H 02/27/24 08:14 BP 90/63 02/27/24 07:54 Pulse Ox 93 L 02/27/24 09:52 FiO2 40 02/27/24 09:52 Intake & Output 02/26/24 02/27/24 02/27/24 18:59 06:59 18:59 Intake Total 425 450 Output Total 360 575 Balance 65 -125 Intake: IV 425 450 Dextrose 5% in Water 1, 200 000 ml @ 100 mls/hr IV . [id number] TAD with Sodium Bicarb (1 Meq/ml) 150 ml Rx#:[id number] Sodium Chloride 0.9% 1, 225 450 000 ml @ 75 mls/hr IV . [id number] TAD Rx#:[id number] Output: Urine 360 575 Other: Voiding Method Indwelling Catheter Indwelling Catheter Indwelling Catheter - Labs CBC & Chem 7: 02/27/24 08:34 02/27/24 08:34 Labs: Abnormal Lab Results - Last 24 Hours (Table) 02/26/24 02/27/24 02/27/24 Range/Units 12:22 08:34 08:34 WBC 12.7 H (3.8-10.6) k/uL RBC 3.62 L (4.30-5.90) m/uL Hgb 11.1 L (13.0-17.5) gm/dL Hct 34.4 L (39.0-53.0) % Plt Count 53 L (150-450) k/uL Neutrophils # 12.0 H (1.3-7.7) k/uL Lymphocytes # 0.2 L (1.0-4.8) k/uL Sodium 133 L (137-145) mmol/L BUN 67 H (9-20) mg/dL Creatinine 3.28 H (0.66-1.25) mg/dL Plasma Lactic Acid Kushal 2.2 H* (0.7-2.0) mmol/L Calcium 7.4 L (8.4-10.2) mg/dL Microbiology - Last 24 Hours (Table) 02/25/24 11:35 Blood Culture - Preliminary Blood 02/25/24 18:15 Urine Culture - Final Urine,Catheterized
--- NOTE | 2024-02-27 14:08 | P.PN ---
Subjective Progress Note Date: 02/27/24 83-year-old male patient came to us from [facility] because of inability to urinate and right-sided abdominal pain. He apparently was initially taken to the Hospital for an acute kidney injury and kidney stones. He was found to be in acute kidney injury and the creatinine was up to 2.0. The patient has chronic urinary problems. He has history of nephrolithiasis. He also has history of prostate cancer and has undergone prostatectomy more than 10 years ago. He does self-catheterization on a daily basis and he does not once in the morning. The patient has not done any self-catheterization for the past 24 to 48 hours. This was attempted to be done at [facility] and it failed. After being transferred to [place], the patient was attempted to get a Martinez catheter and it failed because of anatomic difficulties and failure to insert the Martinez catheter in. Currently, the bladder scan is showing no urine in his bladder. He does not have a Martinez catheter. Awaiting urology consultation. CAT scan of the abdomen and pelvis that was [facility] showed a 4 mm stone in the left distal ureter resulting in mild to moderate left-sided hydronephrosis. There was also increased in the size of an indeterminate right renal mass and cholelithiasis and punctate right renal calculi. A large fat-containing indirect right inguinal hernia was also present. Initially, the patient was admitted to the medical floor, he became hypotensive and he got transferred to the intensive care unit. His systolic blood pressure was as low as 40. The patient immediately received a total of 2 L of IV fluids and currently normal saline is running at a rate of 100 cc an hour. He was given IV Rocephin. He was also started on pressors and norepinephrine is running at 0.09 mcg/kg/min. He also became dyspneic and hypoxic. He was placed on a BiPAP with a pressures of 12 over 5 cm of water and and the patient was taken off the BiPAP subsequently and he is currently on 3 L of oxygen by nasal cannula. She is known to have sick sinus syndrome and has a permanent pacemaker in place. He has also paroxysmal atrial fibrillation. EKG from this current admission is showing a paced rhythm. The patient's white cell count is 11.6, he was 5.5 and a platelet count is 96. His sodium levels at 133, serum bicarb is at 16, BUN is 52 with a creatinine of 2.7 consistent with acute kidney injury with a baseline creatinine of 1.7 from yesterday. Lactic acid level is at 3.5. UA collected in the emergency was negative for any blood or infection. Currently, he seems to be in otic. Chest x-ray done in the emergency shows cardiomegaly and mild pulm vascular congestion. No history of COPD. No history of asthma. No history of coronary artery disease. He is known to have hypertension. He is maintained on long-term anticoagulation with Eliquis regarding his paroxysmal atrial fibrillation. He has chronic hearing problems and hearing loss. He has also history of skin cancer. 02/26/2024, the patient is on 4 L of oxygen by nasal cannula. The patient is currently off pressors. The patient is currently off BiPAP. Breathing is comfortable. Martinez catheter has been inserted. The patient jah on empiric antibiotic coverage with IV Rocephin. Nephrology on the case. Lactic acid level has dropped down to 2.2. White cell count 14.2 with a hemoglobin 11.5 and a platelet count of 63. BUN is 59 with a creatinine of 2.9 and sodium levels at 132 with a potassium level of 4.3. The patient was seen again by urology. Patient was also seen by nephrology. On 02/27/2024, the patient is lethargic and at times confused. On and off, he has been placed on BiPAP. At the time of my evaluation, he was taken off the BiPAP and the patient was placed on 5 L of oxygen by nasal cannula with a pulse ox of 98%. He has a Martinez catheter that was inserted yesterday by urology. His urine output is adequate at this point. Nephrology on the case. He has produced approximately thousand of urine output over the past 24 hours. He has however developed an acute kidney injury. He is nonoliguric. Creatinine is up to 3.28 with a BUN of 67 and sodium levels at 133. WBC count is 12.7 with a hemoglobin of 11.1. Ultrasound of the kidneys of the gallbladder was done yesterday and shows superior pole left renal simple cyst. No evidence of any hydronephrosis. Nephrology and urology were both on the case and the patient remains on IV Rocephin. The patient also has been in atrial fibrillation. The patient received anticoagulation with Eliquis 2.5 mg twice a day. The patient was also started on midodrine to support her blood pressure. He is on normal saline at rate of 75 cc an hour. He is on oral bicarb. Objective - Vital Signs Vital signs: Vital Signs Temp 97.5 F L 02/27/24 11:17 Pulse 75 02/27/24 11:17 Resp 22 02/27/24 11:17 BP 115/73 02/27/24 11:17 Pulse Ox 98 02/27/24 11:17 FiO2 40 02/27/24 10:56 Intake & Output 02/26/24 02/27/24 02/27/24 18:59 06:59 18:59 Intake Total 425 450 Output Total 360 575 Balance 65 -125 Intake: IV 425 450 Dextrose 5% in Water 1, 200 000 ml @ 100 mls/hr IV . [id number] TAD with Sodium Bicarb (1 Meq/ml) 150 ml Rx#:[id number] Sodium Chloride 0.9% 1, 225 450 000 ml @ 75 mls/hr IV . [id number] TAD Rx#:[id number] Output: Urine 360 575 Other: Voiding Method Indwelling Catheter Indwelling Catheter Indwelling Catheter - Exam General appearance,, comfortable with no signs of any significant respiratory distress. The patient is currently on 2 L of O2 nasal cannula. He is encephalopathic at times confused., the patient seems to be a very poor historian. Head exam was generally normal. There was no scleral icterus or corneal arcus. Mucous membranes were moist. Neck was supple and without jugular venous distension, thyromegaly, or carotid bruits. Carotids were easily palpable bilaterally. There was no adenopathy. Lungs were clear to auscultation and percussion, and with normal diaphragmatic excursion. No wheezes or rales were noted. Heart sounds are regular, rhythm is paced and the patient is a pacemaker over the left anterior chest area. No significant murmurs appreciated. Abdominal exam revealed normal bowel sounds. The abdomen was soft, non-tender, and without masses, organomegaly, or appreciable enlargement of the abdominal aorta. No CVA angle tenderness. Examination of the extremities revealed easily palpable radial, femoral and pedal pulses. There was no cyanosis, clubbing or edema. Examination of the skin revealed no evidence of significant rashes, suspicious appearing nevi or other concerning lesions. Neurologically, the patient is awake and alert and the patient does not have any focal neurological deficit. Cranial nerves are essentially intact. - Labs CBC & Chem 7: 02/27/24 08:34 02/27/24 08:34 Labs: Abnormal Lab Results - Last 24 Hours (Table) 02/26/24 02/27/24 02/27/24 Range/Units 12:22 08:34 08:34 WBC 12.7 H (3.8-10.6) k/uL RBC 3.62 L (4.30-5.90) m/uL Hgb 11.1 L (13.0-17.5) gm/dL Hct 34.4 L (39.0-53.0) % Plt Count 53 L (150-450) k/uL Neutrophils # 12.0 H (1.3-7.7) k/uL Lymphocytes # 0.2 L (1.0-4.8) k/uL Sodium 133 L (137-145) mmol/L BUN 67 H (9-20) mg/dL Creatinine 3.28 H (0.66-1.25) mg/dL Plasma Lactic Acid Kushal 2.2 H* (0.7-2.0) mmol/L Calcium 7.4 L (8.4-10.2) mg/dL Microbiology - Last 24 Hours (Table) 02/25/24 11:35 Blood Culture - Preliminary Blood 02/25/24 18:15 Urine Culture - Final Urine,Catheterized Assessment and Plan Plan: Acute kidney injury, suspicious for obstructive uropathy as the patient has chronic difficulties with urination probably a ureteral stricture as the patient undergoes self-catheterization. The patient has undergone previous prostatectomy for prostate cancer. At the same time, he has a 4 mm stone in the left distal ureter causing mild to moderate left sided hydronephrosis. Creatinine is on the rise and the patient is nonoliguric. Rule out ATN, a postobstructive ATN. Nephrology and urology are both on the case. Ultrasound of the kidneys shows no evidence of any hydronephrosis Acute hypoxic respiratory failure, likely secondary to above currently on 2 L of oxygen by nasal cannula. BiPAP is being utilized on and off Encephalopathy, likely metabolic, CAT scan of the brain has been negative 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 Martinez catheter in place History of nephrolithiasis and a 4 mm stone in the left distal ureter Non-anion gap metabolic acidosis, improved Acute kidney injury, stable and the creatinine is on the rise at 3.2 Acute hypotension, received IV fluids and pressors and the patient is currently normotensive and patient is currently on normal citrate of 75 cc an hour Sick sinus syndrome currently has a permanent pacemaker in place Paroxysmal atrial fibrillation, maintained on long-term anticoagulation with Eliquis 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 History of skin cancer History of hypertension Hyperlipidemia Plan Keep Martinez catheter in place No hydronephrosis Monitor mental status Utilize BiPAP as needed Oxygen at 2 L/min nasal cannula Urology and nephrology follow-up Monitor urine output Continue normal saline at rate of 75 cc an hour Consult with urology regarding the left ureteral kidney stone and possibility of an intervention to relieve the obstruction as the patient has mild to moderate left-sided hydroureter, ultrasound kidney shows no evidence of any hydronephrosis Monitor renal function Continue IV Rocephin Will continue to follow.
[2024-02-27] MEDS: hydrALAZINE HCL 25 MG TAB PO SCH (20:31)
[2024-02-28 07:52] LABS: African American GFR (CKD) 30 (>60 ml/min/1.73 sqM); Anion Gap 4 mmol/L; Blood Urea Nitrogen 69 mg/dL (9-20); Calcium 7.7 mg/dL (8.4-10.2); Carbon Dioxide 24 mmol/L (22-30); Chloride 102 mmol/L (98-107); Glucose 116 mg/dL (74-99); Non-African American GFR(CKD) 26 (>60 ml/min/1.73 sqM); Sodium 130 mmol/L (137-145)
[2024-02-28 08:12] LABS: Magnesium 2.6 mg/dL (1.6-2.3); Potassium 4.5 mmol/L (3.5-5.1)
--- NOTE | 2024-02-28 09:09 | P.PN ---
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 The Martinez catheter is draining clear yellow urine. Objective - Vital Signs Vital signs: Vital Signs Temp 98.0 F 02/28/24 07:59 Pulse 62 02/28/24 07:59 Resp 19 02/28/24 07:59 BP 134/80 02/28/24 07:59 Pulse Ox 98 02/28/24 07:59 FiO2 40 02/28/24 03:56 Intake & Output 02/27/24 02/28/24 02/28/24 18:59 06:59 18:59 Intake Total 918 1860 240 Output Total 900 800 Balance 18 1060 240 Intake: IV 800 900 Sodium Chloride 0.9% 1, 750 900 000 ml @ 75 mls/hr IV . [id number] TAD Rx#:[id number] 1 gm In 50 Sodium Chloride 0.9% 50 ml @ 100 mls/hr IVPB Q12HR TAD Rx#:[id number] Oral 118 960 240 Output: Urine 900 800 Other: Voiding Method Indwelling Catheter Indwelling Catheter - Constitutional General appearance: Present: average body habitus, cooperative, no acute distress - Gastrointestinal General gastrointestinal: Present: soft. Absent: organomegaly, tenderness - Psychiatric Psychiatric: Present: A&O x's 3 - Labs CBC & Chem 7: 02/27/24 08:34 02/28/24 07:19 Labs: Abnormal Lab Results - Last 24 Hours (Table) 02/27/24 02/27/24 02/28/24 Range/Units 08:34 08:34 07:19 WBC 12.7 H (3.8-10.6) k/uL RBC 3.62 L (4.30-5.90) m/uL Hgb 11.1 L (13.0-17.5) gm/dL Hct 34.4 L (39.0-53.0) % Plt Count 53 L (150-450) k/uL Neutrophils # 12.0 H (1.3-7.7) k/uL Lymphocytes # 0.2 L (1.0-4.8) k/uL Sodium 133 L 130 L (137-145) mmol/L BUN 67 H 69 H (9-20) mg/dL Creatinine 3.28 H 2.26 H (0.66-1.25) mg/dL Glucose 116 H (74-99) mg/dL Calcium 7.4 L 7.7 L (8.4-10.2) mg/dL Magnesium 2.6 H (1.6-2.3) mg/dL Microbiology - Last 24 Hours (Table) 02/25/24 11:35 Blood Culture - Preliminary Blood Assessment and Plan (1) Ureterolithiasis Current Visit: Yes Status: Acute Code(s): N20.1 - CALCULUS OF URETER SNOMED Code(s): 63798665 Plan: The Martinez catheter may be removed when no longer medically needed. The cause of the patient's right flank pain is felt to be nonneurologic in etiology. The left ureteral calculus will not require treatment unless he becomes symptomatic.
--- NOTE | 2024-02-28 11:40 | P.PN ---
Subjective patient is seen for follow-up for acute kidney injury. Maintained on IV fluids. is complaining of increased swelling in both upper extremities. No significant shortness of breath. serum creatinine decreased to 2.2 today Objective - Vital Signs Vital signs: Vital Signs Temp 98.0 F 02/28/24 07:59 Pulse 62 02/28/24 10:41 Resp 19 02/28/24 10:41 BP 134/80 02/28/24 07:59 Pulse Ox 98 02/28/24 07:59 FiO2 40 02/28/24 03:56 Intake & Output 02/27/24 02/28/24 02/28/24 18:59 06:59 18:59 Intake Total 918 1860 240 Output Total 900 800 Balance 18 1060 240 Intake: IV 800 900 Sodium Chloride 0.9% 1, 750 900 000 ml @ 75 mls/hr IV . [id number] [facility] Rx#:[id number] cefTRIAXone 1 gm In 50 Sodium Chloride 0.9% 50 ml @ 100 mls/hr IVPB Q12HR [facility] Rx#:[id number] Oral 118 960 240 Output: Urine 900 800 Other: Voiding Method Indwelling Catheter Indwelling Catheter Indwelling Catheter - Exam patient is awake, comfortable, no acute distress. Examination of the heart S1 and S2 Examination of the lungs decreased breath sounds at the bases Abdomen is soft nontender Examination of lower extremity shows no significant edema. Edema noted bilateral upper extremities [employer] exam grossly intact - Labs CBC & Chem 7: 02/27/24 08:34 02/28/24 07:19 Labs: Abnormal Lab Results - Last 24 Hours (Table) 02/28/24 Range/Units 07:19 Sodium 130 L (137-145) mmol/L BUN 69 H (9-20) mg/dL Creatinine 2.26 H (0.66-1.25) mg/dL Glucose 116 H (74-99) mg/dL Calcium 7.7 L (8.4-10.2) mg/dL Magnesium 2.6 H (1.6-2.3) mg/dL Microbiology - Last 24 Hours (Table) 02/25/24 11:35 Blood Culture - Preliminary Blood Assessment and Plan Assessment: 1. Acute kidney injury secondary to ATN secondary to hypotension. Creatinine 1.05 in July 2023. 1.79 this admission and peaked at 3.06 this admission - 2.2 today. UA benign. No hydronephrosis noted on kidney ultrasound. 2. Left-sided nephrolithiasis with hydronephrosis. Urology following. Has Martinez catheter. 3. Right-sided kidney lesion noted on CT. Kidney ultrasound showed simple left renal cyst. 4. Metabolic acidosis secondary to acute kidney injury and lactic acidosis. Improved. On oral bicarb. 5. Hypokalemia from poor intake, diuretic use and hypomagnesemia. Replaced. Better. 6. Hypomagnesemia from poor intake and diuretic use. Replaced. Better. 7. Lactic acidosis secondary to hypotension. Plan: decrease IV fluids Advised to increase oral intake particularly protein. Repeat labs in a.m.
--- NOTE | 2024-02-28 12:40 | P.PN ---
Subjective Progress Note Date: 02/28/24 83-year-old male, history of hypertension, atrial fibrillation, GERD, osteoarthritis and history of prostate cancer, who presents to the emergency department complaining of right-sided abdominal pain. Patient was transferred from [facility] for KENDRICK, kidney stone. Pain started last night. In the [facility] ED, blood work was completed and patient was found to have an KENDRICK with creatinine of 2. Remainder the workup unremarkable. Patient has an uncomplicated 4 mm right-sided kidney stone. Presents for further evaluation after fluid hydration did not improve the patient's KENDRICK at the outpatient f [facility]. Patient also has a BNP of 2300 and they do not want to fluid overload the patient. Blood work completed in our emergency room revealed a WBC of 13.3, hemoglobin of 13 and platelet count of 132, sodium 133, potassium 3.1, BUNs/creatinine of 59/1.79 down from 2 at the outside facility UA is unremarkable; chest x-ray is negative for any acute pulmonary process EKG is negative for any acute ST or T wave changes Patient is being admitted to the hospital for further evaluation by nephrology and urology Initially, the patient was admitted to the medical floor, he became hypotensive and he got transferred to the intensive care unit. His systolic blood pressure was as low as 40. The patient immediately received a total of 2 L of IV fluids and currently normal saline is running at a rate of 100 cc an hour. He was given IV Rocephin. He was also started on pressors and norepinephrine is running at 0.09 mcg/kg/min. He also became dyspneic and hypoxic. He was placed on a BiPAP with a pressures of 12 over 5 cm of water and and the patient was taken off the BiPAP subsequently and he is currently on 3 L of oxygen by nasal cannula 02/26. Dr. Verde took over care. Lab work done this morning showed WBC 12.7, hemoglobin 11.1, platelet count 53, sodium 133, potassium 4.6, BUN 67, cre atinine 3.28. Nephrology added midodrine. Urology not planning any surgical intervention at this time unless patient becomes symptomatic for the ureteral calculi 02/27. Patient seen and examined.Blood work done this morning showed sodium 130, potassium 4.5, BUN 69, creatinine 2.26, glucose 116, calcium 7.7, magnesium 2.7. Currently on 5 L of oxygen. Complaining of flank pain. Complains of swelling of upper extremities REVIEW OF SYSTEMS: CONSTITUTIONAL: No fever, no malaise,. CARDIOVASCULAR: No chest pain, no palpitations, no syncope. PULMONARY: No shortness of breath, no cough, GASTROINTESTINAL: No diarrhea, no nausea, no vomiting, NEUROLOGICAL: No headaches, no weakness, PHYSICAL EXAMINATION: GENERAL: The patient is alert and oriented x3, not in any acute distress. Ill looking HEENT: Pupils are round and equally reacting to light. EOMI. No scleral icterus. No conjunctival pallor. Normocephalic, atraumatic. No pharyngeal erythema. No thyromegaly. CARDIOVASCULAR: S1 and S2 present. No murmurs, rubs, or gallops. PULMONARY: Chest is clear to auscultation, no wheezing or crackles. ABDOMEN: Soft, nontender, nondistended, normoactive bowel sounds. No palpable organomegaly. MUSCULOSKELETAL: No joint swelling or deformity. EXTREMITIES: No cyanosis, clubbing, swelling of upper extremities noticeable NEUROLOGICAL: Gross neurological examination did not reveal any focal deficits. SKIN: No rashes. Assessment and plan Acute kidney injury obstructive uropathy Acute hypoxic respiratory failure, likely secondary to above currently on 3 L of oxygen by nasal cannula. BiPAP is discontinued. 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 Martinez catheter in place History of nephrolithiasis and a 4 mm stone in the left distal ureter Non-anion gap metabolic acidosis, improved Acute kidney injury, stable and the creatinine is down to 2.9 Acute hypotension, received IV fluids and pressors and the patient is currently normotensive and completed a bicarb infusion with improvement in the anion gap metabolic acidosis Sick sinus syndrome currently has a permanent pacemaker in place Paroxysmal atrial fibrillation, maintained on long-term anticoagulation with Eliquis 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 Continue same treatment. Continue with symptomatic treatment. Resume home medication. Monitor labs and vitals. DVT and GI prophylaxis. Further recommendations as per clinical course of the patient Dictation was produced using [employer] dictation software. please excuse any grammatical, word or spelling errors. Objective - Vital Signs Vital signs: Vital Signs Temp 98.0 F 02/28/24 07:59 Pulse 62 02/28/24 07:59 Resp 19 02/28/24 07:59 BP 134/80 02/28/24 07:59 Pulse Ox 98 02/28/24 07:59 FiO2 40 02/28/24 03:56 Intake & Output 02/27/24 02/28/24 02/28/24 18:59 06:59 18:59 Intake Total 918 1860 240 Output Total 900 800 Balance 18 1060 240 Intake: IV 800 900 Sodium Chloride 0.9% 1, 750 900 000 ml @ 75 mls/hr IV . [id number] Rx#:[id number] cefTRIAXone 1 gm In 50 Sodium Chloride 0.9% 50 ml @ 100 mls/hr IVPB Q12HR [facility] Rx#:[id number] Oral 118 960 240 Output: Urine 900 800 Other: Voiding Method Indwelling Catheter Indwelling Catheter - Labs CBC & Chem 7: 02/27/24 08:34 02/28/24 07:19 Labs: Abnormal Lab Results - Last 24 Hours (Table) 02/28/24 Range/Units 07:19 Sodium 130 L (137-145) mmol/L BUN 69 H (9-20) mg/dL Creatinine 2.26 H (0.66-1.25) mg/dL Glucose 116 H (74-99) mg/dL Calcium 7.7 L (8.4-10.2) mg/dL Magnesium 2.6 H (1.6-2.3) mg/dL Microbiology - Last 24 Hours (Table) 02/25/24 11:35 Blood Culture - Preliminary Blood
--- NOTE | 2024-02-28 14:19 | P.PN ---
Subjective Progress Note Date: 02/28/24 Principal diagnosis: Acute kidney injury, secondary to ATN secondary to hypotension 83-year-old male patient came to us from [facility] because of inability to urinate and right-sided abdominal pain. He apparently was initially taken to the Hospital for an acute kidney injury and kidney stones. He was found to be in acute kidney injury and the creatinine was up to 2.0. The patient has chronic urinary problems. He has history of nephrolithiasis. He also has history of prostate cancer and has undergone prostatectomy more than 10 years ago. He does self-catheterization on a daily basis and he does not once in the morning. The patient has not done any self-catheterization for the past 24 to 48 hours. This was attempted to be done at [facility] and it failed. After being transferred to [place], the patient was attempted to get a Martinez catheter and it failed because of anatomic difficulties and failure to insert the Martinez catheter in. Currently, the bladder scan is showing no urine in his bladder. He does not have a Martinez catheter. Awaiting urology consultation. CAT scan of the abdomen and pelvis that was [facility] showed a 4 mm stone in the left distal ureter resulting in mild to moderate left-sided hydronephrosis. There was also increased in the size of an indeterminate right renal mass and cholelithiasis and punctate right renal calculi. A large fat-containing indirect right inguinal hernia was also present. Initially, the patient was admitted to the medical floor, he became hypotensive and he got transferred to the intensive care unit. His systolic blood pressure was as low as 40. The patient immediately received a total of 2 L of IV fluids and currently normal saline is running at a rate of 100 cc an hour. He was given IV Rocephin. He was also started on pressors and norepinephrine is running at 0.09 mcg/kg/min. He also became dyspneic and hypoxic. He was placed on a BiPAP with a pressures of 12 over 5 cm of water and and the patient was taken off the BiPAP subsequently and he is currently on 3 L of oxygen by nasal cannula. She is known to have sick sinus syndrome and has a permanent pacemaker in place. He has also paroxysmal atrial fibrillation. EKG from this current admission is showing a paced rhythm. The patient's white cell count is 11.6, he was 5.5 and a platelet count is 96. His sodium levels at 133, serum bicarb is at 16, BUN is 52 with a creatinine of 2.7 consistent with acute kidney injury with a baseline creatinine of 1.7 from yesterday. Lactic acid level is at 3.5. UA collected in the emergency was negative for any blood or infection. Currently, he seems to be in otic. Chest x-ray done in the emergency shows cardiomegaly and mild pulm vascular congestion. No history of COPD. No history of asthma. No history of coronary artery disease. He is known to have hypertension. He is maintained on long-term anticoagulation with Eliquis regarding his paroxysmal atrial fibrillation. He has chronic hearing problems and hearing loss. He has also history of skin cancer. 02/26/2024, the patient is on 4 L of oxygen by nasal cannula. The patient is currently off pressors. The patient is currently off BiPAP. Breathing is comfortable. Martinez catheter has been inserted. The patient jah on empiric antibiotic coverage with IV Rocephin. Nephrology on the case. Lactic acid level has dropped down to 2.2. White cell count 14.2 with a hemoglobin 11.5 and a platelet count of 63. BUN is 59 with a creatinine of 2.9 and sodium levels at 132 with a potassium level of 4.3. The patient was seen again by urology. Patient was also seen by nephrology. On 02/27/2024, the patient is lethargic and at times confused. On and off, he has been placed on BiPAP. At the time of my evaluation, he was taken off the BiPAP and the patient was placed on 5 L of oxygen by nasal cannula with a pulse ox of 98%. He has a Martinez catheter that was inserted yesterday by urology. His urine output is adequate at this point. Nephrology on the case. He has produced approximately thousand of urine output over the past 24 hours. He has however developed an acute kidney injury. He is nonoliguric. Creatinine is up to 3.28 with a BUN of 67 and sodium levels at 133. WBC count is 12.7 with a hemoglobin of 11.1. Ultrasound of the kidneys of the gallbladder was done yesterday and shows superior pole left renal simple cyst. No evidence of any hydronephrosis. Nephrology and urology were both on the case and the patient remains on IV Rocephin. The patient also has been in atrial fibrillation. The patient received anticoagulation with Eliquis 2.5 mg twice a day. The patient was also started on midodrine to support her blood pressure. He is on normal saline at rate of 75 cc an hour. He is on oral bicarb. Patient was evaluated today on 02/28/2024, patient remains a bit confused, but improved compared to baseline. Continues to have some flank pain, and swelling in his upper extremities. Nephrology does not believe that his flank pain is urologic in nature and did not feel stent is necessary. Renal functioning is improving BUN is 69 creatinine 2.26. His electrolytes were noted with a sodium of 130 potassium 4.5. Patient remains on 5 L nasal cannula O2 sats 96%. Patient has good urine output, and is definitely nonoliguric. Patient remains on IV Rocephin. And he remains on Eliquis for atrial fibrillation. Hemodynamically stable with a blood pressure of 123/73. Objective - Vital Signs Vital signs: Vital Signs Temp 98.0 F 02/28/24 07:59 Pulse 60 02/28/24 13:49 Resp 19 02/28/24 13:49 BP 123/73 02/28/24 11:51 Pulse Ox 96 02/28/24 11:51 FiO2 40 02/28/24 03:56 Intake & Output 02/27/24 02/28/24 02/28/24 18:59 06:59 18:59 Intake Total 918 1860 480 Output Total 900 800 Balance 18 1060 480 Intake: IV 800 900 Sodium Chloride 0.9% 1, 750 900 000 ml @ 40 mls/hr IV . Q24H [facility] Rx#:[id number] cefTRIAXone 1 gm In 50 Sodium Chloride 0.9% 50 ml @ 100 mls/hr IVPB Q12HR [facility] Rx#:[id number] Oral 118 960 480 Output: Urine 900 800 Other: Voiding Method Indwelling Catheter Indwelling Catheter Indwelling Catheter # Bowel Movements 1 - Exam GENERAL: Revealed 83-year-old white male in no distress slightly confused. HEENT: Pupils are round and equally reacting to light. EOMI. No scleral icterus. No conjunctival pallor. Normocephalic, atraumatic. No pharyngeal erythema. No thyromegaly. CARDIOVASCULAR: Normal S1-S2, no S3 gallop, irregular rhythm. PULMONARY: Clear bilaterally no crackles rhonchi or wheezes ABDOMEN: Soft, nontender, nondistended, normoactive bowel sounds. No palpable organomegaly. MUSCULOSKELETAL: No deformities and no limitation range of motion EXTREMITIES: No cyanosis, clubbing, swelling of upper extremities noticeable NEUROLOGICAL: Alert and oriented x 2, no gross focal neurologic deficit except for minimal confusion SKIN: No rashes. - Labs CBC & Chem 7: 02/27/24 08:34 02/28/24 07:19 Labs: Abnormal Lab Results - Last 24 Hours (Table) 02/28/24 Range/Units 07:19 Sodium 130 L (137-145) mmol/L BUN 69 H (9-20) mg/dL Creatinine 2.26 H (0.66-1.25) mg/dL Glucose 116 H (74-99) mg/dL Calcium 7.7 L (8.4-10.2) mg/dL Magnesium 2.6 H (1.6-2.3) mg/dL Microbiology - Last 24 Hours (Table) 02/25/24 11:35 Blood Culture - Preliminary Blood Assessment and Plan Assessment: Impression: Acute kidney injury, being addressed by nephrology on the case possible ATN secondary to hypotension Acute metabolic encephalopathy History of prostate cancer and previous prostatectomy 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 Continue midodrine for low blood pressure no clear-cut explanation for low blood pressure on presentation. Continue Eliquis for paroxysmal atrial fibrillation Will continue to follow Time with Patient: Less than 30
[2024-02-29 09:23] LABS: ALT 29 U/L (4-49); AST 23 U/L (17-59); African American GFR (CKD) 42 (>60 ml/min/1.73 sqM); Albumin 2.6 g/dL (3.5-5.0); Alkaline Phosphatase 84 U/L (38-126); Anion Gap 7 mmol/L; Blood Urea Nitrogen 57 mg/dL (9-20); Calcium 7.9 mg/dL (8.4-10.2); Carbon Dioxide 23 mmol/L (22-30); Chloride 104 mmol/L (98-107); Glucose 171 mg/dL (74-99); Non-African American GFR(CKD) 36 (>60 ml/min/1.73 sqM); Potassium 3.7 mmol/L (3.5-5.1); Sodium 134 mmol/L (137-145); Total Bilirubin 0.6 mg/dL (0.2-1.3); Total Protein 4.9 g/dL (6.3-8.2)
[2024-02-29 09:25] LABS: Basophils % (A) 0 %; Eosinophils % (A) 0 %; HCT 33.6 % (39.0-53.0); HGB 11.1 gm/dL (13.0-17.5); Lymphocytes # (A) 0.2 k/uL (1.0-4.8); Lymphocytes % (A) 3 %; MCH 31.4 pg (25.0-35.0); MCV 95.2 fL (80.0-100.0); Mean Platelet Volume 9.6; Monocytes # (A) 0.5 k/uL (0-1.0); Monocytes % (A) 6 %; Neutrophils # (A) 7.2 k/uL (1.3-7.7); Neutrophils % (A) 90 %; RBC 3.53 m/uL (4.30-5.90); RDW 13.2 % (11.5-15.5)
[2024-02-29 09:36] LABS: Platelet Count 61 k/uL (150-450)
--- NOTE | 2024-02-29 13:05 | P.PN ---
Subjective Progress Note Date: 02/29/24 83-year-old male, history of hypertension, atrial fibrillation, GERD, osteoarthritis and history of prostate cancer, who presents to the emergency department complaining of right-sided abdominal pain. Patient was transferred from [facility] for KENDRICK, kidney stone. Pain started last night. In the [facility] ED, blood work was completed and patient was found to have an KENDRICK with creatinine of 2. Remainder the workup unremarkable. Patient has an uncomplicated 4 mm right-sided kidney stone. Presents for further evaluation after fluid hydration did not improve the patient's KENDRICK at the outpatient f [facility]. Patient also has a BNP of 2300 and they do not want to fluid overload the patient. Blood work completed in our emergency room revealed a WBC of 13.3, hemoglobin of 13 and platelet count of 132, sodium 133, potassium 3.1, BUNs/creatinine of 59/1.79 down from 2 at the outside facility UA is unremarkable; chest x-ray is negative for any acute pulmonary process EKG is negative for any acute ST or T wave changes Patient is being admitted to the hospital for further evaluation by nephrology and urology Initially, the patient was admitted to the medical floor, he became hypotensive and he got transferred to the intensive care unit. His systolic blood pressure was as low as 40. The patient immediately received a total of 2 L of IV fluids and currently normal saline is running at a rate of 100 cc an hour. He was given IV Rocephin. He was also started on pressors and norepinephrine is running at 0.09 mcg/kg/min. He also became dyspneic and hypoxic. He was placed on a BiPAP with a pressures of 12 over 5 cm of water and and the patient was taken off the BiPAP subsequently and he is currently on 3 L of oxygen by nasal cannula 02/26. Dr. Verde took over care. Lab work done this morning showed WBC 12.7, hemoglobin 11.1, platelet count 53, sodium 133, potassium 4.6, BUN 67, cre atinine 3.28. Nephrology added midodrine. Urology not planning any surgical intervention at this time unless patient becomes symptomatic for the ureteral calculi 02/27. Patient seen and examined.Blood work done this morning showed sodium 130, potassium 4.5, BUN 69, creatinine 2.26, glucose 116, calcium 7.7, magnesium 2.7. Currently on 5 L of oxygen. Complaining of flank pain. Complains of swelling of upper extremities 02/28. Patient seen and examined. Sitting upright in the chair. Still has swelling of upper extremities. Blood culture positive for E. coli. REVIEW OF SYSTEMS: CONSTITUTIONAL: No fever, no malaise,. CARDIOVASCULAR: No chest pain, no palpitations, no syncope. PULMONARY: No shortness of breath, no cough, GASTROINTESTINAL: No diarrhea, no nausea, no vomiting, NEUROLOGICAL: No headaches, no weakness, PHYSICAL EXAMINATION: GENERAL: The patient is alert and oriented x3, not in any acute distress. Ill looking HEENT: Pupils are round and equally reacting to light. EOMI. No scleral icterus. No conjunctival pallor. Normocephalic, atraumatic. No pharyngeal erythema. No thyromegaly. CARDIOVASCULAR: S1 and S2 present. No murmurs, rubs, or gallops. PULMONARY: Chest is clear to auscultation, no wheezing or crackles. ABDOMEN: Soft, nontender, nondistended, normoactive bowel sounds. No palpable organomegaly. MUSCULOSKELETAL: No joint swelling or deformity. EXTREMITIES: No cyanosis, clubbing, swelling of upper extremities noticeable NEUROLOGICAL: Gross neurological examination did not reveal any focal deficits. SKIN: No rashes. Assessment and plan Acute kidney injury obstructive uropathy Bacteremia Acute hypoxic respiratory failure, likely secondary to above currently on 3 L of oxygen by nasal cannula. BiPAP is discontinued. 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 Martinez catheter in place History of nephrolithiasis and a 4 mm stone in the left distal ureter Non-anion gap metabolic acidosis, improved Acute kidney injury, stable and the creatinine is down to 2.9 Acute hypotension, received IV fluids and pressors and the patient is currently normotensive and completed a bicarb infusion with improvement in the anion gap metabolic acidosis Sick sinus syndrome currently has a permanent pacemaker in place Paroxysmal atrial fibrillation, maintained on long-term anticoagulation with Eliquis 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 Continue same treatment. Continue with s ymptomatic treatment. Resume home medication. Monitor labs and vitals. DVT and GI prophylaxis. Further recommendations as per clinical course of the patient Dictation was produced using [employer] dictation software. please excuse any grammatical, word or spelling errors. Objective - Vital Signs Vital signs: Vital Signs Temp 97.9 F 02/29/24 12:00 Pulse 60 02/29/24 12:00 Resp 18 02/29/24 12:00 BP 154/76 02/29/24 12:00 Pulse Ox 97 02/29/24 12:00 FiO2 40 02/29/24 00:27 Intake & Output 02/28/24 02/29/24 02/29/24 18:59 06:59 18:59 Intake Total 598 710 Output Total 750 800 Balance -152 -800 710 Intake: Oral 598 710 Output: Urine 750 800 Other: Voiding Method Indwelling Catheter Indwelling Catheter Indwelling Catheter # Bowel Movements 1 - Labs CBC & Chem 7: 02/29/24 08:31 02/29/24 08:43 Labs: Abnormal Lab Results - Last 24 Hours (Table) 02/29/24 02/29/24 Range/Units 08:31 08:43 RBC 3.53 L (4.30-5.90) m/uL Hgb 11.1 L (13.0-17.5) gm/dL Hct 33.6 L (39.0-53.0) % Plt Count 61 L (150-450) k/uL Lymphocytes # 0.2 L (1.0-4.8) k/uL Sodium 134 L (137-145) mmol/L BUN 57 H (9-20) mg/dL Creatinine 1.73 H (0.66-1.25) mg/dL Glucose 171 H (74-99) mg/dL Calcium 7.9 L (8.4-10.2) mg/dL Total Protein 4.9 L (6.3-8.2) g/dL Albumin 2.6 L (3.5-5.0) g/dL Microbiology - Last 24 Hours (Table) 02/25/24 11:35 Blood Culture Gram Stain - Preliminary Blood Blood Culture - Preliminary Escherichia coli Molecular ID
--- NOTE | 2024-02-29 14:38 | P.PN ---
Subjective Progress Note Date: 02/29/24 Principal diagnosis: Acute kidney injury, secondary to ATN secondary to hypotension 83-year-old male patient came to us from [facility] because of inability to urinate and right-sided abdominal pain. He apparently was initially taken to the Hospital for an acute kidney injury and kidney stones. He was found to be in acute kidney injury and the creatinine was up to 2.0. The patient has chronic urinary problems. He has history of nephrolithiasis. He also has history of prostate cancer and has undergone prostatectomy more than 10 years ago. He does self-catheterization on a daily basis and he does not once in the morning. The patient has not done any self-catheterization for the past 24 to 48 hours. This was attempted to be done at [facility] and it failed. After being transferred to [place], the patient was attempted to get a Martinez catheter and it failed because of anatomic difficulties and failure to insert the Martinez catheter in. Currently, the bladder scan is showing no urine in his bladder. He does not have a Martinez catheter. Awaiting urology consultation. CAT scan of the abdomen and pelvis that was [facility] showed a 4 mm stone in the left distal ureter resulting in mild to moderate left-sided hydronephrosis. There was also increased in the size of an indeterminate right renal mass and cholelithiasis and punctate right renal calculi. A large fat-containing indirect right inguinal hernia was also present. Initially, the patient was admitted to the medical floor, he became hypotensive and he got transferred to the intensive care unit. His systolic blood pressure was as low as 40. The patient immediately received a total of 2 L of IV fluids and currently normal saline is running at a rate of 100 cc an hour. He was given IV Rocephin. He was also started on pressors and norepinephrine is running at 0.09 mcg/kg/min. He also became dyspneic and hypoxic. He was placed on a BiPAP with a pressures of 12 over 5 cm of water and and the patient was taken off the BiPAP subsequently and he is currently on 3 L of oxygen by nasal cannula. She is known to have sick sinus syndrome and has a permanent pacemaker in place. He has also paroxysmal atrial fibrillation. EKG from this current admission is showing a paced rhythm. The patient's white cell count is 11.6, he was 5.5 and a platelet count is 96. His sodium levels at 133, serum bicarb is at 16, BUN is 52 with a creatinine of 2.7 consistent with acute kidney injury with a baseline creatinine of 1.7 from yesterday. Lactic acid level is at 3.5. UA collected in the emergency was negative for any blood or infection. Currently, he seems to be in otic. Chest x-ray done in the emergency shows cardiomegaly and mild pulm vascular congestion. No history of COPD. No history of asthma. No history of coronary artery disease. He is known to have hypertension. He is maintained on long-term anticoagulation with Eliquis regarding his paroxysmal atrial fibrillation. He has chronic hearing problems and hearing loss. He has also history of skin cancer. 02/26/2024, the patient is on 4 L of oxygen by nasal cannula. The patient is currently off pressors. The patient is currently off BiPAP. Breathing is comfortable. Martinez catheter has been inserted. The patient jah on empiric antibiotic coverage with IV Rocephin. Nephrology on the case. Lactic acid level has dropped down to 2.2. White cell count 14.2 with a hemoglobin 11.5 and a platelet count of 63. BUN is 59 with a creatinine of 2.9 and sodium levels at 132 with a potassium level of 4.3. The patient was seen again by urology. Patient was also seen by nephrology. On 02/27/2024, the patient is lethargic and at times confused. On and off, he has been placed on BiPAP. At the time of my evaluation, he was taken off the BiPAP and the patient was placed on 5 L of oxygen by nasal cannula with a pulse ox of 98%. He has a Martinez catheter that was inserted yesterday by urology. His urine output is adequate at this point. Nephrology on the case. He has produced approximately thousand of urine output over the past 24 hours. He has however developed an acute kidney injury. He is nonoliguric. Creatinine is up to 3.28 with a BUN of 67 and sodium levels at 133. WBC count is 12.7 with a hemoglobin of 11.1. Ultrasound of the kidneys of the gallbladder was done yesterday and shows superior pole left renal simple cyst. No evidence of any hydronephrosis. Nephrology and urology were both on the case and the patient remains on IV Rocephin. The patient also has been in atrial fibrillation. The patient received anticoagulation with Eliquis 2.5 mg twice a day. The patient was also started on midodrine to support her blood pressure. He is on normal saline at rate of 75 cc an hour. He is on oral bicarb. Patient was evaluated today on 02/28/2024, patient remains a bit confused, but improved compared to baseline. Continues to have some flank pain, and swelling in his upper extremities. Nephrology does not believe that his flank pain is urologic in nature and did not feel stent is necessary. Renal functioning is improving BUN is 69 creatinine 2.26. His electrolytes were noted with a sodium of 130 potassium 4.5. Patient remains on 5 L nasal cannula O2 sats 96%. Patient has good urine output, and is definitely nonoliguric. Patient remains on IV Rocephin. And he remains on Eliquis for atrial fibrillation. Hemodynamically stable with a blood pressure of 123/73. Patient was evaluated today on 02/29/2024, patient is feeling better today, continues to have some vague right flank pain, not in any distress, denies any shortness of breath cough or wheezing. Patient did have positive blood cultures showing E. coli, however he is on Rocephin which should be adequate coverage for now. Patient is on 3 L nasal cannula with O2 sat is 97%, again he has no active pulmonary symptoms WBC count is 8 hemoglobin 11.1 basic metabolic profile is normal renal profile is steadily improving, creatinine is down to 1.73 from 3.282 days ago. Patient had no evidence of hydronephrosis on renal ultrasound. He did have left-sided nephrolithiasis without hydronephrosis, and he is being followed by nephrology and urology. Chest x-ray 2 days ago showed no evidence of acute pulmonary process Objective - Vital Signs Vital signs: Vital Signs Temp 97.9 F 02/29/24 12:00 Pulse 60 02/29/24 13:48 Resp 18 02/29/24 13:48 BP 154/76 02/29/24 12:00 Pulse Ox 97 02/29/24 12:00 FiO2 40 02/29/24 00:27 Intake & Output 02/28/24 02/29/24 02/29/24 18:59 06:59 18:59 Intake Total 598 710 Output Total 750 800 Balance -152 -800 710 Intake: Oral 598 710 Output: Urine 750 800 Other: Voiding Method Indwelling Catheter Indwelling Catheter Indwelling Catheter # Bowel Movements 1 - Exam GENERAL: Revealed 83-year-old white male in no distress, on 3 L nasal cannula, more awake and definitely not confused today HEENT: Pupils are round and equally reacting to light. EOMI. No scleral icterus. No conjunctival pallor. Normocephalic, atraumatic. No pharyngeal erythema. No thyromegaly. CARDIOVASCULAR: Normal S1-S2, no S3 gallop, irregular rhythm. PULMONARY: Clear bilaterally no crackles rhonchi or wheezes ABDOMEN: Soft, nontender, nondistended, normoactive bowel sounds. No palpable organomegaly. MUSCULOSKELETAL: No deformities and no limitation range of motion EXTREMITIES: No cyanosis, clubbing, swelling of upper extremities noticeable NEUROLOGICAL: Alert and oriented x 3, no gross focal neurologic deficit SKIN: No rashes. - Labs CBC & Chem 7: 02/29/24 08:31 02/29/24 08:43 Labs: Abnormal Lab Results - Last 24 Hours (Table) 02/29/24 02/29/24 Range/Units 08:31 08:43 RBC 3.53 L (4.30-5.90) m/uL Hgb 11.1 L (13.0-17.5) gm/dL Hct 33.6 L (39.0-53.0) % Plt Count 61 L (150-450) k/uL Lymphocytes # 0.2 L (1.0-4.8) k/uL Sodium 134 L (137-145) mmol/L BUN 57 H (9-20) mg/dL Creatinine 1.73 H (0.66-1.25) mg/dL Glucose 171 H (74-99) mg/dL Calcium 7.9 L (8.4-10.2) mg/dL Total Protein 4.9 L (6.3-8.2) g/dL Albumin 2.6 L (3.5-5.0) g/dL Microbiology - Last 24 Hours (Table) 02/25/24 11:35 Blood Culture Gram Stain - Preliminary Blood Blood Culture - Preliminary Escherichia coli Molecular ID Assessment and Plan Assessment: Impression: Acute kidney injury, improving based on labs today. Acute metabolic encephalopathy, resolved. Gram-negative bacteremia secondary to E. 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 coli in the blood. Continue present supportive care measures Continue midodrine for low blood pressure Continue Eliquis for paroxysmal atrial fibrillation Will continue to follow Time with Patient: Less than 30
[2024-02-29] MEDS: hydrALAZINE HCL 25 MG TAB PO SCH (15:20)
[2024-02-29] MEDS ORDERED: hydrALAZINE HCL 25 MG TAB PO SCH (16:00)
--- NOTE | 2024-02-29 20:36 | P.PN ---
Subjective patient is seen for follow-up for acute kidney injury. IV fluids decreased to 40 cc an hour yesterday. No significant shortness of breath. serum creatinine decreased to 1.7 today. Objective - Vital Signs Vital signs: Vital Signs Temp 97.9 F 02/29/24 16:00 Pulse 60 02/29/24 16:00 Resp 18 02/29/24 16:00 BP 140/83 02/29/24 16:00 Pulse Ox 95 02/29/24 16:00 FiO2 40 02/29/24 00:27 Intake & Output 02/29/24 02/29/24 03/01/24 06:59 18:59 06:59 Intake Total 828 Output Total 800 1100 Balance -800 -272 Intake: Oral 828 Output: Urine 800 1100 Other: Voiding Method Indwelling Catheter Indwelling Catheter - Exam patient is awake, comfortable, no acute distress. Examination of the heart S1 and S2 Examination of the lungs decreased breath sounds at the bases Abdomen is soft nontender Examination of lower extremity shows no significant edema. Edema noted bilateral upper extremities [employer] exam grossly intact - Labs CBC & Chem 7: 02/29/24 08:31 02/29/24 08:43 Labs: Abnormal Lab Results - Last 24 Hours (Table) 02/29/24 02/29/24 Range/Units 08:31 08:43 RBC 3.53 L (4.30-5.90) m/uL Hgb 11.1 L (13.0-17.5) gm/dL Hct 33.6 L (39.0-53.0) % Plt Count 61 L (150-450) k/uL Lymphocytes # 0.2 L (1.0-4.8) k/uL Sodium 134 L (137-145) mmol/L BUN 57 H (9-20) mg/dL Creatinine 1.73 H (0.66-1.25) mg/dL Glucose 171 H (74-99) mg/dL Calcium 7.9 L (8.4-10.2) mg/dL Total Protein 4.9 L (6.3-8.2) g/dL Albumin 2.6 L (3.5-5.0) g/dL Microbiology - Last 24 Hours (Table) 02/25/24 11:35 Blood Culture Gram Stain - Preliminary Blood Blood Culture - Preliminary Escherichia coli Molecular ID Assessment and Plan Assessment: 1. Acute kidney injury secondary to ATN secondary to hypotension. Creatinine 1.05 in July 2023. 1.79 this admission and peaked at 3.06 this admission - 1.7 today. UA benign. No hydronephrosis noted on kidney ultrasound. 2. Left-sided nephrolithiasis with hydronephrosis. Urology following. Has Martinez catheter. 3. Right-sided kidney lesion noted on CT. Kidney ultrasound showed simple left renal cyst. 4. Metabolic acidosis secondary to acute kidney injury and lactic acidosis. Improved. On oral bicarb. 5. Hypokalemia from poor intake, diuretic use and hypomagnesemia. Replaced. Better. 6. Hypomagnesemia from poor intake and diuretic use. Replaced. Better. 7. Lactic acidosis secondary to hypotension. Plan: Continue with current rate of IV fluids. DC in a.m. Advised to increase oral intake particularly protein. Repeat labs in a.m.
--- NOTE | 2024-03-01 07:33 | P.CONS ---
History of Present Illness - Reason for Consult Consult date: 02/29/24 Bacteremia, complicated UTI Requesting physician: Devyn Verde - Chief Complaint Right-sided abdominal pain x few days - History of Present Illness Patient is a 83-year-old male with a past medical history significant for reflux atrial fibrillation hypertension osteoarthritis history of prostate cancer s/p prostatectomy presenting to the hospital 5 days ago for evaluation of right-sided abdominal pain apparently the patient was initially evaluated [facility] with the patient was diagnosed with a kidney stone and [facility] for the patient was transferred to [facility] patient has been evaluated by urology and did have a Martinez catheter placed but did not recommend any intervention for the kidney stone patient on presentation to the hospital did have a low-grade fever and also a temperature of 100.6 on 02/25/2024 for the patient did have blood cultures done which came back positive yesterday afternoon with E. coli infectious he was consulted today regarding UTI and bacteremia. Patient at time my evaluation denies any fever or any chills has been complaining of feeling very weak no energy denies any headache or URI symptoms no chest pain shortness of breath or cough he did have some abdominal pain on presentation the hospital seem to have improved after placement of the Martinez catheter did have some nausea but no vomiting and no diarrhea. Patient did have a white count of 12.5 on admission that has normalized to 8.0 creatinine was 3.06 down to 1.73 did have elevated lactic acid which has subsequently normalized blood culture with E. coli urine culture negative did have abdominal bladder ultrasound superior pole left renal simple cyst Review of Systems Positive point and negatives has been mentioned in the HPI, complete review of systems was performed and all other systems are negative Past Medical History Past Medical History: Atrial Fibrillation, Cancer, GERD/Reflux, Hearing Disorder / Deafness, Hypertension, Osteoarthritis (OA) Additional Past Medical History / Comment(s): Hx prostate cancer 13 yrs ago, hx skin cancer, recent frequent headaches in the morning. Mild hearing loss. History of Any Multi-Drug Resistant Organisms: None Reported Past Surgical History: Prostate Surgery Additional Past Surgical History / Comment(s): Prostatectomy, skin cancer removed, colonoscopy. Past Anesthesia/Blood Transfusion Reactions: No Reported Reaction Past Psychological History: No Psychological Hx Reported Smoking Status: Current every day smoker Past Alcohol Use History: None Reported Past Drug Use History: None Reported - Past Family History Sister(s) Family Medical History: Cancer Additional Family Medical History / Comment(s): Breast cancer. Medications and Allergies Home Medications Medication Instructions Recorded Confirmed Type Esomeprazole Magnesium [NexIUM] 40 mg PO DAILY 12/25/20 02/24/24 History Potassium Chloride [Potassium 10 meq PO TID 12/25/20 02/24/24 History Chloride ER] Apixaban [Eliquis] 5 mg PO BID #60 tab 07/15/23 02/24/24 Rx carvediloL [Coreg] 6.25 mg PO BID-W/MEALS 02/24/24 02/24/24 History Furosemide [Lasix] 40 mg PO BID@0900,1600 30 Days #60 03/06/24 Rx tab cefUROXime axetiL [Ceftin] 500 mg PO BID 10 Days #20 tab 03/06/24 Rx hydrALAZINE HCL [Apresoline] 25 mg PO TID 30 Days #90 tab 03/06/24 Rx Allergies Allergy/AdvReac Type Severity Reaction Status Date / Time No Known Allergies Allergy Verified 02/24/24 11:09 Physical Exam Vitals: Vital Signs Temp Pulse Pulse Resp BP BP Pulse Ox 02/29/24 13:48 60 60 18 02/29/24 12:00 97.9 F 60 18 154/76 97 02/29/24 08:14 95 02/29/24 08:00 97.8 F 60 60 18 120/68 97 02/29/24 04:00 57 L 18 159/84 96 02/29/24 01:26 60 60 19 02/29/24 00:27 02/29/24 00:00 60 19 153/73 96 02/28/24 20:00 98.6 F 60 60 34 H 142/83 98 02/28/24 16:00 60 19 128/66 99 FiO2 02/29/24 13:48 02/29/24 12:00 02/29/24 08:14 02/29/24 08:00 02/29/24 04:00 02/29/24 01:26 02/29/24 00:27 40 02/29/24 00:00 02/28/24 20:00 40 02/28/24 16:00 Intake and Output 02/28/24 02/29/24 02/29/24 22:59 06:59 14:59 Intake Total 118 710 Output Total 750 800 Balance -632 -800 710 Intake: Oral 118 710 Output: Urine 750 800 Other: Voiding Method Indwelling Catheter Indwelling Catheter Indwelling Catheter GENERAL DESCRIPTION: Elderly male lying in bed, no distress. No tachypnea or accessory muscle of respiration use. HEENT: Shows Pallor , no scleral icterus. Oral mucous membrane is dry. No pharyngeal erythema or thrush NECK: Trachea central, no thyromegaly. LUNGS: Unlabored breathing. Clear to auscultation anteriorly. No wheeze or crackle. HEART: S1, S2, regular rate and rhythm. No loud murmur ABDOMEN: Soft, no tenderness , guarding or rigidity, no organomegaly EXTREMITIES: No edema of feet. SKIN: No rash, no masses palpable. NEUROLOGICAL: The patient is awake, alert, oriented x3, mood and affect normal. Results CBC & Chem 7: 03/05/24 04:53 03/05/24 04:53 Labs: Abnormal Lab Results - Last 24 Hours (Table) 02/29/24 02/29/24 Range/Units 08:31 08:43 RBC 3.53 L (4.30-5.90) m/uL Hgb 11.1 L (13.0-17.5) gm/dL Hct 33.6 L (39.0-53.0) % Plt Count 61 L (150-450) k/uL Lymphocytes # 0.2 L (1.0-4.8) k/uL Sodium 134 L (137-145) mmol/L BUN 57 H (9-20) mg/dL Creatinine 1.73 H (0.66-1.25) mg/dL Glucose 171 H (74-99) mg/dL Calcium 7.9 L (8.4-10.2) mg/dL Total Protein 4.9 L (6.3-8.2) g/dL Albumin 2.6 L (3.5-5.0) g/dL Microbiology - Last 24 Hours (Table) 02/25/24 11:35 Blood Culture Gram Stain - Preliminary Blood Blood Culture - Preliminary Escherichia coli Molecular ID Assessment and Plan (1) Sepsis Status: Acute Code(s): A41.9 - SEPSIS, UNSPECIFIED ORGANISM SNOMED Code(s): 50557260 (2) E coli bacteremia Status: Acute Code(s): R78.81 - BACTEREMIA; B96.20 - UNSP ESCHERICHIA COLI THE CAUSE OF DISEASES CLASSD [id number] SNOMED Code(s): 414804618254 (3) Complicated UTI (urinary tract infection) Status: Acute Code(s): N39.0 - URINARY TRACT INFECTION, SITE NOT SPECIFIED SNOMED Code(s): 61966146 Plan: 1patient has been in the hospital for sepsis in this patient who did have fever elevated white count elevated lactic acid source likely complicated UTI in this patient with urine retention requiring Martinez catheter placement 2-patient with an E. coli bacteremia source is likely secondary to urinary source 3-Rocephin 2 g daily while inpatient however no need for IV antibiotic on discharge currently waiting for the final sensitivities at the bedside multiple question concern answered We will follow on clinical condition and cultures to further adjust medication if needed Thank you for this consultation we will follow the patient along with you Dictation was produced using [employer] dictation software. please excuse any grammatical, word or spelling errors. Time with Patient: Greater than 30
[2024-03-01 09:22] LABS: Basophils % (A) 0 %; Eosinophils % (A) 0 %; HCT 34.8 % (39.0-53.0); HGB 10.8 gm/dL (13.0-17.5); Lymphocytes # (A) 0.3 k/uL (1.0-4.8); Lymphocytes % (A) 3 %; MCH 29.7 pg (25.0-35.0); MCHC 31.2 g/dL (31.0-37.0); MCV 95.1 fL (80.0-100.0); Mean Platelet Volume 9.8; Monocytes # (A) 0.8 k/uL (0-1.0); Monocytes % (A) 8 %; Neutrophils # (A) 9.1 k/uL (1.3-7.7); Neutrophils % (A) 87 %; RBC 3.65 m/uL (4.30-5.90); RDW 13.2 % (11.5-15.5); WBC 10.4 k/uL (3.8-10.6)
[2024-03-01 09:30] LABS: ALT 28 U/L (4-49); AST 23 U/L (17-59); African American GFR (CKD) 56 (>60 ml/min/1.73 sqM); Albumin 2.5 g/dL (3.5-5.0); Alkaline Phosphatase 88 U/L (38-126); Anion Gap 6 mmol/L; Blood Urea Nitrogen 49 mg/dL (9-20); Calcium 7.7 mg/dL (8.4-10.2); Carbon Dioxide 24 mmol/L (22-30); Chloride 104 mmol/L (98-107); Glucose 93 mg/dL (74-99); Non-African American GFR(CKD) 48 (>60 ml/min/1.73 sqM); Platelet Count 79 k/uL (150-450); Potassium 3.8 mmol/L (3.5-5.1); Sodium 134 mmol/L (137-145); Total Bilirubin 0.5 mg/dL (0.2-1.3)
--- NOTE | 2024-03-01 10:24 | CDI ---
Documentation Clarification Form Date: 03/01/2024 10:21:38 AM From: Mandy Thomas RN, CCDS Phone: [phone] Admit Date: 02/24/2024 12:36:00 PM Patient Name: Dirk Vaughan Visit Number: [id number] Discharge Date: ATTENTION: The Clinical Documentation Specialists (CDI) and [facility] Coding Staff appreciate your assistance in clarifying documentation. Please respond to the clarification below the line at the bottom and electronically sign. The CDI & [facility] Coding staff will review the response and follow-up if needed. Please note: Queries are made part of the Legal Health Record. If you have any questions, please contact the author of this message via ITS. Dr. Devyn Verde The patient has rule out septic shock in the Pulmonary Consult on 02/25/24. Based on this information and the findings below, is there an additional diagnosis that is clinically appropriate for this patient? History/Risk Factors: Atrial Fibrillation, Cancer, GERD/Reflux, Hypertension, prostate cancer 13 yrs ago, Current every day smoker Clinical Indicators: 83-year-old male who presents emergency department as a transfer from [facility], complaining of right-sided abdominal pain. He had a CT scan identified a distal left ureteral stone. 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 The CT scan at [facility] showed a small distal ureteral stone on the left with mild hydronephrosis. The urine is perfectly clear. He is hypotensive. Moved to ICU. 02/23 VS 92/53 62 18 99 96% RA 94/57 63 18 97.7 95% RA, 77/45 02/23 WBC 13.3, Neutrophils 12.6, Na 133, BUN 50 Cr 1.79 02/24 Lactic acid: 3.5, 2.2, 2.6 Blood cultures: Escherichia coli Molecular ID Urinalysis: Leukocyte Esterase -Negative Urine culture (catheterized) Final 10,000-49,000 CFU/mL Apparent skin and/or genital ramón 02/28 ID: patient has been in the hospital for sepsis in this patient who did have fever elevated white count elevated lactic acid source likely complicated UTI in this patient with urine retention requiring Martinez catheter placement. Treatment: ICU/Telemetry monitoring Rocephin 1 GM IVPB Once 02/24 Rocephin 2 GM Daily .9NS 500 ML Bolus x1 02/23 ,9 NS 500 ML Bolus x 2 02/24 Levophed Drip per orders 02/24-02/26 Is there an additional diagnosis that is clinically appropriate for this patient? [ x] Sepsis with septic shock with E. coli bacteremia, present on admission (specify source of sepsis if known) [ ] Other, please specify [ ] Unable to determine SIRS Criteria: 2 or more of the following may indicate SIRS Temperature < 96.8F (36C) or > 101.0F (38.3C) Heart Rate > 90 bpm Respiratory Rate > 20 breaths/min or PaCO2 < 32 mmHg White Blood Cell Count > 12,000 or < 4,000 cells/mm3 or > 10% bands (Template Last Reviewed: October 2022) MTDD
--- NOTE | 2024-03-01 13:03 | P.PN ---
Subjective Progress Note Date: 03/01/24 83-year-old male, history of hypertension, atrial fibrillation, GERD, osteoarthritis and history of prostate cancer, who presents to the emergency department complaining of right-sided abdominal pain. Patient was transferred from [facility] for KENDRICK, kidney stone. Pain started last night. In the [facility] ED, blood work was completed and patient was found to have an KENDRICK with creatinine of 2. Remainder the workup unremarkable. Patient has an uncomplicated 4 mm right-sided kidney stone. Presents for further evaluation after fluid hydration did not improve the patient's [facility]ICK [facility] Patient also has a BNP of 2300 and they do not want to fluid overload the patient. Blood work completed in our emergency room revealed a WBC of 13.3, hemoglobin of 13 and platelet count of 132, sodium 133, potassium 3.1, BUNs/creatinine of 59/1.79 down from 2 at the outside facility UA is unremarkable; chest x-ray is negative for any acute pulmonary process EKG is negative for any acute ST or T wave changes Patient is being admitted to the hospital for further evaluation by nephrology and urology Initially, the patient was admitted to the medical floor, he became hypotensive and he got transferred to the intensive care unit. His systolic blood pressure was as low as 40. The patient immediately received a total of 2 L of IV fluids and currently normal saline is running at a rate of 100 cc an hour. He was given IV Rocephin. He was also started on pressors and norepinephrine is running at 0.09 mcg/kg/min. He also became dyspneic and hypoxic. He was placed on a BiPAP with a pressures of 12 over 5 cm of water and and the patient was taken off the BiPAP subsequently and he is currently on 3 L of oxygen by nasal cannula 02/26. Dr. Verde took over care. Lab work done this morning showed WBC 12.7, hemoglobin 11.1, platelet count 53, sodium 133, potassium 4.6, BUN 67, cre atinine 3.28. Nephrology added midodrine. Urology not planning any surgical intervention at this time unless patient becomes symptomatic for the ureteral calculi 02/27. Patient seen and examined.Blood work done this morning showed sodium 130, potassium 4.5, BUN 69, creatinine 2.26, glucose 116, calcium 7.7, magnesium 2.7. Currently on 5 L of oxygen. Complaining of flank pain. Complains of swelling of upper extremities 02/28. Patient seen and examined. Sitting upright in the chair. Still has swelling of upper extremities. Blood culture positive for E. coli. 03/01. Patient seen and examined. Still has weakness and lethargy. Continues to have swelling of lower extremities REVIEW OF SYSTEMS: CONSTITUTIONAL: No fever, no malaise,. CARDIOVASCULAR: No chest pain, no palpitations, no syncope. PULMONARY: No shortness of breath, no cough, GASTROINTESTINAL: No diarrhea, no nausea, no vomiting, NEUROLOGICAL: No headaches, no weakness, PHYSICAL EXAMINATION: GENERAL: The patient is alert and oriented x3, not in any acute distress. Ill looking HEENT: Pupils are round and equally reacting to light. EOMI. No scleral icterus. No conjunctival pallor. Normocephalic, atraumatic. No pharyngeal erythema. No thyromegaly. CARDIOVASCULAR: S1 and S2 present. No murmurs, rubs, or gallops. PULMONARY: Chest is clear to auscultation, no wheezing or crackles. ABDOMEN: Soft, nontender, nondistended, normoactive bowel sounds. No palpable organomegaly. MUSCULOSKELETAL: No joint swelling or deformity. EXTREMITIES: No cyanosis, clubbing, swelling of upper extremities noticeable NEUROLOGICAL: Gross neurological examination did not reveal any focal deficits. SKIN: No rashes. Assessment and plan Acute kidney injury obstructive uropathy Bacteremia Acute hypoxic respiratory failure, likely secondary to above currently on 3 L of oxygen by nasal cannula. BiPAP is discontinued. 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 Martinez catheter in place History of nephrolithiasis and a 4 mm stone in the left distal ureter Non-anion gap metabolic acidosis, improved Acute kidney injury, stable and the creatinine is down to 2.9 Acute hypotension, received IV fluids and pressors and the patient is currently normotensive and completed a bicarb infusion with improvement in the anion gap metabolic acidosis Sick sinus syndrome currently has a permanent pacemaker in place Paroxysmal atrial fibrillation, maintained on long-term anticoagulation with Eliquis 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 Continue same treatment. Continue with symptomatic treatment. Resume home medication. Monitor labs and vitals. DVT and GI prophylaxis. Further recommendations as per clinical course of the patient Dictation was produced using [employer] dictation software. please excuse any grammatical, word or spelling errors. Objective - Vital Signs Vital signs: Vital Signs Temp 97.5 F L 03/01/24 11:11 Pulse 60 03/01/24 11:11 Resp 16 03/01/24 11:11 BP 118/63 03/01/24 11:11 Pulse Ox 94 L 03/01/24 11:11 FiO2 40 03/01/24 03:41 Intake & Output 02/29/24 03/01/24 03/01/24 18:59 06:59 18:59 Intake Total 828 0 420 Output Total 1100 500 600 Balance -272 -500 -180 Intake: Oral 828 0 420 Output: Urine 1100 500 600 Other: Voiding Method Indwelling Catheter Indwelling Catheter Indwelling Catheter # Bowel Movements 0 - Labs CBC & Chem 7: 03/01/24 07:32 03/01/24 07:32 Labs: Abnormal Lab Results - Last 24 Hours (Table) 03/01/24 03/01/24 Range/Units 07:32 07:32 RBC 3.65 L (4.30-5.90) m/uL Hgb 10.8 L (13.0-17.5) gm/dL Hct 34.8 L (39.0-53.0) % Plt Count 79 L (150-450) k/uL Neutrophils # 9.1 H (1.3-7.7) k/uL Lymphocytes # 0.3 L (1.0-4.8) k/uL Sodium 134 L (137-145) mmol/L BUN 49 H (9-20) mg/dL Creatinine 1.37 H (0.66-1.25) mg/dL Calcium 7.7 L (8.4-10.2) mg/dL Total Protein 5.0 L (6.3-8.2) g/dL Albumin 2.5 L (3.5-5.0) g/dL Microbiology - Last 24 Hours (Table) 02/25/24 11:35 Blood Culture Gram Stain - Final Blood Blood Culture - Final Escherichia coli Molecular ID
--- NOTE | 2024-03-01 14:49 | P.PN ---
Subjective patient is seen for follow-up for acute kidney injury. IV fluids decreased to 40 cc an hour No significant shortness of breath. serum creatinine decreased to 1.37 today. Objective - Vital Signs Vital signs: Vital Signs Temp 97.5 F L 03/01/24 11:11 Pulse 60 03/01/24 11:11 Resp 16 03/01/24 11:11 BP 118/63 03/01/24 11:11 Pulse Ox 94 L 03/01/24 11:11 FiO2 40 03/01/24 03:41 Intake & Output 02/29/24 03/01/24 03/01/24 18:59 06:59 18:59 Intake Total 828 0 420 Output Total 1100 500 600 Balance -272 -500 -180 Intake: Oral 828 0 420 Output: Urine 1100 500 600 Other: Voiding Method Indwelling Catheter Indwelling Catheter Indwelling Catheter # Bowel Movements 0 - Exam patient is awake, comfortable, no acute distress. Examination of the heart S1 and S2 Examination of the lungs decreased breath sounds at the bases Abdomen is soft nontender Examination of lower extremity shows no significant edema. Edema noted bilateral upper extremities CREATIVE LEAD exam grossly intact - Labs CBC & Chem 7: 03/01/24 07:32 03/01/24 07:32 Labs: Abnormal Lab Results - Last 24 Hours (Table) 03/01/24 03/01/24 Range/Units 07:32 07:32 RBC 3.65 L (4.30-5.90) m/uL Hgb 10.8 L (13.0-17.5) gm/dL Hct 34.8 L (39.0-53.0) % Plt Count 79 L (150-450) k/uL Neutrophils # 9.1 H (1.3-7.7) k/uL Lymphocytes # 0.3 L (1.0-4.8) k/uL Sodium 134 L (137-145) mmol/L BUN 49 H (9-20) mg/dL Creatinine 1.37 H (0.66-1.25) mg/dL Calcium 7.7 L (8.4-10.2) mg/dL Total Protein 5.0 L (6.3-8.2) g/dL Albumin 2.5 L (3.5-5.0) g/dL Microbiology - Last 24 Hours (Table) 02/25/24 11:35 Blood Culture Gram Stain - Final Blood Blood Culture - Final Escherichia coli Molecular ID Assessment and Plan Assessment: 1. Acute kidney injury secondary to ATN secondary to hypotension. Creatinine 1.05 in July 2023. 1.79 this admission and peaked at 3.06 this admission - 1.37 today. UA benign. No hydronephrosis noted on kidney ultrasound. 2. Left-sided nephrolithiasis with hydronephrosis. Urology following. Has Martinez catheter. 3. Right-sided kidney lesion noted on CT. Kidney ultrasound showed simple left renal cyst. 4. Metabolic acidosis secondary to acute kidney injury and lactic acidosis. Improved. On oral bicarb. 5. Hypokalemia from poor intake, diuretic use and hypomagnesemia. Replaced. Better. 6. Hypomagnesemia from poor intake and diuretic use. Replaced. Better. 7. Lactic acidosis secondary to hypotension. Plan: DC IV fluids. Decrease sodium bicarb to daily Advised to increase oral intake particularly protein. Repeat labs in a.m.
--- NOTE | 2024-03-01 14:53 | P.PN ---
Subjective Progress Note Date: 03/01/24 Principal diagnosis: Acute kidney injury, secondary to ATN secondary to hypotension 83-year-old male patient came to us from [facility] because of inability to urinate and right-sided abdominal pain. He apparently was initially taken to the Hospital for an acute kidney injury and kidney stones. He was found to be in acute kidney injury and the creatinine was up to 2.0. The patient has chronic urinary problems. He has history of nephrolithiasis. He also has history of prostate cancer and has undergone prostatectomy more than 10 years ago. He does self-catheterization on a daily basis and he does not once in the morning. The patient has not done any self-catheterization for the past 24 to 48 hours. This was attempted to be done at [facility] and it failed. After being transferred to [place], the patient was attempted to get a Martinez catheter and it failed because of anatomic difficulties and failure to insert the Martinez catheter in. Currently, the bladder scan is showing no urine in his bladder. He does not have a Martinez catheter. Awaiting urology consultation. CAT scan of the abdomen and pelvis that was [facility] showed a 4 mm stone in the left distal ureter resulting in mild to moderate left-sided hydronephrosis. There was also increased in the size of an indeterminate right renal mass and cholelithiasis and punctate right renal calculi. A large fat-containing indirect right inguinal hernia was also present. Initially, the patient was admitted to the medical floor, he became hypotensive and he got transferred to the intensive care unit. His systolic blood pressure was as low as 40. The patient immediately received a total of 2 L of IV fluids and currently normal saline is running at a rate of 100 cc an hour. He was given IV Rocephin. He was also started on pressors and norepinephrine is running at 0.09 mcg/kg/min. He also became dyspneic and hypoxic. He was placed on a BiPAP with a pressures of 12 over 5 cm of water and and the patient was taken off the BiPAP subsequently and he is currently on 3 L of oxygen by nasal cannula. She is known to have sick sinus syndrome and has a permanent pacemaker in place. He has also paroxysmal atrial fibrillation. EKG from this current admission is showing a paced rhythm. The patient's white cell count is 11.6, he was 5.5 and a platelet count is 96. His sodium levels at 133, serum bicarb is at 16, BUN is 52 with a creatinine of 2.7 consistent with acute kidney injury with a baseline creatinine of 1.7 from yesterday. Lactic acid level is at 3.5. UA collected in the emergency was negative for any blood or infection. Currently, he seems to be in otic. Chest x-ray done in the emergency shows cardiomegaly and mild pulm vascular congestion. No history of COPD. No history of asthma. No history of coronary artery disease. He is known to have hypertension. He is maintained on long-term anticoagulation with Eliquis regarding his paroxysmal atrial fibrillation. He has chronic hearing problems and hearing loss. He has also history of skin cancer. 02/26/2024, the patient is on 4 L of oxygen by nasal cannula. The patient is currently off pressors. The patient is currently off BiPAP. Breathing is comfortable. Martinez catheter has been inserted. The patient jah on empiric antibiotic coverage with IV Rocephin. Nephrology on the case. Lactic acid level has dropped down to 2.2. White cell count 14.2 with a hemoglobin 11.5 and a platelet count of 63. BUN is 59 with a creatinine of 2.9 and sodium levels at 132 with a potassium level of 4.3. The patient was seen again by urology. Patient was also seen by nephrology. On 02/27/2024, the patient is lethargic and at times confused. On and off, he has been placed on BiPAP. At the time of my evaluation, he was taken off the BiPAP and the patient was placed on 5 L of oxygen by nasal cannula with a pulse ox of 98%. He has a Martinez catheter that was inserted yesterday by urology. His urine output is adequate at this point. Nephrology on the case. He has produced approximately thousand of urine output over the past 24 hours. He has however developed an acute kidney injury. He is nonoliguric. Creatinine is up to 3.28 with a BUN of 67 and sodium levels at 133. WBC count is 12.7 with a hemoglobin of 11.1. Ultrasound of the kidneys of the gallbladder was done yesterday and shows superior pole left renal simple cyst. No evidence of any hydronephrosis. Nephrology and urology were both on the case and the patient remains on IV Rocephin. The patient also has been in atrial fibrillation. The patient received anticoagulation with Eliquis 2.5 mg twice a day. The patient was also started on midodrine to support her blood pressure. He is on normal saline at rate of 75 cc an hour. He is on oral bicarb. Patient was evaluated today on 02/28/2024, patient remains a bit confused, but improved compared to baseline. Continues to have some flank pain, and swelling in his upper extremities. Nephrology does not believe that his flank pain is urologic in nature and did not feel stent is necessary. Renal functioning is improving BUN is 69 creatinine 2.26. His electrolytes were noted with a sodium of 130 potassium 4.5. Patient remains on 5 L nasal cannula O2 sats 96%. Patient has good urine output, and is definitely nonoliguric. Patient remains on IV Rocephin. And he remains on Eliquis for atrial fibrillation. Hemodynamically stable with a blood pressure of 123/73. Patient was evaluated today on 02/29/2024, patient is feeling better today, continues to have some vague right flank pain, not in any distress, denies any shortness of breath cough or wheezing. Patient did have positive blood cultures showing E. coli, however he is on Rocephin which should be adequate coverage for now. Patient is on 3 L nasal cannula with O2 sat is 97%, again he has no active pulmonary symptoms WBC count is 8 hemoglobin 11.1 basic metabolic profile is normal renal profile is steadily improving, creatinine is down to 1.73 from 3.282 days ago. Patient had no evidence of hydronephrosis on renal ultrasound. He did have left-sided nephrolithiasis without hydronephrosis, and he is being followed by nephrology and urology. Chest x-ray 2 days ago showed no evidence of acute pulmonary process Patient was evaluated today on 03/01/24, patient seems to be doing well, feeling much better today compared to how he felt on his initial admission.On 2 L nasal cannula with O2 saturation anywhere between 94 up to 97% patient is still on antibiotics for his gram-negative sepsis/E. coli bacteremia and the most likely source is the urine being the main source for his bacteremia. WBC count is 10.4 hemoglobin 10.8 basic metabolic profile is normal renal profile is improving creatinine is down to 1.37 from 3.28 few days ago patient denies any shortness of breath cough or wheezing denies any chest pain, denies any abdominal pain. Objective - Vital Signs Vital signs: Vital Signs Temp 97.5 F L 03/01/24 11:11 Pulse 60 03/01/24 11:11 Resp 16 03/01/24 11:11 BP 118/63 03/01/24 11:11 Pulse Ox 94 L 03/01/24 11:11 FiO2 40 03/01/24 03:41 Intake & Output 02/29/24 03/01/24 03/01/24 18:59 06:59 18:59 Intake Total 828 0 420 Output Total 1100 500 600 Balance -272 -500 -180 Intake: Oral 828 0 420 Output: Urine 1100 500 600 Other: Voiding Method Indwelling Catheter Indwelling Catheter Indwelling Catheter # Bowel Movements 0 - Exam GENERAL: Revealed 83-year-old white male in no distress, on 2 L nasal cannula, awake, not in any distress. HEENT: Pupils are round and equally reacting to light. EOMI. No scleral icterus. No conjunctival pallor. Normocephalic, atraumatic. No pharyngeal erythema. No thyromegaly. CARDIOVASCULAR: Normal S1-S2, no S3 gallop, irregular rhythm. PULMONARY: Clear bilaterally no crackles rhonchi or wheezes ABDOMEN: Soft, nontender, nondistended, normoactive bowel sounds. No palpable organomegaly. MUSCULOSKELETAL: No deformities and no limitation range of motion EXTREMITIES: No cyanosis, clubbing, swelling of upper extremities noticeable NEUROLOGICAL: Alert and oriented x 3, no gross focal neurologic deficit SKIN: No rashes. - Labs CBC & Chem 7: 03/01/24 07:32 03/01/24 07:32 Labs: Abnormal Lab Results - Last 24 Hours (Table) 03/01/24 03/01/24 Range/Units 07:32 07:32 RBC 3.65 L (4.30-5.90) m/uL Hgb 10.8 L (13.0-17.5) gm/dL Hct 34.8 L (39.0-53.0) % Plt Count 79 L (150-450) k/uL Neutrophils # 9.1 H (1.3-7.7) k/uL Lymphocytes # 0.3 L (1.0-4.8) k/uL Sodium 134 L (137-145) mmol/L BUN 49 H (9-20) mg/dL Creatinine 1.37 H (0.66-1.25) mg/dL Calcium 7.7 L (8.4-10.2) mg/dL Total Protein 5.0 L (6.3-8.2) g/dL Albumin 2.5 L (3.5-5.0) g/dL Microbiology - Last 24 Hours (Table) 02/25/24 11:35 Blood Culture Gram Stain - Final Blood Blood Culture - Final Escherichia coli Molecular ID Assessment and Plan Assessment: Impression: Acute kidney injury, steadily improving Acute metabolic encephalopathy, resolved. Gram-negative bacteremia secondary to E. coli sensitive to all antibiotics, source is most likely urine History of prostate cancer and previous prostatectomy History of obstructive uropathy secondary to BXO, has a Martinez catheter in place History of sick sinus syndrome and previous pacemaker implantation Paroxysmal atrial fibrillation Chronic back pain Dyslipidemia History of benign essential hypertension Urinary retention secondary to meatal stenosis Recommendation: Titrate oxygen accordingly, encourage intensive spirometry. Encourage ambulation if possible Continue Rocephin Continue present supportive care measures Continue midodrine for low blood pressure Continue Eliquis for paroxysmal atrial fibrillation Will continue to follow Time with Patient: Less than 30
[2024-03-01 15:43] VITALS: BMI 36.8
--- NOTE | 2024-03-01 16:28 | P.PN ---
Subjective Progress Note Date: 03/01/24 Principal diagnosis: Reason for follow-up with E. coli bacteremia likely UTI Patient is a 83-year-old male with a past medical history significant for reflux atrial fibrillation hypertension osteoarthritis history of prostate cancer s/p prostatectomy presenting to the hospital for evaluation of weakness abdominal pain has been diagnosed with the kidney stone and KENDRICK also have a fever and blood culture positive for E. coli. On today's evaluation that is 03/01/2024,the patient remains to be afebrile, patient is on 2 L nasal cannula supplemental oxygen and denies any shortness of breath no chest pain or cough.Patient denies having any nausea or vomiting, no abdominal pain and no diarrhea has been reported. Patient white count is 10.4, creatinine is 1.37 blood culture E. coli that is a sensitive pathogen Objective - Vital Signs Vital signs: Vital Signs Temp 98.5 F 03/01/24 15:31 Pulse 60 03/01/24 15:31 Resp 16 03/01/24 15:31 BP 134/74 03/01/24 15:31 Pulse Ox 95 03/01/24 15:31 FiO2 40 03/01/24 03:41 Intake & Output 02/29/24 03/01/24 03/01/24 18:59 06:59 18:59 Intake Total 828 0 660 Output Total 1100 500 900 Balance -272 -500 -240 Weight 109.8 kg Intake: Oral 828 0 660 Output: Urine 1100 500 900 Other: Voiding Method Indwelling Catheter Indwelling Catheter Indwelling Catheter # Bowel Movements 0 - Exam GENERAL DESCRIPTION: An elderly male lying in bed in no distress RESPIRATORY SYSTEM: Unlabored breathing , decreased breath sounds at bases HEART: S1 S2 regular rate and rhythm , ABDOMEN: Soft , no tenderness EXTREMITIES: No edema feet - Labs CBC & Chem 7: 03/01/24 07:32 03/01/24 07:32 Labs: Abnormal Lab Results - Last 24 Hours (Table) 03/01/24 03/01/24 Range/Units 07:32 07:32 RBC 3.65 L (4.30-5.90) m/uL Hgb 10.8 L (13.0-17.5) gm/dL Hct 34.8 L (39.0-53.0) % Plt Count 79 L (150-450) k/uL Neutrophils # 9.1 H (1.3-7.7) k/uL Lymphocytes # 0.3 L (1.0-4.8) k/uL Sodium 134 L (137-145) mmol/L BUN 49 H (9-20) mg/dL Creatinine 1.37 H (0.66-1.25) mg/dL Calcium 7.7 L (8.4-10.2) mg/dL Total Protein 5.0 L (6.3-8.2) g/dL Albumin 2.5 L (3.5-5.0) g/dL Microbiology - Last 24 Hours (Table) 02/25/24 11:35 Blood Culture Gram Stain - Final Blood Blood Culture - Final Escherichia coli Molecular ID Assessment and Plan (1) E coli bacteremia Current Visit: Yes Status: Acute Code(s): R78.81 - BACTEREMIA; B96.20 - UNSP ESCHERICHIA COLI THE CAUSE OF DISEASES [facility]SD [facility] SNOMED Code(s): 373643251293 Plan: 1patient has been in the hospital for sepsis in this patient who did have fever elevated white count elevated lactic acid source likely complicated UTI in this patient with urine retention requiring Martinez catheter placement 2-patient with an E. coli bacteremia source is likely secondary to urinary pio rce 3-patient to continue with Rocephin 2 g daily while inpatient hopefully transition to oral antibiotics on discharge at the bedside questions were answered Dictation was produced using [employer] dictation software. please excuse any grammatical, word or spelling errors. Time with Patient: Less than 30
[2024-03-02] MEDS: SODIUM BICARBONATE TAB 650 MG TAB PO SCH (08:00)
[2024-03-02 09:11] LABS: ALT 28 U/L (4-49); AST 29 U/L (17-59); African American GFR (CKD) 69 (>60 ml/min/1.73 sqM); Albumin 2.6 g/dL (3.5-5.0); Alkaline Phosphatase 73 U/L (38-126); Anion Gap 2 mmol/L; Blood Urea Nitrogen 38 mg/dL (9-20); Calcium 8.1 mg/dL (8.4-10.2); Carbon Dioxide 28 mmol/L (22-30); Chloride 106 mmol/L (98-107); Glucose 114 mg/dL (74-99); Non-African American GFR(CKD) 60 (>60 ml/min/1.73 sqM); Potassium 3.9 mmol/L (3.5-5.1); Sodium 136 mmol/L (137-145); Total Bilirubin 0.5 mg/dL (0.2-1.3); Total Protein 4.9 g/dL (6.3-8.2)
[2024-03-02 09:14] LABS: HCT 34.7 % (39.0-53.0); HGB 11.3 gm/dL (13.0-17.5); MCH 31.2 pg (25.0-35.0); MCHC 32.5 g/dL (31.0-37.0); Mean Platelet Volume 9.6; Platelet Count 105 k/uL (150-450); RBC 3.62 m/uL (4.30-5.90); RDW 13.1 % (11.5-15.5); WBC 11.1 k/uL (3.8-10.6)
[2024-03-02] MEDS: FUROSEMIDE 10 MG/ML 4 ML VIAL IV STA (11:24)
[2024-03-02 13:13] LABS: Eosinophils # (M) 0.33 k/uL (0-0.7); Lymphocytes # (M) 0.33 k/uL (1.0-4.8); Neutrophils # (M) 10.43 k/uL (1.3-7.7); Neutrophils % (M) 94 %; Nucleated Red Blood Cells 0 /100 WBC (0-0); Total Cells Counted 100
[2024-03-02 13:14] LABS: RBC Morphology Normal
--- NOTE | 2024-03-02 13:18 | P.PN ---
Subjective Progress Note Date: 03/02/24 83-year-old male, history of hypertension, atrial fibrillation, GERD, osteoarthritis and history of prostate cancer, who presents to the emergency department complaining of right-sided abdominal pain. Patient was transferred from [facility] for KENDRICK, kidney stone. Pain started last night. In the [facility] ED, blood work was completed and patient was found to have an KENDRICK with creatinine of 2. Remainder the workup unremarkable. Patient has an uncomplicated 4 mm right-sided kidney stone. Presents for further evaluation after fluid hydration did not improve the patient's KENDRICK at the outpatient [facility]. Patient also has a BNP of 2300 and they do not want to fluid overload the patient. Blood work completed in our emergency room revealed a WBC of 13.3, hemoglobin of 13 and platelet count of 132, sodium 133, potassium 3.1, BUNs/creatinine of 59/1.79 down from 2 at the outside facility UA is unremarkable; chest x-ray is negative for any acute pulmonary process EKG is negative for any acute ST or T wave changes Patient is being admitted to the hospital for further evaluation by nephrology and urology Initially, the patient was admitted to the medical floor, he became hypotensive and he got transferred to the intensive care unit. His systolic blood pressure was as low as 40. The patient immediately received a total of 2 L of IV fluids and currently normal saline is running at a rate of 100 cc an hour. He was given IV Rocephin. He was also started on pressors and norepinephrine is running at 0.09 mcg/kg/min. He also became dyspneic and hypoxic. He was placed on a BiPAP with a pressures of 12 over 5 cm of water and and the patient was taken off the BiPAP subsequently and he is currently on 3 L of oxygen by nasal cannula 02/26. Dr. Verde took over care. Lab work done this morning showed WBC 12.7, hemoglobin 11.1, platelet count 53, sodium 133, potassium 4.6, BUN 67, cre atinine 3.28. Nephrology added midodrine. Urology not planning any surgical intervention at this time unless patient becomes symptomatic for the ureteral calculi 02/27. Patient seen and examined.Blood work done this morning showed sodium 130, potassium 4.5, BUN 69, creatinine 2.26, glucose 116, calcium 7.7, magnesium 2.7. Currently on 5 L of oxygen. Complaining of flank pain. Complains of swelling of upper extremities 02/28. Patient seen and examined. Sitting upright in the chair. Still has swelling of upper extremities. Blood culture positive for E. coli. 03/01. Patient seen and examined. Still has weakness and lethargy. Continues to have swelling of upper extremities 03/02. Patient seen and examined. Denies any lethargy or weakness. Still has swelling of upper extremities REVIEW OF SYSTEMS: CONSTITUTIONAL: No fever, no malaise,. CARDIOVASCULAR: No chest pain, no palpitations, no syncope. PULMONARY: No shortness of breath, no cough, GASTROINTESTINAL: No diarrhea, no nausea, no vomiting, NEUROLOGICAL: No headaches, no weakness, PHYSICAL EXAMINATION: GENERAL: The patient is alert and oriented x3, not in any acute distress. Ill looking HEENT: Pupils are round and equally reacting to light. EOMI. No scleral icterus. No conjunctival pallor. Normocephalic, atraumatic. No pharyngeal erythema. No thyromegaly. CARDIOVASCULAR: S1 and S2 present. No murmurs, rubs, or gallops. PULMONARY: Chest is clear to auscultation, no wheezing or crackles. ABDOMEN: Soft, nontender, nondistended, normoactive bowel sounds. No palpable organomegaly. MUSCULOSKELETAL: No joint swelling or deformity. EXTREMITIES: No cyanosis, clubbing, swelling of upper extremities noticeable NEUROLOGICAL: Gross neurological examination did not reveal any focal deficits. SKIN: No rashes. Assessment and plan Acute kidney injury obstructive uropathy Bacteremia Acute hypoxic respiratory failure, likely secondary to above currently on 3 L of oxygen by nasal cannula. BiPAP is discontinued. 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 Martinez catheter in place History of nephrolithiasis and a 4 mm stone in the left distal ureter Non-anion gap metabolic acidosis, improved Acute kidney injury, stable and the creatinine is down to 2.9 Acute hypotension, received IV fluids and pressors and the patient is currently normotensive and completed a bicarb infusion with improvement in the anion gap metabolic acidosis Sick sinus syndrome currently has a permanent pacemaker in place Paroxysmal atrial fibrillation, maintained on long-term anticoagulation with Eliquis 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 Continue same treatment. Continue with symptomatic treatment. Resume home medication. Monitor labs and vitals. DVT and GI prophylaxis. Further recommendations as per clinical course of the patient Dictation was produced using [employer] dictation software. please excuse any grammatical, word or spelling errors. Objective - Vital Signs Vital signs: Vital Signs Temp 98.3 F 03/02/24 08:00 Pulse 60 03/02/24 08:00 Resp 18 03/02/24 08:00 BP 138/62 03/02/24 08:00 Pulse Ox 95 03/02/24 08:00 FiO2 40 03/01/24 20:28 Intake & Output 03/01/24 03/02/24 03/02/24 18:59 06:59 18:59 Intake Total 660 190 180 Output Total 900 525 200 Balance -240 -335 -20 Weight 109.8 kg Intake: IV 10 Sodium Chloride 0.9% 1, 10 000 ml @ 40 mls/hr IV . Q24H [facility] Rx#:[id number] Oral 660 180 180 Output: Urine 900 525 200 Other: Voiding Method Indwelling Catheter Indwelling Catheter Indwelling Catheter - Labs CBC & Chem 7: 03/02/24 08:01 03/02/24 08:01 Labs: Abnormal Lab Results - Last 24 Hours (Table) 03/02/24 03/02/24 Range/Units 08:01 08:01 WBC 11.1 H (3.8-10.6) k/uL RBC 3.62 L (4.30-5.90) m/uL Hgb 11.3 L (13.0-17.5) gm/dL Hct 34.7 L (39.0-53.0) % Plt Count 105 L (150-450) k/uL Sodium 136 L (137-145) mmol/L BUN 38 H (9-20) mg/dL Glucose 114 H (74-99) mg/dL Calcium 8.1 L (8.4-10.2) mg/dL Total Protein 4.9 L (6.3-8.2) g/dL Albumin 2.6 L (3.5-5.0) g/dL Microbiology - Last 24 Hours (Table) 02/25/24 11:35 Blood Culture Gram Stain - Final Blood Blood Culture - Final Escherichia coli Molecular ID
--- NOTE | 2024-03-02 14:02 | P.PN ---
Subjective patient is seen for follow-up for acute kidney injury. IV fluids discontinued yesterday. Appears mildly short of breath. serum creatinine decreased to 1.1 today. Objective - Vital Signs Vital signs: Vital Signs Temp 98.0 F 03/02/24 10:58 Pulse 59 L 03/02/24 10:58 Resp 18 03/02/24 10:58 BP 154/71 03/02/24 10:58 Pulse Ox 95 03/02/24 10:58 FiO2 40 03/01/24 20:28 Intake & Output 03/01/24 03/02/24 03/02/24 18:59 06:59 18:59 Intake Total 660 190 180 Output Total 468 928 5361 Balance -240 -283 -1020 Weight 109.8 kg Intake: IV 10 Sodium Chloride 0.9% 1, 10 000 ml @ 40 mls/hr IV . Q24H [facility] Rx#:[id number] Oral 660 180 180 Output: Urine [phone] Other: Voiding Method Indwelling Catheter Indwelling Catheter Indwelling Catheter - Exam patient is awake, comfortable, no acute distress. Examination of the heart S1 and S2 Examination of the lungs decreased breath sounds at the bases Abdomen is soft nontender Examination of lower extremity shows no significant edema. 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 - Labs CBC & Chem 7: 03/02/24 08:01 03/02/24 08:01 Labs: Abnormal Lab Results - Last 24 Hours (Table) 03/02/24 03/02/24 Range/Units 08:01 08:01 WBC 11.1 H (3.8-10.6) k/uL RBC 3.62 L (4.30-5.90) m/uL Hgb 11.3 L (13.0-17.5) gm/dL Hct 34.7 L (39.0-53.0) % Plt Count 105 L (150-450) k/uL Neutrophils # (Manual) 10.43 H (1.3-7.7) k/uL Lymphocytes # (Manual) 0.33 L (1.0-4.8) k/uL Sodium 136 L (137-145) mmol/L BUN 38 H (9-20) mg/dL Glucose 114 H (74-99) mg/dL Calcium 8.1 L (8.4-10.2) mg/dL Total Protein 4.9 L (6.3-8.2) g/dL Albumin 2.6 L (3.5-5.0) g/dL Microbiology - Last 24 Hours (Table) 02/25/24 11:35 Blood Culture Gram Stain - Final Blood Blood Culture - Final Escherichia coli Molecular ID Assessment and Plan Assessment: 1. Acute kidney injury secondary to ATN secondary to hypotension. Creatinine 1.05 in July 2023. 1.79 this admission and peaked at 3.06 this admission - 1.1 today. UA benign. No hydronephrosis noted on kidney ultrasound. 2. Left-sided nephrolithiasis with hydronephrosis. Urology following. Has Martinez catheter. 3. Right-sided kidney lesion noted on CT. Kidney ultrasound showed simple left renal cyst. 4. Metabolic acidosis secondary to acute kidney injury and lactic acidosis. Improved. On oral bicarb. 5. Hypokalemia from poor intake, diuretic use and hypomagnesemia. Replaced. Better. 6. Hypomagnesemia from poor intake and diuretic use. Replaced. Better. 7. Lactic acidosis secondary to hypotension. Plan: Continue off of IV fluids. IV Lasix x 1 DC sodium bicarb Advised to increase oral intake particularly protein. Repeat labs in a.m.
--- NOTE | 2024-03-02 15:25 | P.PN ---
Subjective Progress Note Date: 03/02/24 Principal diagnosis: Reason for follow-up with E. coli bacteremia likely UTI Patient is a 83-year-old male with a past medical history significant for reflux atrial fibrillation hypertension osteoarthritis history of prostate cancer s/p prostatectomy presenting to the hospital for evaluation of weakness abdominal pain has been diagnosed with the kidney stone and KENDRICK also have a fever and blood culture positive for E. coli. On today's evaluation that is 03/02/2024, the patient continues to be afebrile, the patient is on 2 L nasal current oxygen and breathing comfortably, the Pt denies having any chest pain or cough, the patient denies having any abdominal pain no vomiting or any diarrhea has been reported by the nursing staff, still complaining of some weakness. Patient white count is 11.1, creatinine is 1.15 Objective - Vital Signs Vital signs: Vital Signs Temp 98.0 F 03/02/24 10:58 Pulse 59 L 03/02/24 10:58 Resp 18 03/02/24 10:58 BP 154/71 03/02/24 10:58 Pulse Ox 95 03/02/24 10:58 FiO2 40 03/01/24 20:28 Intake & Output 03/01/24 03/02/24 03/02/24 18:59 06:59 18:59 Intake Total 660 190 180 Output Total 137 776 1583 Balance -240 335 -1020 Weight 109.8 kg Intake: IV 10 Sodium Chloride 0.9% 1, 10 000 ml @ 40 mls/hr IV . Q24H [facility] Rx#:[id number] Oral 660 180 180 Output: Urine 744 [id number] Other: Voiding Method Indwelling Catheter Indwelling Catheter Indwelling Catheter - Exam GENERAL DESCRIPTION: An elderly male lying in bed in no distress RESPIRATORY SYSTEM: Unlabored breathing , decreased breath sounds at bases HEART: S1 S2 regular rate and rhythm , ABDOMEN: Soft , no tenderness EXTREMITIES: No edema feet - Labs CBC & Chem 7: 03/02/24 08:01 03/02/24 08:01 Labs: Abnormal Lab Results - Last 24 Hours (Table) 03/02/24 03/02/24 Range/Units 08:01 08:01 WBC 11.1 H (3.8-10.6) k/uL RBC 3.62 L (4.30-5.90) m/uL Hgb 11.3 L (13.0-17.5) gm/dL Hct 34.7 L (39.0-53.0) % Plt Count 105 L (150-450) k/uL Neutrophils # (Manual) 10.43 H (1.3-7.7) k/uL Lymphocytes # (Manual) 0.33 L (1.0-4.8) k/uL Sodium 136 L (137-145) mmol/L BUN 38 H (9-20) mg/dL Glucose 114 H (74-99) mg/dL Calcium 8.1 L (8.4-10.2) mg/dL Total Protein 4.9 L (6.3-8.2) g/dL Albumin 2.6 L (3.5-5.0) g/dL Microbiology - Last 24 Hours (Table) 02/25/24 11:35 Blood Culture Gram Stain - Final Blood Blood Culture - Final Escherichia coli Molecular ID Assessment and Plan (1) E coli bacteremia Current Visit: Yes Status: Acute Code(s): R78.81 - BACTEREMIA; B96.20 - UNSP ESCHERICHIA COLI THE CAUSE OF DISEASES CLASSD [facility] SNOMED Code(s): 029909093812 Plan: 1patient has been in the hospital for sepsis in this patient who did have fever elevated white count elevated lactic acid source likely complicated UTI in this patient with urine retention requiring Martinez catheter placement 2-patient with an E. coli bacteremia source is likely secondary to urinary source 3-patient slowly clinical improving white count slightly up today will be monitored closely for now continue with Rocephin and repeat CBC with a.m. lab Dictation was produced using [employer] dictation software. please excuse any grammatical, word or spelling errors. Time with Patient: Less than 30
--- NOTE | 2024-03-02 15:33 | P.PN ---
Subjective Progress Note Date: 03/02/24 Principal diagnosis: Acute kidney injury, secondary to ATN secondary to hypotension 83-year-old male patient came to us from [facility] because of inability to urinate and right-sided abdominal pain. He apparently was initially taken to the Hospital for an acute kidney injury and kidney stones. He was found to be in acute kidney injury and the creatinine was up to 2.0. The patient has chronic urinary problems. He has history of nephrolithiasis. He also has history of prostate cancer and has undergone prostatectomy more than 10 years ago. He does self-catheterization on a daily basis and he does not once in the morning. The patient has not done any self-catheterization for the past 24 to 48 hours. This was attempted to be done at [facility] and it failed. After being transferred to [place], the patient was attempted to get a Martinez catheter and it failed because of anatomic difficulties and failure to insert the Martinez catheter in. Currently, the bladder scan is showing no urine in his bladder. He does not have a Martinez catheter. Awaiting urology consultation. CAT scan of the abdomen and pelvis that was [facility] showed a 4 mm stone in the left distal ureter resulting in mild to moderate left-sided hydronephrosis. There was also increased in the size of an indeterminate right renal mass and cholelithiasis and punctate right renal calculi. A large fat-containing indirect right inguinal hernia was also present. Initially, the patient was admitted to the medical floor, he became hypotensive and he got transferred to the intensive care unit. His systolic blood pressure was as low as 40. The patient immediately received a total of 2 L of IV fluids and currently normal saline is running at a rate of 100 cc an hour. He was given IV Rocephin. He was also started on pressors and norepinephrine is running at 0.09 mcg/kg/min. He also became dyspneic and hypoxic. He was placed on a BiPAP with a pressures of 12 over 5 cm of water and and the patient was taken off the BiPAP subsequently and he is currently on 3 L of oxygen by nasal cannula. She is known to have sick sinus syndrome and has a permanent pacemaker in place. He has also paroxysmal atrial fibrillation. EKG from this current admission is showing a paced rhythm. The patient's white cell count is 11.6, he was 5.5 and a platelet count is 96. His sodium levels at 133, serum bicarb is at 16, BUN is 52 with a creatinine of 2.7 consistent with acute kidney injury with a baseline creatinine of 1.7 from yesterday. Lactic acid level is at 3.5. UA collected in the emergency was negative for any blood or infection. Currently, he seems to be in otic. Chest x-ray done in the emergency shows cardiomegaly and mild pulm vascular congestion. No history of COPD. No history of asthma. No history of coronary artery disease. He is known to have hypertension. He is maintained on long-term anticoagulation with Eliquis regarding his paroxysmal atrial fibrillation. He has chronic hearing problems and hearing loss. He has also history of skin cancer. 02/26/2024, the patient is on 4 L of oxygen by nasal cannula. The patient is currently off pressors. The patient is currently off BiPAP. Breathing is comfortable. Martinez catheter has been inserted. The patient jah on empiric antibiotic coverage with IV Rocephin. Nephrology on the case. Lactic acid level has dropped down to 2.2. White cell count 14.2 with a hemoglobin 11.5 and a platelet count of 63. BUN is 59 with a creatinine of 2.9 and sodium levels at 132 with a potassium level of 4.3. The patient was seen again by urology. Patient was also seen by nephrology. On 02/27/2024, the patient is lethargic and at times confused. On and off, he has been placed on BiPAP. At the time of my evaluation, he was taken off the BiPAP and the patient was placed on 5 L of oxygen by nasal cannula with a pulse ox of 98%. He has a Martinez catheter that was inserted yesterday by urology. His urine output is adequate at this point. Nephrology on the case. He has produced approximately thousand of urine output over the past 24 hours. He has however developed an acute kidney injury. He is nonoliguric. Creatinine is up to 3.28 with a BUN of 67 and sodium levels at 133. WBC count is 12.7 with a hemoglobin of 11.1. Ultrasound of the kidneys of the gallbladder was done yesterday and shows superior pole left renal simple cyst. No evidence of any hydronephrosis. Nephrology and urology were both on the case and the patient remains on IV Rocephin. The patient also has been in atrial fibrillation. The patient received anticoagulation with Eliquis 2.5 mg twice a day. The patient was also started on midodrine to support her blood pressure. He is on normal saline at rate of 75 cc an hour. He is on oral bicarb. Patient was evaluated today on 02/28/2024, patient remains a bit confused, but improved compared to baseline. Continues to have some flank pain, and swelling in his upper extremities. Nephrology does not believe that his flank pain is urologic in nature and did not feel stent is necessary. Renal functioning is improving BUN is 69 creatinine 2.26. His electrolytes were noted with a sodium of 130 potassium 4.5. Patient remains on 5 L nasal cannula O2 sats 96%. Patient has good urine output, and is definitely nonoliguric. Patient remains on IV Rocephin. And he remains on Eliquis for atrial fibrillation. Hemodynamically stable with a blood pressure of 123/73. Patient was evaluated today on 02/29/2024, patient is feeling better today, continues to have some vague right flank pain, not in any distress, denies any shortness of breath cough or wheezing. Patient did have positive blood cultures showing E. coli, however he is on Rocephin which should be adequate coverage for now. Patient is on 3 L nasal cannula with O2 sat is 97%, again he has no active pulmonary symptoms WBC count is 8 hemoglobin 11.1 basic metabolic profile is normal renal profile is steadily improving, creatinine is down to 1.73 from 3.282 days ago. Patient had no evidence of hydronephrosis on renal ultrasound. He did have left-sided nephrolithiasis without hydronephrosis, and he is being followed by nephrology and urology. Chest x-ray 2 days ago showed no evidence of acute pulmonary process Patient was evaluated today on 03/01/24, patient seems to be doing well, feeling much better today compared to how he felt on his initial admission.On 2 L nasal cannula with O2 saturation anywhere between 94 up to 97% patient is still on antibiotics for his gram-negative sepsis/E. coli bacteremia and the most likely source is the urine being the main source for his bacteremia. WBC count is 10.4 hemoglobin 10.8 basic metabolic profile is normal renal profile is improving creatinine is down to 1.37 from 3.28 few days ago patient denies any shortness of breath cough or wheezing denies any chest pain, denies any abdominal pain. Patient was evaluated today on 03/02/2024, patient continues to improve, as a matter fact is feeling great today, he is not in any distress, denies any cough wheezing or shortness of breath, patient denies any abdominal pain, remains on antibiotics for his E. coli bacteremia likely source is his urine. Patient remains on ceftriaxone. His E. coli is sensitive to all antibiotics. WBC count today is 11 hemoglobin is 11 electrolytes are normal BUN is 38 creatinine down to 1.15, significantly improved compared to 2.26 few days ago Objective - Vital Signs Vital signs: Vital Signs Temp 98.0 F 03/02/24 10:58 Pulse 59 L 03/02/24 10:58 Resp 18 03/02/24 10:58 BP 154/71 03/02/24 10:58 Pulse Ox 95 03/02/24 10:58 FiO2 40 03/01/24 20:28 Intake & Output 03/01/24 03/02/24 03/02/24 18:59 06:59 18:59 Intake Total 660 190 180 Output Total 675 124 0324 Balance -240 335 -1920 Weight 109.8 kg Intake: IV 10 Sodium Chloride 0.9% 1, 10 000 ml @ 40 mls/hr IV . Q24H [facility] Rx#:[id number] Oral 660 180 180 Output: Urine 975 [id number] Other: Voiding Method Indwelling Catheter Indwelling Catheter Indwelling Catheter - Exam GENERAL: Revealed 83-year-old white male in no distress, on 2 L nasal cannula, awake, not in any distress. O2 saturation is 95% HEENT: Pupils are round and equally reacting to light. EOMI. No scleral icterus. No conjunctival pallor. Normocephalic, atraumatic. No pharyngeal erythema. No thyromegaly. CARDIOVASCULAR: Normal S1-S2, no S3 gallop, irregular rhythm. PULMONARY: Clear bilaterally no crackles rhonchi or wheezes ABDOMEN: Soft, nontender, nondistended, normoactive bowel sounds. No palpable organomegaly. MUSCULOSKELETAL: No deformities and no limitation range of motion EXTREMITIES: No cyanosis, clubbing, swelling of upper extremities noticeable NEUROLOGICAL: Alert and oriented x 3, no gross focal neurologic deficit SKIN: No rashes. - Labs CBC & Chem 7: 03/02/24 08:01 03/02/24 08:01 Labs: Abnormal Lab Results - Last 24 Hours (Table) 03/02/24 03/02/24 Range/Units 08:01 08:01 WBC 11.1 H (3.8-10.6) k/uL RBC 3.62 L (4.30-5.90) m/uL Hgb 11.3 L (13.0-17.5) gm/dL Hct 34.7 L (39.0-53.0) % Plt Count 105 L (150-450) k/uL Neutrophils # (Manual) 10.43 H (1.3-7.7) k/uL Lymphocytes # (Manual) 0.33 L (1.0-4.8) k/uL Sodium 136 L (137-145) mmol/L BUN 38 H (9-20) mg/dL Glucose 114 H (74-99) mg/dL Calcium 8.1 L (8.4-10.2) mg/dL Total Protein 4.9 L (6.3-8.2) g/dL Albumin 2.6 L (3.5-5.0) g/dL Assessment and Plan Assessment: Impression: Acute kidney injury, steadily improving Acute metabolic encephalopathy, resolved. Gram-negative bacteremia secondary to E. coli sensitive to all antibiotics, source is most likely urine History of prostate cancer and previous prostatectomy History of obstructive uropathy secondary to BXO, has a Martinez catheter in place History of sick sinus syndrome and previous pacemaker implantation Paroxysmal atrial fibrillation Chronic back pain Dyslipidemia History of benign essential hypertension Urinary retention secondary to meatal stenosis Recommendation: Continue present supportive care measures Continue Rocephin Continue Eliquis for paroxysmal atrial fibrillation Ambulate and physical therapy to address. Infectious disease to decide on antibiotics and possible discharge on oral antibiotics for his urinary tract infection and bacteremia Will continue to follow Time with Patient: Less than 30
[2024-03-03] MEDS: FUROSEMIDE 10 MG/ML 4 ML VIAL IV STA (11:23)
--- NOTE | 2024-03-03 12:08 | P.PN ---
Subjective Progress Note Date: 03/03/24 Principal diagnosis: Acute kidney injury, secondary to ATN secondary to hypotension 83-year-old male patient came to us from [facility] because of inability to urinate and right-sided abdominal pain. He apparently was initially taken to the Hospital for an acute kidney injury and kidney stones. He was found to be in acute kidney injury and the creatinine was up to 2.0. The patient has chronic urinary problems. He has history of nephrolithiasis. He also has history of prostate cancer and has undergone prostatectomy more than 10 years ago. He does self-catheterization on a daily basis and he does not once in the morning. The patient has not done any self-catheterization for the past 24 to 48 hours. This was attempted to be done at [facility] and it failed. After being transferred to [place], the patient was attempted to get a Martinez catheter and it failed because of anatomic difficulties and failure to insert the Martinez catheter in. Currently, the bladder scan is showing no urine in his bladder. He does not have a Martinez catheter. Awaiting urology consultation. CAT scan of the abdomen and pelvis that was [facility] showed a 4 mm stone in the left distal ureter resulting in mild to moderate left-sided hydronephrosis. There was also increased in the size of an indeterminate right renal mass and cholelithiasis and punctate right renal calculi. A large fat-containing indirect right inguinal hernia was also present. Initially, the patient was admitted to the medical floor, he became hypotensive and he got transferred to the intensive care unit. His systolic blood pressure was as low as 40. The patient immediately received a total of 2 L of IV fluids and currently normal saline is running at a rate of 100 cc an hour. He was given IV Rocephin. He was also started on pressors and norepinephrine is running at 0.09 mcg/kg/min. He also became dyspneic and hypoxic. He was placed on a BiPAP with a pressures of 12 over 5 cm of water and and the patient was taken off the BiPAP subsequently and he is currently on 3 L of oxygen by nasal cannula. She is known to have sick sinus syndrome and has a permanent pacemaker in place. He has also paroxysmal atrial fibrillation. EKG from this current admission is showing a paced rhythm. The patient's white cell count is 11.6, he was 5.5 and a platelet count is 96. His sodium levels at 133, serum bicarb is at 16, BUN is 52 with a creatinine of 2.7 consistent with acute kidney injury with a baseline creatinine of 1.7 from yesterday. Lactic acid level is at 3.5. UA collected in the emergency was negative for any blood or infection. Currently, he seems to be in otic. Chest x-ray done in the emergency shows cardiomegaly and mild pulm vascular congestion. No history of COPD. No history of asthma. No history of coronary artery disease. He is known to have hypertension. He is maintained on long-term anticoagulation with Eliquis regarding his paroxysmal atrial fibrillation. He has chronic hearing problems and hearing loss. He has also history of skin cancer. 02/26/2024, the patient is on 4 L of oxygen by nasal cannula. The patient is currently off pressors. The patient is currently off BiPAP. Breathing is comfortable. Martinez catheter has been inserted. The patient jah on empiric antibiotic coverage with IV Rocephin. Nephrology on the case. Lactic acid level has dropped down to 2.2. White cell count 14.2 with a hemoglobin 11.5 and a platelet count of 63. BUN is 59 with a creatinine of 2.9 and sodium levels at 132 with a potassium level of 4.3. The patient was seen again by urology. Patient was also seen by nephrology. On 02/27/2024, the patient is lethargic and at times confused. On and off, he has been placed on BiPAP. At the time of my evaluation, he was taken off the BiPAP and the patient was placed on 5 L of oxygen by nasal cannula with a pulse ox of 98%. He has a Martinez catheter that was inserted yesterday by urology. His urine output is adequate at this point. Nephrology on the case. He has produced approximately thousand of urine output over the past 24 hours. He has however developed an acute kidney injury. He is nonoliguric. Creatinine is up to 3.28 with a BUN of 67 and sodium levels at 133. WBC count is 12.7 with a hemoglobin of 11.1. Ultrasound of the kidneys of the gallbladder was done yesterday and shows superior pole left renal simple cyst. No evidence of any hydronephrosis. Nephrology and urology were both on the case and the patient remains on IV Rocephin. The patient also has been in atrial fibrillation. The patient received anticoagulation with Eliquis 2.5 mg twice a day. The patient was also started on midodrine to support her blood pressure. He is on normal saline at rate of 75 cc an hour. He is on oral bicarb. Patient was evaluated today on 02/28/2024, patient remains a bit confused, but improved compared to baseline. Continues to have some flank pain, and swelling in his upper extremities. Nephrology does not believe that his flank pain is urologic in nature and did not feel stent is necessary. Renal functioning is improving BUN is 69 creatinine 2.26. His electrolytes were noted with a sodium of 130 potassium 4.5. Patient remains on 5 L nasal cannula O2 sats 96%. Patient has good urine output, and is definitely nonoliguric. Patient remains on IV Rocephin. And he remains on Eliquis for atrial fibrillation. Hemodynamically stable with a blood pressure of 123/73. Patient was evaluated today on 02/29/2024, patient is feeling better today, continues to have some vague right flank pain, not in any distress, denies any shortness of breath cough or wheezing. Patient did have positive blood cultures showing E. coli, however he is on Rocephin which should be adequate coverage for now. Patient is on 3 L nasal cannula with O2 sat is 97%, again he has no active pulmonary symptoms WBC count is 8 hemoglobin 11.1 basic metabolic profile is normal renal profile is steadily improving, creatinine is down to 1.73 from 3.282 days ago. Patient had no evidence of hydronephrosis on renal ultrasound. He did have left-sided nephrolithiasis without hydronephrosis, and he is being followed by nephrology and urology. Chest x-ray 2 days ago showed no evidence of acute pulmonary process Patient was evaluated today on 03/01/24, patient seems to be doing well, feeling much better today compared to how he felt on his initial admission.On 2 L nasal cannula with O2 saturation anywhere between 94 up to 97% patient is still on antibiotics for his gram-negative sepsis/E. coli bacteremia and the most likely source is the urine being the main source for his bacteremia. WBC count is 10.4 hemoglobin 10.8 basic metabolic profile is normal renal profile is improving creatinine is down to 1.37 from 3.28 few days ago patient denies any shortness of breath cough or wheezing denies any chest pain, denies any abdominal pain. Patient was evaluated today on 03/02/2024, patient continues to improve, as a matter fact is feeling great today, he is not in any distress, denies any cough wheezing or shortness of breath, patient denies any abdominal pain, remains on antibiotics for his E. coli bacteremia likely source is his urine. Patient remains on ceftriaxone. His E. coli is sensitive to all antibiotics. WBC count today is 11 hemoglobin is 11 electrolytes are normal BUN is 38 creatinine down to 1.15, significantly improved compared to 2.26 few days ago Patient was reevaluated today on 03/03/2024, doing fairly well, no issues over the last 24 hours. On 2 L nasal cannula, O2 saturation ranging between 93 up to 98%. Patient is hemodynamically stable, blood pressure is 148/69. Not in any distress yesterday's labs were reviewed, WBC count is 11.1 hemoglobin 11.3 basic metabolic profile is normal renal profile is much better creatinine down to 1.15 Objective - Vital Signs Vital signs: Vital Signs Temp 98.2 F 03/02/24 20:00 Pulse 61 03/03/24 03:43 Resp 18 03/03/24 03:43 BP 148/69 03/03/24 03:43 Pulse Ox 93 L 03/03/24 03:43 FiO2 40 03/01/24 20:28 Intake & Output 03/02/24 03/03/24 03/03/24 18:59 06:59 18:59 Intake Total 180 1020 118 Output Total 3000 1000 Balance -2820 20 118 Intake: Oral 180 1020 118 Output: Urine 3000 1000 Other: Voiding Method Indwelling Catheter Indwelling Catheter # Bowel Movements 1 - Exam GENERAL: Revealed 83-year-old white male in no distress, on 2 L nasal cannula, asymptomatic. HEENT: Pupils are round and equally reacting to light. EOMI. No scleral icterus. No conjunctival pallor. Normocephalic, atraumatic. No pharyngeal erythema. No thyromegaly. CARDIOVASCULAR: Normal S1-S2, no S3 gallop, irregular rhythm. PULMONARY: Clear bilaterally no crackles rhonchi or wheezes ABDOMEN: Soft, nontender, nondistended, normoactive bowel sounds. No palpable organomegaly. MUSCULOSKELETAL: No deformities and no limitation range of motion EXTREMITIES: No cyanosis, clubbing, swelling of upper extremities noticeable NEUROLOGICAL: Alert and oriented x 3, no gross focal neurologic deficit SKIN: No rashes. - Labs CBC & Chem 7: 03/02/24 08:01 03/02/24 08:01 Labs: Abnormal Lab Results - Last 24 Hours (Table) 03/02/24 Range/Units 08:01 Neutrophils # (Manual) 10.43 H (1.3-7.7) k/uL Lymphocytes # (Manual) 0.33 L (1.0-4.8) k/uL Assessment and Plan Assessment: Impression: Acute kidney injury, steadily improving Acute metabolic encephalopathy, resolved. Gram-negative bacteremia secondary to E. 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
--- NOTE | 2024-03-03 12:20 | P.PN ---
Subjective Progress Note Date: 03/03/24 83-year-old male, history of hypertension, atrial fibrillation, GERD, osteoarthritis and history of prostate cancer, who presents to the emergency department complaining of right-sided abdominal pain. Patient was transferred from [facility] for KENDRICK, kidney stone. Pain started last night. In the [facility] ED, blood work was completed and patient was found to have an KENDRICK with creatinine of 2. Remainder the workup unremarkable. Patient has an uncomplicated 4 mm right-sided kidney stone. Presents for further evaluation after fluid hydration did not improve the patient's KENDRICK at [facility]. Patient also has a BNP of 2300 and they do not want to fluid overload the patient. Blood work completed in our emergency room revealed a WBC of 13.3, hemoglobin of 13 and platelet count of 132, sodium 133, potassium 3.1, BUNs/creatinine of 59/1.79 down from 2 at the outside facility UA is unremarkable; chest x-ray is negative for any acute pulmonary process EKG is negative for any acute ST or T wave changes Patient is being admitted to the hospital for further evaluation by nephrology and urology Initially, the patient was admitted to the medical floor, he became hypotensive and he got transferred to the intensive care unit. His systolic blood pressure was as low as 40. The patient immediately received a total of 2 L of IV fluids and currently normal saline is running at a rate of 100 cc an hour. He was given IV Rocephin. He was also started on pressors and norepinephrine is running at 0.09 mcg/kg/min. He also became dyspneic and hypoxic. He was placed on a BiPAP with a pressures of 12 over 5 cm of water and and the patient was taken off the BiPAP subsequently and he is currently on 3 L of oxygen by nasal cannula 02/26. Dr. Verde took over care. Lab work done this morning showed WBC 12.7, hemoglobin 11.1, platelet count 53, sodium 133, potassium 4.6, BUN 67, cre atinine 3.28. Nephrology added midodrine. Urology not planning any surgical intervention at this time unless patient becomes symptomatic for the ureteral calculi 02/27. Patient seen and examined.Blood work done this morning showed sodium 130, potassium 4.5, BUN 69, creatinine 2.26, glucose 116, calcium 7.7, magnesium 2.7. Currently on 5 L of oxygen. Complaining of flank pain. Complains of swelling of upper extremities 02/28. Patient seen and examined. Sitting upright in the chair. Still has swelling of upper extremities. Blood culture positive for E. coli. 03/01. Patient seen and examined. Still has weakness and lethargy. Continues to have swelling of upper extremities 03/02. Patient seen and examined. Denies any lethargy or weakness. Still has swelling of upper extremities 03/03. Patient seen and examined. Patient has swelling of upper and lower extremities today. Discussed with nephrology, will start patient on IV Lasix REVIEW OF SYSTEMS: CONSTITUTIONAL: No fever, no malaise,. CARDIOVASCULAR: No chest pain, no palpitations, no syncope. PULMONARY: No shortness of breath, no cough, GASTROINTESTINAL: No diarrhea, no nausea, no vomiting, NEUROLOGICAL: No headaches, no weakness, PHYSICAL EXAMINATION: GENERAL: The patient is alert and oriented x3, not in any acute distress. Ill looking HEENT: Pupils are round and equally reacting to light. EOMI. No scleral icterus. No conjunctival pallor. Normocephalic, atraumatic. No pharyngeal erythema. No thyromegaly. CARDIOVASCULAR: S1 and S2 present. No murmurs, rubs, or gallops. PULMONARY: Chest is clear to auscultation, no wheezing or crackles. ABDOMEN: Soft, nontender, nondistended, normoactive bowel sounds. No palpable organomegaly. MUSCULOSKELETAL: No joint swelling or deformity. EXTREMITIES: No cyanosis, clubbing, swelling of upper extremities noticeable NEUROLOGICAL: Gross neurological examination did not reveal any focal deficits. SKIN: No rashes. Assessment and plan Acute kidney injury obstructive uropathy Bacteremia Acute hypoxic respiratory failure, likely secondary to above currently on 3 L of oxygen by nasal cannula. BiPAP is discontinued. 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 Martinez catheter in place History of nephrolithiasis and a 4 mm stone in the left distal ureter Non-anion gap metabolic acidosis, improved Acute kidney injury, stable and the creatinine is down to 2.9 Acute hypotension, received IV fluids and pressors and the patient is currently normotensive and completed a bicarb infusion with improvement in the anion gap metabolic acidosis Sick sinus syndrome currently has a permanent pacemaker in place Paroxysmal atrial fibrillation, maintained on long-term anticoagulation with Eliquis 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 Continue same treatment. Continue with symptomatic treatment. Resume home medication. Monitor labs and vitals. DVT and GI prophylaxis. Further recommendations as per clinical course of the patient Dictation was produced using [employer] dictation software. please excuse any grammatical, word or spelling errors. Objective - Vital Signs Vital signs: Vital Signs Temp 98.2 F 03/02/24 20:00 Pulse 61 03/03/24 03:43 Resp 18 03/03/24 03:43 BP 148/69 03/03/24 03:43 Pulse Ox 93 L 03/03/24 03:43 FiO2 40 03/01/24 20:28 Intake & Output 03/02/24 03/03/24 03/03/24 18:59 06:59 18:59 Intake Total 180 1020 118 Output Total 3000 1000 Balance -2820 20 118 Intake: Oral 180 1020 118 Output: Urine 3000 1000 Other: Voiding Method Indwelling Catheter Indwelling Catheter # Bowel Movements 1 - Labs CBC & Chem 7: 03/02/24 08:01 03/02/24 08:01 Labs: Abnormal Lab Results - Last 24 Hours (Table) 03/02/24 Range/Units 08:01 Neutrophils # (Manual) 10.43 H (1.3-7.7) k/uL Lymphocytes # (Manual) 0.33 L (1.0-4.8) k/uL
--- NOTE | 2024-03-03 12:52 | P.PN ---
Subjective patient is seen for follow-up for acute kidney injury. currently off of IV fluids and patient received a dose of Lasix yesterday. Appears mildly short of breath. serum creatinine decreased to 1.1 Objective - Vital Signs Vital signs: Vital Signs Temp 97.9 F 03/03/24 09:35 Pulse 67 03/03/24 11:30 Resp 16 03/03/24 11:30 BP 130/65 03/03/24 11:30 Pulse Ox 97 03/03/24 11:30 FiO2 40 03/01/24 20:28 Intake & Output 03/02/24 03/03/24 03/03/24 18:59 06:59 18:59 Intake Total 180 1020 118 Output Total 3000 1000 Balance -2820 20 118 Intake: Oral 180 1020 118 Output: Urine 3000 1000 Other: Voiding Method Indwelling Catheter Indwelling Catheter Indwelling Catheter # Bowel Movements 1 - Exam patient is awake, comfortable, no acute distress. Examination of the heart S1 and S2 Examination of the lungs decreased breath sounds at the bases Abdomen is soft nontender Examination of lower extremity shows 1+ edema [address] [employer] exam grossly intact - Labs CBC & Chem 7: 03/02/24 08:01 03/02/24 08:01 Labs: Abnormal Lab Results - Last 24 Hours (Table) 03/02/24 Range/Units 08:01 Neutrophils # (Manual) 10.43 H (1.3-7.7) k/uL Lymphocytes # (Manual) 0.33 L (1.0-4.8) k/uL Assessment and Plan Assessment: 1. Acute kidney injury secondary to ATN secondary to hypotension. Creatinine 1.05 in July 2023. 1.79 this admission and peaked at 3.06 this admission - 1.1 yesterday. UA benign. No hydronephrosis noted on kidney ultrasound. 2. Left-sided nephrolithiasis with hydronephrosis. Urology following. Has Martinez catheter. 3. Right-sided kidney lesion noted on CT. Kidney ultrasound showed simple left renal cyst. 4. Metabolic acidosis secondary to acute kidney injury and lactic acidosis. Improved. On oral bicarb. 5. Hypokalemia from poor intake, diuretic use and hypomagnesemia. Replaced. Better. 6. Hypomagnesemia from poor intake and diuretic use. Replaced. Better. 7. Lactic acidosis secondary to hypotension. 8. Volume overload Plan: Continue off of IV fluids. diurese patient. Add scheduled dose of IV Lasix Advised to increase oral intake particularly protein. Repeat labs in a.m.
--- NOTE | 2024-03-03 14:19 | P.PN ---
Subjective Progress Note Date: 03/03/24 Principal diagnosis: Reason for follow-up with E. coli bacteremia likely UTI Patient is a 83-year-old male with a past medical history significant for reflux atrial fibrillation hypertension osteoarthritis history of prostate cancer s/p prostatectomy presenting to the hospital for evaluation of weakness abdominal pain has been diagnosed with the kidney stone and KENDRICK also have a fever and blood culture positive for E. coli. On today's evaluation that is 03/03/2024, Patient is afebrile, mention feeling slightly better, patient is currently on 2 L nasal cannula oxygen and denies having any shortness of breath, the patient denies any chest pain or cough, the patient denies any nausea vomiting did not have any abdominal pain and no diarrhea. Patient did not have any blood draw today Objective - Vital Signs Vital signs: Vital Signs Temp 97.9 F 03/03/24 09:35 Pulse 67 03/03/24 11:30 Resp 16 03/03/24 11:30 BP 130/65 03/03/24 11:30 Pulse Ox 97 03/03/24 11:30 FiO2 40 03/01/24 20:28 Intake & Output 03/02/24 03/03/24 03/03/24 18:59 06:59 18:59 Intake Total 180 1020 118 Output Total 3000 1000 Balance -2820 20 118 Intake: Oral 180 1020 118 Output: Urine 3000 1000 Other: Voiding Method Indwelling Catheter Indwelling Catheter Indwelling Catheter # Bowel Movements 1 - Exam GENERAL DESCRIPTION: An elderly male lying in bed in no distress RESPIRATORY SYSTEM: Unlabored breathing , decreased breath sounds at bases HEART: S1 S2 regular rate and rhythm , ABDOMEN: Soft , no tenderness EXTREMITIES: No edema feet - Labs CBC & Chem 7: 03/02/24 08:01 03/02/24 08:01 Assessment and Plan (1) E coli bacteremia Current Visit: Yes Status: Acute Code(s): R78.81 - BACTEREMIA; B96.20 - UNSP ESCHERICHIA COLI THE CAUSE OF DISEASES [facility]SD [facility] Code(s): 426249236484 Plan: 1patient has been in the hospital for sepsis in this patient who did have fever elevated white count elevated lactic acid source likely complicated UTI in this patient with urine retention requiring Martinez catheter placement 2-patient with an E. coli bacteremia source is likely secondary to urinary s ource 3-patient remains to be afebrile and slowly clinical improvement continue with Rocephin while inpatient at the bedside questions also Dictation was produced using [employer] dictation software. please excuse any grammatical, word or spelling errors.
[2024-03-03] MEDS: FUROSEMIDE 10 MG/ML 4 ML VIAL IV SCH (20:29)
[2024-03-04] MEDS ORDERED: FUROSEMIDE 10 MG/ML 4 ML VIAL IV SCH (09:00)
--- NOTE | 2024-03-04 12:51 | P.PN ---
Subjective Progress Note Date: 03/04/24 83-year-old male, history of hypertension, atrial fibrillation, GERD, osteoarthritis and history of prostate cancer, who presents to the emergency department complaining of right-sided abdominal pain. Patient was transferred from [facility] for KENDRICK, kidney stone. Pain started last night. In the [facility] ED, blood work was completed and patient was found to have an KENDRICK with creatinine of 2. Remainder the workup unremarkable. Patient has an uncomplicated 4 mm right-sided kidney stone. Presents for further evaluation after fluid hydration did not improve the patient's KENDRICK at the outpatient f [facility]. Patient also has a BNP of 2300 and they do not want to fluid overload the patient. Blood work completed in our emergency room revealed a WBC of 13.3, hemoglobin of 13 and platelet count of 132, sodium 133, potassium 3.1, BUNs/creatinine of 59/1.79 down from 2 at the outside facility UA is unremarkable; chest x-ray is negative for any acute pulmonary process EKG is negative for any acute ST or T wave changes Patient is being admitted to the hospital for further evaluation by nephrology and urology Initially, the patient was admitted to the medical floor, he became hypotensive and he got transferred to the intensive care unit. His systolic blood pressure was as low as 40. The patient immediately received a total of 2 L of IV fluids and currently normal saline is running at a rate of 100 cc an hour. He was given IV Rocephin. He was also started on pressors and norepinephrine is running at 0.09 mcg/kg/min. He also became dyspneic and hypoxic. He was placed on a BiPAP with a pressures of 12 over 5 cm of water and and the patient was taken off the BiPAP subsequently and he is currently on 3 L of oxygen by nasal cannula 02/26. Dr. Verde took over care. Lab work done this morning showed WBC 12.7, hemoglobin 11.1, platelet count 53, sodium 133, potassium 4.6, BUN 67, cre atinine 3.28. Nephrology added midodrine. Urology not planning any surgical intervention at this time unless patient becomes symptomatic for the ureteral calculi 02/27. Patient seen and examined.Blood work done this morning showed sodium 130, potassium 4.5, BUN 69, creatinine 2.26, glucose 116, calcium 7.7, magnesium 2.7. Currently on 5 L of oxygen. Complaining of flank pain. Complains of swelling of upper extremities 02/28. Patient seen and examined. Sitting upright in the chair. Still has swelling of upper extremities. Blood culture positive for E. coli. 03/01. Patient seen and examined. Still has weakness and lethargy. Continues to have swelling of upper extremities 03/02. Patient seen and examined. Denies any lethargy or weakness. Still has swelling of upper extremities 03/03. Patient seen and examined. Patient has swelling of upper and lower extremities today. Discussed with nephrology, will start patient on IV Lasix 03/04. Patient seen and examined. States swelling of lower extremities improved REVIEW OF SYSTEMS: CONSTITUTIONAL: No fever, no malaise,. CARDIOVASCULAR: No chest pain, no palpitations, no syncope. PULMONARY: No shortness of breath, no cough, GASTROINTESTINAL: No diarrhea, no nausea, no vomiting, NEUROLOGICAL: No headaches, no weakness, PHYSICAL EXAMINATION: GENERAL: The patient is alert and oriented x3, not in any acute distress. Ill looking HEENT: Pupils are round and equally reacting to light. EOMI. No scleral icterus. No conjunctival pallor. Normocephalic, atraumatic. No pharyngeal erythema. No thyromegaly. CARDIOVASCULAR: S1 and S2 present. No murmurs, rubs, or gallops. PULMONARY: Chest is clear to auscultation, no wheezing or crackles. ABDOMEN: Soft, nontender, nondistended, normoactive bowel sounds. No palpable organomegaly. MUSCULOSKELETAL: No joint swelling or deformity. EXTREMITIES: No cyanosis, clubbing, swelling of upper extremities noticeable, 1+ pitting edema lower extremity NEUROLOGICAL: Gross neurological examination did not reveal any focal deficits. SKIN: No rashes. Assessment and plan Acute kidney injury obstructive uropathy Bacteremia Acute hypoxic respiratory failure, likely secondary to above currently on 3 L of oxygen by nasal cannula. BiPAP is discontinued. 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 Martinez catheter in place History of nephrolithiasis and a 4 mm stone in the left distal ureter Non-anion gap metabolic acidosis, improved Acute kidney injury, stable and the creatinine is down to 2.9 Acute hypotension, received IV fluids and pressors and the patient is currently normotensive and completed a bicarb infusion with improvement in the anion gap metabolic acidosis Sick sinus syndrome currently has a permanent pacemaker in place Paroxysmal atrial fibrillation, maintained on long-term anticoagulation with Eliquis 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 Continue same treatment. Continue with symptomatic treatment. Resume home medication. Monitor labs and vitals. DVT and GI prophylaxis. Further recommendations as per clinical course of the patient Dictation was produced using [employer] dictation software. please excuse any grammatical, word or spelling errors. Objective - Vital Signs Vital signs: Vital Signs Temp 98.6 F 03/04/24 07:32 Pulse 63 03/04/24 07:32 Resp 20 03/04/24 07:32 BP 155/69 03/04/24 07:32 Pulse Ox 96 03/04/24 07:32 FiO2 40 03/01/24 20:28 Intake & Output 03/03/24 03/04/24 03/04/24 18:59 06:59 18:59 Intake Total 236 360 120 Output Total 450 2320 1100 Balance -214 -1960 -980 Intake: Oral 236 360 120 Output: Urine 450 2320 1100 Other: Voiding Method Indwelling Catheter Indwelling Catheter Indwelling Catheter # Bowel Movements 1 - Labs CBC & Chem 7: 03/02/24 08:01 03/02/24 08:01
[2024-03-04 12:52] LABS: ALT 32 U/L (4-49); AST 32 U/L (17-59); African American GFR (CKD) 81 (>60 ml/min/1.73 sqM); Albumin 2.6 g/dL (3.5-5.0); Alkaline Phosphatase 65 U/L (38-126); Blood Urea Nitrogen 28 mg/dL (9-20); Calcium 7.7 mg/dL (8.4-10.2); Carbon Dioxide 31 mmol/L (22-30); Globulin 2.6 g/dL; Glucose 125 mg/dL (74-99); Non-African American GFR(CKD) 70 (>60 ml/min/1.73 sqM); Potassium 3.3 mmol/L (3.5-5.1); Sodium 137 mmol/L (137-145); Total Bilirubin 0.6 mg/dL (0.2-1.3); Total Protein 5.2 g/dL (6.3-8.2)
[2024-03-04 12:59] LABS: HCT 33.3 % (39.0-53.0); HGB 11.1 gm/dL (13.0-17.5); MCHC 33.3 g/dL (31.0-37.0); MCV 96.2 fL (80.0-100.0); Mean Platelet Volume 8.5; RBC 3.46 m/uL (4.30-5.90); RDW 13.1 % (11.5-15.5); WBC 13.5 k/uL (3.8-10.6)
[2024-03-04 13:01] LABS: Platelet Count 189 k/uL (150-450)
[2024-03-04 13:04] LABS: Anion Gap 6 mmol/L; Chloride 100 mmol/L (98-107)
--- NOTE | 2024-03-04 13:24 | P.PN ---
Subjective Progress Note Date: 03/04/24 The patient is seen today March 04, 2024 in follow-up on the regular medical floor. He is currently sitting up in the bed. Awake and alert in no acute distress. He is being followed for acute kidney injury with acute metabolic encephalopathy which have resolved. He is maintaining good O2 saturations in the 90s on 2 L/min per nasal cannula. He has been afebrile. Hemodynamically stable. His blood cultures were positive for E. coli. Urine culture revealed no growth. White count 13.5. Hemoglobin 11.1. Platelets 189. Sodium 137. Potassium 3.3. Bicarb 31. BUN 28. Creatinine 1.0. Glucose 125. He is continued on ceftriaxone. Anticoagulated with Eliquis. Potassium being replaced. He is on Lasix 40 mg IV twice daily. Currently in a -2.1 L balance. Objective - Vital Signs Vital signs: Vital Signs Temp 98.6 F 03/04/24 07:32 Pulse 63 03/04/24 07:32 Resp 20 03/04/24 07:32 BP 155/69 03/04/24 07:32 Pulse Ox 96 03/04/24 07:32 FiO2 40 03/01/24 20:28 Intake & Output 03/03/24 03/04/24 03/04/24 18:59 06:59 18:59 Intake Total 236 360 120 Output Total 450 2320 1900 Balance - Intake: Oral 236 360 120 Output: Urine 450 2320 1900 Other: Voiding Method Indwelling Catheter Indwelling Catheter Indwelling Catheter # Bowel Movements 1 - Exam GENERAL EXAM: Alert, pleasant 83-year-old male, on 2 L nasal cannula, comfortable in no apparent distress. HEAD: Normocephalic. EYES: Normal reaction of pupils, equal size. NOSE: Clear with pink turbinates. THROAT: No erythema or exudates. NECK: No masses, no JVD. CHEST: No chest wall deformity. LUNGS: Equal air entry with crackles in the bilateral bases. CVS: S1 and S2 normal with no audible murmur, regular rhythm. ABDOMEN: No hepatosplenomegaly, normal bowel sounds, no guarding or rigidity. SPINE: No scoliosis or deformity SKIN: No rashes CENTRAL NERVOUS SYSTEM: No focal deficits, tone is normal in all 4 extremities. EXTREMITIES: There is 1+ peripheral edema. No clubbing, no cyanosis. Peripheral pulses are intact. - Labs CBC & Chem 7: 03/04/24 12:22 03/04/24 12:22 Labs: Abnormal Lab Results - Last 24 Hours (Table) 03/04/24 03/04/24 Range/Units 12:22 12:22 WBC 13.5 H (3.8-10.6) k/uL RBC 3.46 L (4.30-5.90) m/uL Hgb 11.1 L (13.0-17.5) gm/dL Hct 33.3 L (39.0-53.0) % Potassium 3.3 L (3.5-5.1) mmol/L Carbon Dioxide 31 H (22-30) mmol/L BUN 28 H (9-20) mg/dL Glucose 125 H (74-99) mg/dL Calcium 7.7 L (8.4-10.2) mg/dL Total Protein 5.2 L (6.3-8.2) g/dL Albumin 2.6 L (3.5-5.0) g/dL Assessment and Plan Assessment: Acute kidney injury, steadily improving Acute metabolic encephalopathy, resolved. Gram-negative bacteremia secondary to E. coli sensitive to all antibiotics, source is most likely urine History of prostate cancer and previous prostatectomy History of obstructive uropathy, has a Martinez catheter in place History of sick sinus syndrome and previous pacemaker implantation Paroxysmal atrial fibrillation Chronic back pain Dyslipidemia History of benign essential hypertension Plan: The patient was seen and evaluated Labs and medications reviewed Currently on ceftriaxone Remains on IV diuretics Remains in a negative balance Plan is for Counts include 234 beds at the [facility] post discharge I have personally seen and examined the patient, performed the documentation and the assessment and plan as written. Number of minutes spent on the visit: 10.
[2024-03-04] MEDS: POTASSIUM CHLORIDE ER 20 MEQ TAB.ER PO STA (13:56)
--- NOTE | 2024-03-04 18:36 | P.PN ---
Subjective patient is seen for follow-up for acute kidney injury. currently off of IV fluids and patient is maintained on IV Lasix. Shortness of breath has improved. serum creatinine decreased to 1.0 Objective - Vital Signs Vital signs: Vital Signs Temp 98.9 F 03/04/24 14:12 Pulse 60 03/04/24 14:12 Resp 20 03/04/24 14:12 BP 124/66 03/04/24 14:12 Pulse Ox 93 L 03/04/24 14:12 FiO2 40 03/01/24 20:28 Intake & Output 03/03/24 03/04/24 03/04/24 18:59 06:59 18:59 Intake Total 236 360 600 Output Total 450 2320 1900 Balance - -1299 Intake: Oral 236 360 600 Output: Urine 450 2320 1900 Other: Voiding Method Indwelling Catheter Indwelling Catheter Indwelling Catheter # Bowel Movements 1 - Exam patient is awake, comfortable, no acute distress. Examination of the heart S1 and S2 Examination of the lungs decreased breath sounds at the bases Abdomen is soft nontender Examination of lower extremity shows 1+ edema [employer] exam grossly intact - Labs CBC & Chem 7: 03/04/24 12:22 03/04/24 12:22 Labs: Abnormal Lab Results - Last 24 Hours (Table) 03/04/24 03/04/24 Range/Units 12:22 12:22 WBC 13.5 H (3.8-10.6) k/uL RBC 3.46 L (4.30-5.90) m/uL Hgb 11.1 L (13.0-17.5) gm/dL Hct 33.3 L (39.0-53.0) % Potassium 3.3 L (3.5-5.1) mmol/L Carbon Dioxide 31 H (22-30) mmol/L BUN 28 H (9-20) mg/dL Glucose 125 H (74-99) mg/dL Calcium 7.7 L (8.4-10.2) mg/dL Total Protein 5.2 L (6.3-8.2) g/dL Albumin 2.6 L (3.5-5.0) g/dL Assessment and Plan Assessment: 1. Acute kidney injury secondary to ATN secondary to hypotension. Creatinine 1.05 in July 2023. 1.79 this admission and peaked at 3.06 this admission - 1.0 today. UA benign. No hydronephrosis noted on kidney ultrasound. 2. Left-sided nephrolithiasis with hydronephrosis. Urology following. Has Martinez catheter. 3. Right-sided kidney lesion noted on CT. Kidney ultrasound showed simple left renal cyst. 4. Metabolic acidosis secondary to acute kidney injury and lactic acidosis. Improved. On oral bicarb. 5. Hypokalemia from poor intake, diuretic use and hypomagnesemia. Replaced. Better. 6. Hypomagnesemia from poor intake and diuretic use. Replaced. Better. 7. Lactic acidosis secondary to hypotension. 8. Volume overload Plan: Continue off of IV fluids. Continue with IV Lasix Advised to increase oral intake particularly protein. Repeat labs in a.m.
[2024-03-05 08:42] LABS: HCT 30.8 % (39.6-50.0); MCH 31.1 pg (27.0-32.0); MCHC 32.5 g/dL (32.0-37.0); MCV 95.7 FL (80.0-97.0); Mean Platelet Volume 10.4 FL (9.5-12.2); NRBC Per 100 WBC 0 X 10*3/uL (0.00-0.01); Platelet Count 212 X 10*3/uL (140-440); RBC 3.22 X 10*6/uL (4.40-5.60); WBC 12.35 X 10*3/uL (4.50-10.00)
--- NOTE | 2024-03-05 08:43 | P.PN ---
Subjective Patient is seen in follow-up for acute kidney injury. Renal function improved. Nonoliguric. On IV Lasix. Oral intake is good. Denies chest pain or shortness of breath. Vital signs are stable. General: No acute distress. HEENT: Head exam is unremarkable. LUNGS: No audible rhonchi or wheezes. HEART: Rate and Rhythm are regular. ABDOMEN: Obese, nontender. EXTREMITITES: No edema. Objective - Vital Signs Vital signs: Vital Signs Temp 97.5 F L 03/05/24 06:56 Pulse 68 03/05/24 06:56 Resp 18 03/05/24 06:56 BP 121/72 03/05/24 06:56 Pulse Ox 95 03/05/24 06:56 FiO2 40 03/01/24 20:28 Intake & Output 03/04/24 03/05/24 03/05/24 18:59 06:59 18:59 Intake Total 600 598 Output Total 1900 2024 Balance -1300 -1427 Intake: Oral 600 598 Output: Urine 0 2024 Other: Voiding Method Indwelling Catheter Indwelling Catheter # Bowel Movements 1 - Labs CBC & Chem 7: 03/04/24 12:22 03/04/24 12:22 Labs: Abnormal Lab Results - Last 24 Hours (Table) 03/04/24 03/04/24 Range/Units 12:22 12:22 WBC 13.5 H (3.8-10.6) k/uL RBC 3.46 L (4.30-5.90) m/uL Hgb 11.1 L (13.0-17.5) gm/dL Hct 33.3 L (39.0-53.0) % Potassium 3.3 L (3.5-5.1) mmol/L Carbon Dioxide 31 H (22-30) mmol/L BUN 28 H (9-20) mg/dL Glucose 125 H (74-99) mg/dL Calcium 7.7 L (8.4-10.2) mg/dL Total Protein 5.2 L (6.3-8.2) g/dL Albumin 2.6 L (3.5-5.0) g/dL Assessment and Plan Plan: Assessment: 1. Acute kidney injury secondary to ATN secondary to hypotension and cardiorenal syndrome. Improved. Creatinine 1 yesterday. UA benign. No hydronephrosis noted on kidney ultrasound. 2. Left-sided nephrolithiasis with hydronephrosis. Urology following. Has Martinez catheter. 3. Right-sided kidney lesion noted on CT. Kidney ultrasound showed simple left renal cyst. 4. Metabolic acidosis secondary to acute kidney injury and lactic acidosis. Resolved. 5. Hypokalemia from diuresis. Replaced. 6. Hypomagnesemia from poor intake and diuretic use. Replaced. 7. E. coli bacteremia from complicated UTI on antibiotics. ID following. Plan: Transition to oral Lasix 40 mg twice daily. Avoid nephrotoxins. Martinez management per urology. Follow-up outpatient 1 week postdischarge. Add potassium supplementation if low. Repeat BMP and magnesium level 2 to 3 days postdischarge.
[2024-03-05] MEDS: FUROSEMIDE 40 MG TAB PO SCH (08:48)
[2024-03-05 08:58] LABS: ALT 33 U/L (10-49); AST 26 U/L (14-35); Albumin 2.8 g/dL (3.8-4.9); Alkaline Phosphatase 57 U/L (41-126); BUN/Creat Ratio 20.45 Ratio (12.00-20.00); Blood Urea Nitrogen 22.5 mg/dL (9.0-27.0); Calcium 7.9 mg/dL (8.7-10.3); Carbon Dioxide 34.4 mmol/L (21.6-31.8); Chloride 98 mmol/L (96-109); Glucose 108 mg/dL (70-110); Potassium 3.4 mmol/L (3.5-5.5); Sodium 143 mmol/L (135-145); Total Bilirubin 0.3 mg/dL (0.3-1.2); Total Protein 4.8 g/dL (6.2-8.2)
[2024-03-05] MEDS: MAGNESIUM SULFATE-D5W PMX 1 GM in DEXTROSE/WATER 1 100ML.BAG IVPB SCH (10:33)
[2024-03-05] MEDS: POTASSIUM CHLORIDE ER 20 MEQ TAB.ER PO STA (10:33)
--- NOTE | 2024-03-05 13:24 | P.PN ---
Subjective Progress Note Date: 03/05/24 The patient is seen today March 04, 2024 in follow-up on the regular medical floor. He is currently sitting up in the bed. Awake and alert in no acute distress. He is being followed for acute kidney injury with acute metabolic encephalopathy which have resolved. He is maintaining good O2 saturations in the 90s on 2 L/min per nasal cannula. He has been afebrile. Hemodynamically stable. His blood cultures were positive for E. coli. Urine culture revealed no growth. White count 13.5. Hemoglobin 11.1. Platelets 189. Sodium 137. Potassium 3.3. Bicarb 31. BUN 28. Creatinine 1.0. Glucose 125. He is continued on ceftriaxone. Anticoagulated with Eliquis. Potassium being replaced. He is on Lasix 40 mg IV twice daily. Currently in a -2.1 L balance. The patient is seen today March 05, 2024 in follow-up on the regular medical floor. He is currently sitting up at the bedside. Awake and alert in no acute distress. He is maintaining good O2 saturations in the 90s on room air. No IV fluids. Blood cultures were positive for E. coli on February 25, 2024. Urine culture revealed no growth. He is currently on ceftriaxone. Anticoagulated with Eliquis. Remains on oral diuretics. Currently in a -2.7 L balance. White count 12.3. Hemoglobin 10.0. Platelets 212. Sodium 143. Potassium 3.4. Bicarb 34. BUN 23. Creatinine 1.1. Glucose 108. Objective - Vital Signs Vital signs: Vital Signs Temp 98.4 F 03/05/24 12:32 Pulse 61 03/05/24 12:32 Resp 18 03/05/24 12:32 BP 123/70 03/05/24 12:32 Pulse Ox 96 03/05/24 12:32 FiO2 40 03/01/24 20:28 Intake & Output 03/04/24 03/05/24 03/05/24 18:59 06:59 18:59 Intake Total 600 598 240 Output Total 1899 2024 500 Balance -1300 -1427 -260 Intake: Oral 600 598 240 Output: Urine 1899 2024 500 Other: Voiding Method Indwelling Catheter Indwelling Catheter Indwelling Catheter # Bowel Movements 1 1 - Exam GENERAL EXAM: Alert, pleasant 83-year-old male, sitting up at the bedside, on room air, in no apparent distress. HEAD: Normocephalic. EYES: Normal reaction of pupils, equal size. NOSE: Clear with pink turbinates. THROAT: No erythema or exudates. NECK: No masses, no JVD. CHEST: No chest wall deformity. LUNGS: Equal air entry with crackles in the bilateral bases. CVS: S1 and S2 normal with no audible murmur, regular rhythm. ABDOMEN: No hepatosplenomegaly, normal bowel sounds, no guarding or rigidity. SPINE: No scoliosis or deformity SKIN: No rashes CENTRAL NERVOUS SYSTEM: No focal deficits, tone is normal in all 4 extremities. EXTREMITIES: There is 1+ peripheral edema. Anasarca. Peripheral pulses are intact. - Labs CBC & Chem 7: 03/05/24 04:53 03/05/24 04:53 Labs: Abnormal Lab Results - Last 24 Hours (Table) 03/05/24 03/05/24 03/05/24 Range/Units 04:53 04:53 04:53 WBC 12.35 H (4.50-10.00) X 10*3/uL RBC 3.22 L (4.40-5.60) X 10*6/uL Hgb 10.0 L (13.0-17.0) g/dL Hct 30.8 L (39.6-50.0) % Potassium 3.4 L (3.5-5.5) mmol/L Carbon Dioxide 34.4 H (21.6-31.8) mmol/L BUN/Creatinine Ratio 20.45 H (12.00-20.00) Ratio Calcium 7.9 L (8.7-10.3) mg/dL Magnesium 1.4 L (1.6-2.3) mg/dL Total Protein 4.8 L (6.2-8.2) g/dL Albumin 2.8 L (3.8-4.9) g/dL Albumin/Globulin Ratio 1.40 L (1.60-3.17) Ratio Assessment and Plan Assessment: Acute kidney injury, recovered Acute metabolic encephalopathy, resolved. Gram-negative bacteremia secondary to E. coli sensitive to all antibiotics, source is most likely urine History of prostate cancer and previous prostatectomy History of obstructive uropathy, has a Martinez catheter in place History of sick sinus syndrome and previous pacemaker implantation Paroxysmal atrial fibrillation Chronic back pain Dyslipidemia History of benign essential hypertension Plan: The patient was seen and evaluated Labs and medications reviewed Currently on ceftriaxone Transitioned to diuretics Remains in a negative balance Stable and on room air Plan is for [facility] at discharge This patient was seen independently by the pulmonary nurse practitioner addressing pulmonary issues I have personally seen and examined the patient, performed the documentation and the assessment and plan as written. Number of minutes spent on the visit: 24.
--- NOTE | 2024-03-05 13:26 | P.PN ---
Subjective Progress Note Date: 03/05/24 83-year-old male, history of hypertension, atrial fibrillation, GERD, osteoarthritis and history of prostate cancer, who presents to the emergency department complaining of right-sided abdominal pain. Patient was transferred from [facility] for KENDRICK, kidney stone. Pain started last night. In the community [facility] ED, blood work was completed and patient was found to have an KENDRICK with creatinine of 2. Remainder the workup unremarkable. Patient has an uncomplicated 4 mm right-sided kidney stone. Presents for further evaluation after fluid hydration did not improve the patient[facility] Patient also has a BNP of 2300 and they do not want to fluid overload the patient. Blood work completed in our emergency room revealed a WBC of 13.3, hemoglobin of 13 and platelet count of 132, sodium 133, potassium 3.1, BUNs/creatinine of 59/1.79 down from 2 at the outside facility UA is unremarkable; chest x-ray is negative for any acute pulmonary process EKG is negative for any acute ST or T wave changes Patient is being admitted to the hospital for further evaluation by nephrology and urology Initially, the patient was admitted to the medical floor, he became hypotensive and he got transferred to the intensive care unit. His systolic blood pressure was as low as 40. The patient immediately received a total of 2 L of IV fluids and currently normal saline is running at a rate of 100 cc an hour. He was given IV Rocephin. He was also started on pressors and norepinephrine is running at 0.09 mcg/kg/min. He also became dyspneic and hypoxic. He was placed on a BiPAP with a pressures of 12 over 5 cm of water and and the patient was taken off the BiPAP subsequently and he is currently on 3 L of oxygen by nasal cannula 02/26. Dr. Verde took over care. Lab work done this morning showed WBC 12.7, hemoglobin 11.1, platelet count 53, sodium 133, potassium 4.6, BUN 67, cre atinine 3.28. Nephrology added midodrine. Urology not planning any surgical intervention at this time unless patient becomes symptomatic for the ureteral calculi 02/27. Patient seen and examined.Blood work done this morning showed sodium 130, potassium 4.5, BUN 69, creatinine 2.26, glucose 116, calcium 7.7, magnesium 2.7. Currently on 5 L of oxygen. Complaining of flank pain. Complains of swelling of upper extremities 02/28. Patient seen and examined. Sitting upright in the chair. Still has swelling of upper extremities. Blood culture positive for E. coli. 03/01. Patient seen and examined. Still has weakness and lethargy. Continues to have swelling of upper extremities 03/02. Patient seen and examined. Denies any lethargy or weakness. Still has swelling of upper extremities 03/03. Patient seen and examined. Patient has swelling of upper and lower extremities today. Discussed with nephrology, will start patient on IV Lasix 03/04. Patient seen and examined. States swelling of lower extremities improved 03/05. Patient seen and examined. Potassium was low replacement ordered. States swelling of lower extremities has not improved compared to yesterday. REVIEW OF SYSTEMS: CONSTITUTIONAL: No fever, no malaise,. CARDIOVASCULAR: No chest pain, no palpitations, no syncope. PULMONARY: No shortness of breath, no cough, GASTROINTESTINAL: No diarrhea, no nausea, no vomiting, NEUROLOGICAL: No headaches, no weakness, PHYSICAL EXAMINATION: GENERAL: The patient is alert and oriented x3, not in any acute distress. Ill looking HEENT: Pupils are round and equally reacting to light. EOMI. No scleral icterus. No conjunctival pallor. Normocephalic, atraumatic. No pharyngeal erythema. No thyromegaly. CARDIOVASCULAR: S1 and S2 present. No murmurs, rubs, or gallops. PULMONARY: Chest is clear to auscultation, no wheezing or crackles. ABDOMEN: Soft, nontender, nondistended, normoactive bowel sounds. No palpable organomegaly. MUSCULOSKELETAL: No joint swelling or deformity. EXTREMITIES: No cyanosis, clubbing, swelling of upper extremities noticeable, 1+ pitting edema lower extremity NEUROLOGICAL: Gross neurological examination did not reveal any focal deficits. SKIN: No rashes. Assessment and plan Acute kidney injury obstructive uropathy Bacteremia Acute hypoxic respiratory failure, likely secondary to above currently on 3 L of oxygen by nasal cannula. BiPAP is discontinued. 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 Martinez catheter in place History of nephrolithiasis and a 4 mm stone in the left distal ureter Non-anion gap metabolic acidosis, improved Acute kidney injury, stable and the creatinine is down to 2.9 Acute hypotension, received IV fluids and pressors and the patient is currently normotensive and completed a bicarb infusion with improvement in the anion gap metabolic acidosis Sick sinus syndrome currently has a permanent pacemaker in place Paroxysmal atrial fibrillation, maintained on long-term anticoagulation with Eliquis 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 Continue same treatment. Continue with symptomatic treatment. Resume home medication. Monitor labs and vitals. DVT a nd GI prophylaxis. Further recommendations as per clinical course of the patient Dictation was produced using [employer] dictation software. please excuse any grammatical, word or spelling errors. Objective - Vital Signs Vital signs: Vital Signs Temp 97.5 F L 03/05/24 06:56 Pulse 68 03/05/24 06:56 Resp 18 03/05/24 06:56 BP 121/72 03/05/24 06:56 Pulse Ox 95 03/05/24 06:56 FiO2 40 03/01/24 20:28 Intake & Output 03/04/24 03/05/24 03/05/24 18:59 06:59 18:59 Intake Total 600 598 Output Total 1900 2024 Balance -1300 -1427 Intake: Oral 600 598 Output: Urine 1900 2024 Other: Voiding Method Indwelling Catheter Indwelling Catheter Indwelling Catheter # Bowel Movements 1 1 - Labs CBC & Chem 7: 03/05/24 04:53 03/05/24 04:53 Labs: Abnormal Lab Results - Last 24 Hours (Table) 03/04/24 03/04/24 03/05/24 Range/Units 12:22 12:22 04:53 WBC 13.5 H 12.35 H (3.8-10.6) k/uL RBC 3.46 L 3.22 L (4.30-5.90) m/uL Hgb 11.1 L 10.0 L (13.0-17.5) gm/dL Hct 33.3 L 30.8 L (39.0-53.0) % Potassium 3.3 L (3.5-5.1) mmol/L Carbon Dioxide 31 H (22-30) mmol/L BUN 28 H (9-20) mg/dL BUN/Creatinine Ratio (12.00-20.00) Ratio Glucose 125 H (74-99) mg/dL Calcium 7.7 L (8.4-10.2) mg/dL Magnesium (1.6-2.3) mg/dL Total Protein 5.2 L (6.3-8.2) g/dL Albumin 2.6 L (3.5-5.0) g/dL Albumin/Globulin Ratio (1.60-3.17) Ratio 03/05/24 03/05/24 Range/Units 04:53 04:53 WBC (3.8-10.6) k/uL RBC (4.30-5.90) m/uL Hgb (13.0-17.5) gm/dL Hct (39.0-53.0) % Potassium 3.4 L (3.5-5.1) mmol/L Carbon Dioxide 34.4 H (22-30) mmol/L BUN (9-20) mg/dL BUN/Creatinine Ratio 20.45 H (12.00-20.00) Ratio Glucose (74-99) mg/dL Calcium 7.9 L (8.4-10.2) mg/dL Magnesium 1.4 L (1.6-2.3) mg/dL Total Protein 4.8 L (6.3-8.2) g/dL Albumin 2.8 L (3.5-5.0) g/dL Albumin/Globulin Ratio 1.40 L (1.60-3.17) Ratio
[2024-03-06 07:32] VITALS: RESP 16
[2024-03-06] MEDS: POTASSIUM CHLORIDE ER 20 MEQ TAB.ER PO SCH (08:17)
[2024-03-06] MEDS: MAGNESIUM OXIDE 400 MG TAB PO SCH (08:17)
--- NOTE | 2024-03-06 09:51 | P.DS ---
Providers Date of admission: 02/24/24 12:36 Expected date of discharge: 03/06/24 Attending physician: Aminah Daniel MD Consults: 02/24/24 12:35 Consult Physician Routine Consulting Provider: Darin Lopez Consult Reason/Comments: ureterolithiasis Do you want consulting provider notified?: Yes Consult Physician Routine Consulting Provider: Alan Rondon Consult Reason/Comments: [place] Do you want consulting provider notified?: Yes 02/25/24 06:30 Consult Physician Stat Consulting Provider: Shannan Cohen Consult Reason/Comments: dyspnea, hypotension Do you want consulting provider notified?: Already Contacted 02/29/24 13:04 Consult Physician Routine Consulting Provider: Kelly Garcia Consult Reason/Comments: Bacteremia, complicated UTI Do you want consulting provider notified?: Yes Primary care physician: Gagan Pitt Hospital Course: Discharge diagnoses; Acute kidney injury obstructive uropathy Bacteremia Acute hypoxic respiratory failure, likely secondary to above currently on 3 L of oxygen by nasal cannula. BiPAP is discontinued. 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 Martinez catheter in place History of nephrolithiasis and a 4 mm stone in the left distal ureter Non-anion gap metabolic acidosis, improved Acute kidney injury, stable and the creatinine is down to 2.9 Acute hypotension, received IV fluids and pressors and the patient is currently normotensive and completed a bicarb infusion with improvement in the anion gap metabolic acidosis Sick sinus syndrome currently has a permanent pacemaker in place Paroxysmal atrial fibrillation, maintained on long-term anticoagulation with Eliquis 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 Patient was transferred from [facility] for PHOENIX, kidney stone. Pain started last night. In the [facility] ED, blood work was completed and patient was found to have an PHOENIX with creatinine of 2. Remainder the workup unremarkable. Patient has an uncomplicated 4 mm right-sided kidney stone. Presents for further evaluation after fluid hydration did not improve the patient's PHOENIX at the outpatient facility. Patient also has a BNP of 2300 and they do not want to fluid overload the patient. Blood work completed in our emergency room revealed a WBC of 13.3, hemoglobin of 13 and platelet count of 132, sodium 133, potassium 3.1, BUNs/creatinine of 59/1.79 down from 2 at the outside facility UA is unremarkable; chest x-ray is negative for any acute pulmonary process EKG is negative for any acute ST or T wave changes Patient is being admitted to the hospital for further evaluation by nephrology and urology Initially, the patient was admitted to the medical floor, he became hypotensive and he got transferred to the intensive care unit. His systolic blood pressure was as low as 40. The patient immediately received a total of 2 L of IV fluids and currently normal saline is running at a rate of 100 cc an hour. He was given IV Rocephin. He was also started on pressors and norepinephrine is runn ing at 0.09 mcg/kg/min. He also became dyspneic and hypoxic. He was placed on a BiPAP with a pressures of 12 over 5 cm of water and and the patient was taken off the BiPAP subsequently and he is currently on 3 L of oxygen by nasal cannula 02/26. Dr. Verde took over care. Lab work done this morning showed WBC 12.7, hemoglobin 11.1, platelet count 53, sodium 133, potassium 4.6, BUN 67, creatinine 3.28. Nephrology added midodrine. Urology not planning any surgical intervention at this time unless patient becomes symptomatic for the ureteral calculi 02/27. Patient seen and examined.Blood work done this morning showed sodium 130, potassium 4.5, BUN 69, creatinine 2.26, glucose 116, calcium 7.7, magnesium 2.7. Currently on 5 L of oxygen. Complaining of flank pain. Complains of swelling of upper extremities 02/28. Patient seen and examined. Sitting upright in the chair. Still has swelling of upper extremities. Blood culture positive for E. coli. 03/01. Patient seen and examined. Still has weakness and lethargy. Continues to have swelling of upper extremities 03/02. Patient seen and examined. Denies any lethargy or weakness. Still has swelling of upper extremities 03/03. Patient seen and examined. Patient has swelling of upper and lower extremities today. Discussed with nephrology, will start patient on IV Lasix 03/04. Patient seen and examined. States swelling of lower extremities improved 6/3. Patient seen and examined. Potassium was low replacement ordered. States swelling of lower extremities has not improved compared to yesterday. 03/06. Patient seen and examined. Discussed with ID, they recommended starting patient on 10 days of oral Ceftin. Nephrology recommended starting patient on Lasix 40 g twice a day. Patient to follow-up outpatient with urology, nephrology, ID PHYSICAL EXAMINATION: GENERAL: The patient is alert and oriented x3, not in any acute distress HEENT: Pupils are round and equally reacting to light. EOMI. No scleral icterus. No conjunctival pallor. Normocephalic, atraumatic. No pharyngeal erythema. No thyromegaly. CARDIOVASCULAR: S1 and S2 present. No murmurs, rubs, or gallops. PULMONARY: Chest is clear to auscultation, no wheezing or crackles. ABDOMEN: Soft, nontender, nondistended, normoactive bowel sounds. No palpable organomegaly. MUSCULOSKELETAL: No joint swelling or deformity. EXTREMITIES: 1+ pitting edema lower extremities, improved from before NEUROLOGICAL: Gross neurological examination did not reveal any focal deficits. SKIN: No rashes. Dictation was produced using [employer] dictation software. please excuse any grammatical, word or spelling errors. Patient Condition at Discharge: Stable Plan - Discharge Summary New Discharge Prescriptions: New hydrALAZINE HCL [Apresoline] 25 mg PO TID 30 Days #90 tab Furosemide [Lasix] 40 mg PO BID@0900,1600 30 Days #60 tab cefUROXime axetiL [Ceftin] 500 mg PO BID 10 Days #20 tab Continue Potassium Chloride [Potassium Chloride ER] 10 meq PO TID Esomeprazole Magnesium [NexIUM] 40 mg PO DAILY carvediloL [Coreg] 6.25 mg PO BID-W/MEALS Apixaban [Eliquis] 5 mg PO BID #60 tab Discontinued Losartan Potassium 100 mg PO DAILY Furosemide [Lasix] 20 mg PO DAILY NIFEdipine XL [Procardia XL] 90 mg PO DAILY #30 tab hydroCHLOROthiazide [Hydrodiuril] 25 mg PO DAILY Discharge Medication List Esomeprazole Magnesium [NexIUM] 40 mg PO DAILY 12/25/20 [History] Potassium Chloride [Potassium Chloride ER] 10 meq PO TID 12/25/20 [History] Apixaban [Eliquis] 5 mg PO BID #60 tab 07/15/23 [Rx] carvediloL [Coreg] 6.25 mg PO BID-W/MEALS 02/24/24 [History] Furosemide [Lasix] 40 mg PO BID@0900,1600 30 Days #60 tab 03/06/24 [Rx] cefUROXime axetiL [Ceftin] 500 mg PO BID 10 Days #20 tab 03/06/24 [Rx] hydrALAZINE HCL [Apresoline] 25 mg PO TID 30 Days #90 tab 03/06/24 [Rx] Follow up Appointment(s)/Referral(s): Gagan Pitt MD [Primary Care Provider] - 1-2 days Alan Rondon DO [STAFF PHYSICIAN] - 1 Week Kelly Garcia MD [STAFF PHYSICIAN] - 1 Week Darin Lopez MD [STAFF PHYSICIAN] - 1 Week Discharge Disposition: TRANSFER TO SNF/ECF
--- NOTE | 2024-03-06 10:28 | P.PN ---
Subjective Patient is seen in follow-up for acute kidney injury. Renal function improved. Nonoliguric. On po Lasix. Oral intake is good. Denies chest pain or shortness of breath. Vital signs are stable. General: No acute distress. HEENT: Head exam is unremarkable. LUNGS: No audible rhonchi or wheezes. HEART: Rate and Rhythm are regular. ABDOMEN: Obese, nontender. EXTREMITITES: No edema. Objective - Vital Signs Vital signs: Vital Signs Temp 98.3 F 03/06/24 07:08 Pulse 61 03/06/24 07:08 Resp 16 03/06/24 07:08 BP 127/74 03/06/24 07:08 Pulse Ox 92 L 03/06/24 07:08 FiO2 40 03/01/24 20:28 Intake & Output 03/05/24 03/06/24 03/06/24 18:59 06:59 18:59 Intake Total 480 530 118 Output Total 750 700 Balance -270 -170 118 Weight 109.8 kg Intake: Intake, IV Titration 50 Amount cefTRIAXone 2 gm In 50 Sodium Chloride 0.9% 50 ml @ 100 mls/hr IVPB Q24H [facility] Rx#:[id number] Oral 480 480 118 Output: Urine 750 700 Other: Voiding Method Indwelling Catheter Indwelling Catheter Indwelling Catheter # Bowel Movements 1 - Labs CBC & Chem 7: 03/05/24 04:53 03/05/24 04:53 Assessment and Plan Plan: Assessment: 1. Acute kidney injury secondary to ATN secondary to hypotension and ca rdiorenal syndrome. Improved. Creatinine 1.1 yesterday. UA benign. No hydronephrosis noted on kidney ultrasound. 2. Left-sided nephrolithiasis with hydronephrosis. Urology following. Has Martinez catheter. 3. Right-sided kidney lesion noted on CT. Kidney ultrasound showed simple left renal cyst. 4. Metabolic acidosis secondary to acute kidney injury and lactic acidosis. Resolved. 5. Hypokalemia from diuresis. Replaced. 6. Hypomagnesemia from poor intake and diuretic use. Replaced. 7. E. coli bacteremia from complicated UTI on antibiotics. ID following. Plan: Maintain oral Lasix. Maintain potassium and magnesium supplementation. Avoid nephrotoxins. Martinez management per urology. Follow-up outpatient 1 week postdischarge. Repeat BMP and magnesium level 2 to 3 days postdischarge.
--- NOTE | 2024-03-06 11:25 | P.PN ---
Subjective Progress Note Date: 03/06/24 The patient is seen today March 04, 2024 in follow-up on the regular medical floor. He is currently sitting up in the bed. Awake and alert in no acute distress. He is being followed for acute kidney injury with acute metabolic encephalopathy which have resolved. He is maintaining good O2 saturations in the 90s on 2 L/min per nasal cannula. He has been afebrile. Hemodynamically stable. His blood cultures were positive for E. coli. Urine culture revealed no growth. White count 13.5. Hemoglobin 11.1. Platelets 189. Sodium 137. Potassium 3.3. Bicarb 31. BUN 28. Creatinine 1.0. Glucose 125. He is continued on ceftriaxone. Anticoagulated with Eliquis. Potassium being replaced. He is on Lasix 40 mg IV twice daily. Currently in a -2.1 L balance. The patient is seen today March 05, 2024 in follow-up on the regular medical floor. He is currently sitting up at the bedside. Awake and alert in no acute distress. He is maintaining good O2 saturations in the 90s on room air. No IV fluids. Blood cultures were positive for E. coli on February 25, 2024. Urine culture revealed no growth. He is currently on ceftriaxone. Anticoagulated with Eliquis. Remains on oral diuretics. Currently in a -2.7 L balance. White count 12.3. Hemoglobin 10.0. Platelets 212. Sodium 143. Potassium 3.4. Bicarb 34. BUN 23. Creatinine 1.1. Glucose 108. The patient is seen today March 06, 2024 in follow-up on the regular medical floor. He is currently up in a chair at the bedside. Awake and alert in no acute distress. He is maintaining O2 saturations in the 90s on room air. No IV fluids. He remains on antibiotics in the form of ceftriaxone. Blood cultures were positive for E. coli. Urine culture revealed no growth. No new labs today. He remains on 1500 mL fluid restriction. He remains on oral diuretics. Anticoagulated with Eliquis. Objective - Vital Signs Vital signs: Vital Signs Temp 98.3 F 03/06/24 07:08 Pulse 61 03/06/24 07:08 Resp 16 03/06/24 07:08 BP 127/74 03/06/24 07:08 Pulse Ox 92 L 03/06/24 07:08 FiO2 40 03/01/24 20:28 Intake & Output 03/05/24 03/06/24 03/06/24 18:59 06:59 18:59 Intake Total 480 530 118 Output Total 750 700 Balance -270 -170 118 Weight 109.8 kg Intake: Intake, IV Titration 50 Amount cefTRIAXone 2 gm In 50 Sodium Chloride 0.9% 50 ml @ 100 mls/hr IVPB Q24H [facility] Rx#:[id number] Oral 480 480 118 Output: Urine 750 700 Other: Voiding Method Indwelling Catheter Indwelling Catheter Indwelling Catheter # Bowel Movements 1 - Exam GENERAL EXAM: Alert, 83-year-old male, up in a chair, on room air, in no apparent distress. HEAD: Normocephalic. EYES: Normal reaction of pupils, equal size. NOSE: Clear with pink turbinates. THROAT: No erythema or exudates. NECK: No masses, no JVD. CHEST: No chest wall deformity. LUNGS: Equal air entry with crackles in the bilateral bases. CVS: S1 and S2 normal with no audible murmur, regular rhythm. ABDOMEN: No hepatosplenomegaly, normal bowel sounds, no guarding or rigidity. SPINE: No scoliosis or deformity SKIN: No rashes CENTRAL NERVOUS SYSTEM: No focal deficits, tone is normal in all 4 extremities. EXTREMITIES: There is 1+ peripheral edema. Anasarca. Peripheral pulses are intact. - Labs CBC & Chem 7: 03/05/24 04:53 03/05/24 04:53 Assessment and Plan Assessment: Acute kidney injury, recovered Acute metabolic encephalopathy, resolved. Gram-negative bacteremia secondary to E. coli sensitive to all antibiotics, source is most likely urine History of prostate cancer and previous prostatectomy History of obstructive uropathy, has a Martinez catheter in place History of sick sinus syndrome and previous pacemaker implantation Paroxysmal atrial fibrillation Chronic back pain Dyslipidemia History of benign essential hypertension Plan: The patient was seen and evaluated Medications reviewed Currently on ceftriaxone Remains on diuretics Stable and on room air Plan is for [facility] at discharge This patient was seen independently by the pulmonary nurse practitioner addressing pulmonary issues I have personally seen and examined the patient, performed the documentation and the assessment and plan as written. Number of minutes spent on the visit: 23.
[2024-03-06 12:30] VITALS: BP 150/54; PULSE 62; TEMP 98.6
--- NOTE | 2024-03-09 12:30 | CDI ---
Documentation Clarification Form Date: 03/09/2024 12:24:52 PM From: Maya Penn RN, CCDS Phone: [phone] Admit Date: 02/24/2024 12:36:00 PM Patient Name: Dirk Vaughan Visit Number: [id number] Discharge Date: 03/06/2024 01:35:00 PM ATTENTION: The Clinical Documentation Specialists (CDI) and [facility] Coding Staff appreciate your assistance in clarifying documentation. Please respond to the clarification below the line at the bottom and electronically sign. The CDI & [facility] Coding staff will review the response and follow-up if needed. Please note: Queries are made part of the Legal Health Record. If you have any questions, please contact the author of this message via ITS. Dr. Devyn Verde E. coli bacteremia from complicated UTI is documented in the progress notes and the patient does self-catheterization on a daily basis. Additional clarification regarding the etiology of the UTI is requested. History/Risk Factors: HTN, A fib, prostate Ca, urinary retention, meatal stenosis and kidney stones. Presented with KENDRICK and kidney stone. Admitted with bacteremia and sepsis secondary to complicated UTI. S/P dilation of urethra by Urology to place a herndno catheter. Clinical Indicators: 02/24 CCU consult: "Acute kidney injury, suspicious for obstructive uropathy as the patient has chronic difficulties with urination probably a ureteral stricture as the patient undergoes self-catheterization." 02/28 ID consult: "patient has been in the hospital for sepsis. Did have fever, elevated white count and elevated lactic acid. Source is likely complicated UTI in this patient with urine retention requiring Herndno catheter placement. Patient with an E. coli bacteremia, source is likely secondary to urinary source." 03/05 Nephrology: "KENDRICK 2/2 ATN. Left-sided nephrolithiasis with hydronephrosis.Urology following.Has Herndon catheter. E. coli bacteremia from complicated UTI on antibiotics." 02/24 Urine culture: no growth 02/24 Blood culture: E. coli Treatment: insert herndon catheter; IV Rocephin 1gm x1 on 02/24; IV Rocephin 1gm Q12H 02/25-02/28; IV Rocephin 2gm on 03/01; IV Rocephin 2gm Q24H 03/01-03/06; IV Levophed titrated 02/24-02/26; 0.9 NS IV bolus x4 Please clarify the etiology of the UTI, if known: [ x ] Self-catheterization [ ] UTI not related to self-catheterization [ ] Other condition, please specify [ ] Unable to determine MTDD
--- NOTE | 2024-03-12 08:14 | P.PN ---
Subjective Progress Note Date: 03/04/24 Principal diagnosis: Reason for follow-up with E. coli bacteremia likely UTI Patient is a 83-year-old male with a past medical history significant for reflux atrial fibrillation hypertension osteoarthritis history of prostate cancer s/p prostatectomy presenting to the hospital for evaluation of weakness abdominal pain has been diagnosed with the kidney stone and KENDRICK also have a fever and blood culture positive for E. coli. On today's evaluation that is 03/04/2024, the patient continues to be afebrile patient is breathing comfortably on 2 L, oxygen denies any chest pain or shortness of breath no significant cough no nausea vomiting abdominal pain or diarrhea. Patient white count slightly up to 13.5 today creatinine is 1.0 Objective - Vital Signs Vital signs: Vital Signs Temp 98.9 F 03/04/24 14:12 Pulse 60 03/04/24 14:12 Resp 20 03/04/24 14:12 BP 124/66 03/04/24 14:12 Pulse Ox 93 L 03/04/24 14:12 FiO2 40 03/01/24 20:28 Intake & Output 03/03/24 03/04/24 03/04/24 18:59 06:59 18:59 Intake Total 236 360 120 Output Total 450 2320 1900 Balance - 1959 Intake: Oral 236 360 120 Output: Urine 450 2320 1900 Other: Voiding Method Indwelling Catheter Indwelling Catheter Indwelling Catheter # Bowel Movements 1 - Exam GENERAL DESCRIPTION: An elderly male lying in bed in no distress RESPIRATORY SYSTEM: Unlabored breathing , decreased breath sounds at bases HEART: S1 S2 regular rate and rhythm , ABDOMEN: Soft , no tenderness EXTREMITIES: No edema feet - Labs CBC & Chem 7: 03/05/24 04:53 03/05/24 04:53 Labs: Abnormal Lab Results - Last 24 Hours (Table) 03/04/24 03/04/24 Range/Units 12:22 12:22 WBC 13.5 H (3.8-10.6) k/uL RBC 3.46 L (4.30-5.90) m/uL Hgb 11.1 L (13.0-17.5) gm/dL Hct 33.3 L (39.0-53.0) % Potassium 3.3 L (3.5-5.1) mmol/L Carbon Dioxide 31 H (22-30) mmol/L BUN 28 H (9-20) mg/dL Glucose 125 H (74-99) mg/dL Calcium 7.7 L (8.4-10.2) mg/dL Total Protein 5.2 L (6.3-8.2) g/dL Albumin 2.6 L (3.5-5.0) g/dL Assessment and Plan (1) E coli bacteremia Status: Acute Code(s): R78.81 - BACTEREMIA; B96.20 - UNSP ESCHERICHIA COLI THE CAUSE OF DISEASES CLASSD [facility] SNOMED Code(s): 977273059101 Plan: 1patient has been in the hospital for sepsis in this patient who did have fever elevated white count elevated lactic acid source likely complicated UTI in this patient with urine retention requiring Martinez catheter placement 2-patient with an E. coli bacteremia source is likely secondary to urinary source 3-patient slowly clinical improvement continue with Rocephin while inpatient and monitor clinical course closely Dictation was produced using [employer] dictation software. please excuse any grammatical, word or spelling errors. Time with Patient: Less than 30
--- NOTE | 2024-03-12 08:15 | P.PN ---
Subjective Progress Note Date: 03/05/24 Principal diagnosis: Reason for follow-up with E. coli bacteremia likely UTI Patient is a 83-year-old male with a past medical history significant for reflux atrial fibrillation hypertension osteoarthritis history of prostate cancer s/p prostatectomy presenting to the hospital for evaluation of weakness abdominal pain has been diagnosed with the kidney stone and KENDRICK also have a fever and blood culture positive for E. coli. On today's evaluation that is 03/05/2024 patient denies having any fever or any chills patient is breathing comfortably on 2 L current oxygen patient denies having any chest pain no cough patient denies having any nausea vomiting abdominal pain or diarrhea feeling better. Patient white count is down to 12.35 creatinine is 1.1 Objective - Vital Signs Vital signs: Vital Signs Temp 98.4 F 03/05/24 12:32 Pulse 61 03/05/24 12:32 Resp 18 03/05/24 12:32 BP 123/70 03/05/24 12:32 Pulse Ox 96 03/05/24 12:32 FiO2 40 03/01/24 20:28 Intake & Output 03/04/24 03/05/24 03/05/24 18:59 06:59 18:59 Intake Total 600 598 240 Output Total 0 2024 500 Balance -5109 -7847 -437 Intake: Oral 600 598 240 Output: Urine 1899 2024 500 Other: Voiding Method Indwelling Catheter Indwelling Catheter Indwelling Catheter # Bowel Movements 1 1 - Exam GENERAL DESCRIPTION: An elderly male lying in bed in no distress RESPIRATORY SYSTEM: Unlabored breathing , decreased breath sounds at bases HEART: S1 S2 regular rate and rhythm , ABDOMEN: Soft , no tenderness EXTREMITIES: No edema feet - Labs CBC & Chem 7: 03/05/24 04:53 03/05/24 04:53 Labs: Abnormal Lab Results - Last 24 Hours (Table) 03/05/24 03/05/24 03/05/24 Range/Units 04:53 04:53 04:53 WBC 12.35 H (4.50-10.00) X 10*3/uL RBC 3.22 L (4.40-5.60) X 10*6/uL Hgb 10.0 L (13.0-17.0) g/dL Hct 30.8 L (39.6-50.0) % Potassium 3.4 L (3.5-5.5) mmol/L Carbon Dioxide 34.4 H (21.6-31.8) mmol/L BUN/Creatinine Ratio 20.45 H (12.00-20.00) Ratio Calcium 7.9 L (8.7-10.3) mg/dL Magnesium 1.4 L (1.6-2.3) mg/dL Total Protein 4.8 L (6.2-8.2) g/dL Albumin 2.8 L (3.8-4.9) g/dL Albumin/Globulin Ratio 1.40 L (1.60-3.17) Ratio Assessment and Plan (1) E coli bacteremia Status: Acute Code(s): R78.81 - BACTEREMIA; B96.20 - UNSP ESCHERICHIA COLI THE CAUSE OF DISEASES CL[facility]SD [facility] SNOMED Code(s): 496623600593 Plan: 1patient has been in the hospital for sepsis in this patient who did have fever elevated white count elevated lactic acid source likely complicated UTI in this patient with urine retention requiring Martinez catheter placement 2-patient with an E. coli bacteremia source is likely secondary to urinary source 3-patient has shown clinical improvement, patient continue with Rocephin while inpatient and finishing therapy with oral Ceftin Dictation was produced using [employer] dictation software. please excuse any grammatical, word or spelling errors. Time with Patient: Less than 30
--- NOTE | 2024-03-12 08:15 | P.PN ---
Subjective Progress Note Date: 03/06/24 Principal diagnosis: Reason for follow-up with E. coli bacteremia likely UTI Patient is a 83-year-old male with a past medical history significant for reflux atrial fibrillation hypertension osteoarthritis history of prostate cancer s/p prostatectomy presenting to the hospital for evaluation of weakness abdominal pain has been diagnosed with the kidney stone and KENDRICK also have a fever and blood culture positive for E. coli. On today's evaluation that is 03/06/2024 patient is afebrile denies having any chills patient is breathing comfortably currently on a 2 L nasal cannula oxygen patient denies having any chest pain shortness of breath or cough no nausea vomiting no abdominal pain or diarrhea mention feeling better. No new labs has been obtained today blood culture with an E. coli that is a sensitive pathogen Objective - Vital Signs Vital signs: Vital Signs Temp 98.3 F 03/06/24 07:08 Pulse 61 03/06/24 07:08 Resp 16 03/06/24 07:08 BP 127/74 03/06/24 07:08 Pulse Ox 92 L 03/06/24 07:08 FiO2 40 03/01/24 20:28 Intake & Output 03/05/24 03/06/24 03/06/24 18:59 06:59 18:59 Intake Total 480 530 118 Output Total 750 700 Balance -270 -170 118 Weight 109.8 kg Intake: Intake, IV Titration 50 Amount cefTRIAXone 2 gm In 50 Sodium Chloride 0.9% 50 ml @ 100 mls/hr IVPB Q24H [facility] Rx#:[id number] Oral 480 480 118 Output: Urine 750 700 Other: Voiding Method Indwelling Catheter Indwelling Catheter Indwelling Catheter # Bowel Movements 1 - Exam GENERAL DESCRIPTION: An elderly male lying in bed in no distress RESPIRATORY SYSTEM: Unlabored breathing , decreased breath sounds at bases HEART: S1 S2 regular rate and rhythm , ABDOMEN: Soft , no tenderness EXTREMITIES: No edema feet - Labs CBC & Chem 7: 03/05/24 04:53 03/05/24 04:53 Assessment and Plan (1) E coli bacteremia Status: Acute Code(s): R78.81 - BACTEREMIA; B96.20 - UNSP ESCHERICHIA COLI THE CAUSE OF DISEASES CLASSD [facility] SNOMED Code(s): 090796988570 Plan: 1patient has been in the hospital for sepsis in this patient who did have fever elevated white count elevated lactic acid source likely complicated UTI in this patient with urine retention requiring Martinez catheter placement 2-patient with an E. coli bacteremia source is likely secondary to urinary source 3-patient has shown clinical improvement, patient will complete his therapy with oral Ceftin x 10 days on discharge discussed with admitting team Dictation was produced using [employer] dictation software. please excuse any grammatical, word or spelling errors. Time with Patient: Less than 30
--- NOTE | 2024-03-12 11:13 | CDI ---
Documentation Clarification Form Date: 03/05/2024 08:25:00 PM From: Mandy Thomas RN, CCDS Phone: [phone] Admit Date: 02/24/2024 12:36:00 PM Patient Name: Dirk Vaughan Visit Number: [id number] Discharge Date: 03/12/2024 01:35:00 PM ATTENTION: The Clinical Documentation Specialists (CDI) and [facility] Coding Staff appreciate your assistance in clarifying documentation. Please respond to the clarification below the line at the bottom and electronically sign. The CDI & [facility] Coding staff will review the response and follow-up if needed. Please note: Queries are made part of the Legal Health Record. If you have any questions, please contact the author of this message via ITS. Dr. Alan Rondon The patient has an abnormal lab value on admission, 02/23 BUN 50 CR 1.79 GFR 35, with documentation of acute kidney injury secondary to ATN secondary to hypotension and cardiorenal syndrome starting on 03/05/24. Please clarify if there is an additional diagnosis and/or clinical significance related to this value. History/Risk Factors: Atrial Fibrillation, Cancer, GERD/Reflux, Deafness, Hypertension, Current every day smoker Patient was noted to have left-sided kidney stone with hydronephrosis as well as a right kidney lesion and was subsequently transferred to this facility Clinical Indicators: Creatinine 1.05 in July 2023. 1.79 this admission and peaked at 3.06 this admission. He was on diuretics outpatient as well as multiple antihypertensives which are currently held. Blood pressure remains on the lower side and he is also on Levophed. Left-sided nephrolithiasis with hydronephrosis. Urology following. Has Martinez catheter. Right-sided kidney lesion noted on CT. Kidney ultrasound showed simple left renal cyst. 02/23 VS: 92/53 62 18 99 96 RA 02/23 BUN 50 CR 1.79 GFR 35 02/24 BUN 59 CR 3.06 GFR18 02/26 BUN 67 CR 3.28 GFR 26 03/01 BUN 49 CR 1.37 GFR 48 03/04 BUN 28 CR 1.00 GFR 70 Right-sided kidney lesion noted on CT. Kidney ultrasound showed simple left renal cyst. Treatment: Monitor renal function and urine output. .9 NS 1,000 MS Bolus x 1, 02/24 .9 NS 500 ML Bolus x2, 02/23 Sodium Bicarbonate 650 MG PO BID 02/25-03/01 Then Daily 03/02-03/02 Lasix IV 40 MG IV Daily 02/24 - 03/14 then 40 MG PO BID 03/05-03/06 Is there an additional diagnosis and/or clinical significance related to the above lab result/information? [ ] CKD Stage 1 (GFR > 90) [ x] CKD Stage 2 (GFR 60-89) [ ] CKD Stage 3 (GFR 30-59) [ ] CKD Stage 3a (GFR 45-59) [ ] CKD Stage 3b (GFR 30-44) [ ] CKD Stage 4 (GFR 15-29) [ ] CKD Stage 5 (GFR <15) [ ] ESRD [ ] No additional diagnosis/Not clinically significant [ ] Other, please specify [ ] Unable to determine (Template Last Revised: November 2020) MTDD
== END 2024-03-06 13:35 | DRG 698 ==
LOC: EC 10:08 → 4SSUR 12:36 → 2SICU 02-25 04:54 → 3SCARD 02-26 20:47 → 5NMEDONC 03-03 18:18
PROVIDERS: ADMIT Internal Medicine; ATTEND Internal Medicine
PROC: 3E033XZ Introduction of Vasopressor into Peripheral Vein, Percutaneous Approach (ICD-10-PCS; 2024-02-24)
PROC: 0T9B80Z Drainage of Bladder with Drainage Device, Via Natural or Artificial Opening Endoscopic (ICD-10-PCS; principal; 2024-02-25)
PROC: 5A09457 Assistance with Respiratory Ventilation, 24-96 Consecutive Hours, Continuous Positive Airway Pressure (ICD-10-PCS; 2024-02-27)
DX: T83.518A Infection and inflammatory reaction due to other urinary catheter, initial encounter (principal); A41.51 Sepsis due to Escherichia coli [E. coli]; G93.41 Metabolic encephalopathy; J96.01 Acute respiratory failure with hypoxia; R65.21 Severe sepsis with septic shock; N17.0 Acute kidney failure with tubular necrosis; I13.0 Hypertensive heart and chronic kidney disease with heart failure and stage 1 through stage 4 chronic kidney disease, or unspecified chronic kidney disease; N13.6 Pyonephrosis; E87.20 Acidosis, unspecified; R33.8 Other retention of urine; E78.5 Hyperlipidemia, unspecified; E83.42 Hypomagnesemia; I25.10 Atherosclerotic heart disease of native coronary artery without angina pectoris; I48.0 Paroxysmal atrial fibrillation; N48.0 Leukoplakia of penis; N35.911 Unspecified urethral stricture, male, meatal; K29.70 Gastritis, unspecified, without bleeding; K21.9 Gastro-esophageal reflux disease without esophagitis; B96.20 Unspecified Escherichia coli [E. coli] as the cause of diseases classified elsewhere; I49.5 Sick sinus syndrome; K40.90 Unilateral inguinal hernia, without obstruction or gangrene, not specified as recurrent; F17.210 Nicotine dependence, cigarettes, uncomplicated; E11.22 Type 2 diabetes mellitus with diabetic chronic kidney disease; E86.0 Dehydration; E87.6 Hypokalemia; G89.29 Other chronic pain; H91.90 Unspecified hearing loss, unspecified ear; I50.9 Heart failure, unspecified; N28.1 Cyst of kidney, acquired; N18.2 Chronic kidney disease, stage 2 (mild); N28.89 Other specified disorders of kidney and ureter; Z79.01 Long term (current) use of anticoagulants; Z79.899 Other long term (current) drug therapy; Z85.46 Personal history of malignant neoplasm of prostate; Z85.828 Personal history of other malignant neoplasm of skin; Z87.442 Personal history of urinary calculi; Z90.79 Acquired absence of other genital organ(s); Z95.0 Presence of cardiac pacemaker; Z80.3 Family history of malignant neoplasm of breast; Y84.6 Urinary catheterization as the cause of abnormal reaction of the patient, or of later complication, without mention of misadventure at the time of the procedure; K80.20 Calculus of gallbladder without cholecystitis without obstruction; X58.XXXA Exposure to other specified factors, initial encounter; T50.2X5A Adverse effect of carbonic-anhydrase inhibitors, benzothiadiazides and other diuretics, initial encounter
CPT/HCPCS: 36415; 71045; 76770; 80048; 80053; 81003; 83605; 83735; 83880; 85025; 85027; 85379; 87040; 87077; 87086; 87186; 93005; 94660; 94760; 96360; 96361; 99285

== ENCOUNTER 2025-03-04 20:22 | Inpatient (IN) | payer MEDICARE ==
--- NOTE | 2025-03-04 21:08 | ED ---
Fever HPI - General Chief Complaint: Shortness of Breath Stated Complaint: Weakness Time Seen by Provider: 03/04/25 20:38 Source: patient, EMS, RN notes reviewed, old records reviewed Mode of arrival: EMS Limitations: no limitations - History of Present Illness Initial Comments: This is a 84-year-old male with weakness and shortness of breath for 2 days. Patient has significant the low oxygen on arrival to the ER noted to have severe fever on arrival to the ER with 103 fever and he complains of severe weakness and shortness of breath denying current chest pain but he has had recent chest pain MD Complaint: fever, malaise, weakness, other (dyspnea) -: hour(s) Temperature Source: subjective Associated Symptoms: chills, myalgias, chest pain, shortness of breath Treatments Prior to Arrival: none - Related Data Home Medications Medication Instructions Recorded Confirmed Esomeprazole Magnesium [NexIUM] 40 mg PO DAILY 12/25/20 03/05/25 Potassium Chloride [Potassium 10 meq PO QID 12/25/20 03/05/25 Chloride ER] Acetaminophen Tab [Tylenol] 1,000 mg PO TID 03/05/25 03/05/25 Fish Oil/Dha/Epa [Fish Oil 1,200 1 cap PO BID 03/05/25 03/05/25 mg Fish Oil] Furosemide [Lasix] 40 mg PO BID 03/05/25 03/05/25 Losartan [Cozaar] 50 mg PO BID 03/05/25 03/05/25 Niacin 500 mg PO BID 03/05/25 03/05/25 Nystatin 100,000 Unit/gm Oint 1 applic TOPICAL HS 03/05/25 03/05/25 [Mycostatin Oint] Pumpkin Seed 1,000mg 2,000 mg PO TID 03/05/25 03/05/25 Ubidecarenone [Co Q-10] 400 mg PO DAILY 03/05/25 03/05/25 allopurinoL [Zyloprim] 100 mg PO DAILY 03/05/25 03/05/25 calcitrioL [Rocaltrol] 0.25 mcg PO MOWEFR 03/05/25 03/05/25 carvediloL [Coreg] 25 mg PO BID 03/05/25 03/05/25 Previous Rx's Medication Instructions Recorded Apixaban [Eliquis] 5 mg PO BID #60 tab 07/15/23 Aspirin 81 mg PO DAILY #30 tab 03/12/25 DAPTOmycin [Cubicin] 500 mg IVPB Q24H 31 Days #31 each 03/12/25 Spironolactone [Aldactone] 25 mg PO DAILY #30 tab 03/12/25 Allergies Allergy/AdvReac Type Severity Reaction Status Date / Time No Known Allergies Allergy Verified 03/05/25 10:35 Review of Systems ROS Statement: Those systems with pertinent positive or pertinent negative responses have been documented in the HPI. ROS Other: All systems not noted in ROS Statement are negative. Past Medical History Past Medical History: Atrial Fibrillation, Cancer, GERD/Reflux, Hearing Disorder / Deafness, Hypertension, Osteoarthritis (OA) Additional Past Medical History / Comment(s): Hx prostate cancer 13 yrs ago, hx skin cancer, recent frequent headaches in the morning. Mild hearing loss. History of Any Multi-Drug Resistant Organisms: None Reported Past Surgical History: Prostate Surgery Additional Past Surgical History / Comment(s): Prostatectomy, skin cancer removed, colonoscopy. Past Anesthesia/Blood Transfusion Reactions: No Reported Reaction Past Psychological History: No Psychological Hx Reported Smoking Status: Current some day smoker Past Alcohol Use History: None Reported Past Drug Use History: None Reported - Past Family History Sister(s) Family Medical History: Cancer Additional Family Medical History / Comment(s): Breast cancer. General Exam General appearance: alert, in no apparent distress, anxious, in distress Head exam: Present: atraumatic, normocephalic, normal inspection Eye exam: Present: normal appearance, PERRL, EOMI. Absent: scleral icterus, conjunctival injection, periorbital swelling ENT exam: Present: normal exam, mucous membranes moist Neck exam: Present: normal inspection. Absent: tenderness, meningismus, lymphadenopathy Respiratory exam: Present: normal lung sounds bilaterally. Absent: respiratory distress, wheezes, rales, rhonchi, stridor Cardiovascular Exam: Present: regular rate, normal rhythm, normal heart sounds. Absent: systolic murmur, diastolic murmur, rubs, gallop, clicks GI/Abdominal exam: Present: soft, normal bowel sounds. Absent: distended, tenderness, guarding, rebound, rigid Extremities exam: Present: normal inspection, full ROM, normal capillary refill. Absent: tenderness, pedal edema, joint swelling, calf tenderness Back exam: Present: normal inspection Neurological exam: Present: alert, oriented X3, CN II-XII intact Psychiatric exam: Present: normal affect, normal mood Skin exam: Present: warm, dry, intact, normal color. Absent: rash Course Vital Signs 03/04/25 03/04/25 03/04/25 20:24 20:30 22:05 Temperature 103.0 F H 100.8 F H Pulse Rate 63 63 Respiratory 20 20 22 Rate Blood Pressure 100/67 144/108 O2 Sat by Pulse 94 L 94 L Oximetry 03/04/25 03/04/25 03/05/25 23:10 23:31 00:15 Temperature 98.8 F Pulse Rate 61 65 59 L Respiratory 20 Rate Blood Pressure 90/50 O2 Sat by Pulse 96 Oximetry 03/05/25 03/05/25 03/05/25 01:22 03:21 04:21 Temperature 98.9 F Pulse Rate 63 66 60 Respiratory 18 18 19 Rate Blood Pressure 91/58 93/55 101/54 O2 Sat by Pulse 94 L 96 93 L Oximetry 03/05/25 04:47 Temperature Pulse Rate 59 L Respiratory 19 Rate Blood Pressure 103/66 O2 Sat by Pulse 92 L Oximetry - Reevaluation(s) Reevaluation #1: Medical records reviewed Reevaluation #2: Patient still with chest pain here in the ER Reevaluation #3: Patient informed of results questions answered Reevaluation #4: Was pt. sent in by a medical professional or institution (, PA, CONSUMER LOAN MANAGER, urgent care, hospital, or custodial...) When possible be specific @ -no Did you speak to anyone other than the patient for history (EMS, parent, family, police, friend...)? What history was obtained from this source @ -no Did you review nursing and triage notes (agree or disagree)? Why? @ -agree Are old charts reviewed (outside hosp., previous admission, EMS record, old EKG, old radiological studies, urgent care reports/EKG's, custodial records)? Report findings @ -yes Differential Diagnosis (chest pain, altered mental status, abdominal pain women, abdominal pain men, vaginal bleeding, weakness, fever, dyspnea, syncope, headache, dizziness, GI bleed, back pain, seizure, CVA, palpatations, mental health, musculoskeletal)? @ -prior EKG interpreted by me (3pts min.). @ -yes X-rays interpreted by me (1pt min.). @ -yes negative for acute disease CT interpreted by me (1pt min.). @ -US negative for acute disease U/S interpreted by me (1pt. min.). @ -no What testing was considered but not performed or refused? (CT, X-rays, U/S, labs)? Why? @ -none What meds were considered but not given or refused? Why? @ -none Did you discuss the management of the patient with other professionals (professionals i.e. DrFlorentino, PA, CONSUMER LOAN MANAGER, lab, RT, psych nurse, social work coordinator, shredded filler machine wrapper layer, teacher, driver license reviewing officer, case therapist)? Give summary @ -no Was smoking cessation discussed for >3mins.? @ -no Was critical care preformed (if so, how long)? @ -no Were there social determinants of health that impacted care today? How? (Homeles sness, low income, unemployed, alcoholism, drug addiction, transportation, low edu. Level, literacy, decrease access to med. care, prison, rehab)? @ -none Was there de-escalation of care discussed even if they declined (Discuss DNR or withdrawal of care, Hospice)? DNR status @ -no What co-morbidities impacted this encounter? (DM, HTN, Smoking, COPD, CAD, Cancer, CVA, ARF, Chemo, Hep., AIDS, mental health diagnosis, sleep apnea, morbid obesity)? @ -none Was patient admitted / discharged? Hospital course, mention meds given and route, prescriptions, significant lab abnormalities, going to OR and other pertinent info. @ - 84 male to ER for weakness and chest pain. Non-ST elevated ID elevated troponin patient went for cardiac observation Admitted Undiagnosed new problem with uncertain prognosis? @ -no Drug Therapy requiring intensive monitoring for toxicity (Heparin, Nitro, Insulin, Cardizem)? @ -no Were any procedures done? @ -no Diagnosis/symptom? @ -Fever weakness non-ST elevated ID chest pain Acute, or Chronic, or Acute on Chronic? @ -Acute Uncomplicated (without systemic symptoms) or Complicated (systemic symptoms)? @ -Complicated Side effects of treatment? @ -no Exacerbation, Progression, or Severe Exacerbation? @ -exacerbation Poses a threat to life or bodily function? How? (Chest pain, USA, ID, pneumonia, PE, COPD, DKA, ARF, appy, cholecystitis, CVA, Diverticulitis, Homicidal, Suicidal, threat to staff... and all critical care pts) @ -yes extremes of age Reevaluation #5: Differential Chest Pain: Stable Angina, Unstable Angina, STEMI, NSTEMI Aortic Dissection, Pneumothorax, Musculoskeletal, Esophageal Spasm GERD, Cholecystitis, Pancreatitis, Zoster, this is not meant to be an all-inclusive list. Differential Fever: Pneumonia, viral URI, endocarditis, myocarditis, pericarditis, otitis, sinusitis, peritonsillar Abscess, retropharyngeal Abscess, epiglottitis, peritonitis, appendicitis, Mikayla cystitis, diverticulitis, hepatitis, colitis, UTI, PID, TOA, pyelonephritis, prostatitis, epididymitis, meningitis, encephalitis, pulmonary embolism, CVA, thyroid storm, pancreatitis, adrenal crisis, cavernous sinus thrombosis, this is not meant to be an all-inclusive list. - Consultations Consultation #1: Spoke with admitting physicians who agreed to admit this patient Medical Decision Making - Medical Decision Making 84 male to ER for weakness and chest pain. Non-ST elevated ID elevated troponin patient went for cardiac observation - Lab Data Result diagrams: 03/12/25 06:44 03/12/25 06:44 Lab Results 03/04/25 03/04/25 03/04/25 Range/Units 21:21 21:21 21:21 WBC 10.61 H (4.50-10.00) 10*3/uL RBC 4.17 L (4.40-5.60) 10*6/uL Hgb 13.2 (13.0-17.0) g/dL Hct 38.0 L (39.6-50.0) % MCV 91.1 (80.0-97.0) fL MCH 31.7 (27.0-32.0) pg MCHC 34.7 (32.0-37.0) g/dL Plt Count 100 L (140-440) 10*3/uL MPV 10.0 (9.5-12.2) fL Immature Gran % (Auto) 0.4 % Neutrophils % 94.3 % Lymphocytes % 2.1 % Monocytes % 3.0 % Eosinophils % 0.0 % Basophils % 0.2 % Immature Gran # 0.04 (0.00-0.04) 10*3/uL Neutrophils # 10.01 H (1.80-7.70) 10*3/uL Lymphocytes # 0.22 L (0.90-5.00) 10*3/uL Monocytes # 0.32 (0.20-1.00) 10*3/uL Eosinophils # 0.00 L (0.04-0.35) 10*3/uL Basophils # 0.02 (0.00-0.10) 10*3/uL PT 11.9 (10.0-12.5) sec INR 1.1 (<1.2) APTT 23.6 (22.0-30.0) sec Sodium 135 L (137-145) mmol/L Potassium 3.7 (3.5-5.1) mmol/L Chloride 98 (98-107) mmol/L Carbon Dioxide 28 (22-30) mmol/L Anion Gap 9 mmol/L BUN 22 H (9-20) mg/dL Creatinine 1.29 H (0.66-1.25) mg/dL Est GFR (CKD-EPI)AfAm 59 (>60 ml/min/1.73 sqM) Est GFR (CKD-EPI)NonAf 51 (>60 ml/min/1.73 sqM) Glucose 154 H (74-99) mg/dL Plasma Lactic Acid Kushal (0.7-2.0) mmol/L Calcium 8.6 (8.4-10.2) mg/dL Magnesium 1.5 L (1.6-2.3) mg/dL Total Bilirubin 0.9 (0.2-1.3) mg/dL AST 33 (17-59) U/L ALT 25 (4-49) U/L Alkaline Phosphatase 34 L (38-126) U/L Troponin I (0.000-0.034) ng/mL NT-Pro-B Natriuret Pep 7520 pg/mL Total Protein 6.0 L (6.3-8.2) g/dL Albumin 3.6 (3.5-5.0) g/dL Urine Color Urine Appearance (Clear) Urine pH (5.0-8.0) Ur Specific Galva (1.001-1.035) Urine Protein (Negative) Urine Glucose (UA) (Negative) Urine Ketones (Negative) Urine Blood (Negative) Urine Nitrite (Negative) Urine Bilirubin (Negative) Urine Urobilinogen (<2.0) mg/dL Ur Leukocyte Esterase (Negative) Urine RBC (0-5) /hpf Urine WBC (0-5) /hpf Ur Squamous Epith Cells (0-4) /hpf Amorphous Sediment (None) /hpf Hyaline Casts (0-2) /lpf Urine Mucus (None) /hpf Influenza Type A (PCR) (Not Detectd) Influenza Type B (PCR) (Not Detectd) RSV (PCR) (Not Detectd) SARS-CoV-2 (PCR) (Not Detectd) 03/04/25 03/04/25 03/04/25 Range/Units 21:21 21:21 21:29 WBC (4.50-10.00) 10*3/uL RBC (4.40-5.60) 10*6/uL Hgb (13.0-17.0) g/dL Hct (39.6-50.0) % MCV (80.0-97.0) fL MCH (27.0-32.0) pg MCHC (32.0-37.0) g/dL Plt Count (140-440) 10*3/uL MPV (9.5-12.2) fL Immature Gran % (Auto) % Neutrophils % % Lymphocytes % % Monocytes % % Eosinophils % % Basophils % % Immature Gran # (0.00-0.04) 10*3/uL Neutrophils # (1.80-7.70) 10*3/uL Lymphocytes # (0.90-5.00) 10*3/uL Monocytes # (0.20-1.00) 10*3/uL Eosinophils # (0.04-0.35) 10*3/uL Basophils # (0.00-0.10) 10*3/uL PT (10.0-12.5) sec INR (<1.2) APTT (22.0-30.0) sec Sodium (137-145) mmol/L Potassium (3.5-5.1) mmol/L Chloride (98-107) mmol/L Carbon Dioxide (22-30) mmol/L Anion Gap mmol/L BUN (9-20) mg/dL Creatinine (0.66-1.25) mg/dL Est GFR (CKD-EPI)AfAm (>60 ml/min/1.73 sqM) Est GFR (CKD-EPI)NonAf (>60 ml/min/1.73 sqM) Glucose (74-99) mg/dL Plasma Lactic Acid Kushal 1.9 (0.7-2.0) mmol/L Calcium (8.4-10.2) mg/dL Magnesium (1.6-2.3) mg/dL Total Bilirubin (0.2-1.3) mg/dL AST (17-59) U/L ALT (4-49) U/L Alkaline Phosphatase (38-126) U/L Troponin I 0.164 H* (0.000-0.034) ng/mL NT-Pro-B Natriuret Pep pg/mL Total Protein (6.3-8.2) g/dL Albumin (3.5-5.0) g/dL Urine Color Urine Appearance (Clear) Urine pH (5.0-8.0) Ur Specific Galva (1.001-1.035) Urine Protein (Negative) Urine Glucose (UA) (Negative) Urine Ketones (Negative) Urine Blood (Negative) Urine Nitrite (Negative) Urine Bilirubin (Negative) Urine Urobilinogen (<2.0) mg/dL Ur Leukocyte Esterase (Negative) Urine RBC (0-5) /hpf Urine WBC (0-5) /hpf Ur Squamous Epith Cells (0-4) /hpf Amorphous Sediment (None) /hpf Hyaline Casts (0-2) /lpf Urine Mucus (None) /hpf Influenza Type A (PCR) Not Detected (Not Detectd) Influenza Type B (PCR) Not Detected (Not Detectd) RSV (PCR) Not Detected (Not Detectd) SARS-CoV-2 (PCR) Not Detected (Not Detectd) 03/04/25 Range/Units 23:08 WBC (4.50-10.00) 10*3/uL RBC (4.40-5.60) 10*6/uL Hgb (13.0-17.0) g/dL Hct (39.6-50.0) % MCV (80.0-97.0) fL MCH (27.0-32.0) pg MCHC (32.0-37.0) g/dL Plt Count (140-440) 10*3/uL MPV (9.5-12.2) fL Immature Gran % (Auto) % Neutrophils % % Lymphocytes % % Monocytes % % Eosinophils % % Basophils % % Immature Gran # (0.00-0.04) 10*3/uL Neutrophils # (1.80-7.70) 10*3/uL Lymphocytes # (0.90-5.00) 10*3/uL Monocytes # (0.20-1.00) 10*3/uL Eosinophils # (0.04-0.35) 10*3/uL Basophils # (0.00-0.10) 10*3/uL PT (10.0-12.5) sec INR (<1.2) APTT (22.0-30.0) sec Sodium (137-145) mmol/L Potassium (3.5-5.1) mmol/L Chloride (98-107) mmol/L Carbon Dioxide (22-30) mmol/L Anion Gap mmol/L BUN (9-20) mg/dL Creatinine (0.66-1.25) mg/dL Est GFR (CKD-EPI)AfAm (>60 ml/min/1.73 sqM) Est GFR (CKD-EPI)NonAf (>60 ml/min/1.73 sqM) Glucose (74-99) mg/dL Plasma Lactic Acid Kushal (0.7-2.0) mmol/L Calcium (8.4-10.2) mg/dL Magnesium (1.6-2.3) mg/dL Total Bilirubin (0.2-1.3) mg/dL AST (17-59) U/L ALT (4-49) U/L Alkaline Phosphatase (38-126) U/L Troponin I (0.000-0.034) ng/mL NT-Pro-B Natriuret Pep pg/mL Total Protein (6.3-8.2) g/dL Albumin (3.5-5.0) g/dL Urine Color Yellow Urine Appearance Cloudy (Clear) Urine pH 5.5 (5.0-8.0) Ur Specific Galva 1.019 (1.001-1.035) Urine Protein 1+ H (Negative) Urine Glucose (UA) Negative (Negative) Urine Ketones Negative (Negative) Urine Blood Small H (Negative) Urine Nitrite Negative (Negative) Urine Bilirubin Negative (Negative) Urine Urobilinogen <2.0 (<2.0) mg/dL Ur Leukocyte Esterase Negative (Negative) Urine RBC 6 H (0-5) /hpf Urine WBC 2 (0-5) /hpf Ur Squamous Epith Cells <1 (0-4) /hpf Amorphous Sediment Occasional H (None) /hpf Hyaline Casts 40 H (0-2) /lpf Urine Mucus Occasional H (None) /hpf Influenza Type A (PCR) (Not Detectd) Influenza Type B (PCR) (Not Detectd) RSV (PCR) (Not Detectd) SARS-CoV-2 (PCR) (Not Detectd) - EKG Data -: EKG Interpreted by Me (EKG is paced 61 QRS 1 19Q TC 419) - Radiology Data Radiology results: report reviewed (Chest x-ray and CTA chest negative for acute disease), image reviewed Critical Care Time Critical Care Time: Yes Total Critical Care Time: 31 Disposition Clinical Impression: Weakness, NSTEMI (non-ST elevated myocardial infarction), Fever Disposition: ADMITTED IP TO THIS [facility] Condition: Fair Is patient prescribed a controlled substance at d/c from ED?: No Time of Disposition: 23:00
[2025-03-04 21:46] LABS: INR 1.1 (<1.2); Partial Thromboplastin Time 23.6 sec (22.0-30.0); Prothrombin Time 11.9 sec (10.0-12.5)
[2025-03-04 21:47] LABS: ALT 25 U/L (4-49); AST 33 U/L (17-59); African American GFR (CKD) 59 (>60 ml/min/1.73 sqM); Albumin 3.6 g/dL (3.5-5.0); Alkaline Phosphatase 34 U/L (38-126); Anion Gap 9 mmol/L; Blood Urea Nitrogen 22 mg/dL (9-20); Calcium 8.6 mg/dL (8.4-10.2); Carbon Dioxide 28 mmol/L (22-30); Chloride 98 mmol/L (98-107); Glucose 154 mg/dL (74-99); Magnesium 1.5 mg/dL (1.6-2.3); Non-African American GFR(CKD) 51 (>60 ml/min/1.73 sqM); Potassium 3.7 mmol/L (3.5-5.1); Sodium 135 mmol/L (137-145); Total Bilirubin 0.9 mg/dL (0.2-1.3)
[2025-03-04] MEDS: AZITHROMYCIN 500 MG in SODIUM CHLORIDE 0.9% 250 ML IVPB STA (21:47)
[2025-03-04] MEDS: ACETAMINOPHEN IV (For NPO) 1,000 MG in EMPTY BAG 1 BAG IVPB STA (21:47)
[2025-03-04] MEDS: SODIUM CHLORIDE 0.9% 1,000 ML IV SCH (21:48)
[2025-03-04 21:56] LABS: NT-Pro-B-Type Natriuretic Pept 7520 pg/mL
--- NOTE | 2025-03-04 22:02 | XR ---
EXAMINATION TYPE: XR chest 1V portable DATE OF EXAM: 03/04/2025 COMPARISON: Chest x-ray February 26, 2024 CLINICAL INDICATION: Male, 84 years old with history of sob; TECHNIQUE: Single frontal view of the chest is obtained. FINDINGS: There is cardiomegaly with dual lead pacemaker and atherosclerotic thoracic aorta. There is some chronic parenchymal changes bilaterally redemonstrated. No new focal airspace opacity, pleura l effusion, or pneumothorax seen. The osseous structures are intact. IMPRESSION: Chronic changes and cardiomegaly without acute pulmonary process. [facility] Taty Krishna, , 03/04/2025 10:00 PM
[2025-03-04] MEDS: IBUPROFEN IV 800 MG in SODIUM CHLORIDE 0.9% 250 ML IV ONE (22:10)
[2025-03-04 22:14] LABS: Influenza A Not Detected (Not Detectd); Influenza B Not Detected (Not Detectd); RSV Not Detected (Not Detectd)
[2025-03-04 22:15] LABS: Basophils # (A) 0.02 10*3/uL (0.00-0.10); Basophils % (A) 0.2 %; HGB 13.2 g/dL (13.0-17.0); Lymphocytes # (A) 0.22 10*3/uL (0.90-5.00); Lymphocytes % (A) 2.1 %; MCH 31.7 pg (27.0-32.0); MCHC 34.7 g/dL (32.0-37.0); MCV 91.1 fL (80.0-97.0); Monocytes # (A) 0.32 10*3/uL (0.20-1.00); Neutrophils # (A) 10.01 10*3/uL (1.80-7.70); Neutrophils % (A) 94.3 %; Platelet Count 100 10*3/uL (140-440); RBC 4.17 10*6/uL (4.40-5.60); WBC 10.61 10*3/uL (4.50-10.00)
[2025-03-04] MEDS ORDERED: HEPARIN SODIUM 1,000 UN/ML (10ML VL) IV PRN (22:57)
[2025-03-04] MEDS: IPRATROPIUM-ALBUTEROL 3 ML NEB INHALATION STA (23:07)
[2025-03-04 23:32] LABS: Appearance,Urine Cloudy (Clear); Bilirubin,Urine Negative (Negative); Blood,Urine Small (Negative); Color,Urine Yellow; Glucose,Urine (UA) Negative (Negative); Ketones,Urine Negative (Negative); Leukocyte Esterase,Urine Negative (Negative); Nitrite,Urine Negative (Negative); PH, Urine 5.5 (5.0-8.0); Protein,Urine 1+ (Negative); Specific Gravity,Urine 1.019 (1.001-1.035); Urobilinogen,Urine <2.0 mg/dL (<2.0)
[2025-03-04 23:33] LABS: Amorphous Sediment,Urine Occasional /hpf; Hyaline Casts,Urine 40 /lpf (0-2); Mucus,Urine Occasional /hpf; RBC,Urine 6 /hpf (0-5); Squamous Epithelial Cell,Urine <1 /hpf (0-4); WBC,Urine 2 /hpf (0-5)
[2025-03-04] MEDS ORDERED: MORPHINE SULFATE 4 MG/ML SYRINGE IV PRN (23:42)
[2025-03-04] MEDS ORDERED: IBUPROFEN 400 MG TAB PO PRN (23:42)
[2025-03-04] MEDS ORDERED: NITROGLYCERIN SL TABS 0.4 MG TAB SUBLINGUAL PRN (23:42)
[2025-03-04] MEDS ORDERED: NALOXONE 0.4 MG/ML 1 ML VIAL IV PRN (23:42)
--- NOTE | 2025-03-05 01:10 | CT ---
EXAM: CT Angiography Chest With Intravenous Contrast CLINICAL HISTORY: ITS.REASON CT Reason: pe TECHNIQUE: Axial computed tomographic angiography images of the chest with intravenous contrast. CTDI is 30.9 mGy and DLP is 576.2 mGy-cm. This CT exam was performed using one or more of the following dose reduction techniques: automated exposure control, adjustment of the mA and/or kV according to patient size, and/or use of iterative reconstruction technique. MIP reconstructed images were created and reviewed. COMPARISON: No relevant prior studies available. FINDINGS: LUNGS: No focal consolidation, pleural effusion, or pneumothorax. Atelectasis at the lung bases. HEART: Cardiomegaly. VASCULATURE: No large or central pulmonary embolism. Evaluation is limited due to suboptimal contrast bolus timing. Consider repeat exam, if clinically indicated. THYROID: Within normal limits. MEDIASTINUM + LYMPH NODES: Within normal limits. SUPERIOR ABDOMEN: Hepatic steatosis. MUSCULOSKELETAL: Degenerative changes. IMPRESSION: No large or central pulmonary embolism. Evaluation is limited due to suboptimal contrast bolus timing. Consider repeat exam, if clinically indicated.
[2025-03-05] MEDS: HEPARIN SODIUM 1,000 UN/ML (10ML VL) IV ONE (01:25)
[2025-03-05] MEDS: HEPARIN SOD,PORK IN 0.45% NACL 25,000 UNIT in 0.45% NACL 1 250ML.BAG IV SCH (01:26)
[2025-03-05] MEDS: ASPIRIN 81 MG PO STA (01:27)
[2025-03-05 07:31] LABS: Basophils # (A) 0.01 10*3/uL (0.00-0.10); Basophils % (A) 0.1 %; HCT 40.7 % (39.6-50.0); HGB 13.7 g/dL (13.0-17.0); Immature Platelet Fraction 2.3 % (1.1-6.1); Lymphocytes % (A) 1.2 %; MCH 31.4 pg (27.0-32.0); MCHC 33.7 g/dL (32.0-37.0); MCV 93.3 fL (80.0-97.0); Mean Platelet Volume 9.9 fL (9.5-12.2); Monocytes # (A) 0.15 10*3/uL (0.20-1.00); Monocytes % (A) 1.8 %; Neutrophils % (A) 96.4 %; RBC 4.36 10*6/uL (4.40-5.60); RDW 13.2 % (11.5-14.5)
[2025-03-05 07:50] LABS: ALT 33 U/L (4-49); AST 44 U/L (17-59); African American GFR (CKD) 59 (>60 ml/min/1.73 sqM); Albumin 3.5 g/dL (3.5-5.0); Alkaline Phosphatase 39 U/L (38-126); Anion Gap 22 mmol/L; Calcium 8.2 mg/dL (8.4-10.2); Carbon Dioxide 24 mmol/L (22-30); Chloride 104 mmol/L (98-107); Glucose 127 mg/dL (74-99); Magnesium 1.8 mg/dL (1.6-2.3); Non-African American GFR(CKD) 51 (>60 ml/min/1.73 sqM); Phosphorus 4.5 mg/dL (2.5-4.5); Potassium 3.9 mmol/L (3.5-5.1); Sodium 150 mmol/L (137-145); Total Bilirubin 0.7 mg/dL (0.2-1.3)
[2025-03-05] MEDS: ACETAMINOPHEN TAB 325 MG TAB PO PRN (08:20)
[2025-03-05 08:22] LABS: Blood Urea Nitrogen 23 mg/dL (9-20)
[2025-03-05 08:30] LABS: Platelet Count 92 10*3/uL (140-440)
[2025-03-05] MEDS: ASPIRIN 325 MG TAB PO SCH (11:28)
[2025-03-05] MEDS: ATORVASTATIN 80 MG TAB PO SCH (11:28)
[2025-03-05] MEDS: FUROSEMIDE 10 MG/ML 4 ML VIAL IV SCH (11:35)
[2025-03-05] MEDS: FUROSEMIDE 40 MG TAB PO SCH (12:46)
--- NOTE | 2025-03-05 12:47 | P.HPIM ---
History of Present Illness H&P Date: 03/05/25 History of present illness; patient is a 84-year-old gentleman with past medical history significant for hypertension, atrial fibrillation presented to the ER because of generalized weakness. Patient said that he was all right last night when he tried to get to the bed and felt very weak. Patient was complaining of lethargy and weakness at the time patient also felt short of breath. Patient stated shortness of breath was present on rest as well exertion. There was no complaint of chest pain. Patient denies any fever or chills at home. There is no complaint of orthopnea or PND. There is no complaint of nausea, vomiting or abdominal pain. Because of the shortness of breath, EMS was called, patient had to be placed on 2 L of oxygen. Initially in the ER, patient fever of 103 Initial lab work done in the ER showed WBC 10.61, hemoglobin 13.2, platelet count 100, sodium 135, potassium 3.7, BUN 22, creatinine 1.29, glucose 154, lactate 1.9, calcium 8.6, magnesium 1.5 UA negative for infection Influenza A not detected Influenza B not detected RSV not detected COVID-19 not detected EKG done in the ER showed heart rate of61, ventricular paced rhythm, no ST segment elevation or depression seen, no T-wave inversions seen. Chest x-ray done in the ER showed chronic changes and cardiomegaly without acute pulmonary process CT chest PE protocol done showed no evidence of PE, Patient admitted to internal medicine service REVIEW OF SYSTEMS: CONSTITUTIONAL: As mentioned above HEENT: No recent visual problems or hearing problems. Denied any sore throat. CARDIOVASCULAR: As mentioned above PULMONARY: No shortness of breath, no cough, no hemoptysis. GASTROINTESTINAL: No diarrhea, no nausea, no vomiting, no abdominal pain. NEUROLOGICAL: No headaches, no weakness, no numbness. HEMATOLOGICAL: Denies any bleeding or petechiae. GENITOURINARY: Denies any burning micturition, frequency, or urgency. MUSCULOSKELETAL/RHEUMATOLOGICAL: Denies any joint pain, swelling, or any muscle pain. ENDOCRINE: Denies any polyuria or polydipsia. The rest of the 14-point review of systems is negative. PHYSICAL EXAMINATION: GENERAL: The patient is alert and oriented x3, not in any acute distress. Ill looking HEENT: Pupils are round and equally reacting to light. EOMI. No scleral icterus. No conjunctival pallor. Normocephalic, atraumatic. No pharyngeal erythema. No thyromegaly. CARDIOVASCULAR: S1 and S2 present. No murmurs, rubs, or gallops. PULMONARY: Coarse breath sound bilaterally, expiratory wheeze audible ABDOMEN: Soft, nontender, nondistended, normoactive bowel sounds. No palpable organomegaly. MUSCULOSKELETAL: No joint swelling or deformity. EXTREMITIES: No cyanosis, clubbing, or pedal edema. NEUROLOGICAL: Gross neurological examination did not reveal any focal deficits. SKIN: No rashes. 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 Continue same treatment. Continue with symptomatic treatment. Resume home medication. Monitor labs and vitals. DVT and GI prophylaxis. Further recommendations as per clinical course of the patient Dictation was produced using [employer] dictation software. please excuse any grammatical, word or spelling errors. Past Medical History Past Medical History: Atrial Fibrillation, Cancer, GERD/Reflux, Hearing Disorder / Deafness, Hypertension, Osteoarthritis (OA) Additional Past Medical History / Comment(s): Hx prostate cancer , hx skin cancer, recent frequent headaches in the morning. Mild hearing loss. History of Any Multi-Drug Resistant Organisms: None Reported Past Surgical History: Pacemaker, Prostate Surgery Additional Past Surgical History / Comment(s): Prostatectomy, skin cancer removed, colonoscopy. Past Anesthesia/Blood Transfusion Reactions: No Reported Reaction Type of Cardiac Device: Permanent Pacemaker Device Placement Date:: 07/12/2023 Past Psychological History: No Psychological Hx Reported Smoking Status: Current some day smoker Past Alcohol Use History: None Reported Additional Past Alcohol Use History / Comment(s): Down from 2ppd to less than 1ppd, started smoking 50-55 yrs ago. Past Drug Use History: None Reported - Past Family History Sister(s) Family Medical History: Cancer Additional Family Medical History / Comment(s): Breast cancer. Medications and Allergies Home Medications Medication Instructions Recorded Confirmed Type Esomeprazole Magnesium [NexIUM] 40 mg PO DAILY 12/25/20 03/05/25 History Potassium Chloride [Potassium 10 meq PO QID 12/25/20 03/05/25 History Chloride ER] Apixaban [Eliquis] 5 mg PO BID #60 tab 07/15/23 03/05/25 Rx Acetaminophen Tab [Tylenol Tab] 1,000 mg PO TID 03/05/25 03/05/25 History Fish Oil/Dha/Epa [Fish Oil 1,200 1 cap PO BID 03/05/25 03/05/25 History mg Fish Oil] Furosemide [Lasix] 40 mg PO BID 03/05/25 03/05/25 History Losartan [Cozaar] 50 mg PO BID 03/05/25 03/05/25 History Niacin 500 mg PO BID 03/05/25 03/05/25 History Nystatin 100,000 Unit/gm Oint 1 applic TOPICAL HS 03/05/25 03/05/25 History [Mycostatin Oint] Pumpkin Seed 1,000mg 2,000 mg PO TID 03/05/25 03/05/25 History Ubidecarenone [Co Q-10] 400 mg PO DAILY 03/05/25 03/05/25 History allopurinoL [Zyloprim] 100 mg PO DAILY 03/05/25 03/05/25 History calcitrioL [Rocaltrol] 0.25 mcg PO MOWEFR 03/05/25 03/05/25 History carvediloL [Coreg] 25 mg PO BID 03/05/25 03/05/25 History Allergies Allergy/AdvReac Type Severity Reaction Status Date / Time No Known Allergies Allergy Verified 03/05/25 10:35 Physical Exam Vitals: Vital Signs Temp Pulse Pulse Resp BP BP Pulse Ox 03/05/25 08:19 93 L 03/05/25 08:11 100.1 F H 68 18 116/64 92 L 03/05/25 08:00 68 18 03/05/25 05:15 97.4 F L 65 18 102/63 94 L 03/05/25 04:47 59 L 19 103/66 92 L 03/05/25 04:21 60 19 101/54 93 L 03/05/25 03:21 98.9 F 66 18 93/55 96 03/05/25 01:22 63 18 91/58 94 L 03/05/25 00:15 98.8 F 59 L 20 90/50 96 03/04/25 23:31 65 03/04/25 23:10 61 03/04/25 22:05 100.8 F H 63 22 144/108 94 L 03/04/25 20:30 20 03/04/25 20:24 103.0 F H 63 20 100/67 94 L Intake and Output 03/04/25 03/05/25 03/05/25 22:59 06:59 14:59 Output Total 350 Balance -350 Output: Urine 350 Other: Voiding Method Urinal # Voids 1 0 Weight 99.79 kg 102.9 kg Results CBC & Chem 7: 03/05/25 06:52 03/05/25 06:52 Labs: Abnormal Lab Results - Last 24 Hours (Table) 03/04/25 03/04/25 03/04/25 Range/Units 21:21 21:21 21:21 WBC 10.61 H (4.50-10.00) 10*3/uL RBC 4.17 L (4.40-5.60) 10*6/uL Hct 38.0 L (39.6-50.0) % Plt Count 100 L (140-440) 10*3/uL Neutrophils # 10.01 H (1.80-7.70) 10*3/uL Lymphocytes # 0.22 L (0.90-5.00) 10*3/uL Monocytes # (0.20-1.00) 10*3/uL Eosinophils # 0.00 L (0.04-0.35) 10*3/uL APTT (22.0-30.0) sec Sodium 135 L (137-145) mmol/L BUN 22 H (9-20) mg/dL Creatinine 1.29 H (0.66-1.25) mg/dL Glucose 154 H (74-99) mg/dL Calcium (8.4-10.2) mg/dL Magnesium 1.5 L (1.6-2.3) mg/dL Alkaline Phosphatase 34 L (38-126) U/L Troponin I 0.164 H* (0.000-0.034) ng/mL Total Protein 6.0 L (6.3-8.2) g/dL Urine Protein (Negative) Urine Blood (Negative) Urine RBC (0-5) /hpf Amorphous Sediment (None) /hpf Hyaline Casts (0-2) /lpf Urine Mucus (None) /hpf 03/04/25 03/05/25 03/05/25 Range/Units 23:08 00:11 02:55 WBC (4.50-10.00) 10*3/uL RBC (4.40-5.60) 10*6/uL Hct (39.6-50.0) % Plt Count (140-440) 10*3/uL Neutrophils # (1.80-7.70) 10*3/uL Lymphocytes # (0.90-5.00) 10*3/uL Monocytes # (0.20-1.00) 10*3/uL Eosinophils # (0.04-0.35) 10*3/uL APTT (22.0-30.0) sec Sodium (137-145) mmol/L BUN (9-20) mg/dL Creatinine (0.66-1.25) mg/dL Glucose (74-99) mg/dL Calcium (8.4-10.2) mg/dL Magnesium (1.6-2.3) mg/dL Alkaline Phosphatase (38-126) U/L Troponin I 0.259 H* 0.260 H* (0.000-0.034) ng/mL Total Protein (6.3-8.2) g/dL Urine Protein 1+ H (Negative) Urine Blood Small H (Negative) Urine RBC 6 H (0-5) /hpf Amorphous Sediment Occasional H (None) /hpf Hyaline Casts 40 H (0-2) /lpf Urine Mucus Occasional H (None) /hpf 03/05/25 03/05/25 03/05/25 Range/Units 06:52 06:52 06:52 WBC (4.50-10.00) 10*3/uL RBC 4.36 L (4.40-5.60) 10*6/uL Hct (39.6-50.0) % Plt Count 92 L (140-440) 10*3/uL Neutrophils # 7.90 H (1.80-7.70) 10*3/uL Lymphocytes # 0.10 L (0.90-5.00) 10*3/uL Monocytes # 0.15 L (0.20-1.00) 10*3/uL Eosinophils # 0.00 L (0.04-0.35) 10*3/uL APTT (22.0-30.0) sec Sodium 150 H (137-145) mmol/L BUN 23 H (9-20) mg/dL Creatinine 1.29 H (0.66-1.25) mg/dL Glucose 127 H (74-99) mg/dL Calcium 8.2 L (8.4-10.2) mg/dL Magnesium (1.6-2.3) mg/dL Alkaline Phosphatase (38-126) U/L Troponin I 0.186 H* (0.000-0.034) ng/mL Total Protein 6.0 L (6.3-8.2) g/dL Urine Protein (Negative) Urine Blood (Negative) Urine RBC (0-5) /hpf Amorphous Sediment (None) /hpf Hyaline Casts (0-2) /lpf Urine Mucus (None) /hpf 03/05/25 Range/Units 06:52 WBC (4.50-10.00) 10*3/uL RBC (4.40-5.60) 10*6/uL Hct (39.6-50.0) % Plt Count (140-440) 10*3/uL Neutrophils # (1.80-7.70) 10*3/uL Lymphocytes # (0.90-5.00) 10*3/uL Monocytes # (0.20-1.00) 10*3/uL Eosinophils # (0.04-0.35) 10*3/uL APTT 47.4 H (22.0-30.0) sec Sodium (137-145) mmol/L BUN (9-20) mg/dL Creatinine (0.66-1.25) mg/dL Glucose (74-99) mg/dL Calcium (8.4-10.2) mg/dL Magnesium (1.6-2.3) mg/dL Alkaline Phosphatase (38-126) U/L Troponin I (0.000-0.034) ng/mL Total Protein (6.3-8.2) g/dL Urine Protein (Negative) Urine Blood (Negative) Urine RBC (0-5) /hpf Amorphous Sediment (None) /hpf Hyaline Casts (0-2) /lpf Urine Mucus (None) /hpf Thrombosis Risk Factor Assmnt - Choose All That Apply Any of the Below Risk Factors Present?: Yes Each Factor Represents 1 point: Obesity (BMI >25) Other Risk Factors: Yes Each Risk Factor Represents 3 Points: Age 75 years or older Other congenital or acquired thrombophilia - If yes, enter type in comment: No Thrombosis Risk Factor Assessment Total Risk Factor Score: 4 Thrombosis Risk Factor Assessment Level: Moderate Risk
--- NOTE | 2025-03-05 12:58 | P.CRDCN ---
History of Present Illness Consult date: 03/05/25 Reason for Consult (text): NSTEMI History of present illness: This is an 84-year-old male patient of Dr. Danny Wilcox with past medical history of paroxysmal atrial fibrillation, congestive heart failure, permanent pacemaker, hypertension, hyperlipidemia. We have been asked to evaluate the patient for NSTEMI. Patient states that his symptoms started with joint and muscle aching. Then when he got up in the morning at 4 AM to the bathroom his legs gave out on him and he slid off the bed onto the floor. EMS was called and brought him into the hospital for evaluation and he apparently was discharged home in the next day he did the same thing with significant weakness to the legs as well as chills and sweats. He is having sweats at the time of this evaluation. He complains of feeling weak and tired. Patient did have an episode of sepsis secondary to complicated UTI with urinary retention, catheter placement. 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 Patient underwent DUDLEY for cardioversion but he was found to have a left atrial appendage thrombus and the cardioversion was canceled. Patient appears to be presenting with the similar septic picture picture however urine does not appear to be infected on this occasion. Blood pressure 95/57, heart rate in the 60s, pulse ox 95% on 4 L. Temperature max 103. -EKG: Ventricularly paced rhythm. -Chest x-ray: Chronic changes and cardiomegaly without acute process. -CTA chest: No large or central pulmonary embolism. Limited study. -Laboratory studies: WBC 10.6 and repeat 8.2, hemoglobin 13.7. Sodium 150, BUN 23 creatinine 1.29. Troponin 0.164, 0.259, 0.26, 0.186. proBNP 7520. Cepheid viral panel not detected. Urinalysis reveals RBCs 6, hyaline cast 40, blood small. 1 blood culture his status received. -Home cardiac medications: Eliquis 5 mg twice daily, Coreg 25 mg twice daily, Lasix 40 mg twice daily, losartan 50 mg twice daily, potassium chloride 10 mEq 4 times daily. -Echocardiogram performed at [facility] on 07/12/2023 revealed mildly reduced LV systolic function, LVH. EF was 45 to 50%. Review Of Systems: At the time of my exam: CONSTITUTIONAL: Denies fever or chills. HEENT: Denies blurred vision, vision changes, or eye pain. Denies hemoptysis CARDIOVASCULAR: Denies chest pain. Denies orthopnea. Denies PND. Denies palpitations RESPIRATORY: Denies shortness of breath. GASTROINTESTINAL: Denies abdominal pain. Denies nausea or vomiting. HEMATOLOGIC: Denies bleeding disorders. GENITOURINARY: Denies any blood in urine. SKIN: Denies puritis. Denies rash. Physical examination: Gen: This is an 84-year-old male in no acute distress. VS: reviewed HEENT: Head is atraumatic, normocephalic. Pupils equal, round. Sclerae is anicteric. NECK: Supple. No JVD. LUNGS: Clear to auscultation. No wheezes or rhonchi. No intercostal retractions. HEART: Regular rate and rhythm. No murmur. ABDOMEN: Soft No tenderness. EXTREMITIES: No pedal edema. No calf tenderness. NEUROLOGICAL: Patient is awake, alert and oriented x3. 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 Nurse practitioner note has been reviewed, I agree with documented findings and plan of care. Patient was seen and examined. Past Medical History Past Medical History: Atrial Fibrillation, Cancer, GERD/Reflux, Hearing Disorder / Deafness, Hypertension, Osteoarthritis (OA) Additional Past Medical History / Comment(s): Hx prostate cancer , hx skin cancer, recent frequent headaches in the morning. Mild hearing loss. History of Any Multi-Drug Resistant Organisms: None Reported Past Surgical History: Pacemaker, Prostate Surgery Additional Past Surgical History / Comment(s): Prostatectomy, skin cancer removed, colonoscopy. Past Anesthesia/Blood Transfusion Reactions: No Reported Reaction Type of Cardiac Device: Permanent Pacemaker Device Placement Date:: 07/12/2023 Past Psychological History: No Psychological Hx Reported Smoking Status: Current some day smoker Past Alcohol Use History: None Reported Additional Past Alcohol Use History / Comment(s): Down from 2ppd to less than 1ppd, started smoking 50-55 yrs ago. Past Drug Use History: None Reported - Past Family History Sister(s) Family Medical History: Cancer Additional Family Medical History / Comment(s): Breast cancer. Medications and Allergies Home Medications Medication Instructions Recorded Confirmed Type Esomeprazole Magnesium [NexIUM] 40 mg PO DAILY 12/25/20 03/05/25 History Potassium Chloride [Potassium 10 meq PO QID 12/25/20 03/05/25 History Chloride ER] Apixaban [Eliquis] 5 mg PO BID #60 tab 07/15/23 03/05/25 Rx Acetaminophen Tab [Tylenol Tab] 1,000 mg PO TID 03/05/25 03/05/25 History Fish Oil/Dha/Epa [Fish Oil 1,200 1 cap PO BID 03/05/25 03/05/25 History mg Fish Oil] Furosemide [Lasix] 40 mg PO BID 03/05/25 03/05/25 History Losartan [Cozaar] 50 mg PO BID 03/05/25 03/05/25 History Niacin 500 mg PO BID 03/05/25 03/05/25 History Nystatin 100,000 Unit/gm Oint 1 applic TOPICAL HS 03/05/25 03/05/25 History [Mycostatin Oint] Pumpkin Seed 1,000mg 2,000 mg PO TID 03/05/25 03/05/25 History Ubidecarenone [Co Q-10] 400 mg PO DAILY 03/05/25 03/05/25 History allopurinoL [Zyloprim] 100 mg PO DAILY 03/05/25 03/05/25 History calcitrioL [Rocaltrol] 0.25 mcg PO MOWEFR 03/05/25 03/05/25 History carvediloL [Coreg] 25 mg PO BID 03/05/25 03/05/25 History Allergies Allergy/AdvReac Type Severity Reaction Status Date / Time No Known Allergies Allergy Verified 03/05/25 10:35 Physical Exam Vitals: Vital Signs Temp Pulse Pulse Resp BP BP Pulse Ox 03/05/25 08:19 93 L 03/05/25 08:11 100.1 F H 68 18 116/64 92 L 03/05/25 08:00 68 18 03/05/25 05:15 97.4 F L 65 18 102/63 94 L 03/05/25 04:47 59 L 19 103/66 92 L 03/05/25 04:21 60 19 101/54 93 L 03/05/25 03:21 98.9 F 66 18 93/55 96 03/05/25 01:22 63 18 91/58 94 L 03/05/25 00:15 98.8 F 59 L 20 90/50 96 03/04/25 23:31 65 03/04/25 23:10 61 03/04/25 22:05 100.8 F H 63 22 144/108 94 L 03/04/25 20:30 20 03/04/25 20:24 103.0 F H 63 20 100/67 94 L Intake and Output 03/04/25 03/05/25 03/05/25 22:59 06:59 14:59 Output Total 350 Balance -350 Output: Urine 350 Other: Voiding Method Urinal # Voids 1 0 Weight 99.79 kg 102.9 kg Results 03/05/25 06:52 03/05/25 06:52 Cardiac Enzymes 03/04/25 03/04/25 03/05/25 Range/Units 21:21 21:21 00:11 AST 33 (17-59) U/L Troponin I 0.164 H* 0.259 H* (0.000-0.034) ng/mL 03/05/25 03/05/25 03/05/25 Range/Units 02:55 06:52 06:52 AST 44 (17-59) U/L Troponin I 0.260 H* 0.186 H* (0.000-0.034) ng/mL Coagulation 03/04/25 03/05/25 Range/Units 21:21 06:52 PT 11.9 (10.0-12.5) sec APTT 23.6 47.4 H (22.0-30.0) sec CBC 03/04/25 03/05/25 Range/Units 21:21 06:52 WBC 10.61 H 8.20 (4.50-10.00) 10*3/uL RBC 4.17 L 4.36 L (4.40-5.60) 10*6/uL Hgb 13.2 13.7 (13.0-17.0) g/dL Hct 38.0 L 40.7 (39.6-50.0) % Plt Count 100 L 92 L (140-440) 10*3/uL Comprehensive Metabolic Panel 03/04/25 03/05/25 Range/Units 21:21 06:52 Sodium 135 L 150 H (137-145) mmol/L Potassium 3.7 3.9 (3.5-5.1) mmol/L Chloride 98 104 (98-107) mmol/L Carbon Dioxide 28 24 (22-30) mmol/L BUN 22 H 23 H (9-20) mg/dL Creatinine 1.29 H 1.29 H (0.66-1.25) mg/dL Glucose 154 H 127 H (74-99) mg/dL Calcium 8.6 8.2 L (8.4-10.2) mg/dL AST 33 44 (17-59) U/L ALT 25 33 (4-49) U/L Alkaline Phosphatase 34 L 39 (38-126) U/L Total Protein 6.0 L 6.0 L (6.3-8.2) g/dL Albumin 3.6 3.5 (3.5-5.0) g/dL Current Medications Generic Name Dose Route Start Last Admin Trade Name Freq PRN Reason Stop Dose Admin Acetaminophen 650 mg 03/04/25 23:42 03/05/25 08:20 Acetaminophen Tab 325 Mg Tab PO 650 mg Q6HR PRN Administration Mild Pain or Fever > 100.5 Aspirin 325 mg 03/05/25 09:00 Aspirin 325 Mg Tab PO DAILY [facility] Atorvastatin Calcium 80 mg 03/05/25 09:00 Atorvastatin 80 Mg Tab PO DAILY [facility] Heparin Sodium (Porcine) 0 unit 03/04/25 22:57 Heparin Sodium 1,000 Un/Ml (10ml Vl) IV PER PROTOCOL PRN Low PTT Protocol Heparin Sodium/Sodium Chloride 250 mls @ 9.979 mls/hr 03/04/25 23:00 03/05/25 01:26 25,000 unit/ Sodium Chloride IV 10 units/kg/hr .Q24H TAD 9.979 mls/hr Administration Protocol 10 UNITS/KG/HR Ibuprofen 400 mg 03/04/25 23:42 Ibuprofen 400 Mg Tab PO Q6HR PRN Mild Pain or Fever > 100.5 Morphine Sulfate 4 mg 03/04/25 23:42 Morphine Sulfate 4 Mg/Ml Syringe IV Q4HR PRN Chest Pain Naloxone HCl 0.2 mg 03/04/25 23:42 Naloxone 0.4 Mg/Ml 1 Ml Vial IV Q2M PRN Opioid Reversal Nitroglycerin 0.4 mg 03/04/25 23:42 Nitroglycerin Sl Tabs 0.4 Mg Tab SUBLINGUAL Q5M PRN Chest Pain Intake and Output 03/04/25 03/05/25 03/05/25 22:59 06:59 14:59 Output Total 350 Balance -350 Output: Urine 350 Other: Voiding Method Urinal # Voids 1 0 Weight 99.79 kg 102.9 kg 03/05/25 06:52 03/05/25 06:52
--- NOTE | 2025-03-05 13:46 | US ---
EXAMINATION TYPE: US kidneys/renal and bladder DATE OF EXAM: 03/05/2025 COMPARISON: US March 05, [address] February 24, 2024 CLINICAL INDICATION: Male, 84 years old with history of Kip; KIP TECHNIQUE: Grayscale imaging of the bilateral kidneys and urinary bladder: FINDINGS: EXAM MEASUREMENTS: Right Kidney: 11.1 x 5.2 x 4.6 cm Left Kidney: 12.5 x 5.6 x 5.1 cm Difficult to visualize kidneys due to overlying bowel gas Right Kidney: No evidence of hydro, Anechoic lesion lower pole= 3.3 x 2.7 x 2.8 cm Left Kidney: No evidence of hydro, cystic lesion upper pole= 3.6 x 3.0 x 3.2 cm Bladder: wnl Bilateral Jets seen: No There is no evidence for hydronephrosis at this point in time. No nephrolithiasis is seen. There are small simple appearing thin-walled cyst bilaterally redemonstrated and do not require follow-up. Th e urinary bladder is anechoic. IMPRESSION: No hydronephrosis is seen bilaterally. [facility], , 03/05/2025 1:44 PM
[2025-03-05] MEDS: IOPAMIDOL CONTRAST (ORAL USE) VIAL PO PRN (14:26)
[2025-03-05] MEDS: IPRATROPIUM-ALBUTEROL 3 ML NEB INHALATION SCH (15:34)
--- NOTE | 2025-03-05 16:29 | CT ---
EXAMINATION TYPE: CT abdomen pelvis wo con DATE OF EXAM: 03/05/2025 COMPARISON: None CLINICAL INDICATION: Male, 84 years old with history of Fever, left lower quadrant tenderness; PHH, L LQ pain, fever TECHNIQUE: CT scan of the abdomen and pelvis is performed without oral or IV contrast. CT DLP: 1094.[address] CTDI: mGy Automated exposure control for dose reduction was used. FINDINGS: Within the limitations of a non-contrast study, the following observations are made. There are tiny bilateral pleural effusions and minimal right lower lobe atelectasis. There is moderat e cardiomegaly and cardiac pacemaker. There is a single tiny gallstone but no gallbladder distention, wall thickening or pericholecystic fl uid. There is no biliary ductal dilatation. There is no organomegaly of the liver, pancreas, spleen or adrenal glands. There are no renal calcifications or hydronephrosis. There are bilateral simple renal cysts. The caliber of the abdominal aorta is normal and there is no retroperitoneal adenopathy or hemorrhage . The bowel loops are normal in caliber is no evidence of obstruction. No inflammatory changes are iden tified in the mesentery and there is no free intraperitoneal air or fluid. There is no pelvic mass, free fluid, abscess or adenopathy. There is surgical absence of the prostate gland. There are fat-containing bilateral inguinal hernias, right greater than left. There is marked multilevel degenerative disc disease in lumbar spine and visualized lower thoracic sp ine. There is [id number] osteoarthritis of the hips. IMPRESSION: 1. No acute changes in the abdomen or pelvis. 2. Prostatectomy. 3. Single tiny gallstone without gallbladder distention, wall thickening or pericholecystic fluid. 4. Tiny bilateral pleural effusions and minimal right lower lobe atelectasis. [facility], , 03/05/2025 4:26 PM
[2025-03-05] MEDS: DAPTOmycin 500 MG in SODIUM CHLORIDE 0.9% 50 ML IVPB SCH (16:52)
--- NOTE | 2025-03-05 17:21 | P.CNPUL ---
History of Present Illness Consult date: 03/05/25 Reason for consult: hypoxemia History of present illness: This is a 84-year-old male patient who presented to the hospital with symptoms of acute onset joint aches and muscle aches that started at 4:00 on the morning of admission. The patient woke up with those symptoms and he was feeling quite weak and was having also chills and sweats. Based on that, he came into the hospital. The patient was very much concerned of an underlying septic event as the patient has been hospitalized in the past, approximately a year ago with E. coli urine tract infection and sepsis. The patient has history of prostate cancer and the patient has undergone prostatectomy. He also had history of urethral resection and the patient undergoes daily urethral dilatation using a catheter. Following that, is able to urinate throughout the day without any yelitza or difficulties. Noted, the patient denied having any dysuria. No pelvic pain. No flank pain. No cough sputum production chest tightness or wheezing. His Tmax was 103 and at the time of admission the patient was found to be hypoxic with a pulse ox of 95% 40s of oxygen by nasal cannula. Further investigation was done. EKG showed a paced ventricular rhythm. Chest x-ray showed no acute cardiopulmonary process. The patient was given a CT of the chest that showed no evidence of any airspace disease and the patient had no evidence of any pulmonary embolism. Blood work was done in the emergency and the patient was found to have a white cell count of 10.6 with a hemoglobin 13.2 and a platelet count of 100. Normal coagulation profile. BUN is 22 with a creatinine of 1.29. Sodium level is at 135. Potassium levels at 3.7. UA is showing hyaline cast, no significant white cells, 6 RBCs and the viral screen was essentially negative. Echocardiogram done back in 2022 showed reduced LV function with an ejection fraction of 45 to 50% his troponins were mildly elevated at 0.1, 0.2, 0.2 and 0.1 respectively. Based on that, the patient was started on IV heparin. The preliminary blood c ulture is showing gram-positive cocci and the patient was started on broad- spectrum antibiotics and the patient is currently on a combination of Zosyn and vancomycin. The patient is currently sitting up on a chair. No significant hypotension. No altered mentation. No nausea or emesis. No abdominal pain. Pacemaker pocket over the left anterior chest area is dry clean and intact. No wounds. No cellulitis. Review of Systems Constitutional: Reports chills, Reports fatigue, Reports fever Eyes: denies as per HPI, denies blurred vision, denies bulging eye, denies decreased vision, denies diplopia, denies discharge, denies dry eye, denies irritation, denies itching, denies pain, denies photophobia, denies loss of peripheral vision, denies loss of vision, denies tunnel vision/blind spots Ears: deny: decreased hearing, ear discharge, earache, tinnitus Ears, nose, mouth and throat: Reports as per HPI Breasts: absent: as per HPI, gynecomastia Cardiovascular: Reports decreased exercise tolerance Respiratory: Reports dyspnea Gastrointestinal: Reports as per HPI Genitourinary: Reports as per HPI (See as above), Reports urinary retention Musculoskeletal: Reports as per HPI Musculoskeletal: absent: ankle pain, ankle stiffness, ankle swelling, as per HPI, elbow pain, elbow stiffness, elbow swelling, foot pain, foot stiffness, foot swelling, hand pain, hand stiffness, hand swelling, hip pain, hip s tiffness, hip swelling, knee pain, knee stiffness, knee swelling, shoulder pain, shoulder stiffness, shoulder swelling, wrist pain, wrist stiffness, wrist swelling Integumentary: Reports as per HPI Neurological: Reports as per HPI Psychiatric: Reports as per HPI Endocrine: Reports as per HPI, Reports fatigue Hematologic/Lymphatic: Reports as per HPI Allergic/Immunologic: Reports as per HPI Past Medical History Past Medical History: Atrial Fibrillation, Cancer, GERD/Reflux, Hearing Disorder / Deafness, Hypertension, Osteoarthritis (OA) Additional Past Medical History / Comment(s): Hx prostate cancer , hx skin cancer, recent frequent headaches in the morning. Mild hearing loss. History of Any Multi-Drug Resistant Organisms: None Reported Past Surgical History: Pacemaker, Prostate Surgery Additional Past Surgical History / Comment(s): Prostatectomy, skin cancer removed, colonoscopy. Past Anesthesia/Blood Transfusion Reactions: No Reported Reaction Type of Cardiac Device: Permanent Pacemaker Device Placement Date:: 07/12/2023 Past Psychological History: No Psychological Hx Reported Smoking Status: Current some day smoker Past Alcohol Use History: None Reported Additional Past Alcohol Use History / Comment(s): Down from 2ppd to less than 1ppd, started smoking 50-55 yrs ago. Past Drug Use History: None Reported - Past Family History Sister(s) Family Medical History: Cancer Additional Family Medical History / Comment(s): Breast cancer. Medications and Allergies Home Medications Medication Instructions Recorded Confirmed Type Esomeprazole Magnesium [NexIUM] 40 mg PO DAILY 12/25/20 03/05/25 History Potassium Chloride [Potassium 10 meq PO QID 12/25/20 03/05/25 History Chloride ER] Apixaban [Eliquis] 5 mg PO BID #60 tab 07/15/23 03/05/25 Rx Acetaminophen Tab [Tylenol Tab] 1,000 mg PO TID 03/05/25 03/05/25 History Fish Oil/Dha/Epa [Fish Oil 1,200 1 cap PO BID 03/05/25 03/05/25 History mg Fish Oil] Furosemide [Lasix] 40 mg PO BID 03/05/25 03/05/25 History Losartan [Cozaar] 50 mg PO BID 03/05/25 03/05/25 History Niacin 500 mg PO BID 03/05/25 03/05/25 History Nystatin 100,000 Unit/gm Oint 1 applic TOPICAL HS 03/05/25 03/05/25 History [Mycostatin Oint] Pumpkin Seed 1,000mg 2,000 mg PO TID 03/05/25 03/05/25 History Ubidecarenone [Co Q-10] 400 mg PO DAILY 03/05/25 03/05/25 History allopurinoL [Zyloprim] 100 mg PO DAILY 03/05/25 03/05/25 History calcitrioL [Rocaltrol] 0.25 mcg PO MOWEFR 03/05/25 03/05/25 History carvediloL [Coreg] 25 mg PO BID 03/05/25 03/05/25 History Allergies Allergy/AdvReac Type Severity Reaction Status Date / Time No Known Allergies Allergy Verified 03/05/25 10:35 Physical Exam Vitals: Vital Signs Temp Pulse Pulse Resp BP BP Pulse Ox 03/05/25 13:33 61 18 03/05/25 11:24 99.8 F H 61 18 95/57 95 03/05/25 08:19 93 L 03/05/25 08:11 100.1 F H 68 18 116/64 92 L 03/05/25 08:00 68 18 03/05/25 05:15 97.4 F L 65 18 102/63 94 L 03/05/25 04:47 59 L 19 103/66 92 L 03/05/25 04:21 60 19 101/54 93 L 03/05/25 03:21 98.9 F 66 18 93/55 96 03/05/25 01:22 63 18 91/58 94 L 03/05/25 00:15 98.8 F 59 L 20 90/50 96 03/04/25 23:31 65 03/04/25 23:10 61 03/04/25 22:05 100.8 F H 63 22 144/108 94 L 03/04/25 20:30 20 03/04/25 20:24 103.0 F H 63 20 100/67 94 L Intake and Output 03/05/25 03/05/25 03/05/25 06:59 14:59 22:59 Output Total 350 300 Balance -350 -300 Output: Urine 350 300 Other: Voiding Method Urinal # Voids 1 0 Weight 102.9 kg The patient appeared well nourished and normally developed. Vital signs as documented. The patient has a body mass index of 34.5. The patient is currently on 4 L of oxygen by nasal cannula. Head exam is unremarkable. No scleral icterus or corneal arcus noted. Neck is without jugular venous distension, thyromegaly, or carotid bruits. Carotid upstrokes are brisk bilaterally. Lungs are clear to auscultation and percussion. Breath sounds are diminished in lung base bilaterally. Cardiac exam reveals the PMI to be normally sized and situated. Rhythm is regular. First and second heart sounds normal. No murmurs, rubs or gallops. The cardiac rhythm is paced and the patient has a pacemaker pocket over the left anterior chest area. Abdominal exam reveals normal bowel sounds, no masses, no organomegaly and no aortic enlargement. Extremities are nonedematous and both femoral and pedal pulses are normal. Examination of the skin revealed no evidence of significant rashes, suspicious appearing nevi or other concerning lesions. Neurologically, the patient is awake and alert and the patient does not have any focal neurological deficit. Cranial nerves are essentially intact. Results - Laboratory Findings CBC and BMP: 03/05/25 06:52 03/05/25 06:52 PT/INR, D-dimer PT 11.9 sec (10.0-12.5) 03/04/25 21:21 INR 1.1 (<1.2) 03/04/25 21:21 Abnormal lab findings: Abnormal Labs 03/04/25 03/04/25 03/04/25 21:21 21:21 21:21 WBC 10.61 H RBC 4.17 L Hct 38.0 L Plt Count 100 L Neutrophils # 10.01 H Lymphocytes # 0.22 L Monocytes # Eosinophils # 0.00 L APTT Sodium 135 L BUN 22 H Creatinine 1.29 H Glucose 154 H Calcium Magnesium 1.5 L Alkaline Phosphatase 34 L Troponin I 0.164 H* Total Protein 6.0 L Urine Protein Urine Blood Urine RBC Amorphous Sediment Hyaline Casts Urine Mucus 03/04/25 03/05/25 03/05/25 23:08 00:11 02:55 WBC RBC Hct Plt Count Neutrophils # Lymphocytes # Monocytes # Eosinophils # APTT Sodium BUN Creatinine Glucose Calcium Magnesium Alkaline Phosphatase Troponin I 0.259 H* 0.260 H* Total Protein Urine Protein 1+ H Urine Blood Small H Urine RBC 6 H Amorphous Sediment Occasional H Hyaline Casts 40 H Urine Mucus Occasional H 03/05/25 03/05/25 03/05/25 06:52 06:52 06:52 WBC RBC 4.36 L Hct Plt Count 92 L Neutrophils # 7.90 H Lymphocytes # 0.10 L Monocytes # 0.15 L Eosinophils # 0.00 L APTT Sodium 150 H BUN 23 H Creatinine 1.29 H Glucose 127 H Calcium 8.2 L Magnesium Alkaline Phosphatase Troponin I 0.186 H* Total Protein 6.0 L Urine Protein Urine Blood Urine RBC Amorphous Sediment Hyaline Casts Urine Mucus 03/05/25 06:52 WBC RBC Hct Plt Count Neutrophils # Lymphocytes # Monocytes # Eosinophils # APTT 47.4 H Sodium BUN Creatinine Glucose Calcium Magnesium Alkaline Phosphatase Troponin I Total Protein Urine Protein Urine Blood Urine RBC Amorphous Sediment Hyaline Casts Urine Mucus - Diagnostic Findings Chest x-ray: image reviewed CT scan - chest: image reviewed Assessment and Plan Plan: Acute febrile illness associated with chills and fever and generalized bodyaches and weakness. Consider underlying septic event. Exact source is not clear although urinary sources quite suspected. Primary culture is showing gram- positive cocci and the patient is currently on a combination of daptomycin and Zosyn. Gram-positive sepsis/bacteremia, awaiting final cultures and the patient is currently on a combination of Zosyn and daptomycin Acute hypoxic respiratory failure currently on 4 L of oxygen by nasal cannula. The patient had a CT of the chest that showed no evidence of any pneumonia. No evidence of any airspace disease or pulmonary embolism. Coronary artery disease, consider underlying Abnormal troponins, consider acute NSTEMI versus type II myocardial ischemia related underlying sepsis. Patient is currently on IV heparin. Cardiology on the case. Paroxysmal atrial fibrillation maintained on long-term anticoagulation with Eliquis. The patient is currently on IV heparin. 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 Plan Titrate oxygen flow to maintain saturation above 90%, currently on 4 L Continue Zosyn and daptomycin Continue IV heparin Awaiting results of blood cultures ID consult Monitor renal function Will continue to follow make further recommendations based on his progress. Time with Patient: Greater than 30
[2025-03-05 17:26] LABS: Chol/HDL Ratio 3.27 Ratio; LDL Cholesterol,Calculated 89.8 mg/dL (0.0-131.0); VLDL Calculation 17.08 mg/dL (5.00-40.00)
--- NOTE | 2025-03-05 17:29 | P.GSCN ---
History of Present Illness Consult date: 03/05/25 Reason for Consult: Urethral stricture History of present illness: This is an 84-year-old male known patient of Dr. Lopez with history of urethral stricture, he did require urethral dilation last year and a Martinez catheter placement. Since that time he has been dilating his penile urethral stricture intermittently using a middle dilator. Indicated he has not been having any issues with voiding, intermittently has been having some penile bleeding. Since being hospitalized denies any voiding issues or any gross hematuria or dysuria. Review of Systems - Constitutional Denies fever, Denies weight loss - Cardiovascular Denies chest pain, Denies shortness of breath - Respiratory Denies cough, Denies 7 - Gastrointestinal Reports as per HPI - Integumentary Denies rash, Denies unusual bruising - Neurological Denies headaches, Denies syncope Past Medical History Past Medical History: Atrial Fibrillation, Cancer, GERD/Reflux, Hearing Disorder / Deafness, Hypertension, Osteoarthritis (OA) Additional Past Medical History / Comment(s): Hx prostate cancer , hx skin cancer, recent frequent headaches in the morning. Mild hearing loss. History of Any Multi-Drug Resistant Organisms: None Reported Past Surgical History: Pacemaker, Prostate Surgery Additional Past Surgical History / Comment(s): Prostatectomy, skin cancer removed, colonoscopy. Past Anesthesia/Blood Transfusion Reactions: No Reported Reaction Type of Cardiac Device: Permanent Pacemaker Device Placement Date:: 07/12/2023 Past Psychological History: No Psychological Hx Reported Smoking Status: Current some day smoker Past Alcohol Use History: None Reported Additional Past Alcohol Use History / Comment(s): Down from 2ppd to less than 1ppd, started smoking 50-55 yrs ago. Past Drug Use History: None Reported - Past Family History Sister(s) Family Medical History: Cancer Additional Family Medical History / Comment(s): Breast cancer. Medications and Allergies Home Medications Medication Instructions Recorded Confirmed Type Esomeprazole Magnesium [NexIUM] 40 mg PO DAILY 12/25/20 03/05/25 History Potassium Chloride [Potassium 10 meq PO QID 12/25/20 03/05/25 History Chloride ER] Apixaban [Eliquis] 5 mg PO BID #60 tab 07/15/23 03/05/25 Rx Acetaminophen Tab [Tylenol Tab] 1,000 mg PO TID 03/05/25 03/05/25 History Fish Oil/Dha/Epa [Fish Oil 1,200 1 cap PO BID 03/05/25 03/05/25 History mg Fish Oil] Furosemide [Lasix] 40 mg PO BID 03/05/25 03/05/25 History Losartan [Cozaar] 50 mg PO BID 03/05/25 03/05/25 History Niacin 500 mg PO BID 03/05/25 03/05/25 History Nystatin 100,000 Unit/gm Oint 1 applic TOPICAL HS 03/05/25 03/05/25 History [Mycostatin Oint] Pumpkin Seed 1,000mg 2,000 mg PO TID 03/05/25 03/05/25 History Ubidecarenone [Co Q-10] 400 mg PO DAILY 03/05/25 03/05/25 History allopurinoL [Zyloprim] 100 mg PO DAILY 03/05/25 03/05/25 History calcitrioL [Rocaltrol] 0.25 mcg PO MOWEFR 03/05/25 03/05/25 History carvediloL [Coreg] 25 mg PO BID 03/05/25 03/05/25 History Allergies Allergy/AdvReac Type Severity Reaction Status Date / Time No Known Allergies Allergy Verified 03/05/25 10:35 Surgical - Exam Vital Signs Temp Pulse Resp BP Pulse Ox 103.0 F H 63 20 100/67 94 L 03/04/25 20:24 03/04/25 20:24 03/04/25 20:24 03/04/25 20:24 03/04/25 20:24 - General no distress, no pain - Eyes normal ocular movement, no pale - ENT normal nares, normal mucosa - Respiratory normal expansion, normal respiratory effort - Abdomen Abdomen: soft, non tender - Psychiatric oriented to time, oriented to person, oriented to place Results - Labs 03/05/25 06:52 03/05/25 06:52 Abnormal Lab Results - Last 24 Hours (Table) 03/04/25 03/04/25 03/04/25 Range/Units 21:21 21:21 21:21 WBC 10.61 H (4.50-10.00) 10*3/uL RBC 4.17 L (4.40-5.60) 10*6/uL Hct 38.0 L (39.6-50.0) % Plt Count 100 L (140-440) 10*3/uL Neutrophils # 10.01 H (1.80-7.70) 10*3/uL Lymphocytes # 0.22 L (0.90-5.00) 10*3/uL Monocytes # (0.20-1.00) 10*3/uL Eosinophils # 0.00 L (0.04-0.35) 10*3/uL APTT (22.0-30.0) sec Sodium 135 L (137-145) mmol/L BUN 22 H (9-20) mg/dL Creatinine 1.29 H (0.66-1.25) mg/dL Glucose 154 H (74-99) mg/dL Calcium (8.4-10.2) mg/dL Magnesium 1.5 L (1.6-2.3) mg/dL Alkaline Phosphatase 34 L (38-126) U/L Troponin I 0.164 H* (0.000-0.034) ng/mL Total Protein 6.0 L (6.3-8.2) g/dL Urine Protein (Negative) Urine Blood (Negative) Urine RBC (0-5) /hpf Amorphous Sediment (None) /hpf Hyaline Casts (0-2) /lpf Urine Mucus (None) /hpf 03/04/25 03/05/25 03/05/25 Range/Units 23:08 00:11 02:55 WBC (4.50-10.00) 10*3/uL RBC (4.40-5.60) 10*6/uL Hct (39.6-50.0) % Plt Count (140-440) 10*3/uL Neutrophils # (1.80-7.70) 10*3/uL Lymphocytes # (0.90-5.00) 10*3/uL Monocytes # (0.20-1.00) 10*3/uL Eosinophils # (0.04-0.35) 10*3/uL APTT (22.0-30.0) sec Sodium (137-145) mmol/L BUN (9-20) mg/dL Creatinine (0.66-1.25) mg/dL Glucose (74-99) mg/dL Calcium (8.4-10.2) mg/dL Magnesium (1.6-2.3) mg/dL Alkaline Phosphatase (38-126) U/L Troponin I 0.259 H* 0.260 H* (0.000-0.034) ng/mL Total Protein (6.3-8.2) g/dL Urine Protein 1+ H (Negative) Urine Blood Small H (Negative) Urine RBC 6 H (0-5) /hpf Amorphous Sediment Occasional H (None) /hpf Hyaline Casts 40 H (0-2) /lpf Urine Mucus Occasional H (None) /hpf 03/05/25 03/05/25 03/05/25 Range/Units 06:52 06:52 06:52 WBC (4.50-10.00) 10*3/uL RBC 4.36 L (4.40-5.60) 10*6/uL Hct (39.6-50.0) % Plt Count 92 L (140-440) 10*3/uL Neutrophils # 7.90 H (1.80-7.70) 10*3/uL Lymphocytes # 0.10 L (0.90-5.00) 10*3/uL Monocytes # 0.15 L (0.20-1.00) 10*3/uL Eosinophils # 0.00 L (0.04-0.35) 10*3/uL APTT (22.0-30.0) sec Sodium 150 H (137-145) mmol/L BUN 23 H (9-20) mg/dL Creatinine 1.29 H (0.66-1.25) mg/dL Glucose 127 H (74-99) mg/dL Calcium 8.2 L (8.4-10.2) mg/dL Magnesium (1.6-2.3) mg/dL Alkaline Phosphatase (38-126) U/L Troponin I 0.186 H* (0.000-0.034) ng/mL Total Protein 6.0 L (6.3-8.2) g/dL Urine Protein (Negative) Urine Blood (Negative) Urine RBC (0-5) /hpf Amorphous Sediment (None) /hpf Hyaline Casts (0-2) /lpf Urine Mucus (None) /hpf 03/05/25 Range/Units 06:52 WBC (4.50-10.00) 10*3/uL RBC (4.40-5.60) 10*6/uL Hct (39.6-50.0) % Plt Count (140-440) 10*3/uL Neutrophils # (1.80-7.70) 10*3/uL Lymphocytes # (0.90-5.00) 10*3/uL Monocytes # (0.20-1.00) 10*3/uL Eosinophils # (0.04-0.35) 10*3/uL APTT 47.4 H (22.0-30.0) sec Sodium (137-145) mmol/L BUN (9-20) mg/dL Creatinine (0.66-1.25) mg/dL Glucose (74-99) mg/dL Calcium (8.4-10.2) mg/dL Magnesium (1.6-2.3) mg/dL Alkaline Phosphatase (38-126) U/L Troponin I (0.000-0.034) ng/mL Total Protein (6.3-8.2) g/dL Urine Protein (Negative) Urine Blood (Negative) Urine RBC (0-5) /hpf Amorphous Sediment (None) /hpf Hyaline Casts (0-2) /lpf Urine Mucus (None) /hpf Microbiology - Last 24 Hours (Table) 03/04/25 21:29 Blood Culture Gram Stain - Preliminary Blood Blood Culture - Preliminary Molecular ID Diabetes panel 03/04/25 03/05/25 Range/Units 21:21 06:52 Sodium 135 L 150 H (137-145) mmol/L Potassium 3.7 3.9 (3.5-5.1) mmol/L Chloride 98 104 (98-107) mmol/L Carbon Dioxide 28 24 (22-30) mmol/L BUN 22 H 23 H (9-20) mg/dL Creatinine 1.29 H 1.29 H (0.66-1.25) mg/dL Glucose 154 H 127 H (74-99) mg/dL Calcium 8.6 8.2 L (8.4-10.2) mg/dL AST 33 44 (17-59) U/L ALT 25 33 (4-49) U/L Alkaline Phosphatase 34 L 39 (38-126) U/L Total Protein 6.0 L 6.0 L (6.3-8.2) g/dL Albumin 3.6 3.5 (3.5-5.0) g/dL Triglycerides 85.40 (0.00-149.00) mg/dL HDL Cholesterol 47.10 (40.00-60.00) mg/dL Calcium panel 03/04/25 03/05/25 Range/Units 21:21 06:52 Calcium 8.6 8.2 L (8.4-10.2) mg/dL Phosphorus 4.5 (2.5-4.5) mg/dL Albumin 3.6 3.5 (3.5-5.0) g/dL Pituitary panel 03/04/25 03/05/25 Range/Units 21:21 06:52 Sodium 135 L 150 H (137-145) mmol/L Potassium 3.7 3.9 (3.5-5.1) mmol/L Chloride 98 104 (98-107) mmol/L Carbon Dioxide 28 24 (22-30) mmol/L BUN 22 H 23 H (9-20) mg/dL Creatinine 1.29 H 1.29 H (0.66-1.25) mg/dL Glucose 154 H 127 H (74-99) mg/dL Calcium 8.6 8.2 L (8.4-10.2) mg/dL Adrenal panel 03/04/25 03/05/25 Range/Units 21:21 06:52 Sodium 135 L 150 H (137-145) mmol/L Potassium 3.7 3.9 (3.5-5.1) mmol/L Chloride 98 104 (98-107) mmol/L Carbon Dioxide 28 24 (22-30) mmol/L BUN 22 H 23 H (9-20) mg/dL Creatinine 1.29 H 1.29 H (0.66-1.25) mg/dL Glucose 154 H 127 H (74-99) mg/dL Calcium 8.6 8.2 L (8.4-10.2) mg/dL Total Bilirubin 0.9 0.7 (0.2-1.3) mg/dL AST 33 44 (17-59) U/L ALT 25 33 (4-49) U/L Alkaline Phosphatase 34 L 39 (38-126) U/L Total Protein 6.0 L 6.0 L (6.3-8.2) g/dL Albumin 3.6 3.5 (3.5-5.0) g/dL Assessment and Plan Assessment: 84-year-old male with history of urethral stricture, and a penile urethral stricture being managed with intermittent dilation. He is currently voiding without any issues. From urology standpoint no further intervention is needed, he can resume dilation as an outpatient
[2025-03-05] MEDS: carvediloL 12.5 MG TAB PO SCH (17:31)
[2025-03-05] MEDS: PIPERACILLIN-TAZOBACTAM 3.375 GM in SODIUM CHLORIDE 0.9% 100 ML IVPB SCH (17:31)
[2025-03-05] MEDS: NIACIN TR 500 MG CAPLET PO SCH (20:01)
[2025-03-05] MEDS: LOSARTAN 50 MG TAB PO SCH (20:01)
--- NOTE | 2025-03-05 23:18 | P.CONS ---
History of Present Illness - Reason for Consult Consult date: 03/05/25 Fever Requesting physician: Devyn Verde - Chief Complaint Weakness and fall x 1 day - History of Present Illness Patient is a 84-year-old male with a past medical history significant for Atrial Fibrillation, Cancer, GERD/Reflux, Hearing Disorder / Deafness, Hypertension, Osteoarthritis (OA) presenting to the hospital after apparently the patient fell out of the bed patient mention he was try to get to the bathroom felt very weak and slid to the ground did not lose any consciousness patient denies having any headache or URI symptoms no chest pain there is no shortness of breath no significant cough some nausea but no vomiting abdominal pain or diarrhea on presentation to the hospital patient did have a fever of 103 F patient was not tachycardic mildly hypertensive and hypoxic on supplemental oxygen his white count was 10.61 with a left shift BUN and creatinine has been mildly elevated liver enzymes are elevated urine was not significantly positive influenza RSV COVID testing negative patient did have a chest x-ray chronic changes with cardiomegaly without acute pulmonary process he also have a CT angiogram of the chest that was negative for PE and did not show any evidence of consolidation patient was admitted to the hospital infectious disease was consulted because of fever and need for antibiotic therapy Review of Systems Positive point and negatives has been mentioned in the HPI, complete review of systems was performed and all other systems are negative Past Medical History Past Medical History: Atrial Fibrillation, Cancer, GERD/Reflux, Hearing Disorder / Deafness, Hypertension, Osteoarthritis (OA) Additional Past Medical History / Comment(s): Hx prostate cancer , hx skin cancer, recent frequent headaches in the morning. Mild hearing loss. History of Any Multi-Drug Resistant Organisms: None Reported Past Surgical History: Pacemaker, Prostate Surgery Additional Past Surgical History / Comment(s): Prostatectomy, skin cancer removed, colonoscopy. Past Anesthesia/Blood Transfusion Reactions: No Reported Reaction Type of Cardiac Device: Permanent Pacemaker Device Placement Date:: 07/12/2023 Past Psychological History: No Psychological Hx Reported Smoking Status: Current some day smoker Past Alcohol Use History: None Reported Additional Past Alcohol Use History / Comment(s): Down from 2ppd to less than 1ppd, started smoking 50-55 yrs ago. Past Drug Use History: None Reported - Past Family History Sister(s) Family Medical History: Cancer Additional Family Medical History / Comment(s): Breast cancer. Medications and Allergies Home Medications Medication Instructions Recorded Confirmed Type Esomeprazole Magnesium [NexIUM] 40 mg PO DAILY 12/25/20 03/05/25 History Potassium Chloride [Potassium 10 meq PO QID 12/25/20 03/05/25 History Chloride ER] Apixaban [Eliquis] 5 mg PO BID #60 tab 07/15/23 03/05/25 Rx Acetaminophen Tab [Tylenol Tab] 1,000 mg PO TID 03/05/25 03/05/25 History Fish Oil/Dha/Epa [Fish Oil 1,200 1 cap PO BID 03/05/25 03/05/25 History mg Fish Oil] Furosemide [Lasix] 40 mg PO BID 03/05/25 03/05/25 History Losartan [Cozaar] 50 mg PO BID 03/05/25 03/05/25 History Niacin 500 mg PO BID 03/05/25 03/05/25 History Nystatin 100,000 Unit/gm Oint 1 applic TOPICAL HS 03/05/25 03/05/25 History [Mycostatin Oint] Pumpkin Seed 1,000mg 2,000 mg PO TID 03/05/25 03/05/25 History Ubidecarenone [Co Q-10] 400 mg PO DAILY 03/05/25 03/05/25 History allopurinoL [Zyloprim] 100 mg PO DAILY 03/05/25 03/05/25 History calcitrioL [Rocaltrol] 0.25 mcg PO MOWEFR 03/05/25 03/05/25 History carvediloL [Coreg] 25 mg PO BID 03/05/25 03/05/25 History Allergies Allergy/AdvReac Type Severity Reaction Status Date / Time No Known Allergies Allergy Verified 03/05/25 10:35 Physical Exam Vitals: Vital Signs Temp Pulse Pulse Resp BP BP Pulse Ox 03/05/25 11:24 99.8 F H 61 18 95/57 95 03/05/25 08:19 93 L 03/05/25 08:11 100.1 F H 68 18 116/64 92 L 03/05/25 08:00 68 18 03/05/25 05:15 97.4 F L 65 18 102/63 94 L 03/05/25 04:47 59 L 19 103/66 92 L 03/05/25 04:21 60 19 101/54 93 L 03/05/25 03:21 98.9 F 66 18 93/55 96 03/05/25 01:22 63 18 91/58 94 L 03/05/25 00:15 98.8 F 59 L 20 90/50 96 03/04/25 23:31 65 03/04/25 23:10 61 03/04/25 22:05 100.8 F H 63 22 144/108 94 L 03/04/25 20:30 20 03/04/25 20:24 103.0 F H 63 20 100/67 94 L Intake and Output 03/04/25 03/05/25 03/05/25 22:59 06:59 14:59 Output Total 350 Balance -350 Output: Urine 350 Other: Voiding Method Urinal # Voids 1 0 Weight 99.79 kg 102.9 kg GENERAL DESCRIPTION: Elderly male lying in bed, no distress. No tachypnea or accessory muscle of respiration use. HEENT: Shows Pallor , no scleral icterus. Oral mucous membrane is dry. NECK: Trachea central, no thyromegaly. LUNGS: Unlabored breathing. Decreased breath sound at the base HEART: S1, S2, regular rate and rhythm. No loud murmur ABDOMEN: Soft, no tenderness , guarding or rigidity, no organomegaly EXTREMITIES: Some bruises to bilateral knee SKIN: No rash, no masses palpable. NEUROLOGICAL: The patient is awake, alert, oriented x3, mood and affect normal. Results CBC & Chem 7: 03/05/25 06:52 03/05/25 06:52 Labs: Abnormal Lab Results - Last 24 Hours (Table) 03/04/25 03/04/25 03/04/25 Range/Units 21:21 21:21 21:21 WBC 10.61 H (4.50-10.00) 10*3/uL RBC 4.17 L (4.40-5.60) 10*6/uL Hct 38.0 L (39.6-50.0) % Plt Count 100 L (140-440) 10*3/uL Neutrophils # 10.01 H (1.80-7.70) 10*3/uL Lymphocytes # 0.22 L (0.90-5.00) 10*3/uL Monocytes # (0.20-1.00) 10*3/uL Eosinophils # 0.00 L (0.04-0.35) 10*3/uL APTT (22.0-30.0) sec Sodium 135 L (137-145) mmol/L BUN 22 H (9-20) mg/dL Creatinine 1.29 H (0.66-1.25) mg/dL Glucose 154 H (74-99) mg/dL Calcium (8.4-10.2) mg/dL Magnesium 1.5 L (1.6-2.3) mg/dL Alkaline Phosphatase 34 L (38-126) U/L Troponin I 0.164 H* (0.000-0.034) ng/mL Total Protein 6.0 L (6.3-8.2) g/dL Urine Protein (Negative) Urine Blood (Negative) Urine RBC (0-5) /hpf Amorphous Sediment (None) /hpf Hyaline Casts (0-2) /lpf Urine Mucus (None) /hpf 03/04/25 03/05/25 03/05/25 Range/Units 23:08 00:11 02:55 WBC (4.50-10.00) 10*3/uL RBC (4.40-5.60) 10*6/uL Hct (39.6-50.0) % Plt Count (140-440) 10*3/uL Neutrophils # (1.80-7.70) 10*3/uL Lymphocytes # (0.90-5.00) 10*3/uL Monocytes # (0.20-1.00) 10*3/uL Eosinophils # (0.04-0.35) 10*3/uL APTT (22.0-30.0) sec Sodium (137-145) mmol/L BUN (9-20) mg/dL Creatinine (0.66-1.25) mg/dL Glucose (74-99) mg/dL Calcium (8.4-10.2) mg/dL Magnesium (1.6-2.3) mg/dL Alkaline Phosphatase (38-126) U/L Troponin I 0.259 H* 0.260 H* (0.000-0.034) ng/mL Total Protein (6.3-8.2) g/dL Urine Protein 1+ H (Negative) Urine Blood Small H (Negative) Urine RBC 6 H (0-5) /hpf Amorphous Sediment Occasional H (None) /hpf Hyaline Casts 40 H (0-2) /lpf Urine Mucus Occasional H (None) /hpf 03/05/25 03/05/25 03/05/25 Range/Units 06:52 06:52 06:52 WBC (4.50-10.00) 10*3/uL RBC 4.36 L (4.40-5.60) 10*6/uL Hct (39.6-50.0) % Plt Count 92 L (140-440) 10*3/uL Neutrophils # 7.90 H (1.80-7.70) 10*3/uL Lymphocytes # 0.10 L (0.90-5.00) 10*3/uL Monocytes # 0.15 L (0.20-1.00) 10*3/uL Eosinophils # 0.00 L (0.04-0.35) 10*3/uL APTT (22.0-30.0) sec Sodium 150 H (137-145) mmol/L BUN 23 H (9-20) mg/dL Creatinine 1.29 H (0.66-1.25) mg/dL Glucose 127 H (74-99) mg/dL Calcium 8.2 L (8.4-10.2) mg/dL Magnesium (1.6-2.3) mg/dL Alkaline Phosphatase (38-126) U/L Troponin I 0.186 H* (0.000-0.034) ng/mL Total Protein 6.0 L (6.3-8.2) g/dL Urine Protein (Negative) Urine Blood (Negative) Urine RBC (0-5) /hpf Amorphous Sediment (None) /hpf Hyaline Casts (0-2) /lpf Urine Mucus (None) /hpf 03/05/25 Range/Units 06:52 WBC (4.50-10.00) 10*3/uL RBC (4.40-5.60) 10*6/uL Hct (39.6-50.0) % Plt Count (140-440) 10*3/uL Neutrophils # (1.80-7.70) 10*3/uL Lymphocytes # (0.90-5.00) 10*3/uL Monocytes # (0.20-1.00) 10*3/uL Eosinophils # (0.04-0.35) 10*3/uL APTT 47.4 H (22.0-30.0) sec Sodium (137-145) mmol/L BUN (9-20) mg/dL Creatinine (0.66-1.25) mg/dL Glucose (74-99) mg/dL Calcium (8.4-10.2) mg/dL Magnesium (1.6-2.3) mg/dL Alkaline Phosphatase (38-126) U/L Troponin I (0.000-0.034) ng/mL Total Protein (6.3-8.2) g/dL Urine Protein (Negative) Urine Blood (Negative) Urine RBC (0-5) /hpf Amorphous Sediment (None) /hpf Hyaline Casts (0-2) /lpf Urine Mucus (None) /hpf Assessment and Plan (1) Elevated serum creatinine Current Visit: Yes Status: Acute Code(s): R79.89 - OTHER SPECIFIED ABNORMAL FINDINGS OF BLOOD CHEMISTRY SNOMED Code(s): 117717624 (2) Fever Current Visit: Yes Status: Acute Code(s): R50.9 - FEVER, UNSPECIFIED SNOMED Code(s): 142784843 (3) Sepsis Current Visit: No Status: Acute Code(s): A41.9 - SEPSIS, UNSPECIFIED ORGANISM SNOMED Code(s): 85432133 Plan: 1patient [facility] with sepsis in this patient who did have fever elevated white count meeting ready for SIRS source is likely abdominal has the patient was noted to be tender in the left lower quadrant area with concern for possible diverticulitis or related pathology likely from enteric gram-negative pathogen as there was no evidence of any pneumonia or UTI on the initial workup no evidence of any cellulitis or joint swelling 2-we will obtain CT of abdominal pelvis with oral contrast because of elevated creatinine 3-we will empirically treat the patient with Zosyn while waiting for the workup to be completed We will follow on clinical condition and cultures to further adjust medication if needed Thank you for this consultation we will follow the patient along with you Dictation was produced using [employer] dictation software. please excuse any grammatical, word or spelling errors.
[2025-03-06 05:58] LABS: Appearance,Urine Cloudy (Clear); Bacteria,Urine Rare /hpf; Bilirubin,Urine Negative (Negative); Blood,Urine Small (Negative); Color,Urine Yellow; Glucose,Urine (UA) Negative (Negative); Ketones,Urine Negative (Negative); Leukocyte Esterase,Urine Negative (Negative); Nitrite,Urine Negative (Negative); PH, Urine 5.5 (5.0-8.0); Protein,Urine 1+ (Negative); RBC,Urine 5 /hpf (0-5); Specific Gravity,Urine 1.022 (1.001-1.035); Squamous Epithelial Cell,Urine <1 /hpf (0-4); Urobilinogen,Urine <2.0 mg/dL (<2.0); WBC,Urine 2 /hpf (0-5)
[2025-03-06] MEDS: ASPIRIN 81 MG PO SCH (09:10)
[2025-03-06] MEDS: allopurinoL 100 MG TAB PO SCH (09:11)
--- NOTE | 2025-03-06 11:07 | CA ---
Transthoracic Echo Report Name: Dirk Vaughan Age: 84 Gender: M : 1940 Exam Date: 03/05/2025 09:22 Exam Location: [place] [facility] Ht (in): 68 Wt (lb): 220 Ordering Physician: Collin Burdick DO Attending/Referring Phys: [id number], [employer] Katharnie Andre, [place] Procedure CPT: Indications: CP, Angina pectoris with documented spasm, Other forms of angina pectoris Cardiac Hx: Technical Quality: Poor, Technically difficult study Contrast 1: Definity Total Dose (mL): 2 Contrast 2: Total Dose (mL): MEASUREMENTS (Male / Female) Normal Values 2D ECHO LV Diastolic Diameter PLAX 3.9 cm 4.2 - 5.9 / 3.9 - 5.3 cm IVS Diastolic Thickness 1.5 cm 0.6 - 1.0 / 0.6 - 0.9 cm LVPW Diastolic Thickness 1.7 cm 0.6 - 1.0 / 0.6 - 0.9 cm LV Relative Wall Thickness 0.8 RV Internal Dim ED PLAX 2.9 cm LVOT Diameter 2.0 cm LA Volume 131.0 cm??? 18 - 58 / 22 - 52 cm??? LA Volume Index 58.9 cm???/m??? 16 - 28 cm???/m??? M-MODE Aortic Root Diameter MM 3.0 cm LA Systolic Diameter MM 5.5 cm LA Ao Ratio MM 1.8 AV Cusp Separation MM 1.9 cm DOPPLER AV Peak Velocity 183.9 cm/s AV Peak Gradient 13.5 mmHg MV Area PHT 3.2 cm??? Mitral E Point Velocity 137.5 cm/s Mitral A Point Velocity 0.4 cm/s Mitral E to A Ratio 314.6 MV Deceleration Time 239.1 ms TR Peak Velocity 283.3 cm/s TR Peak Gradient 32.1 mmHg Right Ventricular Systolic Press 41.2 mmHg FINDINGS Left Ventricle Left ventricular ejection fraction is estimated at 50-55 %. Moderately increased septal wall thickness. Left ventricular cavity size normal. Mildly reduced global left ventricular systolic function. Right Ventricle Mild pulmonary hypertension. Right ventricle not well visualized. Right Atrium Moderate RA dilatation. Catheter/pacemaker wire in the right atrial cavity. Left Atrium Moderate LA dilatation Mitral Valve Mitral valve thickened. Mild mitral regurgitation. No mitral stenosis. Aortic Valve Trileaflet aortic valve. No aortic stenosis. No aortic regurgitation. Tricuspid Valve Structurally normal tricuspid valve. Mild tricuspid regurgitation. No tricuspid stenosis. Pulmonic Valve Structurally normal pulmonic valve. Trace pulmonic regurgitation. No pulmonic stenosis. Pericardium No pericardial or pleural effusion. Aorta Normal size aortic root and proximal ascending aorta. CONCLUSIONS LVEF 50 to 55% No obvious regional wall motion abnormality Mild concentric LVH Mild pulmonary hypertension RVSP 41 mmHg Moderate biatrial dilatation. PPM wire noticed in RA and RV Mild MR, mild TR Previewed by: Dr Nelson Bridges (Electronically Signed) Final Date: 06 March 2025 11:07
--- NOTE | 2025-03-06 13:44 | P.PN ---
Subjective Progress Note Date: 03/06/25 patient is a 84-year-old gentleman with past medical history significant for hypertension, atrial fibrillation presented to the ER because of generalized weakness. Patient said that he was all right last night when he tried to get to the bed and felt very weak. Patient was complaining of lethargy and weakness at the time patient also felt short of breath. Patient stated shortness of breath was present on rest as well exertion. There was no complaint of chest pain. Patient denies any fever or chills at home. There is no complaint of orthopnea or PND. There is no complaint of nausea, vomiting or abdominal pain. Because of the shortness of breath, EMS was called, patient had to be placed on 2 L of oxygen. Initially in the ER, patient fever of 103 Initial lab work done in the ER showed WBC 10.61, hemoglobin 13.2, platelet count 100, sodium 135, potassium 3.7, BUN 22, creatinine 1.29, glucose 154, lactate 1.9, calcium 8.6, magnesium 1.5 UA negative for infection Influenza A not detected Influenza B not detected RSV not detected COVID-19 not detected EKG done in the ER showed heart rate of61, ventricular paced rhythm, no ST segment elevation or depression seen, no T-wave inversions seen. Chest x-ray done in the ER showed chronic changes and cardiomegaly without acute pulmonary process CT chest PE protocol done showed no evidence of PE, Patient admitted to internal medicine service 03/06. Patient seen and examined. Still complains of shortness of breath. Continues to be on 3 L of oxygen. Labs done this morning showed sodium 150, potassium 3.9, BUN 23, creatinine 1.29 REVIEW OF SYSTEMS: CONSTITUTIONAL: No fever, no malaise,. CARDIOVASCULAR: No chest pain, no palpitations, no syncope. PULMONARY: As mentioned above GASTROINTESTINAL: No diarrhea, no nausea, no vomiting, no abdominal pain. NEUROLOGICAL: No headaches, no weakness, PHYSICAL EXAMINATION: GENERAL: The patient is alert and oriented x3, not in any acute distress. Well developed, well nourished. HEENT: Pupils are round and equally reacting to light. EOMI. No scleral icterus. No conjunctival pallor. Normocephalic, atraumatic. No pharyngeal erythema. No thyromegaly. CARDIOVASCULAR: S1 and S2 present. No murmurs, rubs, or gallops. PULMONARY: Coarse breath sounds bilateral , no wheezing or crackles. ABDOMEN: Soft, nontender, nondistended, normoactive bowel sounds. No palpable organomegaly. MUSCULOSKELETAL: No joint swelling or deformity. EXTREMITIES: No cyanosis, clubbing, or pedal edema. NEUROLOGICAL: Gross neurological examination did not reveal any focal deficits. SKIN: No rashes. 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 Continue same treatment. Continue with symptomatic treatment. Resume home medication. Monitor labs and vitals. DVT and GI prophylaxis. Further recommendations as per clinical course of the patient Dictation was produced using [employer] dictation software. please excuse any grammatical, word or spelling errors. Objective - Vital Signs Vital signs: Vital Signs Temp 98.2 F 03/06/25 12:20 Pulse 56 L 03/06/25 12:20 Resp 20 03/06/25 12:20 BP 93/59 03/06/25 12:20 Pulse Ox 95 03/06/25 12:20 FiO2 Intake & Output 03/05/25 03/06/25 03/06/25 18:59 06:59 18:59 Intake Total 120 224.86 Output Total 300 1450 Balance -180 -1225.14 Weight 104.4 kg Intake: Intake, IV Titration 224.86 Amount Heparin Sod,Pork in 0.45% 224.86 NaCl 25,000 unit In 0.45 % NaCl 1 250ml.bag @ 10 UNITS/KG/HR 9.979 mls/hr IV .Q24H [facility] Rx#: [id number] Oral 120 Output: Urine 300 1450 Other: Voiding Method Urinal Urinal Urinal # Voids 0 1 # Bowel Movements 1 - Labs CBC & Chem 7: 03/05/25 06:52 03/05/25 06:52 Labs: Abnormal Lab Results - Last 24 Hours (Table) 03/05/25 03/05/25 03/06/25 Range/Units 06:52 06:52 04:12 APTT (22.0-30.0) sec C-Reactive Protein 18.40 H (0.00-0.80) mg/dL Procalcitonin 15.40 H (0.02-0.50) ng/mL Urine Protein 1+ H (Negative) Urine Blood Small H (Negative) Urine Bacteria Rare H (None) /hpf 03/06/25 Range/Units 07:08 APTT 34.9 H (22.0-30.0) sec C-Reactive Protein (0.00-0.80) mg/dL Procalcitonin (0.02-0.50) ng/mL Urine Protein (Negative) Urine Blood (Negative) Urine Bacteria (None) /hpf Microbiology - Last 24 Hours (Table) 03/04/25 21:29 Blood Culture Gram Stain - Preliminary Blood Blood Culture - Preliminary Presumptive MRSA Molecular ID 03/05/25 10:42 Blood Culture Gram Stain - Preliminary Blood
--- NOTE | 2025-03-06 14:45 | P.PN ---
Subjective Progress Note Date: 03/06/25 Reason for Consult (text): NSTEMI History of present illness: This is an 84-year-old male patient of Dr. Danny Wilcox with past medical history of paroxysmal atrial fibrillation, congestive heart failure, permanent pacemaker, hypertension, hyperlipidemia. We have been asked to evaluate the patient for NSTEMI. Patient states that his symptoms started with joint and muscle aching. Then when he got up in the morning at 4 AM to the bathroom his legs gave out on him and he slid off the bed onto the floor. EMS was called and brought him into the hospital for evaluation and he apparently was discharged home in the next day he did the same thing with significant weakness to the legs as well as chills and sweats. He is having sweats at the time of this evaluation. He complains of feeling weak and tired. Patient did have an episode of sepsis secondary to complicated UTI with urinary retention, catheter placement. 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 Patient underwent DUDLEY for cardioversion but he was found to have a left atrial appendage thrombus and the cardioversion was canceled. Patient appears to be presenting with the similar septic picture picture however urine does not appear to be infected on this occasion. Blood pressure 95/57, heart rate in the 60s, pulse ox 95% on 4 L. Temperature max 103. -EKG: Ventricularly paced rhythm. -Chest x-ray: Chronic changes and cardiomegaly without acute process. -CTA chest: No large or central pulmonary embolism. Limited study. -Laboratory studies: WBC 10.6 and repeat 8.2, hemoglobin 13.7. Sodium 150, BUN 23 creatinine 1.29. Troponin 0.164, 0.259, 0.26, 0.186. proBNP 7520. Cepheid viral panel not detected. Urinalysis reveals RBCs 6, hyaline cast 40, blood small. 1 blood culture his status received. -Home cardiac medications: Eliquis 5 mg twice daily, Coreg 25 mg twice daily, Lasix 40 mg twice daily, losartan 50 mg twice daily, potassium chloride 10 mEq 4 times daily. -Echocardiogram performed at [facility] on 07/12/2023 revealed mildly reduced LV systolic function, LVH. EF was 45 to 50%. 03/06 Patient seen and examined. He feels a little bit better today from yesterday but still has the sweats. No chest pain or chest pressure. Blood pressure 93/59, heart rate 56, pulse ox 95% on 3 L nasal cannula. Blood culture positive for MRSA and molecular ID. Patient's states that he had recent back injections and also shoulder injections. Patient has been on heparin drip which we will discontinue and resume patient back on Eliquis. Echocardiogram reveals EF 50 to 55%, mild concentric LVH, mild pulmonary hypertension with RVSP 41 mmHg. Mild MR and mild TR. Moderate biatrial dilatation. Pacemaker wires not ed in RA and RV. Physical examination: Gen: This is an 84-year-old male in no acute distress. VS: reviewed HEENT: Head is atraumatic, normocephalic. Pupils equal, round. Sclerae is anicteric. NECK: Supple. No JVD. LUNGS: Clear to auscultation. No wheezes or rhonchi. No intercostal retractions. HEART: Regular rate and rhythm. No murmur. ABDOMEN: Soft No tenderness. EXTREMITIES: No pedal edema. No calf tenderness. NEUROLOGICAL: Patient is awake, alert and oriented x3. 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 Patient was seen and examined. Objective - Vital Signs Vital signs: Vital Signs Temp 98.2 F 03/06/25 12:20 Pulse 56 L 03/06/25 12:20 Resp 20 03/06/25 12:20 BP 93/59 03/06/25 12:20 Pulse Ox 95 03/06/25 12:20 FiO2 Intake & Output 03/05/25 03/06/25 03/06/25 18:59 06:59 18:59 Intake Total 120 224.86 Output Total 300 1450 Balance -180 -1225.14 Weight 104.4 kg Intake: Intake, IV Titration 224.86 Amount Heparin Sod,Pork in 0.45% 224.86 NaCl 25,000 unit In 0.45 % NaCl 1 250ml.bag @ 10 UNITS/KG/HR 9.979 mls/hr IV .Q24H [facility] Rx#: [id number] Oral 120 Output: Urine 300 1450 Other: Voiding Method Urinal Urinal Urinal # Voids 0 1 # Bowel Movements 1 - Labs CBC & Chem 7: 03/05/25 06:52 03/05/25 06:52 Labs: Abnormal Lab Results - Last 24 Hours (Table) 03/05/25 03/05/25 03/06/25 Range/Units 06:52 06:52 04:12 APTT (22.0-30.0) sec C-Reactive Protein 18.40 H (0.00-0.80) mg/dL Procalcitonin 15.40 H (0.02-0.50) ng/mL Urine Protein 1+ H (Negative) Urine Blood Small H (Negative) Urine Bacteria Rare H (None) /hpf 03/06/25 Range/Units 07:08 APTT 34.9 H (22.0-30.0) sec C-Reactive Protein (0.00-0.80) mg/dL Procalcitonin (0.02-0.50) ng/mL Urine Protein (Negative) Urine Blood (Negative) Urine Bacteria (None) /hpf Microbiology - Last 24 Hours (Table) 03/04/25 21:29 Blood Culture Gram Stain - Preliminary Blood Blood Culture - Preliminary Presumptive MRSA Molecular ID 03/05/25 10:42 Blood Culture Gram Stain - Preliminary Blood
[2025-03-06] MEDS: APIXABAN 5 MG TAB PO SCH (15:42)
--- NOTE | 2025-03-06 15:50 | P.PN ---
Subjective Progress Note Date: 03/06/25 This is a 84-year-old male patient who presented to the hospital with symptoms of acute onset joint aches and muscle aches that started at 4:00 on the morning of admission. The patient woke up with those symptoms and he was feeling quite weak and was having also chills and sweats. Based on that, he came into the hospital. The patient was very much concerned of an underlying septic event as the patient has been hospitalized in the past, approximately a year ago with E. coli urine tract infection and sepsis. The patient has history of prostate cancer and the patient has undergone prostatectomy. He also had history of urethral resection and the patient undergoes daily urethral dilatation using a catheter. Following that, is able to urinate throughout the day without any major difficulties. Noted, the patient denied having any dysuria. No pelvic pain. No flank pain. No cough sputum production chest tightness or wheezing. His Tmax was 103 and at the time of admission the patient was found to be hypoxic with a pulse ox of 95% 40s of oxygen by nasal cannula. Further investigation was done. EKG showed a paced ventricular rhythm. Chest x-ray showed no acute cardiopulmonary process. The patient was given a CT of the chest that showed no evidence of any airspace disease and the patient had no evidence of any pulmonary embolism. Blood work was done in the emergency and the patient was found to have a white cell count of 10.6 with a hemoglobin 13.2 and a platelet count of 100. Normal coagulation profile. BUN is 22 with a creatinine of 1.29. Sodium level is at 135. Potassium levels at 3.7. UA is showing hyaline cast, no significant white cells, 6 RBCs and the viral screen was essentially negative. Echocardiogram done back in 2022 showed reduced LV function with an ejection fraction of 45 to 50% his troponins were mildly elevated at 0.1, 0.2, 0.2 and 0.1 respectively. Based on that, the patient was started on IV heparin. The preliminary blood culture is showing gram-positive cocci and the patient was started on broad- spectrum antibiotics and the patient is currently on a combination of Zosyn and vancomycin. The patient is currently sitting up on a chair. No significant hypotension. No altered mentation. No nausea or emesis. No abdominal pain. Pacemaker pocket over the left anterior chest area is dry clean and intact. No wounds. No cellulitis. On 03/06/2025, the patient is being seen for a follow-up. The patient is doing well for now. He is afebrile. Hemodynamically stable. The blood culture is showing presumptive MRSA and the patient is currently on a combination of daptomycin and IV Zosyn. ID is on the case. The exact source of the infection is not clear although I do suspect that this was probably related to urinary manipulation and dilatation of the urethra that the patient undergoes on a daily basis. He also has a pacemaker in place. 1 seconds of 8.2 with a heme of 13.7 and platelet count of 92. The patient's sodium levels at 150, BUN 23 with a creatinine 1.2 from yesterday. Awaiting repeat electrolytes from today. Tr oponins were mildly elevated and cardiology is also on the case. Procalcitonin level was at 15.4. ID is on the case. Urologist on the case. Cardiology is on the case. IV Lasix has been discontinued. IV heparin has been discontinued and the patient was restarted back on anticoagulation with Eliquis. Objective - Vital Signs Vital signs: Vital Signs Temp 97.4 F L 03/06/25 08:30 Pulse 63 03/06/25 08:30 Resp 21 03/06/25 08:30 BP 97/57 03/06/25 08:30 Pulse Ox 98 03/06/25 08:30 FiO2 Intake & Output 03/05/25 03/06/25 03/06/25 18:59 06:59 18:59 Intake Total 120 224.86 Output Total 300 1450 Balance -180 -1225.14 Weight 104.4 kg Intake: Intake, IV Titration 224.86 Amount Heparin Sod,Pork in 0.45% 224.86 NaCl 25,000 unit In 0.45 % NaCl 1 250ml.bag @ 10 UNITS/KG/HR 9.979 mls/hr IV .Q24H TAD Rx#: [id number] Oral 120 Output: Urine 300 1450 Other: Voiding Method Urinal Urinal Urinal # Voids 0 1 # Bowel Movements 1 - Exam The patient appeared well nourished and normally developed. Vital signs as documented. The patient has a body mass index of 34.5. The patient is currently on 3 L of oxygen by nasal cannula. Head exam is unremarkable. No scleral icterus or corneal arcus noted. Neck is without jugular venous distension, thyromegaly, or carotid bruits. Carotid upstrokes are brisk bilaterally. Lungs are clear to auscultation and percussion. Breath sounds are diminished in lung base bilaterally. Cardiac exam reveals the PMI to be normally sized and situated. Rhythm is regular. First and second heart sounds normal. No murmurs, rubs or gallops. The cardiac rhythm is paced and the patient has a pacemaker pocket over the left anterior chest area. Abdominal exam reveals normal bowel sounds, no masses, no organomegaly and no aortic enlargement. Extremities are nonedematous and both femoral and pedal pulses are normal. Examination of the skin revealed no evidence of significant rashes, suspicious appearing nevi or other concerning lesions. Neurologically, the patient is awake and alert and the patient does not have any focal neurological deficit. Cranial nerves are essentially intact. - Labs CBC & Chem 7: 03/05/25 06:52 03/05/25 06:52 Labs: Abnormal Lab Results - Last 24 Hours (Table) 03/05/25 03/05/25 03/06/25 Range/Units 06:52 06:52 04:12 APTT (22.0-30.0) sec C-Reactive Protein 18.40 H (0.00-0.80) mg/dL Procalcitonin 15.40 H (0.02-0.50) ng/mL Urine Protein 1+ H (Negative) Urine Blood Small H (Negative) Urine Bacteria Rare H (None) /hpf 03/06/25 Range/Units 07:08 APTT 34.9 H (22.0-30.0) sec C-Reactive Protein (0.00-0.80) mg/dL Procalcitonin (0.02-0.50) ng/mL Urine Protein (Negative) Urine Blood (Negative) Urine Bacteria (None) /hpf Microbiology - Last 24 Hours (Table) 03/04/25 21:29 Blood Culture Gram Stain - Preliminary Blood Blood Culture - Preliminary Presumptive MRSA Molecular ID 03/05/25 10:42 Blood Culture Gram Stain - Preliminary Blood Assessment and Plan Plan: MRSA sepsis, likely have a urinary source due to manipulation of his urethra and as the patient undergoes daily urethral dilatations. He is able to urinate. Urine cultures are negative. Blood cultures positive for MRSA and the patient is currently on daptomycin and Zosyn Acute febrile illness associated with chills and fever and generalized bodyaches and weakness. The patient was septic at the time of admission. Blood culture was positive for MRSA. Procalcitonin level is elevated. Acute hypoxic respiratory failure currently on 3 L of oxygen by nasal cannula. The patient had a CT of the chest that showed no evidence of any pneumonia. No evidence of any airspace disease or pulmonary embolism. Coronary artery disease, consider underlying Abnormal troponins, consider acute NSTEMI versus type II myocardial ischemia related underlying sepsis. Patient was initially on IV heparin that this was discontinued. Paroxysmal atrial fibrillation maintained on long-term anticoagulation with Eliquis. The patient was on IV heparin and this was discontinued and the patient was started on anticoagulation with Eliquis. 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 Plan Titrate oxygen flow to maintain saturation above 90%, currently on 3 Continue Zosyn and daptomycin Awaiting further recommendations from ID Obtain follow-up blood cultures Stop IV heparin and start the patient on anticoagulation with Eliquis ID consult Monitor renal function Oxygen she is improving and the patient is currently on liters of O2 nasal cannula Will continue to follow make further recommendations based on his progress. Time with Patient: Greater than 30
[2025-03-07 11:33] LABS: ALT 58 U/L (4-49); AST 42 U/L (17-59); African American GFR (CKD) 55 (>60 ml/min/1.73 sqM); Albumin 3.3 g/dL (3.5-5.0); Alkaline Phosphatase 52 U/L (38-126); Anion Gap 10 mmol/L; Blood Urea Nitrogen 26 mg/dL (9-20); Carbon Dioxide 30 mmol/L (22-30); Chloride 94 mmol/L (98-107); Glucose 98 mg/dL (74-99); Non-African American GFR(CKD) 48 (>60 ml/min/1.73 sqM); Potassium 3.3 mmol/L (3.5-5.1); Sodium 134 mmol/L (137-145); Total Bilirubin 0.8 mg/dL (0.2-1.3); Total Protein 5.7 g/dL (6.3-8.2)
[2025-03-07 11:45] LABS: C Reactive Protein 17.1 mg/dL (<1.0)
--- NOTE | 2025-03-07 12:42 | P.PN ---
Subjective Progress Note Date: 03/07/25 patient is a 84-year-old gentleman with past medical history significant for hypertension, atrial fibrillation presented to the ER because of generalized weakness. Patient said that he was all right last night when he tried to get to the bed and felt very weak. Patient was complaining of lethargy and weakness at the time patient also felt short of breath. Patient stated shortness of breath was present on rest as well exertion. There was no complaint of chest pain. Patient denies any fever or chills at home. There is no complaint of orthopnea or PND. There is no complaint of nausea, vomiting or abdominal pain. Because of the shortness of breath, EMS was called, patient had to be placed on 2 L of oxygen. Initially in the ER, patient fever of 103 Initial lab work done in the ER showed WBC 10.61, hemoglobin 13.2, platelet count 100, sodium 135, potassium 3.7, BUN 22, creatinine 1.29, glucose 154, lactate 1.9, calcium 8.6, magnesium 1.5 UA negative for infection Influenza A not detected Influenza B not detected RSV not detected COVID-19 not detected EKG done in the ER showed heart rate of61, ventricular paced rhythm, no ST segment elevation or depression seen, no T-wave inversions seen. Chest x-ray done in the ER showed chronic changes and cardiomegaly without acute pulmonary process CT chest PE protocol done showed no evidence of PE, Patient admitted to internal medicine service 03/06. Patient seen and examined. Still complains of shortness of breath. Continues to be on 3 L of oxygen. Labs done this morning showed sodium 150, potassium 3.9, BUN 23, creatinine 1.29 03/07. Patient seen and examined. Labs done and reviewedShowed sodium 134, potassium 3.3, BUN 26, creatinine 1.37.Currently 3 L of oxygen. States breathing is improved. Still swelling of lower extremities REVIEW OF SYSTEMS: CONSTITUTIONAL: No fever, no malaise,. CARDIOVASCULAR: No chest pain, no palpitations, no syncope. PULMONARY: As mentioned above GASTROINTESTINAL: No diarrhea, no nausea, no vomiting, no abdominal pain. NEUROLOGICAL: No headaches, no weakness, PHYSICAL EXAMINATION: GENERAL: The patient is alert and oriented x3, not in any acute distress. Well developed, well nourished. HEENT: Pupils are round and equally reacting to light. EOMI. No scleral icterus. No conjunctival pallor. Normocephalic, atraumatic. No pharyngeal erythema. No thyromegaly. CARDIOVASCULAR: S1 and S2 present. No murmurs, rubs, or gallops. PULMONARY: Coarse breath sounds bilateral , no wheezing or crackles. ABDOMEN: Soft, nontender, nondistended, normoactive bowel sounds. No palpable organomegaly. MUSCULOSKELETAL: No joint swelling or deformity. EXTREMITIES: No cyanosis, clubbing, or pedal edema. NEUROLOGICAL: Gross neurological examination did not reveal any focal deficits. SKIN: No rashes. 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 Continue same treatment. Continue with symptomatic treatment. Resume home medication. Monitor labs and vitals. DVT and GI prophylaxis. Further recommendations as per clinical course of the patient Dictation was produced using [employer] dictation software. please excuse any grammatical, word or spelling errors. Objective - Vital Signs Vital signs: Vital Signs Temp 97.3 F L 03/07/25 11:50 Pulse 61 03/07/25 11:50 Resp 20 03/07/25 11:50 BP 109/68 03/07/25 11:50 Pulse Ox 94 L 03/07/25 11:50 FiO2 Intake & Output 03/06/25 03/07/25 03/07/25 18:59 06:59 18:59 Intake Total 20 240 Output Total 555 Balance -535 240 Weight 104.1 kg Intake: IV 20 Invasive Line 3 20 Oral 240 Output: Urine 555 Other: Voiding Method Urinal Urinal Urinal # Voids 2 1 1 # Bowel Movements 1 - Labs CBC & Chem 7: 03/05/25 06:52 03/07/25 09:46 Labs: Abnormal Lab Results - Last 24 Hours (Table) 03/07/25 Range/Units 09:46 Sodium 134 L (137-145) mmol/L Potassium 3.3 L (3.5-5.1) mmol/L Chloride 94 L (98-107) mmol/L BUN 26 H (9-20) mg/dL Creatinine 1.37 H (0.66-1.25) mg/dL ALT 58 H (4-49) U/L C-Reactive Protein 17.1 H (<1.0) mg/dL Total Protein 5.7 L (6.3-8.2) g/dL Albumin 3.3 L (3.5-5.0) g/dL Microbiology - Last 24 Hours (Table) 03/04/25 21:29 Blood Culture Gram Stain - Preliminary Blood Blood Culture - Preliminary Presumptive MRSA Molecular ID
[2025-03-07] MEDS ORDERED: fentaNYL (PF) 50 MCG/ML 2 ML AMP IVP PRN (14:39)
[2025-03-07] MEDS ORDERED: BENZOCAINE SPRAY 1 EACH MM PRN (14:39)
[2025-03-07] MEDS ORDERED: MIDAZOLAM 2 MG/2 ML VIAL IV PRN (14:39)
--- NOTE | 2025-03-07 15:19 | P.PN ---
Subjective Progress Note Date: 03/07/25 Reason for Consult (text): NSTEMI History of present illness: This is an 84-year-old male patient of Dr. Danny Wilcox with past medical history of paroxysmal atrial fibrillation, congestive heart failure, permanent pacemaker, hypertension, hyperlipidemia. We have been asked to evaluate the patient for NSTEMI. Patient states that his symptoms started with joint and muscle aching. Then when he got up in the morning at 4 AM to the bathroom his legs gave out on him and he slid off the bed onto the floor. EMS was called and brought him into the hospital for evaluation and he apparently was discharged home in the next day he did the same thing with significant weakness to the legs as well as chills and sweats. He is having sweats at the time of this evaluation. He complains of feeling weak and tired. Patient did have an episode of sepsis secondary to complicated UTI with urinary retention, catheter placement. 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 Patient underwent DUDLEY for cardioversion but he was found to have a left atrial appendage thrombus and the cardioversion was canceled. Patient appears to be presenting with the similar septic picture picture however urine does not appear to be infected on this occasion. Blood pressure 95/57, heart rate in the 60s, pulse ox 95% on 4 L. Temperature max 103. -EKG: Ventricularly paced rhythm. -Chest x-ray: Chronic changes and cardiomegaly without acute process. -CTA chest: No large or central pulmonary embolism. Limited study. -Laboratory studies: WBC 10.6 and repeat 8.2, hemoglobin 13.7. Sodium 150, BUN 23 creatinine 1.29. Troponin 0.164, 0.259, 0.26, 0.186. proBNP 7520. Cepheid viral panel not detected. Urinalysis reveals RBCs 6, hyaline cast 40, blood small. 1 blood culture his status received. -Home cardiac medications: Eliquis 5 mg twice daily, Coreg 25 mg twice daily, Lasix 40 mg twice daily, losartan 50 mg twice daily, potassium chloride 10 mEq 4 times daily. -Echocardiogram performed at [facility] on 07/12/2023 revealed mildly reduced LV systolic function, LVH. EF was 45 to 50%. 03/06 Patient seen and examined. He feels a little bit better today from yesterday but still has the sweats. No chest pain or chest pressure. Blood pressure 93/59, heart rate 56, pulse ox 95% on 3 L nasal cannula. Blood culture positive for MRSA and molecular ID. Patient's states that he had recent back injections and also shoulder injections. Patient has been on heparin drip which we will discontinue and resume patient back on Eliquis. Echocardiogram reveals EF 50 to 55%, mild concentric LVH, mild pulmonary hypertension with RVSP 41 mmHg. Mild MR and mild TR. Moderate biatrial dilatation. Pacemaker wires not ed in RA and RV. 03/07 Patient seen and examined. He has a second blood culture that is positive for MRSA. Patient states he is feeling better each day. He denies fever or chills. No cough. He states he did bring up some sputum in the shower and has been asked to collect a sputum specimen. He does complain of some pain around the pacemaker site. No sign of infection or inflammation. Blood pressure 109/68, heart rate 60, pulse ox 94% on 3 L nasal cannula. Patient is afebrile. Physical examination: Gen: This is an 84-year-old male in no acute distress. VS: reviewed HEENT: Head is atraumatic, normocephalic. Pupils equal, round. Sclerae is anicteric. NECK: Supple. No JVD. LUNGS: Clear to auscultation. No wheezes or rhonchi. No intercostal retractions. HEART: Regular rate and rhythm. No murmur. ABDOMEN: Soft No tenderness. EXTREMITIES: No pedal edema. No calf tenderness. NEUROLOGICAL: Patient is awake, alert and oriented x3. 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 Cyrus Cisneros. after midnight Further recommendations to follow based upon clinical course Nurse practitioner note has been reviewed, I agree with documented findings and plan of care. Patient was seen and examined. Objective - Vital Signs Vital signs: Vital Signs Temp 97.3 F L 03/07/25 11:50 Pulse 65 03/07/25 12:53 Resp 20 03/07/25 11:50 BP 109/68 03/07/25 11:50 Pulse Ox 94 L 03/07/25 11:50 FiO2 Intake & Output 03/06/25 03/07/25 03/07/25 18:59 06:59 18:59 Intake Total 20 240 Output Total 555 Balance -535 240 Weight 104.1 kg Intake: IV 20 Invasive Line 3 20 Oral 240 Output: Urine 555 Other: Voiding Method Urinal Urinal Urinal # Voids 2 1 1 # Bowel Movements 1 - Labs CBC & Chem 7: 03/05/25 06:52 03/07/25 09:46 Labs: Abnormal Lab Results - Last 24 Hours (Table) 03/07/25 Range/Units 09:46 Sodium 134 L (137-145) mmol/L Potassium 3.3 L (3.5-5.1) mmol/L Chloride 94 L (98-107) mmol/L BUN 26 H (9-20) mg/dL Creatinine 1.37 H (0.66-1.25) mg/dL ALT 58 H (4-49) U/L C-Reactive Protein 17.1 H (<1.0) mg/dL Total Protein 5.7 L (6.3-8.2) g/dL Albumin 3.3 L (3.5-5.0) g/dL Microbiology - Last 24 Hours (Table) 03/05/25 10:42 Blood Culture Gram Stain - Final Blood Blood Culture - Final Methicillin resist S. aureus 03/04/25 21:29 Blood Culture Gram Stain - Final Blood Blood Culture - Final Methicillin resist S. aureus Molecular ID
--- NOTE | 2025-03-07 15:27 | P.PN ---
Subjective Progress Note Date: 03/06/25 Principal diagnosis: Reason for follow-up is MRSA bacteremia Patient is a 84-year-old male with a past medical history significant for Atrial Fibrillation, Cancer, GERD/Reflux, Hearing Disorder / Deafness, Hypertension, Osteoarthritis (OA) presenting to the hospital after apparently the patient fell out of the bed patient mention he was try to get to the bathroom felt very weak, patient did have features of sepsis and subsequent blood culture came back positive with MRSA with initial workup negative. On today's visit that is 03/06/2025,the patient did have resolution of his fever and is afebrile today, patient is breathing comfortably on 3 L nasal oxygen the patient denies chest pain shortness of breath and no significant cough, patient denies abdominal pain, no nausea vomiting or diarrhea. No CBC was done today, CT abdominal pelvis was negative for any acute intra- abdominal pathology Objective - Vital Signs Vital signs: Vital Signs Temp 98.2 F 03/06/25 12:20 Pulse 56 L 03/06/25 14:00 Resp 20 03/06/25 14:00 BP 93/59 03/06/25 12:20 Pulse Ox 95 03/06/25 12:20 FiO2 Intake & Output 03/05/25 03/06/25 03/06/25 18:59 06:59 18:59 Intake Total 120 224.86 Output Total 300 1450 Balance -180 -1225.14 Weight 104.4 kg Intake: Intake, IV Titration 224.86 Amount Heparin Sod,Pork in 0.45% 224.86 NaCl 25,000 unit In 0.45 % NaCl 1 250ml.bag @ 10 UNITS/KG/HR 9.979 mls/hr IV .Q24H TAD Rx#: [id number] Oral 120 Output: Urine 300 1450 Other: Voiding Method Urinal Urinal Urinal # Voids 0 1 # Bowel Movements 1 - Exam GENERAL DESCRIPTION: An elderly male up in the chair in no distress RESPIRATORY SYSTEM: Unlabored breathing , decreased breath sounds at bases HEART: S1 S2 regular rate and rhythm , ABDOMEN: Soft , no tenderness EXTREMITIES: No edema feet - Labs CBC & Chem 7: 03/05/25 06:52 03/07/25 09:46 Labs: Abnormal Lab Results - Last 24 Hours (Table) 06/03/25 06/03/25 06/04/25 Range/Units 06:52 06:52 04:12 APTT (22.0-30.0) sec C-Reactive Protein 18.40 H (0.00-0.80) mg/dL Procalcitonin 15.40 H (0.02-0.50) ng/mL Urine Protein 1+ H (Negative) Urine Blood Small H (Negative) Urine Bacteria Rare H (None) /hpf 03/06/25 Range/Units 07:08 APTT 34.9 H (22.0-30.0) sec C-Reactive Protein (0.00-0.80) mg/dL Procalcitonin (0.02-0.50) ng/mL Urine Protein (Negative) Urine Blood (Negative) Urine Bacteria (None) /hpf Microbiology - Last 24 Hours (Table) 03/04/25 21:29 Blood Culture Gram Stain - Preliminary Blood Blood Culture - Preliminary Presumptive MRSA Molecular ID 03/05/25 10:42 Blood Culture Gram Stain - Preliminary Blood Assessment and Plan (1) Elevated serum creatinine Current Visit: Yes Status: Acute Code(s): R79.89 - OTHER SPECIFIED ABNORMAL FINDINGS OF BLOOD CHEMISTRY SNOMED Code(s): 974863173 (2) Fever Current Visit: Yes Status: Acute Code(s): R50.9 - FEVER, UNSPECIFIED SNOMED Code(s): 851737449 (3) Sepsis Current Visit: No Status: Acute Code(s): A41.9 - SEPSIS, UNSPECIFIED ORGANISM SNOMED Code(s): 62731908 Plan: 1patient presented hospital with sepsis in this patient who did have fever elevated white count meeting ready for SIRS source is likely abdominal has the patient was noted to be tender in the left lower quadrant area with concern for possible diverticulitis or related pathology likely from enteric gram-negative pathogen as there was no evidence of any pneumonia or UTI on the initial workup no evidence of any cellulitis or joint swelling 2-patient did have CT of abdominal pelvis with oral contrast did not show any acute abnormality 3-blood cultures came back positive with MRSA daptomycin has been added blood culture has been repeated document clearance, at the bedside she did have multiple question concerns versus been answered in the meantime Dictation was produced using [employer] dictation software. please excuse any grammatical, word or spelling errors. Time with Patient: Less than 30
--- NOTE | 2025-03-07 15:28 | P.PN ---
Subjective Progress Note Date: 03/07/25 Principal diagnosis: Reason for follow-up is MRSA bacteremia Patient is a 84-year-old male with a past medical history significant for Atrial Fibrillation, Cancer, GERD/Reflux, Hearing Disorder / Deafness, Hypertension, Osteoarthritis (OA) presenting to the hospital after apparently the patient fell out of the bed patient mention he was try to get to the bathroom felt very weak, patient did have features of sepsis and subsequent blood culture came back positive with MRSA with initial workup negative. On today's visit that is 03/07/2025,the patient remains to be afebrile, patient is on r 3 L nasal cannula supplemental oxygen and denies any shortness of breath no chest pain or any worsening cough.Patient denies having any nausea or vomiting, no abdominal pain and no diarrhea has been reported Patient did have a creatinine 1.37 no CBC was done today blood culture repeat from 6 3 also came back positive Objective - Vital Signs Vital signs: Vital Signs Temp 97.3 F L 03/07/25 11:50 Pulse 61 03/07/25 11:50 Resp 20 03/07/25 11:50 BP 109/68 03/07/25 11:50 Pulse Ox 94 L 03/07/25 11:50 FiO2 Intake & Output 03/06/25 03/07/25 03/07/25 18:59 06:59 18:59 Intake Total 20 240 Output Total 555 Balance -535 240 Weight 104.1 kg Intake: IV 20 Invasive Line 3 20 Oral 240 Output: Urine 555 Other: Voiding Method Urinal Urinal Urinal # Voids 2 1 1 # Bowel Movements 1 - Exam GENERAL DESCRIPTION: An elderly male up in the chair in no distress RESPIRATORY SYSTEM: Unlabored breathing , decreased breath sounds at bases HEART: S1 S2 regular rate and rhythm , ABDOMEN: Soft , no tenderness EXTREMITIES: No edema feet - Labs CBC & Chem 7: 03/05/25 06:52 03/07/25 09:46 Labs: Abnormal Lab Results - Last 24 Hours (Table) 03/07/25 Range/Units 09:46 Sodium 134 L (137-145) mmol/L Potassium 3.3 L (3.5-5.1) mmol/L Chloride 94 L (98-107) mmol/L BUN 26 H (9-20) mg/dL Creatinine 1.37 H (0.66-1.25) mg/dL ALT 58 H (4-49) U/L C-Reactive Protein 17.1 H (<1.0) mg/dL Total Protein 5.7 L (6.3-8.2) g/dL Albumin 3.3 L (3.5-5.0) g/dL Microbiology - Last 24 Hours (Table) 03/04/25 21:29 Blood Culture Gram Stain - Preliminary Blood Blood Culture - Preliminary Presumptive MRSA Molecular ID Assessment and Plan (1) Elevated serum creatinine Current Visit: Yes Status: Acute Code(s): R79.89 - OTHER SPECIFIED ABNORMAL FINDINGS OF BLOOD CHEMISTRY SNOMED Code(s): 744806622 (2) Fever Current Visit: Yes Status: Acute Code(s): R50.9 - FEVER, UNSPECIFIED SNOMED Code(s): 570408757 (3) Sepsis Current Visit: No Status: Acute Code(s): A41.9 - SEPSIS, UNSPECIFIED ORGANISM SNOMED Code(s): 15143066 Plan: 1patient presented hospital with sepsis in this patient who did have fever elevated white count meeting ready for SIRS source is likely abdominal has the patient was noted to be tender in the left lower quadrant area with concern for possible diverticulitis or related pathology likely from enteric gram-negative pathogen as there was no evidence of any pneumonia or UTI on the initial workup no evidence of any cellulitis or joint swelling 2-patient did have CT of abdominal pelvis with oral contrast did not show any acute abnormality 3-patient did have a 2 sets of blood culture positive for MRSA echocardiogram has been ordered blood culture repeated document clearance, I will also obtain a WBC scan as no clear focus of this bacteremia at this point Dictation was produced using [employer] dictation software. please excuse any grammatical, word or spelling errors. Time with Patient: Less than 30
--- NOTE | 2025-03-07 17:15 | P.PN ---
Subjective Progress Note Date: 03/07/25 This is a 84-year-old male patient who presented to the hospital with symptoms of acute onset joint aches and muscle aches that started at 4:00 on the morning of admission. The patient woke up with those symptoms and he was feeling quite weak and was having also chills and sweats. Based on that, he came into the hospital. The patient was very much concerned of an underlying septic event as the patient has been hospitalized in the past, approximately a year ago with E. coli urine tract infection and sepsis. The patient has history of prostate cancer and the patient has undergone prostatectomy. He also had history of urethral resection and the patient undergoes daily urethral dilatation using a catheter. Following that, is able to urinate throughout the day without any major difficulties. Noted, the patient denied having any dysuria. No pelvic pain. No flank pain. No cough sputum production chest tightness or wheezing. His Tmax was 103 and at the time of admission the patient was found to be hypoxic with a pulse ox of 95% 40s of oxygen by nasal cannula. Further investigation was done. EKG showed a paced ventricular rhythm. Chest x-ray showed no acute cardiopulmonary process. The patient was given a CT of the chest that showed no evidence of any airspace disease and the patient had no evidence of any pulmonary embolism. Blood work was done in the emergency and the patient was found to have a white cell count of 10.6 with a hemoglobin 13.2 and a platelet count of 100. Normal coagulation profile. BUN is 22 with a creatinine of 1.29. Sodium level is at 135. Potassium levels at 3.7. UA is showing hyaline cast, no significant white cells, 6 RBCs and the viral screen was essentially negative. Echocardiogram done back in 2022 showed reduced LV function with an ejection fraction of 45 to 50% his troponins were mildly elevated at 0.1, 0.2, 0.2 and 0.1 respectively. Based on that, the patient was started on IV heparin. The preliminary blood culture is showing gram-positive cocci and the patient was started on broad- spectrum antibiotics and the patient is currently on a combination of Zosyn and vancomycin. The patient is currently sitting up on a chair. No significant hypotension. No altered mentation. No nausea or emesis. No abdominal pain. Pacemaker pocket over the left anterior chest area is dry clean and intact. No wounds. No cellulitis. On 03/06/2025, the patient is being seen for a follow-up. The patient is doing well for now. He is afebrile. Hemodynamically stable. The blood culture is showing presumptive MRSA and the patient is currently on a combination of daptomycin and IV Zosyn. ID is on the case. The exact source of the infection is not clear although I do suspect that this was probably related to urinary manipulation and dilatation of the urethra that the patient undergoes on a daily basis. He also has a pacemaker in place. 1 seconds of 8.2 with a heme of 13.7 and platelet count of 92. The patient's sodium levels at 150, BUN 23 with a creatinine 1.2 from yesterday. Awaiting repeat electrolytes from today. Tr oponins were mildly elevated and cardiology is also on the case. Procalcitonin level was at 15.4. ID is on the case. Urologist on the case. Cardiology is on the case. IV Lasix has been discontinued. IV heparin has been discontinued and the patient was restarted back on anticoagulation with Eliquis. 03/07/2025, the patient is being seen for a follow-up. On today's evaluation, the patient is feeling well. No specific complaints. No fever. No chills. No hemodynamic instability. 2 sets of blood cultures were positive for MRSA and the patient remains on IV daptomycin. ID is on the case. Cardiology on the case. Transthoracic echocardiogram that was done on 03/05/2025 showed no evidence of any valve regurgitation and the patient has mild concentric LVH, mild pulm hypertension, moderate biatrial dilatation and a preserved ejection fraction of 55%. The white cell count has been down to 8.2. Electrolytes are all stable. Potassium level is at 3.3 it is severe in place with a BUN of 26 and a creatinine of 1.37. The patient has a CRP level of 17.1, albumin level is at 3.3. The patient is being seen by cardiology. He may be considered for a DUDLEY especially if the blood culture continues to be positive. Objective - Vital Signs Vital signs: Vital Signs Temp 97.4 F L 03/07/25 08:45 Pulse 70 03/07/25 09:57 Resp 20 03/07/25 08:45 BP 94/57 03/07/25 08:45 Pulse Ox 96 03/07/25 09:50 FiO2 Intake & Output 03/06/25 03/07/25 03/07/25 18:59 06:59 18:59 Intake Total 20 240 Output Total 555 Balance -535 240 Weight 104.1 kg Intake: IV 20 Invasive Line 3 20 Oral 240 Output: Urine 555 Other: Voiding Method Urinal Urinal Urinal # Voids 2 1 1 # Bowel Movements 1 - Exam The patient appeared well nourished and normally developed. Vital signs as documented. The patient has a body mass index of 34.5. The patient is currently on 3 L of oxygen by nasal cannula. Head exam is unremarkable. No scleral icterus or corneal arcus noted. Neck is without jugular venous distension, thyromegaly, or carotid bruits. Carotid upstrokes are brisk bilaterally. Lungs are clear to auscultation and percussion. Breath sounds are diminished in lung base bilaterally. Cardiac exam reveals the PMI to be normally sized and situated. Rhythm is regular. First and second heart sounds normal. No murmurs, rubs or gallops. The cardiac rhythm is paced and the patient has a pacemaker pocket over the left anterior chest area. Abdominal exam reveals normal bowel sounds, no masses, no organomegaly and no aortic enlargement. Extremities are nonedematous and both femoral and pedal pulses are normal. Examination of the skin revealed no evidence of significant rashes, suspicious appearing nevi or other concerning lesions. Neurologically, the patient is awake and alert and the patient does not have any focal neurological deficit. Cranial nerves are essentially intact. - Labs CBC & Chem 7: 03/05/25 06:52 03/07/25 09:46 Labs: Microbiology - Last 24 Hours (Table) 03/04/25 21:29 Blood Culture Gram Stain - Preliminary Blood Blood Culture - Preliminary Presumptive MRSA Molecular ID 03/05/25 10:42 Blood Culture Gram Stain - Preliminary Blood Assessment and Plan Plan: MRSA sepsis, likely have a urinary source due to manipulation of his urethra and as the patient undergoes daily urethral dilatations. He is able to urinate. Urine cultures are negative. Blood cultures positive for MRSA and the patient is currently on daptomycin. 2 sets of blood culture positive for MRSA. Acute febrile illness associated with chills and fever and generalized bodyaches and weakness. The patient was septic at the time of admission. Blood culture was positive for MRSA. Procalcitonin level is elevated. Currently afebrile. Acute hypoxic respiratory failure currently on 3 L of oxygen by nasal cannula. The patient had a CT of the chest that showed no evidence of any pneumonia. No evidence of any airspace disease or pulmonary embolism. Coronary artery disease, consider underlying Abnormal troponins, consider acute NSTEMI versus type II myocardial ischemia related underlying sepsis. Patient was initially on IV heparin that this was discontinued. Paroxysmal atrial fibrillation maintained on long-term anticoagulation with Eliquis. The patient was on IV heparin and this was discontinued and the patient was started on anticoagulation with Eliquis. 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 Plan Clinically stable 2 sets of blood cultures positive for MRSA Titrate oxygen flow to maintain saturation above 90%, currently on 3 Continue daptomycin Awaiting further recommendations from ID Consider DUDLEY to rule out endocarditis Continue anticoagulation with Eliquis ID consult Monitor renal function, creatinine remains stable Oxygenation is stable We will continue to follow. Time with Patient: Greater than 30
[2025-03-07] MEDS: FUROSEMIDE 40 MG TAB PO SCH (17:22)
[2025-03-08 07:55] LABS: Basophils # (A) 0.01 10*3/uL (0.00-0.10); Basophils % (A) 0.2 %; Eosinophils # (A) 0.04 10*3/uL (0.04-0.35); Eosinophils % (A) 0.6 %; HCT 34.6 % (39.6-50.0); HGB 11.9 g/dL (13.0-17.0); Lymphocytes # (A) 0.81 10*3/uL (0.90-5.00); Lymphocytes % (A) 12.3 %; MCH 31.1 pg (27.0-32.0); MCHC 34.4 g/dL (32.0-37.0); MCV 90.3 fL (80.0-97.0); Monocytes # (A) 0.48 10*3/uL (0.20-1.00); Monocytes % (A) 7.3 %; Neutrophils # (A) 5.19 10*3/uL (1.80-7.70); Platelet Count 127 10*3/uL (140-440); RBC 3.83 10*6/uL (4.40-5.60); RDW 13.1 % (11.5-14.5); WBC 6.57 10*3/uL (4.50-10.00)
[2025-03-08 08:10] LABS: ALT 51 U/L (4-49); AST 33 U/L (17-59); African American GFR (CKD) 74 (>60 ml/min/1.73 sqM); Albumin 3.3 g/dL (3.5-5.0); Alkaline Phosphatase 57 U/L (38-126); Anion Gap 9 mmol/L; Blood Urea Nitrogen 23 mg/dL (9-20); Carbon Dioxide 29 mmol/L (22-30); Chloride 97 mmol/L (98-107); Glucose 100 mg/dL (74-99); Non-African American GFR(CKD) 64 (>60 ml/min/1.73 sqM); Potassium 3.4 mmol/L (3.5-5.1); Sodium 135 mmol/L (137-145); Total Bilirubin 0.7 mg/dL (0.2-1.3); Total Protein 5.7 g/dL (6.3-8.2)
--- NOTE | 2025-03-08 09:00 | P.PN ---
Subjective Progress Note Date: 03/08/25 Reason for Consult (text): NSTEMI History of present illness: This is an 84-year-old male patient of Dr. Danny Wilcox with past medical history of paroxysmal atrial fibrillation, congestive heart failure, permanent pacemaker, hypertension, hyperlipidemia. We have been asked to evaluate the patient for NSTEMI. Patient states that his symptoms started with joint and muscle aching. Then when he got up in the morning at 4 AM to the bathroom his legs gave out on him and he slid off the bed onto the floor. EMS was called and brought him into the hospital for evaluation and he apparently was discharged home in the next day he did the same thing with significant weakness to the legs as well as chills and sweats. He is having sweats at the time of this evaluation. He complains of feeling weak and tired. Patient did have an episode of sepsis secondary to complicated UTI with urinary retention, catheter placement. 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 Patient underwent DUDLEY for cardioversion but he was found to have a left atrial appendage thrombus and the cardioversion was canceled. Patient appears to be presenting with the similar septic picture picture however urine does not appear to be infected on this occasion. Blood pressure 95/57, heart rate in the 60s, pulse ox 95% on 4 L. Temperature max 103. -EKG: Ventricularly paced rhythm. -Chest x-ray: Chronic changes and cardiomegaly without acute process. -CTA chest: No large or central pulmonary embolism. Limited study. -Laboratory studies: WBC 10.6 and repeat 8.2, hemoglobin 13.7. Sodium 150, BUN 23 creatinine 1.29. Troponin 0.164, 0.259, 0.26, 0.186. proBNP 7520. Cepheid viral panel not detected. Urinalysis reveals RBCs 6, hyaline cast 40, blood small. 1 blood culture his status received. -Home cardiac medications: Eliquis 5 mg twice daily, Coreg 25 mg twice daily, Lasix 40 mg twice daily, losartan 50 mg twice daily, potassium chloride 10 mEq 4 times daily. -Echocardiogram performed at [facility] on 07/12/2023 revealed mildly reduced LV systolic function, LVH. EF was 45 to 50%. 03/06 Patient seen and examined. He feels a little bit better today from yesterday but still has the sweats. No chest pain or chest pressure. Blood pressure 93/59, heart rate 56, pulse ox 95% on 3 L nasal cannula. Blood culture positive for MRSA and molecular ID. Patient's states that he had recent back injections and also shoulder injections. Patient has been on heparin drip which we will discontinue and resume patient back on Eliquis. Echocardiogram reveals EF 50 to 55%, mild concentric LVH, mild pulmonary hypertension with RVSP 41 mmHg. Mild MR and mild TR. Moderate biatrial dilatation. Pacemaker wires not ed in RA and RV. 03/07 Patient seen and examined. He has a second blood culture that is positive for MRSA. Patient states he is feeling better each day. He denies fever or chills. No cough. He states he did bring up some sputum in the shower and has been asked to collect a sputum specimen. He does complain of some pain around the pacemaker site. No sign of infection or inflammation. Blood pressure 109/68, heart rate 60, pulse ox 94% on 3 L nasal cannula. Patient is afebrile. 03/08 Patient is scheduled for DUDLEY today. He remains afebrile, heart rate in the 60s and 70s, blood pressure 113/83, pulse ox 94% on 2 L nasal cannula. Repeat blood work reveals WBC 6.5, hemoglobin 1.9. Sodium 135, potassium 3.4, BUN 23 creatinine 1.08. 2 blood cultures are positive for MRSA. A repeat blood culture was obtained on 03/07. Patient is also scheduled for a WBC scan. Physical examination: Gen: This is an 84-year-old male in no acute distress. VS: reviewed HEENT: Head is atraumatic, normocephalic. Pupils equal, round. Sclerae is anicteric. NECK: Supple. No JVD. LUNGS: Clear to auscultation. No wheezes or rhonchi. No intercostal retractions. HEART: Regular rate and rhythm. No murmur. ABDOMEN: Soft No tenderness. EXTREMITIES: No pedal edema. No calf tenderness. NEUROLOGICAL: Patient is awake, alert and oriented x3. 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 Cyrus Cisneros. after midnight Further recommendations to follow based upon clinical course Nurse practitioner note has been reviewed, I agree with documented findings and plan of care. Patient was seen and examined. Objective - Vital Signs Vital signs: Vital Signs Temp 97.5 F L 03/08/25 04:00 Pulse 66 03/08/25 04:39 Resp 18 03/08/25 04:39 BP 137/83 03/08/25 04:00 Pulse Ox 97 03/08/25 04:00 FiO2 Intake & Output 03/07/25 03/08/25 03/08/25 18:59 06:59 18:59 Intake Total 870 20 Output Total 100 580 175 Balance 770 -560 -175 Weight 105.1 kg Intake: IV 20 Invasive Line 2 20 Intake, IV Titration 150 Amount DAPTOmycin 500 mg In 50 Sodium Chloride 0.9% 50 ml @ 100 mls/hr IVPB Q24H TAD Rx#:[id number] Piperacillin-Tazobactam 3 100 .375 gm In Sodium Chloride 0.9% 100 ml @ 25 mls/hr IVPB Q8HR TAD Rx# :[id number] Oral 720 Output: Urine 100 580 175 Other: Voiding Method Urinal Urinal # Voids 1 1 - Labs CBC & Chem 7: 03/08/25 07:29 03/08/25 07:29 Labs: Abnormal Lab Results - Last 24 Hours (Table) 03/07/25 Range/Units 09:46 Sodium 134 L (137-145) mmol/L Potassium 3.3 L (3.5-5.1) mmol/L Chloride 94 L (98-107) mmol/L BUN 26 H (9-20) mg/dL Creatinine 1.37 H (0.66-1.25) mg/dL ALT 58 H (4-49) U/L C-Reactive Protein 17.1 H (<1.0) mg/dL Total Protein 5.7 L (6.3-8.2) g/dL Albumin 3.3 L (3.5-5.0) g/dL Microbiology - Last 24 Hours (Table) 03/05/25 10:42 Blood Culture Gram Stain - Final Blood Blood Culture - Final Methicillin resist S. aureus 03/04/25 21:29 Blood Culture Gram Stain - Final Blood Blood Culture - Final Methicillin resist S. aureus Molecular ID
[2025-03-08] MEDS: BENZOCAINE SPRAY 1 EACH MM ONE ×2 (10:57→10:58)
[2025-03-08] MEDS: MIDAZOLAM 2 MG/2 ML VIAL IVP ONE (10:58)
[2025-03-08] MEDS: SODIUM CHLORIDE 0.9% 500 ML 500 ML IV ONE (11:01)
[2025-03-08] MEDS: fentaNYL (PF) 50 MCG/1 ML VIAL IVP ONE (11:01)
--- NOTE | 2025-03-08 11:55 | P.TEE ---
Date of Procedure: 03/08/25 Description of Procedure(s): Procedure performed: 1. Transesophageal Echocardiogram with color flow doppler, pulsed wave doppler and continuous wave doppler, (CPT 13301, +82203, +[id number]) 2. Moderate conscious sedation. Sedation time [20] mins. (CPT 52492) Indications: Infective endocarditis Consent: I have discussed the risks, benefits and alternative therapies for the above-mentioned procedure. The patient has indicated understanding and acceptance of the risks of the procedure. Signed consent was obtained and was placed in the paper chart. Procedural Steps: Timeout was performed in usual fashion. Patient's heart rate, blood pressure, oxygen saturation and ECG were monitored. Benzocaine was sprayed liberally in the back of the throat. Bite block was placed between the jaw. 2 mg of Versed and 50 mcg of Fentanyl were administered intravenously. After achieving appropriate moderate conscious sedation, DUDLEY probe was advanced without difficulty and without any immediate complications to the esophagus. DUDLEY study was performed with color flow doppler, pulsed wave doppler and continuous wave doppler. The probe was then removed. Patient tolerated the procedure well. Patient was transferred to the post procedure area in stable and satisfactory condition. Throughout the procedure patient's heart rate, blood pressure, oxygen saturation and ECG were monitored. Total sedation time 15 mins. Complications: none FINDINGS Left Atrium: Moderate LA dilatation. No thrombus. Left Atrial Appendage: No evidence of thrombus or mass seen in LISBETH Inter atrial septum: Intact inter-atrial septum with no evidence of atrial septal defect or patent foramen ovale on color Doppler Left Ventricle: Normal global LV size and systolic function. Mild to moderate concentric LVH. Right Atrium: Moderate RA dilatation. PPM wire noticed in RA. No evidence of vegetation. Right Ventricle: Normal RV size and systolic function. PPM wire noticed in RV no evidence of vegetation. Aortic Valve: Trileaflet, mild sclerotic aortic valve leaflet thickening. No evidence of vegetation. No significant valvular dysfunction. Mitral Valve: Structurally normal, mild calcific thickening. No significant valvular dysfunction. No evidence of vegetation. Pulmonic Valve: Not well visualized. Tricuspid Valve: Mild tricuspid regurgitation, no vegetation. Ascending aorta, Aortic root and Aortic arch: Normal size aortic root and ascending aorta. Mild intimal thickening. No evidence of large atheroma or bulky calcification Descending aorta: Mild intimal thickening. No evidence of large atheroma or bulky calcification No pericardial effusion. Trace fluid noticed in the oblique fissure. CONCLUSION: No evidence of vegetation Normal global LV size and systolic function. Mild to moderate concentric LVH Moderate biatrial dilatation PPM wire noticed in RA and RV with no evidence of vegetation Mild calcific sclerosis of valves but no significant valve dysfunction noticed. No thrombus in LISBETH or LA left atrial appendage Patient is noticed to be in atrial fibrillation, consider cardioversion if clinically indicated Nelson Bridges MD, RPVI, FACC Thank you for allowing [facility] to participate in this patient's care. Feel free to reach out in case of any followup questions.
--- NOTE | 2025-03-08 12:03 | P.PN ---
Subjective Progress Note Date: 03/08/25 patient is a 84-year-old gentleman with past medical history significant for hypertension, atrial fibrillation presented to the ER because of generalized weakness. Patient said that he was all right last night when he tried to get to the bed and felt very weak. Patient was complaining of lethargy and weakness at the time patient also felt short of breath. Patient stated shortness of breath was present on rest as well exertion. There was no complaint of chest pain. Patient denies any fever or chills at home. There is no complaint of orthopnea or PND. There is no complaint of nausea, vomiting or abdominal pain. Because of the shortness of breath, EMS was called, patient had to be placed on 2 L of oxygen. Initially in the ER, patient fever of 103 Initial lab work done in the ER showed WBC 10.61, hemoglobin 13.2, platelet count 100, sodium 135, potassium 3.7, BUN 22, creatinine 1.29, glucose 154, lactate 1.9, calcium 8.6, magnesium 1.5 UA negative for infection Influenza A not detected Influenza B not detected RSV not detected COVID-19 not detected EKG done in the ER showed heart rate of61, ventricular paced rhythm, no ST segment elevation or depression seen, no T-wave inversions seen. Chest x-ray done in the ER showed chronic changes and cardiomegaly without acute pulmonary process CT chest PE protocol done showed no evidence of PE, Patient admitted to internal medicine service 03/06. Patient seen and examined. Still complains of shortness of breath. Continues to be on 3 L of oxygen. Labs done this morning showed sodium 150, potassium 3.9, BUN 23, creatinine 1.29 03/07. Patient seen and examined. Labs done and reviewedShowed sodium 134, potassium 3.3, BUN 26, creatinine 1.37.Currently 3 L of oxygen. States breathing is improved. Still swelling of lower extremities 03/08. Patient seen examined. States he feels better. Patient had DUDLEY showing No evidence of vegetation,Normal global LV size and systolic function Mild to moderate concentric LVH,Moderate biatrial dilatation,No thrombus in LISBETH or LA left atrial appendage Labs reviewed showing WBC 6.57, hemoglobin 0.9, sodium 138, potassium 3.4, BUN 23, creatinine 1.0 . repeat blood cultures are still positive REVIEW OF SYSTEMS: CONSTITUTIONAL: No fever, no malaise,. CARDIOVASCULAR: No chest pain, no palpitations, no syncope. PULMONARY: As mentioned above GASTROINTESTINAL: No diarrhea, no nausea, no vomiting, no abdominal pain. NEUROLOGICAL: No headaches, no weakness, PHYSICAL EXAMINATION: GENERAL: The patient is alert and oriented x3, not in any acute distress. Well developed, well nourished. HEENT: Pupils are round and equally reacting to light. EOMI. No scleral icterus. No conjunctival pallor. Normocephalic, atraumatic. No pharyngeal erythema. No thyromegaly. CARDIOVASCULAR: S1 and S2 present. No murmurs, rubs, or gallops. PULMONARY: Coarse breath sounds bilateral , no wheezing or crackles. ABDOMEN: Soft, nontender, nondistended, normoactive bowel sounds. No palpable organomegaly. MUSCULOSKELETAL: No joint swelling or deformity. EXTREMITIES: No cyanosis, clubbing, or pedal edema. NEUROLOGICAL: Gross neurological examination did not reveal any focal deficits. SKIN: No rashes. 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 History of skin cancer History of hypertension Hyperlipidemia Monitor vital signs Monitor CBC Monitor CMP Continue telemetry monitoring Follow-up on blood culture Strict I's and O's, daily weights, switch to oral Lasix 40 mg twice daily Continue daptomycin Continue Eliquis Continue breathing treatment DUDLEY showing No evidence of vegetation,Normal global LV size and systolic function Mild to moderate concentric LVH,Moderate biatrial dilatation,No thrombus in LISBETH or LA left atrial appendage ID following, appreciate their recommendation, recommendations noted from 03/08, WBC scan ordered Cardiology following,appreciate their recommendation, recommendations noted from 03/08 Pulmonology followingappreciate their recommendation, recommendations noted from 03/08 Labs and medication were reviewed.. Continue same treatment. Continue with symptomatic treatment. Resume home medication. Monitor labs and vitals. DVT and GI prophylaxis. Further recommendations as per clinical course of the patient Dictation was produced using [employer] dictation software. please excuse any grammatical, word or spelling errors. Objective - Vital Signs Vital signs: Vital Signs Temp 97.5 F L 03/08/25 04:00 Pulse 68 03/08/25 08:52 Resp 18 03/08/25 04:39 BP 137/83 03/08/25 04:00 Pulse Ox 94 L 03/08/25 08:40 FiO2 Intake & Output 03/07/25 03/08/25 03/08/25 18:59 06:59 18:59 Intake Total 870 20 175 Output Total 100 580 175 Balance 770 -560 0 Weight 105.1 kg Intake: IV 20 175 Invasive Line 2 20 Intake, IV Titration 150 Amount DAPTOmycin 500 mg In 50 Sodium Chloride 0.9% 50 ml @ 100 mls/hr IVPB Q24H [facility] Rx#:[id number] Piperacillin-Tazobactam 3 100 .375 gm In Sodium Chloride 0.9% 100 ml @ 25 mls/hr IVPB Q8HR [facility] Rx# :[id number] Oral 720 Output: Urine 100 580 175 Other: Voiding Method Urinal Urinal # Voids 1 1 - Labs CBC & Chem 7: 03/08/25 07:29 03/08/25 07:29 Labs: Abnormal Lab Results - Last 24 Hours (Table) 03/08/25 03/08/25 Range/Units 07:29 07:29 RBC 3.83 L (4.40-5.60) 10*6/uL Hgb 11.9 L (13.0-17.0) g/dL Hct 34.6 L (39.6-50.0) % Plt Count 127 L (140-440) 10*3/uL Lymphocytes # 0.81 L (0.90-5.00) 10*3/uL Sodium 135 L (137-145) mmol/L Potassium 3.4 L (3.5-5.1) mmol/L Chloride 97 L (98-107) mmol/L BUN 23 H (9-20) mg/dL Glucose 100 H (74-99) mg/dL ALT 51 H (4-49) U/L Total Protein 5.7 L (6.3-8.2) g/dL Albumin 3.3 L (3.5-5.0) g/dL Microbiology - Last 24 Hours (Table) 03/05/25 10:42 Blood Culture Gram Stain - Final Blood Blood Culture - Final Methicillin resist S. aureus 03/04/25 21:29 Blood Culture Gram Stain - Final Blood Blood Culture - Final Methicillin resist S. aureus Molecular ID
--- NOTE | 2025-03-08 16:20 | P.PN ---
Subjective Progress Note Date: 03/08/25 Principal diagnosis: Reason for follow-up is MRSA bacteremia Patient is a 84-year-old male with a past medical history significant for Atrial Fibrillation, Cancer, GERD/Reflux, Hearing Disorder / Deafness, Hypertension, Osteoarthritis (OA) presenting to the hospital after apparently the patient fell out of the bed patient mention he was try to get to the bathroom felt very weak, patient did have features of sepsis and subsequent blood culture came back positive with MRSA with initial workup negative.Patient is status post DUDLEY completion on 03/08/2025 with no evidence of vegetation On today's evaluation that is 03/08/2025, the patient continues to be afebrile, the patient is on room air and breathing comfortably, the Pt denies having any chest pain or cough, the patient denies having any abdominal pain no vomiting or any diarrhea, patient mention feeling better. Patient white count 6.57 creatinine 1.08, blood culture from 6 5 so far and pending Objective - Vital Signs Vital signs: Vital Signs Temp 97.5 F L 03/08/25 04:00 Pulse 68 03/08/25 08:52 Resp 18 03/08/25 04:39 BP 137/83 03/08/25 04:00 Pulse Ox 94 L 03/08/25 08:40 FiO2 Intake & Output 03/07/25 03/08/25 03/08/25 18:59 06:59 18:59 Intake Total 870 20 Output Total 100 580 175 Balance 770 -560 -175 Weight 105.1 kg Intake: IV 20 Invasive Line 2 20 Intake, IV Titration 150 Amount DAPTOmycin 500 mg In 50 Sodium Chloride 0.9% 50 ml @ 100 mls/hr IVPB Q24H [facility] Rx#:[id number] Piperacillin-Tazobactam 3 100 .375 gm In Sodium Chloride 0.9% 100 ml @ 25 mls/hr IVPB Q8HR [facility] Rx# :[id number] Oral 720 Output: Urine 100 580 175 Other: Voiding Method Urinal Urinal # Voids 1 1 - Exam GENERAL DESCRIPTION: An elderly male up in the chair in no distress RESPIRATORY SYSTEM: Unlabored breathing , decreased breath sounds at bases HEART: S1 S2 regular rate and rhythm , ABDOMEN: Soft , no tenderness EXTREMITIES: No edema feet - Labs CBC & Chem 7: 03/08/25 07:29 03/08/25 07:29 Labs: Abnormal Lab Results - Last 24 Hours (Table) 03/07/25 03/08/25 03/08/25 Range/Units 09:46 07:29 07:29 RBC 3.83 L (4.40-5.60) 10*6/uL Hgb 11.9 L (13.0-17.0) g/dL Hct 34.6 L (39.6-50.0) % Plt Count 127 L (140-440) 10*3/uL Lymphocytes # 0.81 L (0.90-5.00) 10*3/uL Sodium 134 L 135 L (137-145) mmol/L Potassium 3.3 L 3.4 L (3.5-5.1) mmol/L Chloride 94 L 97 L (98-107) mmol/L BUN 26 H 23 H (9-20) mg/dL Creatinine 1.37 H (0.66-1.25) mg/dL Glucose 100 H (74-99) mg/dL ALT 58 H 51 H (4-49) U/L C-Reactive Protein 17.1 H (<1.0) mg/dL Total Protein 5.7 L 5.7 L (6.3-8.2) g/dL Albumin 3.3 L 3.3 L (3.5-5.0) g/dL Microbiology - Last 24 Hours (Table) 03/05/25 10:42 Blood Culture Gram Stain - Final Blood Blood Culture - Final Methicillin resist S. aureus 03/04/25 21:29 Blood Culture Gram Stain - Final Blood Blood Culture - Final Methicillin resist S. aureus Molecular ID Assessment and Plan (1) Elevated serum creatinine Current Visit: Yes Status: Acute Code(s): R79.89 - OTHER SPECIFIED ABNORMAL FINDINGS OF BLOOD CHEMISTRY SNOMED Code(s): 032181335 (2) Fever Current Visit: Yes Status: Acute Code(s): R50.9 - FEVER, UNSPECIFIED SNOMED Code(s): 975848454 (3) Sepsis Current Visit: No Status: Acute Code(s): A41.9 - SEPSIS, UNSPECIFIED ORGANISM SNOMED Code(s): 77163402 Plan: 1patient presented hospital with sepsis in this patient who did have fever elevated white count meeting ready for SIRS source is likely abdominal has the patient was noted to be tender in the left lower quadrant area with concern for possible diverticulitis or related pathology likely from enteric gram-negative pathogen as there was no evidence of any pneumonia or UTI on the initial workup no evidence of any cellulitis or joint swelling 2-patient did have CT of abdominal pelvis with oral contrast did not show any ac wales abnormality 3-patient did have a 2 sets of blood culture positive for MRSA, DUDLEY completed did not show any evidence of vegetation currently waiting for the bone scan 4patient to continue the daptomycin while waiting for the workup to be completed at the bedside multiple question answered Dictation was produced using [employer] dictation software. please excuse any grammatical, word or spelling errors.
[2025-03-08] MEDS: POTASSIUM CHLORIDE ER 20 MEQ TAB.ER PO STA (16:49)
--- NOTE | 2025-03-08 20:57 | P.PN ---
Subjective Progress Note Date: 03/08/25 This is a 84-year-old male patient who presented to the hospital with symptoms of acute onset joint aches and muscle aches that started at 4:00 on the morning of admission. The patient woke up with those symptoms and he was feeling quite weak and was having also chills and sweats. Based on that, he came into the hospital. The patient was very much concerned of an underlying septic event as the patient has been hospitalized in the past, approximately a year ago with E. coli urine tract infection and sepsis. The patient has history of prostate cancer and the patient has undergone prostatectomy. He also had history of urethral resection and the patient undergoes daily urethral dilatation using a catheter. Following that, is able to urinate throughout the day without any major difficulties. Noted, the patient denied having any dysuria. No pelvic pain. No flank pain. No cough sputum production chest tightness or wheezing. His Tmax was 103 and at the time of admission the patient was found to be hypoxic with a pulse ox of 95% 40s of oxygen by nasal cannula. Further investigation was done. EKG showed a paced ventricular rhythm. Chest x-ray showed no acute cardiopulmonary process. The patient was given a CT of the chest that showed no evidence of any airspace disease and the patient had no evidence of any pulmonary embolism. Blood work was done in the emergency and the patient was found to have a white cell count of 10.6 with a hemoglobin 13.2 and a platelet count of 100. Normal coagulation profile. BUN is 22 with a creatinine of 1.29. Sodium level is at 135. Potassium levels at 3.7. UA is showing hyaline cast, no significant white cells, 6 RBCs and the viral screen was essentially negative. Echocardiogram done back in 2022 showed reduced LV function with an ejection fraction of 45 to 50% his troponins were mildly elevated at 0.1, 0.2, 0.2 and 0.1 respectively. Based on that, the patient was started on IV heparin. The preliminary blood culture is showing gram-positive cocci and the patient was started on broad- spectrum antibiotics and the patient is currently on a combination of Zosyn and vancomycin. The patient is currently sitting up on a chair. No significant hypotension. No altered mentation. No nausea or emesis. No abdominal pain. Pacemaker pocket over the left anterior chest area is dry clean and intact. No wounds. No cellulitis. On 03/06/2025, the patient is being seen for a follow-up. The patient is doing well for now. He is afebrile. Hemodynamically stable. The blood culture is showing presumptive MRSA and the patient is currently on a combination of daptomycin and IV Zosyn. ID is on the case. The exact source of the infection is not clear although I do suspect that this was probably related to urinary manipulation and dilatation of the urethra that the patient undergoes on a daily basis. He also has a pacemaker in place. 1 seconds of 8.2 with a heme of 13.7 and platelet count of 92. The patient's sodium levels at 150, BUN 23 with a creatinine 1.2 from yesterday. Awaiting repeat electrolytes from today. Tr oponins were mildly elevated and cardiology is also on the case. Procalcitonin level was at 15.4. ID is on the case. Urologist on the case. Cardiology is on the case. IV Lasix has been discontinued. IV heparin has been discontinued and the patient was restarted back on anticoagulation with Eliquis. 03/07/2025, the patient is being seen for a follow-up. On today's evaluation, the patient is feeling well. No specific complaints. No fever. No chills. No hemodynamic instability. 2 sets of blood cultures were positive for MRSA and the patient remains on IV daptomycin. ID is on the case. Cardiology on the case. Transthoracic echocardiogram that was done on 03/05/2025 showed no evidence of any valve regurgitation and the patient has mild concentric LVH, mild pulm hypertension, moderate biatrial dilatation and a preserved ejection fraction of 55%. The white cell count has been down to 8.2. Electrolytes are all stable. Potassium level is at 3.3 it is severe in place with a BUN of 26 and a creatinine of 1.37. The patient has a CRP level of 17.1, albumin level is at 3.3. The patient is being seen by cardiology. He may be considered for a DUDLEY especially if the blood culture continues to be positive. On 03/08/2025, the patient is doing well. No specific complaints. Repeat blood cultures from 03/07/2025 is showing no growth and the patient remains on IV daptomycin. Hemodynamically stable. Afebrile. Currently on room air oxygen with a pulse ox of 94%. The white cell count is 6.5 with a hemoglobin 11.9 and platelet count of 127. Electrolytes are normal. Renal function has normalized with a BUN of 23 and a creatinine of 1.08. Meanwhile, the patient completed the DUDLEY today and there is no evidence of any vegetation. LV function is within normal limits. No thrombus in the left atrium or appendage. CT scan of the abdomen and pelvis with oral contrast did not show any acute abnormalities. Objective - Vital Signs Vital signs: Vital Signs Temp 97.5 F L 03/08/25 04:00 Pulse 68 03/08/25 08:52 Resp 18 03/08/25 04:39 BP 137/83 03/08/25 04:00 Pulse Ox 94 L 03/08/25 08:40 FiO2 Intake & Output 03/07/25 03/08/25 03/08/25 18:59 06:59 18:59 Intake Total 870 20 175 Output Total 100 580 175 Balance 770 -560 0 Weight 105.1 kg Intake: IV 20 175 Invasive Line 2 20 Intake, IV Titration 150 Amount DAPTOmycin 500 mg In 50 Sodium Chloride 0.9% 50 ml @ 100 mls/hr IVPB Q24H [facility] Rx#:[id number] Piperacillin-Tazobactam 3 100 .375 gm In Sodium Chloride 0.9% 100 ml @ 25 mls/hr IVPB Q8HR [facility] Rx# :[id number] Oral 720 Output: Urine 100 580 175 Other: Voiding Method Urinal Urinal # Voids 1 1 - Exam The patient appeared well nourished and normally developed. Vital signs as documented. The patient has a body mass index of 34.5. The patient is currently on room air oxygen Head exam is unremarkable. No scleral icterus or corneal arcus noted. Neck is without jugular venous distension, thyromegaly, or carotid bruits. Carotid upstrokes are brisk bilaterally. Lungs are clear to auscultation and percussion. Breath sounds are diminished in lung base bilaterally. Cardiac exam reveals the PMI to be normally sized and situated. Rhythm is regular. First and second heart sounds normal. No murmurs, rubs or gallops. The cardiac rhythm is paced and the patient has a pacemaker pocket over the left anterior chest area. Abdominal exam reveals normal bowel sounds, no masses, no organomegaly and no aortic enlargement. Extremities are nonedematous and both femoral and pedal pulses are normal. Examination of the skin revealed no evidence of significant rashes, suspicious appearing nevi or other concerning lesions. Neurologically, the patient is awake and alert and the patient does not have any focal neurological deficit. Cranial nerves are essentially intact. - Labs CBC & Chem 7: 03/08/25 07:29 03/08/25 07:29 Labs: Abnormal Lab Results - Last 24 Hours (Table) 03/07/25 03/08/25 03/08/25 Range/Units 09:46 07:29 07:29 RBC 3.83 L (4.40-5.60) 10*6/uL Hgb 11.9 L (13.0-17.0) g/dL Hct 34.6 L (39.6-50.0) % Plt Count 127 L (140-440) 10*3/uL Lymphocytes # 0.81 L (0.90-5.00) 10*3/uL Sodium 134 L 135 L (137-145) mmol/L Potassium 3.3 L 3.4 L (3.5-5.1) mmol/L Chloride 94 L 97 L (98-107) mmol/L BUN 26 H 23 H (9-20) mg/dL Creatinine 1.37 H (0.66-1.25) mg/dL Glucose 100 H (74-99) mg/dL ALT 58 H 51 H (4-49) U/L C-Reactive Protein 17.1 H (<1.0) mg/dL Total Protein 5.7 L 5.7 L (6.3-8.2) g/dL Albumin 3.3 L 3.3 L (3.5-5.0) g/dL Microbiology - Last 24 Hours (Table) 03/05/25 10:42 Blood Culture Gram Stain - Final Blood Blood Culture - Final Methicillin resist S. aureus 03/04/25 21:29 Blood Culture Gram Stain - Final Blood Blood Culture - Final Methicillin resist S. aureus Molecular ID Assessment and Plan Plan: MRSA sepsis, likely have a urinary source due to manipulation of his urethra and as the patient undergoes daily urethral dilatations. He is able to urinate. Urine cultures are negative. Blood cultures positive for MRSA and the patient is currently on daptomycin. 2 sets of blood culture positive for MRSA. Subsequent blood culture from 03/07/2025 was negative. DUDLEY is negative for any vegetation. Acute febrile illness associated with chills and fever and generalized bodyaches and weakness, secondary to above Acute hypoxic respiratory failure, improved, currently on room air oxygen Coronary artery disease, consider underlying Abnormal troponins, consider acute NSTEMI versus type II myocardial ischemia related underlying sepsis. Patient was initially on IV heparin that this was discontinued. Paroxysmal atrial fibrillation maintained on long-term anticoagulation with Eliquis. The patient was on IV heparin and this was discontinued and the patient was started on anticoagulation with Eliquis. 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 Renal function is improved. Plan Clinically stable 2 sets of blood cultures positive for MRSA Awaiting follow-up blood cultures Patient is currently on room air oxygen DUDLEY is negative for any vegetation or endocarditis Continue daptomycin Awaiting further recommendations from ID Continue anticoagulation with Eliquis Monitor renal function, creatinine remains stable Oxygenation is stable We will continue to follow.
[2025-03-08] MEDS ORDERED: IPRATROPIUM-ALBUTEROL 3 ML NEB INHALATION PRN (22:00)
[2025-03-09] MEDS: IPRATROPIUM-ALBUTEROL 3 ML NEB INHALATION SCH (00:27)
[2025-03-09] MEDS ORDERED: IPRATROPIUM-ALBUTEROL 3 ML NEB INHALATION SCH (08:00)
[2025-03-09] MEDS: POTASSIUM CHLORIDE ER 20 MEQ TAB.ER PO SCH (09:20)
--- NOTE | 2025-03-09 12:33 | P.PN ---
Subjective Progress Note Date: 03/09/25 This is a 84-year-old male patient who presented to the hospital with symptoms of acute onset joint aches and muscle aches that started at 4:00 on the morning of admission. The patient woke up with those symptoms and he was feeling quite weak and was having also chills and sweats. Based on that, he came into the hospital. The patient was very much concerned of an underlying septic event as the patient has been hospitalized in the past, approximately a year ago with E. coli urine tract infection and sepsis. The patient has history of prostate cancer and the patient has undergone prostatectomy. He also had history of urethral resection and the patient undergoes daily urethral dilatation using a catheter. Following that, is able to urinate throughout the day without any major difficulties. Noted, the patient denied having any dysuria. No pelvic pain. No flank pain. No cough sputum production chest tightness or wheezing. His Tmax was 103 and at the time of admission the patient was found to be hypoxic with a pulse ox of 95% 40s of oxygen by nasal cannula. Further investigation was done. EKG showed a paced ventricular rhythm. Chest x-ray showed no acute cardiopulmonary process. The patient was given a CT of the chest that showed no evidence of any airspace disease and the patient had no evidence of any pulmonary embolism. Blood work was done in the emergency and the patient was found to have a white cell count of 10.6 with a hemoglobin 13.2 and a platelet count of 100. Normal coagulation profile. BUN is 22 with a creatinine of 1.29. Sodium level is at 135. Potassium levels at 3.7. UA is showing hyaline cast, no significant white cells, 6 RBCs and the viral screen was essentially negative. Echocardiogram done back in 2022 showed reduced LV function with an ejection fraction of 45 to 50% his troponins were mildly elevated at 0.1, 0.2, 0.2 and 0.1 respectively. Based on that, the patient was started on IV heparin. The preliminary blood culture is showing gram-positive cocci and the patient was started on broad- spectrum antibiotics and the patient is currently on a combination of Zosyn and vancomycin. The patient is currently sitting up on a chair. No significant hypotension. No altered mentation. No nausea or emesis. No abdominal pain. Pacemaker pocket over the left anterior chest area is dry clean and intact. No wounds. No cellulitis. On 03/06/2025, the patient is being seen for a follow-up. The patient is doing well for now. He is afebrile. Hemodynamically stable. The blood culture is showing presumptive MRSA and the patient is currently on a combination of daptomycin and IV Zosyn. ID is on the case. The exact source of the infection is not clear although I do suspect that this was probably related to urinary manipulation and dilatation of the urethra that the patient undergoes on a daily basis. He also has a pacemaker in place. 1 seconds of 8.2 with a heme of 13.7 and platelet count of 92. The patient's sodium levels at 150, BUN 23 with a creatinine 1.2 from yesterday. Awaiting repeat electrolytes from today. Tr oponins were mildly elevated and cardiology is also on the case. Procalcitonin level was at 15.4. ID is on the case. Urologist on the case. Cardiology is on the case. IV Lasix has been discontinued. IV heparin has been discontinued and the patient was restarted back on anticoagulation with Eliquis. 03/07/2025, the patient is being seen for a follow-up. On today's evaluation, the patient is feeling well. No specific complaints. No fever. No chills. No hemodynamic instability. 2 sets of blood cultures were positive for MRSA and the patient remains on IV daptomycin. ID is on the case. Cardiology on the case. Transthoracic echocardiogram that was done on 03/05/2025 showed no evidence of any valve regurgitation and the patient has mild concentric LVH, mild pulm hypertension, moderate biatrial dilatation and a preserved ejection fraction of 55%. The white cell count has been down to 8.2. Electrolytes are all stable. Potassium level is at 3.3 it is severe in place with a BUN of 26 and a creatinine of 1.37. The patient has a CRP level of 17.1, albumin level is at 3.3. The patient is being seen by cardiology. He may be considered for a DUDLEY especially if the blood culture continues to be positive. On 03/08/2025, the patient is doing well. No specific complaints. Repeat blood cultures from 03/07/2025 is showing no growth and the patient remains on IV daptomycin. Hemodynamically stable. Afebrile. Currently on room air oxygen with a pulse ox of 94%. The white cell count is 6.5 with a hemoglobin 11.9 and platelet count of 127. Electrolytes are normal. Renal function has normalized with a BUN of 23 and a creatinine of 1.08. Meanwhile, the patient completed the DUDLEY today and there is no evidence of any vegetation. LV function is within normal limits. No thrombus in the left atrium or appendage. CT scan of the abdomen and pelvis with oral contrast did not show any acute abnormalities. On 03/09/2025, the patient is on room air oxygen. The patient is sitting up in a chair, comfortable and he denies having any specific complaints. Repeat blood culture from 03/07/2025 was negative. White cell count 6.5, hemoglobin 9.9 and platelet count of 127. BUN is 23 with a creatinine of 1.08 and sodium is 135. The patient has been afebrile. Hemodynamically stable. He is negative for any vegetation. Objective - Vital Signs Vital signs: Vital Signs Temp 97.5 F L 03/09/25 08:05 Pulse 64 03/09/25 08:08 Resp 16 03/09/25 08:05 BP 106/60 03/09/25 08:05 Pulse Ox 94 L 03/09/25 08:05 FiO2 Intake & Output 03/08/25 03/09/25 03/09/25 18:59 06:59 18:59 Intake Total 555 560 Output Total 175 500 225 Balance 380 60 -225 Weight 105.7 kg Intake: IV 195 20 Invasive Line 2 20 20 Oral 360 540 Output: Gastric Drainage 0 Urine 175 500 225 Stool 0 Urine/Stool Mix 0 Emesis 0 Oral Regurgitation 0 Other 0 Other: Voiding Method Urinal Urinal # Voids 0 1 # Bowel Movements 0 1 - Exam The patient appeared well nourished and normally developed. Vital signs as documented. The patient has a body mass index of 34.5. The patient is currently on room air oxygen Head exam is unremarkable. No scleral icterus or corneal arcus noted. Neck is without jugular venous distension, thyromegaly, or carotid bruits. Carotid upstrokes are brisk bilaterally. Lungs are clear to auscultation and percussion. Breath sounds are diminished in lung base bilaterally. Cardiac exam reveals the PMI to be normally sized and situated. Rhythm is regular. First and second heart sounds normal. No murmurs, rubs or gallops. The cardiac rhythm is paced and the patient has a pacemaker pocket over the left anterior chest area. Abdominal exam reveals normal bowel sounds, no masses, no organomegaly and no aortic enlargement. Extremities are nonedematous and both femoral and pedal pulses are normal. Examination of the skin revealed no evidence of significant rashes, suspicious appearing nevi or other concerning lesions. Neurologically, the patient is awake and alert and the patient does not have any focal neurological deficit. Cranial nerves are essentially intact. - Labs CBC & Chem 7: 03/08/25 07:29 03/08/25 07:29 Labs: Microbiology - Last 24 Hours (Table) 03/07/25 09:46 Blood Culture - Preliminary Blood Assessment and Plan Plan: MRSA sepsis, likely have a urinary source due to manipulation of his urethra and as the patient undergoes daily urethral dilatations. He is able to urinate. Urine cultures are negative. Blood cultures positive for MRSA and the patient is currently on daptomycin. 2 sets of blood culture positive for MRSA. Subsequent blood culture from 03/07/2025 was negative. DUDLEY is negative for any vegetation. Acute febrile illness associated with chills and fever and generalized bodyaches and weakness, secondary to above Acute hypoxic respiratory failure, improved, currently on room air oxygen Coronary artery disease, consider underlying Abnormal troponins, consider acute NSTEMI versus type II myocardial ischemia related underlying sepsis. Patient was initially on IV heparin that this was discontinued. Paroxysmal atrial fibrillation maintained on long-term anticoagulation with Eliquis. The patient was on IV heparin and this was discontinued and the patient was started on anticoagulation with Eliquis. 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 Renal function is improved. Plan Clinically stable 2 sets of blood cultures positive for MRSA, subsequent blood culture on 03/07/2025 was negative. Patient is currently on room air oxygen DUDLEY is negative for any vegetation or endocarditis Continue daptomycin Awaiting further recommendations from ID Continue anticoagulation with Eliquis Monitor renal function, creatinine remains stable Oxygenation is stable Will sign off the case
--- NOTE | 2025-03-09 17:33 | P.PN ---
Subjective Progress Note Date: 03/09/25 84-year-old gentleman with past medical history significant for hypertension, atrial fibrillation presented to the ER because of generalized weakness. Patient said that he was all right last night when he tried to get to the bed and felt very weak. Patient was complaining of lethargy and weakness at the time patient also felt short of breath. Patient stated shortness of breath was present on rest as well exertion. There was no complaint of chest pain. Patient denies any fever or chills at home. There is no complaint of orthopnea or PND. There is no complaint of nausea, vomiting or abdominal pain. Because of the shortness of breath, EMS was called, patient had to be placed on 2 L of oxygen. Initially in the ER, patient fever of 103 Initial lab work done in the ER showed WBC 10.61, hemoglobin 13.2, platelet count 100, sodium 135, potassium 3.7, BUN 22, creatinine 1.29, glucose 154, lactate 1.9, calcium 8.6, magnesium 1.5 UA negative for infection Influenza A not detected Influenza B not detected RSV not detected COVID-19 not detected EKG done in the ER showed heart rate of61, ventricular paced rhythm, no ST segment elevation or depression seen, no T-wave inversions seen. Chest x-ray done in the ER showed chronic changes and cardiomegaly without acute pulmonary process CT chest PE protocol done showed no evidence of PE, Patient admitted to internal medicine service Objective - Vital Signs Vital signs: Vital Signs Temp 97.5 F L 03/09/25 08:05 Pulse 64 03/09/25 11:43 Resp 16 03/09/25 08:05 BP 106/60 03/09/25 08:05 Pulse Ox 94 L 03/09/25 08:05 FiO2 Intake & Output 03/08/25 03/09/25 03/09/25 18:59 06:59 18:59 Intake Total 555 560 Output Total 175 500 225 Balance 380 60 -225 Weight 105.7 kg Intake: IV 195 20 Invasive Line 2 20 20 Oral 360 540 Output: Gastric Drainage 0 Urine 175 500 225 Stool 0 Urine/Stool Mix 0 Emesis 0 Oral Regurgitation 0 Other 0 Other: Voiding Method Urinal Urinal # Voids 0 1 # Bowel Movements 0 1 - Exam GENERAL: The patient is alert and oriented x3, not in any acute distress. Well developed, well nourished. HEENT: Pupils are round and equally reacting to light. EOMI. No scleral icterus. No conjunctival pallor. Normocephalic, atraumatic. No pharyngeal erythema. No thyromegaly. CARDIOVASCULAR: S1 and S2 present. No murmurs, rubs, or gallops. PULMONARY: Coarse breath sounds bilateral , no wheezing or crackles. ABDOMEN: Soft, nontender, nondistended, normoactive bowel sounds. No palpable organomegaly. MUSCULOSKELETAL: No joint swelling or deformity. EXTREMITIES: No cyanosis, clubbing, or pedal edema. NEUROLOGICAL: Gross neurological examination did not reveal any focal deficits. SKIN: No rashes. 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 History of skin cancer History of hypertension Hyperlipidemia Monitor vital signs Monitor CBC Monitor CMP Continue telemetry monitoring Follow-up on blood culture Strict I's and O's, daily weights, switch to oral Lasix 40 mg twice daily Continue daptomycin Continue Eliquis Continue breathing treatment DUDLEY showing No evidence of vegetation,Normal global LV size and systolic function Mild to moderate concentric LVH,Moderate biatrial dilatation,No thrombus in [place]IS[place]ETH or LA left atrial appendage ID following, appreciate their recommendation, recommendations noted from 03/08, WBC scan ordered Cardiology following,appreciate their recommendation, recommendations noted from 03/08 Pulmonology followingappreciate their recommendation, recommendations noted from 03/08 Labs and medication were reviewed.. Continue same treatment. Continue with symptomatic treatment. Resume home medication. Monitor labs and vitals. DVT and GI prophylaxis. Further recommendations as per clinical course of the patie nt
--- NOTE | 2025-03-10 06:50 | P.PN ---
Subjective Progress Note Date: 03/09/25 History of present illness: This is an 84-year-old male patient of Dr. Danny Wilcox with past medical history of paroxysmal atrial fibrillation, congestive heart failure, permanent pacemaker, hypertension, hyperlipidemia. We have been asked to evaluate the patient for NSTEMI. Patient states that his symptoms started with joint and muscle aching. Then when he got up in the morning at 4 AM to the bathroom his legs gave out on him and he slid off the bed onto the floor. EMS was called and brought him into the hospital for evaluation and he apparently was discharged home in the next day he did the same thing with significant weakness to the legs as well as chills and sweats. He is having sweats at the time of this evaluation. He complains of feeling weak and tired. Patient did have an episode of sepsis secondary to complicated UTI with urinary retention, catheter placement. 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 Patient underwent DUDLEY for cardioversion but he was found to have a left atrial appendage thrombus and the cardioversion was canceled. P arturo appears to be presenting with the similar septic picture picture however urine does not appear to be infected on this occasion. Blood pressure 95/57, heart rate in the 60s, pulse ox 95% on 4 L. Temperature max 103. -EKG: Ventricularly paced rhythm. -Chest x-ray: Chronic changes and cardiomegaly without acute process. -CTA chest: No large or central pulmonary embolism. Limited study. -Laboratory studies: WBC 10.6 and repeat 8.2, hemoglobin 13.7. Sodium 150, BUN 23 creatinine 1.29. Troponin 0.164, 0.259, 0.26, 0.186. proBNP 7520. Cepheid viral panel not detected. Urinalysis reveals RBCs 6, hyaline cast 40, blood small. 1 blood culture his status received. -Home cardiac medications: Eliquis 5 mg twice daily, Coreg 25 mg twice daily, Lasix 40 mg twice daily, losartan 50 mg twice daily, potassium chloride 10 mEq 4 times daily. -Echocardiogram performed at [facility] on 07/12/2023 revealed mildly reduced LV systolic function, LVH. EF was 45 to 50%. 03/06 Patient seen and examined. He feels a little bit better today from yesterday but still has the sweats. No chest pain or chest pressure. Blood pressure 93/59, heart rate 56, pulse ox 95% on 3 L nasal cannula. Blood culture positive for MRSA and molecular ID. Patient's states that he had recent back i njections and also shoulder injections. Patient has been on heparin drip which we will discontinue and resume patient back on Eliquis. Echocardiogram reveals EF 50 to 55%, mild concentric LVH, mild pulmonary hypertension with RVSP 41 mmHg. Mild MR and mild TR. Moderate biatrial dilatation. Pacemaker wires noted in RA and RV. 03/07 Patient seen and examined. He has a second blood culture that is positive for MRSA. Patient states he is feeling better each day. He denies fever or chills. No cough. He states he did bring up some sputum in the shower and has been asked to collect a sputum specimen. He does complain of some pain around the pacemaker site. No sign of infection or inflammation. Blood pressure 109/68, heart rate 60, pulse ox 94% on 3 L nasal cannula. Patient is afebrile. 03/08 Patient is scheduled for DUDLEY today. He remains afebrile, heart rate in the 60s and 70s, blood pressure 113/83, pulse ox 94% on 2 L nasal cannula. Repeat blood work reveals WBC 6.5, hemoglobin 1.9. Sodium 135, potassium 3.4, BUN 23 creatinine 1.08. 2 blood cultures are positive for MRSA. A repeat blood culture was obtained on 03/07. Patient is also scheduled for a WBC scan. 03/09/2020 Patient underwent DUDLEY yesterday. No postop complications. Denies any new cardiovascular complaints BP 120/71, heart rate 62 Physical examination: HEENT: Head is atraumatic, normocephalic. Pupils equal, round. Sclerae is anicteric. NECK: Supple. No JVD. LUNGS: Clear to auscultation. No wheezes or rhonchi. No intercostal retractions. HEART: Regular rate and rhythm. No murmur. ABDOMEN: Soft No tenderness. EXTREMITIES: No pedal edema. No calf tenderness. NEUROLOGICAL: Patient is awake, alert and oriented x3. 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 Plan: No evidence of infective endocarditis Continue current medications Objective - Vital Signs Vital signs: Vital Signs Temp 97.4 F L 03/09/25 20:16 Pulse 66 03/10/25 04:19 Resp 18 03/10/25 04:19 BP 160/92 03/10/25 04:19 Pulse Ox 95 03/10/25 04:19 FiO2 Intake & Output 03/09/25 03/09/25 03/10/25 06:59 18:59 06:59 Intake Total 560 720 Output Total 500 750 950 Balance 60 -30 -950 Weight 105.7 kg 105 kg Intake: IV 20 Invasive Line 2 20 Oral 540 720 Output: Urine 500 750 950 Other: Voiding Method Urinal Urinal Urinal # Voids 1 # Bowel Movements 1 - Labs CBC & Chem 7: 03/08/25 07:29 03/08/25 07:29 Labs: Microbiology - Last 24 Hours (Table) 03/07/25 09:46 Blood Culture - Preliminary Blood
--- NOTE | 2025-03-10 06:54 | P.PN ---
Subjective Progress Note Date: 03/10/25 History of present illness: This is an 84-year-old male patient of Dr. Danny Wilcox with past medical history of paroxysmal atrial fibrillation, congestive heart failure, permanent pacemaker, hypertension, hyperlipidemia. We have been asked to evaluate the patient for NSTEMI. Patient states that his symptoms started with joint and muscle aching. Then when he got up in the morning at 4 AM to the bathroom his legs gave out on him and he slid off the bed onto the floor. EMS was called and brought him into the hospital for evaluation and he apparently was discharged home in the next day he did the same thing with significant weakness to the legs as well as chills and sweats. He is having sweats at the time of this evaluation. He complains of feeling weak and tired. Patient did have an episode of sepsis secondary to complicated UTI with urinary retention, catheter placement. 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 Patient underwent DUDLEY for cardioversion but he was found to have a left atrial appendage thrombus and the cardioversion was canceled. P arturo appears to be presenting with the similar septic picture picture however urine does not appear to be infected on this occasion. Blood pressure 95/57, heart rate in the 60s, pulse ox 95% on 4 L. Temperature max 103. -EKG: Ventricularly paced rhythm. -Chest x-ray: Chronic changes and cardiomegaly without acute process. -CTA chest: No large or central pulmonary embolism. Limited study. -Laboratory studies: WBC 10.6 and repeat 8.2, hemoglobin 13.7. Sodium 150, BUN 23 creatinine 1.29. Troponin 0.164, 0.259, 0.26, 0.186. proBNP 7520. Cepheid viral panel not detected. Urinalysis reveals RBCs 6, hyaline cast 40, blood small. 1 blood culture his status received. -Home cardiac medications: Eliquis 5 mg twice daily, Coreg 25 mg twice daily, Lasix 40 mg twice daily, losartan 50 mg twice daily, potassium chloride 10 mEq 4 times daily. -Echocardiogram performed at [facility] on 07/12/2023 revealed mildly reduced LV systolic function, LVH. EF was 45 to 50%. 03/06 Patient seen and examined. He feels a little bit better today from yesterday but still has the sweats. No chest pain or chest pressure. Blood pressure 93/59, heart rate 56, pulse ox 95% on 3 L nasal cannula. Blood culture positive for MRSA and molecular ID. Patient's states that he had recent back i njections and also shoulder injections. Patient has been on heparin drip which we will discontinue and resume patient back on Eliquis. Echocardiogram reveals EF 50 to 55%, mild concentric LVH, mild pulmonary hypertension with RVSP 41 mmHg. Mild MR and mild TR. Moderate biatrial dilatation. Pacemaker wires noted in RA and RV. 03/07 Patient seen and examined. He has a second blood culture that is positive for MRSA. Patient states he is feeling better each day. He denies fever or chills. No cough. He states he did bring up some sputum in the shower and has been asked to collect a sputum specimen. He does complain of some pain around the pacemaker site. No sign of infection or inflammation. Blood pressure 109/68, heart rate 60, pulse ox 94% on 3 L nasal cannula. Patient is afebrile. 03/08 Patient is scheduled for DUDLEY today. He remains afebrile, heart rate in the 60s and 70s, blood pressure 113/83, pulse ox 94% on 2 L nasal cannula. Repeat blood work reveals WBC 6.5, hemoglobin 1.9. Sodium 135, potassium 3.4, BUN 23 creatinine 1.08. 2 blood cultures are positive for MRSA. A repeat blood culture was obtained on 03/07. Patient is also scheduled for a WBC scan. 03/09/2020 Patient underwent DUDLEY yesterday. No postop complications. Denies any new cardiovascular complaints BP 120/71, heart rate 62 03/10/2025 Seen and examined at bedside this a.m. Denies any active chest pain chest pressure. Doing well. Awaiting WBC scan for identifying source of infection to be done tomorrow. No labs to review today BP 155/88, heart rate 62 Telemetry shows A-fib with paced ventricular rhythm Physical examination: HEENT: Head is atraumatic, normocephalic. Pupils equal, round. Sclerae is anicteric. NECK: Supple. No JVD. LUNGS: Clear to auscultation. No wheezes or rhonchi. No intercostal retractions. HEART: Regular rate and rhythm. No murmur. ABDOMEN: Soft No tenderness. EXTREMITIES: No pedal edema. No calf tenderness. NEUROLOGICAL: Patient is awake, alert and oriented x3. 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 Start Aldactone 25 instead. Continue, Aspirin, carvedilol 25 twice daily, losartan 50 twice daily Continue Lasix 40 twice daily Start low-dose amlodipine 2.5 mg for blood pressure Monitor kidney function and electrolytes Cardiology can sign off Recommend outpatient follow-up with Dr. Wilcox Objective - Vital Signs Vital signs: Vital Signs Temp 97.4 F L 03/09/25 20:16 Pulse 66 03/10/25 04:19 Resp 18 03/10/25 04:19 BP 160/92 03/10/25 04:19 Pulse Ox 95 03/10/25 04:19 FiO2 Intake & Output 03/09/25 03/09/25 03/10/25 06:59 18:59 06:59 Intake Total 560 720 Output Total 500 750 950 Balance 60 -30 -950 Weight 105.7 kg 105 kg Intake: IV 20 Invasive Line 2 20 Oral 540 720 Output: Urine 500 750 950 Other: Voiding Method Urinal Urinal Urinal # Voids 1 # Bowel Movements 1 - Labs CBC & Chem 7: 03/08/25 07:29 03/08/25 07:29 Labs: Microbiology - Last 24 Hours (Table) 03/07/25 09:46 Blood Culture - Preliminary Blood
[2025-03-10] MEDS: IPRATROPIUM-ALBUTEROL 3 ML NEB INHALATION SCH (09:09)
[2025-03-10] MEDS: SPIRONOLACTONE 25 MG TAB PO SCH (09:10)
[2025-03-10 12:31] LABS: African American GFR (CKD) >90 (>60 ml/min/1.73 sqM); Anion Gap 7 mmol/L; Blood Urea Nitrogen 16 mg/dL (9-20); Calcium 9.5 mg/dL (8.4-10.2); Carbon Dioxide 31 mmol/L (22-30); Chloride 97 mmol/L (98-107); Glucose 93 mg/dL (74-99); Non-African American GFR(CKD) 79 (>60 ml/min/1.73 sqM); Potassium 3.6 mmol/L (3.5-5.1); Sodium 135 mmol/L (137-145)
--- NOTE | 2025-03-10 14:23 | P.PN ---
Subjective Progress Note Date: 03/10/25 This is a 84-year-old male patient who presented to the hospital with symptoms of acute onset joint aches and muscle aches that started at 4:00 on the morning of admission. The patient woke up with those symptoms and he was feeling quite weak and was having also chills and sweats. Based on that, he came into the hospital. The patient was very much concerned of an underlying septic event as the patient has been hospitalized in the past, approximately a year ago with E. coli urine tract infection and sepsis. The patient has history of prostate cancer and the patient has undergone prostatectomy. He also had history of urethral resection and the patient undergoes daily urethral dilatation using a catheter. Following that, is able to urinate throughout the day without any major difficulties. Noted, the patient denied having any dysuria. No pelvic pain. No flank pain. No cough sputum production chest tightness or wheezing. His Tmax was 103 and at the time of admission the patient was found to be hypoxic with a pulse ox of 95% 40s of oxygen by nasal cannula. Further investigation was done. EKG showed a paced ventricular rhythm. Chest x-ray showed no acute cardiopulmonary process. The patient was given a CT of the chest that showed no evidence of any airspace disease and the patient had no evidence of any pulmonary embolism. Blood work was done in the emergency and the patient was found to have a white cell count of 10.6 with a hemoglobin 13.2 and a platelet count of 100. Normal coagulation profile. BUN is 22 with a creatinine of 1.29. Sodium level is at 135. Potassium levels at 3.7. UA is showing hyaline cast, no significant white cells, 6 RBCs and the viral screen was essentially negative. Echocardiogram done back in 2022 showed reduced LV function with an ejection fraction of 45 to 50% his troponins were mildly elevated at 0.1, 0.2, 0.2 and 0.1 respectively. Based on that, the patient was started on IV heparin. The preliminary blood culture is showing gram-positive cocci and the patient was started on broad- spectrum antibiotics and the patient is currently on a combination of Zosyn and vancomycin. The patient is currently sitting up on a chair. No significant hypotension. No altered mentation. No nausea or emesis. No abdominal pain. Pacemaker pocket over the left anterior chest area is dry clean and intact. No wounds. No cellulitis. On 03/06/2025, the patient is being seen for a follow-up. The patient is doing well for now. He is afebrile. Hemodynamically stable. The blood culture is showing presumptive MRSA and the patient is currently on a combination of daptomycin and IV Zosyn. ID is on the case. The exact source of the infection is not clear although I do suspect that this was probably related to urinary manipulation and dilatation of the urethra that the patient undergoes on a daily basis. He also has a pacemaker in place. 1 seconds of 8.2 with a heme of 13.7 and platelet count of 92. The patient's sodium levels at 150, BUN 23 with a creatinine 1.2 from yesterday. Awaiting repeat electrolytes from today. Tr oponins were mildly elevated and cardiology is also on the case. Procalcitonin level was at 15.4. ID is on the case. Urologist on the case. Cardiology is on the case. IV Lasix has been discontinued. IV heparin has been discontinued and the patient was restarted back on anticoagulation with Eliquis. 03/07/2025, the patient is being seen for a follow-up. On today's evaluation, the patient is feeling well. No specific complaints. No fever. No chills. No hemodynamic instability. 2 sets of blood cultures were positive for MRSA and the patient remains on IV daptomycin. ID is on the case. Cardiology on the case. Transthoracic echocardiogram that was done on 03/05/2025 showed no evidence of any valve regurgitation and the patient has mild concentric LVH, mild pulm hypertension, moderate biatrial dilatation and a preserved ejection fraction of 55%. The white cell count has been down to 8.2. Electrolytes are all stable. Potassium level is at 3.3 it is severe in place with a BUN of 26 and a creatinine of 1.37. The patient has a CRP level of 17.1, albumin level is at 3.3. The patient is being seen by cardiology. He may be considered for a DUDLEY especially if the blood culture continues to be positive. On 03/08/2025, the patient is doing well. No specific complaints. Repeat blood cultures from 03/07/2025 is showing no growth and the patient remains on IV daptomycin. Hemodynamically stable. Afebrile. Currently on room air oxygen with a pulse ox of 94%. The white cell count is 6.5 with a hemoglobin 11.9 and platelet count of 127. Electrolytes are normal. Renal function has normalized with a BUN of 23 and a creatinine of 1.08. Meanwhile, the patient completed the DUDLEY today and there is no evidence of any vegetation. LV function is within normal limits. No thrombus in the left atrium or appendage. CT scan of the abdomen and pelvis with oral contrast did not show any acute abnormalities. On 03/09/2025, the patient is on room air oxygen. The patient is sitting up in a chair, comfortable and he denies having any specific complaints. Repeat blood culture from 03/07/2025 was negative. White cell count 6.5, hemoglobin 9.9 and platelet count of 127. BUN is 23 with a creatinine of 1.08 and sodium is 135. The patient has been afebrile. Hemodynamically stable. He is negative for any vegetation. On today's evaluation of 03/10/2025, the patient is being seen for a follow-up. The patient is doing well. No specific complaints. Hemodynamically stable. Re jah on IV daptomycin. The white cell count is 6.5 with a hemoglobin 11.9 and platelet count 127. BUN is 16 with a creatinine of 0.9 and sodium is at 135. ID is considering a WBC scan on this patient. Nevertheless, the patient is hemodynamically stable. Mental status is stable. Oxygenation is stable and there is no active pulmonary critical care issue on this patient. Objective - Vital Signs Vital signs: Vital Signs Temp 97.4 F L 03/09/25 20:16 Pulse 85 03/10/25 09:23 Resp 18 03/10/25 09:10 BP 127/74 03/10/25 09:10 Pulse Ox 94 L 03/10/25 09:13 FiO2 21 03/10/25 09:13 Intake & Output 03/09/25 03/10/25 03/10/25 18:59 06:59 18:59 Intake Total 720 360 Output Total 750 950 Balance -30 -950 360 Weight 105 kg Intake: Oral 720 360 Output: Urine 750 950 Other: Voiding Method Urinal Urinal - Exam The patient appeared well nourished and normally developed. Vital signs as documented. The patient has a body mass index of 34.5. The patient is currently on room air oxygen Head exam is unremarkable. No scleral icterus or corneal arcus noted. Neck is without jugular venous distension, thyromegaly, or carotid bruits. Carotid upstrokes are brisk bilaterally. Lungs are clear to auscultation and percussion. Breath sounds are diminished in lung base bilaterally. Cardiac exam reveals the PMI to be normally sized and situated. Rhythm is regular. First and second heart sounds normal. No murmurs, rubs or gallops. The cardiac rhythm is paced and the patient has a pacemaker pocket over the left anterior chest area. Abdominal exam reveals normal bowel sounds, no masses, no organomegaly and no aortic enlargement. Extremities are nonedematous and both femoral and pedal pulses are normal. Examination of the skin revealed no evidence of significant rashes, suspicious appearing nevi or other concerning lesions. Neurologically, the patient is awake and alert and the patient does not have any focal neurological deficit. Cranial nerves are essentially intact. - Labs CBC & Chem 7: 03/08/25 07:29 03/10/25 11:30 Labs: Microbiology - Last 24 Hours (Table) 03/07/25 09:46 Blood Culture - Preliminary Blood Assessment and Plan Plan: MRSA sepsis, likely have a urinary source due to manipulation of his urethra and as the patient undergoes daily urethral dilatations. He is able to urinate. Urine cultures are negative. Blood cultures positive for MRSA and the patient is currently on daptomycin. 2 sets of blood culture positive for MRSA. Subsequent blood culture from 03/07/2025 was negative. DUDLEY is negative for any vegetation. Acute febrile illness associated with chills and fever and generalized bodyaches and weakness, secondary to above Acute hypoxic respiratory failure, improved, currently on room air oxygen Coronary artery disease, consider underlying Abnormal troponins, consider acute NSTEMI versus type II myocardial ischemia related underlying sepsis. Patient was initially on IV heparin that this was discontinued. Paroxysmal atrial fibrillation maintained on long-term anticoagulation with Eliquis. The patient was on IV heparin and this was discontinued and the patient was started on anticoagulation with Eliquis. 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 Renal function is improved. Plan Clinically stable 2 sets of blood cultures positive for MRSA, subsequent blood culture on 03/07/2025 was negative. Patient is currently on room air oxygen DUDLEY is negative for any vegetation or endocarditis Continue daptomycin Awaiting further recommendations from ID Continue anticoagulation with Eliquis Monitor renal function, creatinine remains stable Oxygenation is stable Complete infection workup and pulmonary critical care services are signing off.
--- NOTE | 2025-03-10 15:51 | P.PN ---
Subjective Progress Note Date: 03/10/25 84-year-old gentleman with past medical history significant for hypertension, atrial fibrillation presented to the ER because of generalized weakness. Patient said that he was all right last night when he tried to get to the bed and felt very weak. Patient was complaining of lethargy and weakness at the time patient also felt short of breath. Patient stated shortness of breath was present on rest as well exertion. There was no complaint of chest pain. Patient denies any fever or chills at home. There is no complaint of orthopnea or PND. There is no complaint of nausea, vomiting or abdominal pain. Because of the shortness of breath, EMS was called, patient had to be placed on 2 L of oxygen. Initially in the ER, patient fever of 103 Initial lab work done in the ER showed WBC 10.61, hemoglobin 13.2, platelet count 100, sodium 135, potassium 3.7, BUN 22, creatinine 1.29, glucose 154, lactate 1.9, calcium 8.6, magnesium 1.5 UA negative for infection Influenza A not detected Influenza B not detected RSV not detected COVID-19 not detected EKG done in the ER showed heart rate of61, ventricular paced rhythm, no ST segment elevation or depression seen, no T-wave inversions seen. Chest x-ray done in the ER showed chronic changes and cardiomegaly without acute pulmonary process CT chest PE protocol done showed no evidence of PE, Patient admitted to internal medicine service 03/10/2025 Patient is seen and evaluated sitting up in bedside chair; family is present in the room; patient concerned about worsening swelling both lower extremities and left arm; no significant pain reported Vital signs are reviewed and are stable Lab review shows sodium of 135, potassium 3.6, BUN/creatinine of 16/0.90 -We will order bilateral lower extremity and left arm venous Doppler to rule out DVT; will order a D-dimer - Patient remains on IV daptomycin for plans for WBC scan for source of infection; DUDLEY is negative for any vegetations - Cardiology on board; patient is placed on Aldactone and low-dose amlodipine Objective - Vital Signs Vital signs: Vital Signs Temp 97.4 F L 03/09/25 20:16 Pulse 85 03/10/25 09:23 Resp 18 03/10/25 09:10 BP 127/74 03/10/25 09:10 Pulse Ox 94 L 03/10/25 09:13 FiO2 21 03/10/25 09:13 Intake & Output 03/09/25 03/10/25 03/10/25 18:59 06:59 18:59 Intake Total 720 380 Output Total 750 950 Balance -30 -950 380 Weight 105 kg Intake: IV 20 Invasive Line 2 10 Invasive Line 3 10 Oral 720 360 Output: Urine 750 950 Other: Voiding Method Urinal Urinal Urinal - Exam GENERAL: The patient is alert and oriented x3, not in any acute distress. Well developed, well nourished. HEENT: Pupils are round and equally reacting to light. EOMI. No scleral icterus. No conjunctival pallor. Normocephalic, atraumatic. No pharyngeal erythema. No thyromegaly. CARDIOVASCULAR: S1 and S2 present. No murmurs, rubs, or gallops. PULMONARY: Coarse breath sounds bilateral , no wheezing or crackles. ABDOMEN: Soft, nontender, nondistended, normoactive bowel sounds. No palpable organomegaly. MUSCULOSKELETAL: No joint swelling or deformity. EXTREMITIES: No cyanosis, clubbing, or pedal edema. NEUROLOGICAL: Gross neurological examination did not reveal any focal deficits. SKIN: No rashes. 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 History of skin cancer History of hypertension Hyperlipidemia Monitor vital signs Monitor CBC Monitor CMP Continue telemetry monitoring Follow-up on blood culture Strict I's and O's, daily weights, switch to oral Lasix 40 mg twice daily Continue daptomycin Continue Eliquis Continue breathing treatment DUDLEY showing No evidence of vegetation,Normal global LV size and systolic function Mild to moderate concentric LVH,Moderate biatrial dilatation,No thrombus in LIS[place]ETH or LA left atrial appendage ID following, appreciate their recommendation, recommendations noted from 03/08, WBC scan ordered Cardiology following,appreciate their recommendation, recommendations noted from 03/08 Pulmonology followingappreciate their recommendation, recommendations noted from 03/08 Labs and medication were reviewed.. Continue same treatment. Continue with symptomatic treatment. Resume home medication. Monitor labs and vitals. DVT and GI prophylaxis. Further recommendations as per clinical course of the patient
--- NOTE | 2025-03-10 19:28 | US ---
EXAMINATION TYPE: US venous doppler duplex LE BI DATE OF EXAM: 03/10/2025 3:52 PM COMPARISON: NONE CLINICAL INDICATION: Male, 84 years old with history of Swelling; On blood thinners, Pain TECHNIQUE: The lower extremity deep venous system is examined utilizing real time linear array sonog albertina with graded compression, color doppler sonography, and spectral doppler. SIDE PERFORMED: Bilateral FINDINGS: VESSELS IMAGED: Common Femoral Vein Deep Femoral Vein Greater Saphenous Vein * Femoral Vein Popliteal Vein Small Saphenous Vein * Proximal Calf Veins (* superficial vessels) Right Leg: Negative for DVT, Color Doppler imaging shows patency of the vessels. Spectral waveforms are within normal limits. Left Leg: Negative for DVT, Color Doppler imaging shows patency of the vessels. Spectral waveforms a re within normal limits. IMPRESSION: 1. Bilateral lower extremity ultrasound negative for deep venous thrombosis [facility], , 03/10/2025 7:26 PM
--- NOTE | 2025-03-10 19:29 | US ---
EXAMINATION TYPE: US venous doppler duplex UE LT DATE OF EXAM: 03/10/2025 COMPARISON: NONE CLINICAL INDICATION: Male, 84 years old with history of Swelling; On blood thinners TECHNIQUE: Grayscale, color Doppler and spectral Doppler imaging of the upper extremity. SIDE PERFORMED: Left VESSELS IMAGED: IJV Subclavian Vein Axilla Vein Brachial Vein(s) Radial Paired Veins Ulnar Paired Veins Cephalic Vein* Basilic Vein* (*superficial vessels) FINDINGS: Left Arm: Negative for DVT Grayscale, color doppler, spectral doppler imaging performed of the deep veins of the upper extremiti es. IMPRESSION: 1. Left upper extremity ultrasound negative for deep venous thrombosis. [facility], , 03/10/2025 7:27 PM
[2025-03-10] MEDS: ZINC OXIDE PASTE (Z-GUARD) 1 APPLIC TOPICAL SCH (20:18)
[2025-03-11 07:34] LABS: Basophils # (A) 0.04 10*3/uL (0.00-0.10); Basophils % (A) 0.5 %; Eosinophils # (A) 0.14 10*3/uL (0.04-0.35); Eosinophils % (A) 1.7 %; HCT 35.3 % (39.6-50.0); HGB 11.9 g/dL (13.0-17.0); Lymphocytes # (A) 1.77 10*3/uL (0.90-5.00); Lymphocytes % (A) 21.6 %; MCH 31.1 pg (27.0-32.0); MCHC 33.7 g/dL (32.0-37.0); MCV 92.2 fL (80.0-97.0); Mean Platelet Volume 9.6 fL (9.5-12.2); Monocytes # (A) 0.51 10*3/uL (0.20-1.00); Monocytes % (A) 6.2 %; Neutrophils # (A) 5.33 10*3/uL (1.80-7.70); Neutrophils % (A) 65.2 %; Platelet Count 228 10*3/uL (140-440); RBC 3.83 10*6/uL (4.40-5.60); WBC 8.18 10*3/uL (4.50-10.00)
[2025-03-11 07:45] LABS: African American GFR (CKD) 83 (>60 ml/min/1.73 sqM); Anion Gap 8 mmol/L; Blood Urea Nitrogen 17 mg/dL (9-20); Calcium 9.1 mg/dL (8.4-10.2); Carbon Dioxide 31 mmol/L (22-30); Chloride 97 mmol/L (98-107); Glucose 103 mg/dL (74-99); Non-African American GFR(CKD) 72 (>60 ml/min/1.73 sqM); Potassium 3.7 mmol/L (3.5-5.1); Sodium 136 mmol/L (137-145)
[2025-03-11 11:22] VITALS: BMI 35.2
--- NOTE | 2025-03-11 13:20 | PN ---
PROGRESS NOTE DATE OF SERVICE: 03/11/2025 SUBJECTIVE: This is an 84-year-old gentleman who was admitted with features of sepsis, had MRSA grown from the culture. The patient is . The patient also had a fever present on admission. The patient also had DUDLEY, which is negative for any vegetations. The troponins were found to be elevated at 0.186 on admission. There is no history of fever, rigors, chills at this time. The patient is awaiting a bone scan at this time. PAST MEDICAL HISTORY: Reviewed. REVIEW OF SYSTEMS: A 14-point review of systems negative except as mentioned earlier. CURRENT MEDICATIONS: Reviewed. PHYSICAL EXAMINATION: VITAL SIGNS: Pulse 68, blood pressure 140/70, and respirations 18. CHEST: A few scattered rhonchi. ABDOMEN: Soft. NERVOUS SYSTEM: No focal deficit. LABORATORY DATA: Reviewed. ASSESSMENT: 1. Methicillin-resistant Staphylococcus aureus sepsis for evaluation. 2. [id number] diastolic congestive heart failure. 3. Possible acute non ST-segment elevation myocardial infarction present on admission. 4. Sick sinus syndrome. 5. History of paroxysmal atrial fibrillation. 6. Chronic back pain and degenerative joint disease. 7. History of hypertension. 8. Hyperlipidemia. RECOMMENDATIONS AND DISCUSSION: I recommend to continue current management and symptomatic treatment. Otherwise, sedimentation rate is only 19. Procalcitonin is elevated. Bone scan has been ordered. We will continue to monitor. Continue with antibiotics. The patient is on IV daptomycin at this time. Further recommendations to follow. MMODL / IJN: [id number] / MICA
--- NOTE | 2025-03-11 13:20 | P.PN ---
Subjective Progress Note Date: 03/09/25 Principal diagnosis: Reason for follow-up is MRSA bacteremia Patient is a 84-year-old male with a past medical history significant for Atrial Fibrillation, Cancer, GERD/Reflux, Hearing Disorder / Deafness, Hypertension, Osteoarthritis (OA) presenting to the hospital after apparently the patient fell out of the bed patient mention he was try to get to the bathroom felt very weak, patient did have features of sepsis and subsequent blood culture came back positive with MRSA with initial workup negative.Patient is status post DUDLEY completion on 03/08/2025 with no evidence of vegetation On today's evaluation that is 03/09/2024, patient did have a temperature of 98 F this morning and denies having any chills, patient is on room air and breathing comfortably no chest pain or cough, the patient did not have any nausea vomiting abdominal pain or any diarrhea No new labs has been obtained today Objective - Vital Signs Vital signs: Vital Signs Temp 97.5 F L 03/09/25 08:05 Pulse 64 03/09/25 08:08 Resp 16 03/09/25 08:05 BP 106/60 03/09/25 08:05 Pulse Ox 94 L 03/09/25 08:05 FiO2 Intake & Output 03/08/25 03/09/25 03/09/25 18:59 06:59 18:59 Intake Total 555 560 Output Total 175 500 225 Balance 380 60 -225 Weight 105.7 kg Intake: IV 195 20 Invasive Line 2 20 20 Oral 360 540 Output: Gastric Drainage 0 Urine 175 500 225 Stool 0 Urine/Stool Mix 0 Emesis 0 Oral Regurgitation 0 Other 0 Other: Voiding Method Urinal Urinal # Voids 0 1 # Bowel Movements 0 1 - Exam GENERAL DESCRIPTION: An elderly male up in the chair in no distress RESPIRATORY SYSTEM: Unlabored breathing , decreased breath sounds at bases HEART: S1 S2 regular rate and rhythm , ABDOMEN: Soft , no tenderness EXTREMITIES: No edema feet - Labs CBC & Chem 7: 03/11/25 06:23 03/11/25 06:23 Labs: Microbiology - Last 24 Hours (Table) 03/07/25 09:46 Blood Culture - Preliminary Blood Assessment and Plan (1) Elevated serum creatinine Current Visit: Yes Status: Acute Code(s): R79.89 - OTHER SPECIFIED ABNORMAL FINDINGS OF BLOOD CHEMISTRY SNOMED Code(s): 188720062 (2) Fever Current Visit: Yes Status: Acute Code(s): R50.9 - FEVER, UNSPECIFIED SNOMED Code(s): 424949394 (3) Sepsis Current Visit: No Status: Acute Code(s): A41.9 - SEPSIS, UNSPECIFIED ORGANISM SNOMED Code(s): 99711762 Plan: 1patient presented hospital with sepsis in this patient who did have fever elevated white count meeting ready for SIRS source is likely abdominal has the patient was noted to be tender in the left lower quadrant area with concern for possible diverticulitis or related pathology likely from enteric gram-negative pathogen as there was no evidence of any pneumonia or UTI on the initial workup no evidence of any cellulitis or joint swelling 2-patient did have CT of abdominal pelvis with oral contrast did not show any acute abnormality 3-patient did have a 2 sets of blood culture positive for MRSA, DUDLEY completed did not show any evidence of vegetation currently waiting for the bone scan 4patient did have cleared his bacteremia, to continue the daptomycin while waiting for the workup to be completed Dictation was produced using [employer] dictation software. please excuse any gr ammatical, word or spelling errors. Time with Patient: Less than 30
--- NOTE | 2025-03-11 13:22 | P.PN ---
Subjective Progress Note Date: 03/10/25 Principal diagnosis: Reason for follow-up is MRSA bacteremia Patient is a 84-year-old male with a past medical history significant for Atrial Fibrillation, Cancer, GERD/Reflux, Hearing Disorder / Deafness, Hypertension, Osteoarthritis (OA) presenting to the hospital after apparently the patient fell out of the bed patient mention he was try to get to the bathroom felt very weak, patient did have features of sepsis and subsequent blood culture came back positive with MRSA with initial workup negative.Patient is status post DUDLEY completion on 03/08/2025 with no evidence of vegetation On today's evaluation that is 03/10/2025, Patient is afebrile patient is currently on room air and denies having any shortness of breath, the patient denies any chest pain or cough, the patient denies any nausea vomiting did not have any abdominal pain and no diarrhea Patient did have a creatinine 0.90 blood culture repeat from 03/07/2025 so far negative Objective - Vital Signs Vital signs: Vital Signs Temp 97.4 F L 03/09/25 20:16 Pulse 60 03/10/25 16:11 Resp 18 03/10/25 16:08 BP 133/75 03/10/25 16:08 Pulse Ox 96 03/10/25 16:08 FiO2 21 03/10/25 09:13 Intake & Output 03/09/25 03/10/25 03/10/25 18:59 06:59 18:59 Intake Total 720 400 Output Total 750 950 Balance -30 -950 400 Weight 105 kg Intake: IV 40 Invasive Line 2 20 Invasive Line 3 20 Oral 720 360 Output: Urine 750 950 Other: Voiding Method Urinal Urinal Urinal # Voids 2 - Exam GENERAL DESCRIPTION: An elderly male up in the chair in no distress RESPIRATORY SYSTEM: Unlabored breathing , decreased breath sounds at bases HEART: S1 S2 regular rate and rhythm , ABDOMEN: Soft , no tenderness EXTREMITIES: No edema feet - Labs CBC & Chem 7: 03/11/25 06:23 03/11/25 06:23 Labs: Abnormal Lab Results - Last 24 Hours (Table) 03/10/25 Range/Units 11:30 Sodium 135 L (137-145) mmol/L Chloride 97 L (98-107) mmol/L Carbon Dioxide 31 H (22-30) mmol/L Microbiology - Last 24 Hours (Table) 03/07/25 09:46 Blood Culture - Preliminary Blood Assessment and Plan (1) Elevated serum creatinine Current Visit: Yes Status: Acute Code(s): R79.89 - OTHER SPECIFIED ABNORMAL FINDINGS OF BLOOD CHEMISTRY SNOMED Code(s): 039231072 (2) Fever Current Visit: Yes Status: Acute Code(s): R50.9 - FEVER, UNSPECIFIED SNOMED Code(s): 743900954 (3) Sepsis Current Visit: No Status: Acute Code(s): A41.9 - SEPSIS, UNSPECIFIED ORGANISM SNOMED Code(s): 98810123 Plan: 1patient presented hospital with sepsis in this patient who did have fever elevated white count meeting ready for SIRS source is likely abdominal has the patient was noted to be tender in the left lower quadrant area with concern for possible diverticulitis or related pathology likely from enteric gram-negative pathogen as there was no evidence of any pneumonia or UTI on the initial workup no evidence of any cellulitis or joint swelling 2-patient did have CT of abdominal pelvis with oral contrast did not show any acute abnormality 3-patient did have a 2 sets of blood culture positive for MRSA, DUDLEY completed did not show any evidence of vegetation currently waiting for the bone scan which is scheduled for tomorrow to determine the need for any further workup if negative may need an MRI of the lumbosacral spine in the outpatient setting cannot be done here because of his pacemaker for now continue with the daptomycin at the bedside multiple questions answered Dictation was produced using [employer] dictation software. please excuse any grammatical, word or spelling errors. Time with Patient: Less than 30
[2025-03-11] MEDS: POTASSIUM CHLORIDE ER 10 MEQ TAB.ER.PRT PO SCH (16:25)
[2025-03-11 16:34] VITALS: RESP 16
--- NOTE | 2025-03-11 22:14 | NM ---
EXAMINATION TYPE: NM WBC whole body DATE OF EXAM: 03/11/2025 COMPARISON: NONE CLINICAL INDICATION: Male, 84 years old with history of bacteremia , source; TECHNIQUE: Following administration of 14.2 mCi Tc99m Ceretec. Images obtained 3 hours post injecti on. FINDINGS: Normal physiological tracer activity is noted in the liver and spleen and in the bone marrow of the a xial and appendicular skeleton. Suspicious focal uptake is not identified. IMPRESSION: Normal white blood cell scan. No evidence for abnormal tracer activity to suggest source of bacteremi a. [facility], , 03/11/2025 10:12 PM
[2025-03-12 07:43] LABS: African American GFR (CKD) 76 (>60 ml/min/1.73 sqM); Anion Gap 5 mmol/L; Blood Urea Nitrogen 15 mg/dL (9-20); Calcium 9.2 mg/dL (8.4-10.2); Carbon Dioxide 34 mmol/L (22-30); Chloride 98 mmol/L (98-107); Glucose 109 mg/dL (74-99); Non-African American GFR(CKD) 66 (>60 ml/min/1.73 sqM); Potassium 3.8 mmol/L (3.5-5.1); Sodium 137 mmol/L (137-145)
[2025-03-12 07:49] LABS: Basophils # (A) 0.05 10*3/uL (0.00-0.10); Basophils % (A) 0.6 %; Eosinophils # (A) 0.11 10*3/uL (0.04-0.35); Eosinophils % (A) 1.3 %; HCT 36.6 % (39.6-50.0); HGB 12.3 g/dL (13.0-17.0); Lymphocytes # (A) 1.95 10*3/uL (0.90-5.00); Lymphocytes % (A) 22.8 %; MCH 31.1 pg (27.0-32.0); MCHC 33.6 g/dL (32.0-37.0); MCV 92.7 fL (80.0-97.0); Mean Platelet Volume 9.6 fL (9.5-12.2); Monocytes # (A) 0.51 10*3/uL (0.20-1.00); Neutrophils # (A) 5.55 10*3/uL (1.80-7.70); Neutrophils % (A) 64.6 %; Platelet Count 258 10*3/uL (140-440); RBC 3.95 10*6/uL (4.40-5.60); RDW 12.8 % (11.5-14.5); WBC 8.57 10*3/uL (4.50-10.00)
[2025-03-12] MEDS ORDERED: NON FORMULARY DRUG (Ubidecarenone [Co Q-10] 400 MG Capsule) PO SCH (09:00)
--- NOTE | 2025-03-12 16:52 | P.PN ---
Subjective Progress Note Date: 03/11/25 Principal diagnosis: Reason for follow-up is MRSA bacteremia Patient is a 84-year-old male with a past medical history significant for Atrial Fibrillation, Cancer, GERD/Reflux, Hearing Disorder / Deafness, Hypertension, Osteoarthritis (OA) presenting to the hospital after apparently the patient fell out of the bed patient mention he was try to get to the bathroom felt very weak, patient did have features of sepsis and subsequent blood culture came back positive with MRSA with initial workup negative.Patient is status post DUDLEY completion on 03/08/2025 with no evidence of vegetation On today's evaluation that is 03/11/2025, patient has been afebrile, patient is breathing comfortably and is currently on room air, patient denies having any chest pain and cough, patient denies nausea vomiting or diarrhea and no abdominal pain. Patient white count is 8.18, creatinine 0.98 Objective - Vital Signs Vital signs: Vital Signs Temp 97.3 F L 03/11/25 08:27 Pulse 68 03/11/25 08:43 Resp 18 03/11/25 08:43 BP 140/78 03/11/25 08:27 Pulse Ox 96 03/11/25 08:36 FiO2 21 03/10/25 09:13 Intake & Output 03/10/25 03/11/25 03/11/25 18:59 06:59 18:59 Intake Total 400 820 200 Output Total 300 Balance 400 520 200 Weight 104.9 kg 104.9 kg Intake: IV 40 40 20 Invasive Line 2 20 20 10 Invasive Line 3 20 20 10 Oral 360 780 180 Output: Urine 300 Other: Voiding Method Urinal Urinal Urinal # Voids 2 - Exam GENERAL DESCRIPTION: An elderly male up in the chair in no distress RESPIRATORY SYSTEM: Unlabored breathing , decreased breath sounds at bases HEART: S1 S2 regular rate and rhythm , ABDOMEN: Soft , no tenderness EXTREMITIES: No edema feet - Labs CBC & Chem 7: 03/12/25 06:44 03/12/25 06:44 Labs: Abnormal Lab Results - Last 24 Hours (Table) 03/11/25 03/11/25 Range/Units 06:23 06:23 RBC 3.83 L (4.40-5.60) 10*6/uL Hgb 11.9 L (13.0-17.0) g/dL Hct 35.3 L (39.6-50.0) % Immature Gran # 0.39 H (0.00-0.04) 10*3/uL Sodium 136 L (137-145) mmol/L Chloride 97 L (98-107) mmol/L Carbon Dioxide 31 H (22-30) mmol/L Glucose 103 H (74-99) mg/dL Microbiology - Last 24 Hours (Table) 03/07/25 09:46 Blood Culture - Preliminary Blood Assessment and Plan (1) Elevated serum creatinine Current Visit: Yes Status: Acute Code(s): R79.89 - OTHER SPECIFIED ABNORMAL FINDINGS OF BLOOD CHEMISTRY SNOMED Code(s): 084769306 (2) Fever Current Visit: Yes Status: Acute Code(s): R50.9 - FEVER, UNSPECIFIED SNOMED Code(s): 979970208 (3) Sepsis Current Visit: No Status: Acute Code(s): A41.9 - SEPSIS, UNSPECIFIED ORGANISM SNOMED Code(s): 68900171 Plan: 1patient presented hospital with sepsis in this patient who did have fever elevated white count meeting ready for SIRS source is likely abdominal has the patient was noted to be tender in the left lower quadrant area with concern for possible diverticulitis or related pathology likely from enteric gram-negative pathogen as there was no evidence of any pneumonia or UTI on the initial workup no evidence of any cellulitis or joint swelling 2-patient did have CT of abdominal pelvis with oral contrast did not show any acute abnormality 3-patient did have a 2 sets of blood culture positive for MRSA, DUDLEY completed did not show any evidence of vegetation currently waiting for the bone scan which is currently in progress if negative he will need to MRI of the lumbar s acral spine in the outpatient setting for now continue with the daptomycin Dictation was produced using [employer] dictation software. please excuse any grammatical, word or spelling errors. Time with Patient: Less than 30
--- NOTE | 2025-03-12 16:54 | P.PN ---
Subjective Progress Note Date: 03/12/25 Principal diagnosis: Reason for follow-up is MRSA bacteremia Patient is a 84-year-old male with a past medical history significant for Atrial Fibrillation, Cancer, GERD/Reflux, Hearing Disorder / Deafness, Hypertension, Osteoarthritis (OA) presenting to the hospital after apparently the patient fell out of the bed patient mention he was try to get to the bathroom felt very weak, patient did have features of sepsis and subsequent blood culture came back positive with MRSA with initial workup negative.Patient is status post DUDLEY completion on 03/08/2025 with no evidence of vegetation On today's evaluation that is 03/12/2025, Patient is afebrile this morning patient denies having any chest pain shortness of breath or cough, the patient is currently on room air, patient denies any abdominal pain no diarrhea no nausea no vomiting. The patient white count is 8.57, creatinine 1.06 blood culture repeat has been negative Objective - Vital Signs Vital signs: Vital Signs Temp 97.8 F 03/12/25 04:00 Pulse 61 03/12/25 12:32 Resp 16 03/12/25 12:32 BP 122/77 03/12/25 12:32 Pulse Ox 91 L 03/12/25 12:32 FiO2 21 03/10/25 09:13 Intake & Output 03/11/25 03/12/25 03/12/25 18:59 06:59 18:59 Intake Total 570 20 370 Output Total 400 Balance 170 20 370 Weight 104.9 kg 102.6 kg Intake: IV 30 20 10 Invasive Line 2 20 20 10 Invasive Line 3 10 Oral 540 360 Output: Urine 400 Other: Voiding Method Urinal Urinal Urinal Diaper # Voids 2 2 - Exam GENERAL DESCRIPTION: An elderly male up in the chair in no distress RESPIRATORY SYSTEM: Unlabored breathing , decreased breath sounds at bases HEART: S1 S2 regular rate and rhythm , ABDOMEN: Soft , no tenderness EXTREMITIES: No edema feet - Labs CBC & Chem 7: 03/12/25 06:44 03/12/25 06:44 Labs: Abnormal Lab Results - Last 24 Hours (Table) 03/12/25 03/12/25 Range/Units 06:44 06:44 RBC 3.95 L (4.40-5.60) 10*6/uL Hgb 12.3 L (13.0-17.0) g/dL Hct 36.6 L (39.6-50.0) % Immature Gran # 0.40 H (0.00-0.04) 10*3/uL Carbon Dioxide 34 H (22-30) mmol/L Glucose 109 H (74-99) mg/dL Assessment and Plan (1) Elevated serum creatinine Current Visit: Yes Status: Acute Code(s): R79.89 - OTHER SPECIFIED ABNORMAL FINDINGS OF BLOOD CHEMISTRY SNOMED Code(s): 124755369 (2) Fever Current Visit: Yes Status: Acute Code(s): R50.9 - FEVER, UNSPECIFIED SNOMED Code(s): 433868538 (3) Sepsis Current Visit: No Status: Acute Code(s): A41.9 - SEPSIS, UNSPECIFIED ORGANISM SNOMED Code(s): 79477211 Plan: 1patient presented hospital with sepsis in this patient who did have fever elevated white count meeting ready for SIRS source is likely abdominal has the patient was noted to be tender in the left lower quadrant area with concern for possible diverticulitis or related pathology likely from enteric gram-negative pathogen as there was no evidence of any pneumonia or UTI on the initial workup no evidence of any cellulitis or joint swelling 2-patient did have CT of abdominal pelvis with oral contrast did not show any acute abnormality 3-patient did have a 2 sets of blood culture positive for MRSA, DUDLEY completed d id not show any evidence of vegetation currently waiting for the bone scan did not show any uptake in the spine or to the left upper chest area with the patient did have his pacemaker there was no evidence of any bony destruction on the lumbosacral spine CT as the CAT scan was reviewed with the radiologist keeping in mind the patient did have a pacemaker with a bacteremia and no localizing signs symptoms of infection will recommend at least 4-week course of IV daptomycin on discharge also recommending obtaining a MRI of the lumbar spine with contrast to rule out discitis as the patient did have history of steroid injection to the lower back Dictation was produced using [employer] dictation software. please excuse any grammatical, word or spelling errors.
--- NOTE | 2025-03-13 05:13 | P.PN ---
Subjective Progress Note Date: 03/12/25 This is a pleasant 84-year-old male who was recently admitted noted to have MRSA bacteremia being closely monitored by infectious disease. Patient is continued on antibiotics and will plan on receiving IV antibiotics with a PICC line and outpatient IV antibiotic therapy in the form of daptomycin. Most recent blood cultures are negative and will continue for at least 4 weeks per ID with close outpatient follow-up. Patient also evaluated by cardiology status post DUDLEY revealing no vegetation recommending outpatient follow-up with cardiology as well. Patient did have a WBC scan which did not reveal any abnormal uptake. PICC line was ordered and per nursing staff will not be able to be placed until 03/13/2025. Patient will likely discharge after this. Review of systems: Constitutional: No reports of fatigue, fever, or chills Cardiovascular: No reports of chest pain or palpitations Respiratory: No reports of shortness of breath or cough GI: No reports of nausea, no reports of vomiting, no diarrhea : No reports of dysuria or retention Neurovascular: No reports of generalized weakness All medications have been reviewed PHYSICAL EXAMINATION: GENERAL: The patient is alert and oriented x4, Well developed, well nourished. Elderly appearing, obese HEENT: Pupils are round and equally reacting to light. EOMI. no scleral icterus. No conjunctival pallor. Normocephalic, atraumatic. No pharyngeal erythema. No thyromegaly. CARDIOVASCULAR: S1 and S2 muffled PULMONARY: diminished breath sounds bilaterally with no wheezing or rhonchi noted. ABDOMEN: soft. Nontender on exam. obese. non-distended, normoactive bowel sounds. No palpable organomegaly. MUSCULOSKELETAL: No joint swelling or deformity. EXTREMITIES: No cyanosis, clubbing, or pedal edema. NEUROLOGICAL: Gross neurological examination did not reveal any focal deficits. SKIN: No rashes. Assessment: MRSA sepsis with bacteremia for evaluation with repeat cultures being negative, DUDLEY negative for any vegetation Acute on chronic diastolic congestive heart failure Possible acute NSTEMI on admission with elevated troponins History of sick sinus syndrome History of paroxysmal atrial fibrillation, currently rate controlled Chronic back pain and degenerative joint disease History of hypertension Obesity with a BMI 34.4 Hyperlipidemia GI prophylaxis DVT prophylaxis Full code Plan: Recommend to continue with current medications and management with cardiology and infectious disease following. Patient did have positive MRSA bacteremia on the blood cultures and most recent are negative. Patient is scheduled to receive a PICC line and was set for discharge per case management with antibiotics and coverage being arranged and will continue on minimum 4 to 6 weeks of daptomycin. Per nursing staff patient is unable to receive PICC line today and will be scheduled for morning 03/13/2025. Patient is keen on going home and discharge planning will be arranged for morning once PICC line is verified Case management arranging discharge planning Patient is status post WBC scan which is negative for abnormal uptake Due to multiple complex medical issues, overall prognosis is guarded. Patient will likely be discharged in the next 24 hours once PICC line is received The impression and plan of care has been dictated by Debora Jacob, nurse practitioner as directed. Dr. Rolando MD I have performed a history and examination and MDM of this patient, discussed the same with the dictator, and agree with the dictator's assessment and plan as written ,documented as a scribe. Based on total visit time, I have performed more than 50% of the visit. Any additional findings or plans will be noted. Objective - Vital Signs Vital signs: Vital Signs Temp 97.8 F 03/12/25 04:00 Pulse 61 03/12/25 12:32 Resp 16 03/12/25 12:32 BP 122/77 03/12/25 12:32 Pulse Ox 91 L 03/12/25 12:32 FiO2 21 03/10/25 09:13 Intake & Output 03/11/25 03/12/25 03/12/25 18:59 06:59 18:59 Intake Total 570 20 190 Output Total 400 Balance 170 20 190 Weight 104.9 kg 102.6 kg Intake: IV 30 20 10 Invasive Line 2 20 20 10 Invasive Line 3 10 Oral 540 180 Output: Urine 400 Other: Voiding Method Urinal Urinal Urinal Diaper # Voids 2 - Labs CBC & Chem 7: 03/12/25 06:44 03/12/25 06:44 Labs: Abnormal Lab Results - Last 24 Hours (Table) 03/12/25 03/12/25 Range/Units 06:44 06:44 RBC 3.95 L (4.40-5.60) 10*6/uL Hgb 12.3 L (13.0-17.0) g/dL Hct 36.6 L (39.6-50.0) % Immature Gran # 0.40 H (0.00-0.04) 10*3/uL Carbon Dioxide 34 H (22-30) mmol/L Glucose 109 H (74-99) mg/dL
[2025-03-13 06:08] VITALS: TEMP 97.7
[2025-03-13 12:03] VITALS: BP 115/77; PULSE 64
--- NOTE | 2025-03-13 12:07 | P.PN ---
Subjective Progress Note Date: 03/13/25 Principal diagnosis: Reason for follow-up is MRSA bacteremia Patient is a 84-year-old male with a past medical history significant for Atrial Fibrillation, Cancer, GERD/Reflux, Hearing Disorder / Deafness, Hypertension, Osteoarthritis (OA) presenting to the hospital after apparently the patient fell out of the bed patient mention he was try to get to the bathroom felt very weak, patient did have features of sepsis and subsequent blood culture came back positive with MRSA with initial workup negative.Patient is status post DUDLEY completion on 03/08/2025 with no evidence of vegetation On today's evaluation that is 03/13/2025,the patient denies any fever or any chills, patient is breathing comfortably on room air, the patient denies chest pain shortness of breath and no significant cough, patient denies abdominal pain, no nausea vomiting or diarrhea.. Patient did not have the lab draw today blood culture on 03/07/2025 has been negative Objective - Vital Signs Vital signs: Vital Signs Temp 97.7 F 03/13/25 04:00 Pulse 65 03/13/25 04:00 Resp 16 03/13/25 04:00 BP 126/77 03/13/25 04:00 Pulse Ox 95 03/13/25 04:00 FiO2 21 03/10/25 09:13 Intake & Output 03/12/25 03/13/25 03/13/25 18:59 06:59 18:59 Intake Total 380 20 Balance 380 20 Weight 101.9 kg Intake: IV 20 20 Invasive Line 2 20 20 Oral 360 Other: Voiding Method Urinal Urinal Diaper Diaper # Voids 2 2 - Exam GENERAL DESCRIPTION: An elderly male up in the chair in no distress RESPIRATORY SYSTEM: Unlabored breathing , decreased breath sounds at bases HEART: S1 S2 regular rate and rhythm , ABDOMEN: Soft , no tenderness EXTREMITIES: No edema feet - Labs CBC & Chem 7: 03/12/25 06:44 03/12/25 06:44 Labs: Microbiology - Last 24 Hours (Table) 03/07/25 09:46 Blood Culture - Final Blood Assessment and Plan (1) Elevated serum creatinine Current Visit: Yes Status: Acute Code(s): R79.89 - OTHER SPECIFIED ABNORMAL FINDINGS OF BLOOD CHEMISTRY SNOMED Code(s): 565943493 (2) Fever Current Visit: Yes Status: Acute Code(s): R50.9 - FEVER, UNSPECIFIED SNOMED Code(s): 908992005 (3) Sepsis Current Visit: No Status: Acute Code(s): A41.9 - SEPSIS, UNSPECIFIED ORGANISM SNOMED Code(s): 97048567 Plan: 1patient presented hospital with sepsis in this patient who did have fever elevated white count meeting ready for SIRS source is likely abdominal has the patient was noted to be tender in the left lower quadrant area with concern for possible diverticulitis or related pathology likely from enteric gram-negative pathogen as there was no evidence of any pneumonia or UTI on the initial workup no evidence of any cellulitis or joint swelling 2-patient did have CT of abdominal pelvis with oral contrast did not show any acute abnormality 3-patient did have a 2 sets of blood culture positive for MRSA, DUDLEY completed did not show any evidence of vegetation currently waiting for the bone scan did not show any uptake in the spine or to the left upper chest area with the patient did have his pacemaker there was no evidence of any bony destruction on the lumbosacral spine CT as the CAT scan was reviewed with the radiologist keeping in mind the patient did have a pacemaker with a bacteremia and no localizing signs symptoms of infection will recommend at least 4-week course of IV daptomycin on discharge, patient is currently waiting for PICC line placement and outpatient IV antibiotic arrangement patient did have a appointment for outpatient MRI once to get information for his pacemaker from his nuisance wildlife specialist to the MRI center Dictation was produced using [employer] dictation software. please excuse any grammatical, word or spelling errors. Time with Patient: Less than 30
--- NOTE | 2025-03-16 16:15 | P.DS ---
Providers Date of admission: 03/04/25 23:42 Expected date of discharge: 03/13/25 Attending physician: Jose Marshall Consults: 03/04/25 23:42 Consult Physician Routine Consulting Provider: Kelly Garcia Consult Reason/Comments: fever Do you want consulting provider notified?: Yes 03/05/25 11:59 Consult Physician Routine Consulting Provider: Shannan Cohen Consult Reason/Comments: short of breath, Do you want consulting provider notified?: Yes Consult Physician Routine Consulting Provider: Alfred Capps Consult Reason/Comments: hx penile dilation Do you want consulting provider notified?: Yes Primary care physician: Gagan Pitt Hospital Course: Final diagnosis MRSA sepsis with bacteremia unknown etiology with repeat cultures being negative, DUDLEY negative for any vegetation Acute on chronic diastolic congestive heart failure acute NSTEMI on admission with elevated troponins History of sick sinus syndrome History of paroxysmal atrial fibrillation, currently rate controlled Chronic back pain and degenerative joint disease History of hypertension Obesity with a BMI 34.4 Hyperlipidemia GI prophylaxis DVT prophylaxis Full code Discharge disposition Patient is being discharged in a stable condition with guarded prognosis to home. Patient will follow-up with Dr. Pitt in the outpatient setting upon discharge. Patient is to continue with IV antibiotics per ID recommend patient follow-up along with an MRI of the lumbar spine in 4 weeks as scheduled. Total time taken is greater than 35 minutes. Hospital course This is a 84-year-old male who was recently admitted with elevated troponin also noted to have MRSA bacteremia being closely cardiology as well as infectious disease. Patient was noted to have MRSA bacteremia of unknown source and is s tatus post DUDLEY with cardiology with no vegetation noted. Repeat blood cultures are negative thus far patient has received a PICC line and will be continued on outpatient IV antibiotics with MRI being febrile in the outpatient setting in the next 4 weeks. There is a concern of an underlying infection possibly in the spine with chronic back pain. Lumbar spine MRI ordered for outpatient. Patient is extremely anxious to get home and would like to be discharged. Patient has been cleared by consultation and has received a PICC line with outpatient IV antibiotics being arranged per case management. Please refer to other consultation notes for further HPI. Currently no reports of chest pain, shortness of breath, or palpitations. Patient is afebrile. No reports of nausea or vomiting and patient is tolerating diet. Patient will be discharged home with home care today. Guarded prognosis and high risk for readmissions given significant comorbidities. Physical exam: Gen: This is a 84-year-old male who is awake, alert and oriented x 3, well- developed, elderly appearing, obese HEENT: Head is atraumatic, normocephalic. Pupils equal, round. Sclerae is anicteric. NECK: Supple. No JVD. No lymphadenopathy. No thyromegaly. LUNGS: Diminished breath sounds bilaterally otherwise clear to auscultation. No wheezes or rhonchi. No intercostal retractions. HEART: S1, S2 are muffled ABDOMEN: Soft. Obese. Bowel sounds are present. No masses. No tenderness. EXTREMITIES: No pedal edema. No calf tenderness. NEUROLOGICAL: Patient is awake, alert and oriented x3. Cranial nerves 2 through 12 are grossly intact. Please refer to medication reconciliation sheet for a list of medications. The impression and plan of care has been dictated by Debora Jacob, Nurse Practitioner as directed. Dr. Rolando MD I have performed a history and examination and MDM of this patient, discussed the same with the dictator, and agree with the dictator's assessment and plan as written ,documented as a scribe. Based on total visit time, I have performed more than 50% of the visit. Patient Condition at Discharge: Fair Plan - Discharge Summary Discharge Rx Participant: Yes New Discharge Prescriptions: New Aspirin 81 mg PO DAILY #30 tab Spironolactone [Aldactone] 25 mg PO DAILY #30 tab DAPTOmycin [Cubicin] 500 mg IVPB Q24H 31 Days #31 each Continue Potassium Chloride [Potassium Chloride ER] 10 meq PO QID Esomeprazole Magnesium [NexIUM] 40 mg PO DAILY Pumpkin Seed 1,000mg 2,000 mg PO TID calcitrioL [Rocaltrol] 0.25 mcg PO MOWEFR allopurinoL [Zyloprim] 100 mg PO DAILY Losartan [Cozaar] 50 mg PO BID Furosemide [Lasix] 40 mg PO BID carvediloL [Coreg] 25 mg PO BID Apixaban [Eliquis] 5 mg PO BID #60 tab Acetaminophen Tab [Tylenol] 1,000 mg PO TID Ubidecarenone [Co Q-10] 400 mg PO DAILY Fish Oil/Dha/Epa [Fish Oil 1,200 mg Fish Oil] 1 cap PO BID Niacin 500 mg PO BID Nystatin 100,000 Unit/gm Oint [Mycostatin Oint] 1 applic TOPICAL HS Discharge Medication List Esomeprazole Magnesium [NexIUM] 40 mg PO DAILY 12/25/20 [History] Potassium Chloride [Potassium Chloride ER] 10 meq PO QID 12/25/20 [History] Apixaban [Eliquis] 5 mg PO BID #60 tab 07/15/23 [Rx] Acetaminophen Tab [Tylenol] 1,000 mg PO TID 03/05/25 [History] Fish Oil/Dha/Epa [Fish Oil 1,200 mg Fish Oil] 1 cap PO BID 03/05/25 [History] Furosemide [Lasix] 40 mg PO BID 03/05/25 [History] Losartan [Cozaar] 50 mg PO BID 03/05/25 [History] Niacin 500 mg PO BID 03/05/25 [History] Nystatin 100,000 Unit/gm Oint [Mycostatin Oint] 1 applic TOPICAL HS 03/05/25 [History] Pumpkin Seed 1,000mg 2,000 mg PO TID 03/05/25 [History] Ubidecarenone [Co Q-10] 400 mg PO DAILY 03/05/25 [History] allopurinoL [Zyloprim] 100 mg PO DAILY 03/05/25 [History] calcitrioL [Rocaltrol] 0.25 mcg PO MOWEFR 03/05/25 [History] carvediloL [Coreg] 25 mg PO BID 03/05/25 [History] Aspirin 81 mg PO DAILY #30 tab 03/12/25 [Rx] DAPTOmycin [Cubicin] 500 mg IVPB Q24H 31 Days #31 each 03/12/25 [Rx] Spironolactone [Aldactone] 25 mg PO DAILY #30 tab 03/12/25 [Rx] Follow up Appointment(s)/Referral(s): Gagan Pitt MD [Primary Care Provider] - 1-2 days (Plesase call to schedule appointment (Misti LUGO)) [facility], [REFERRING] - 03/13/25 (Will deliver tonight between 6PM- 8PM. ) [facility] [NON-STAFF] - 03/14/25 Kelly Garcia MD [STAFF PHYSICIAN] - 03/18/25 4:00 pm (Tuesday-please notify office if you haven't had your MRI yet) Chucky Wilcox MD [STAFF PHYSICIAN] - 03/25/25 4:00 pm (Tuesday -Doctor visit plus device check) Patient Instructions/Handouts: Sepsis (DC) Activity/Diet/Wound Care/Special Instructions: Activity limited until follow-up Follow-up with primary care provider on discharge Follow-up with cardiology outpatient Follow-up with infectious disease outpatient Continue on IV antibiotic therapy for 4 to 6 weeks and close outpatient follow- up with infectious disease Call the patient scheduling center to schedule an outpatient MRI with prescr iption provided prior to antibiotics being done to evaluate for osteomyelitis/discitis per ID recommendations which will also determine if you need continued IV antibiotic therapy past 4 weeks Discharge Disposition: HOME WITH HOME HEALTH SERVICES
== END 2025-03-13 14:50 | disposition home health service (06) | DRG 871 ==
LOC: EC 20:22 → 3SCARD 23:42
PROVIDERS: ADMIT Hospitalist; ATTEND Hospitalist
PROC: B24BZZ4 Ultrasonography of Heart with Aorta, Transesophageal (ICD-10-PCS; 2025-03-08)
PROC: 02HV33Z Insertion of Infusion Device into Superior Vena Cava, Percutaneous Approach (ICD-10-PCS; principal; 2025-03-13 13:45)
DX: A41.02 Sepsis due to Methicillin resistant Staphylococcus aureus (principal); I21.A1 Myocardial infarction type 2; I50.33 Acute on chronic diastolic (congestive) heart failure; J96.01 Acute respiratory failure with hypoxia; I51.3 Intracardiac thrombosis, not elsewhere classified; I11.0 Hypertensive heart disease with heart failure; Z68.34 Body mass index [BMI] 34.0-34.9, adult; I49.5 Sick sinus syndrome; I48.0 Paroxysmal atrial fibrillation; E66.9 Obesity, unspecified; E78.5 Hyperlipidemia, unspecified; H91.90 Unspecified hearing loss, unspecified ear; F17.200 Nicotine dependence, unspecified, uncomplicated; E83.42 Hypomagnesemia; M47.9 Spondylosis, unspecified; W06.XXXA Fall from bed, initial encounter; Z79.01 Long term (current) use of anticoagulants; Z79.899 Other long term (current) drug therapy; Z85.46 Personal history of malignant neoplasm of prostate; Z85.828 Personal history of other malignant neoplasm of skin; Y92.003 Bedroom of unspecified non-institutional (private) residence as the place of occurrence of the external cause; Z95.0 Presence of cardiac pacemaker; Z79.82 Long term (current) use of aspirin
CPT/HCPCS: 36415; 36573; 71045; 71275; 74176; 76770; 78306; 80048; 80053; 80061; 81001; 83605; 83735; 83880; 84100; 84145; 84484; 85025; 85379; 85610; 85652; 85730; 86140; 87040; 87077; 87186; 87636; 93005; 93306; 93312; 93320; 93325; 93970; 94640; 94760; 96361; 96365; 96366; 96367; 96368; 96375; 99291